=== PATIENT | female | born 1940 | race Caucasian/White ===

== ENCOUNTER → 2017-10-25 10:40 | Outpatient (CLI) | payer MEDICARE, OTHER, SELFPAY ==
[2017-10-25 13:00] LABS: ALB/GLOB Ratio 1.1 RATIO (0.9-2.4); AST(SGOT) 15 U/L (15-37); Alanine Aminotransfer ALT/SGPT 21 U/L (13-56); Alkaline Phosphatase 107 U/L (45-117); Anion Gap 6 (5-15); BUN 21 mg/dL (7-18); Calcium,Total 8.7 mg/dL (8.5-10.1); Chloride 104 mmol/L (98-107); Creatinine, Serum 0.81 mg/dL (0.55-1.02); EST Glomerular Filtration Rate 73 mL/min (>60); Est Glom Filt Rate - Afr Amer 88 mL/min (>60); Globulin 3.5 g/dL (2.2-4.2); Glucose 78 mg/dL (74-106); Potassium 4.4 mmol/L (3.5-5.1); Protein, Total 7.5 g/dL (6.4-8.2); Sodium Level 139 mmol/L (136-145)
== END ==
PROVIDERS: Family Provider Family Medicine; PCP Family Medicine; Visit Provider Family Medicine
DX: I10 Essential (primary) hypertension (principal)
CPT/HCPCS: 36415; 80053

== ENCOUNTER → 2018-07-25 14:21 | Outpatient (CLI) | payer MEDICARE, OTHER, SELFPAY ==
[2018-07-25 13:25] VITALS: BMI 18.9
[2018-07-25 15:55] LABS: Absolute Lymphocyte Count 2.24 X10^3/ul (0.83-4.51); Absolute Neutrophil Count 3.9 X10^3/uL (2.0-7.7); Basophil# 0.04 X10^3/uL; Basophil% 0.6 % (0-1); Eosinophil# 0.13 X10^3/uL; Eosinophils% 1.9 % (0-5); Hematocrit 41.5 % (37-47); Hemoglobin 13.7 g/dl (12.0-15.0); Lymphocyte # 2.24 X10^3/ul (4.0); Lymphocyte % 32.3 % (19-41); Mean Corpuscular Hgb 30.3 pg (27.0-32.0); Mean Corpuscular Volume 91.8 fL (81-99); Mean Platelet Vol. 9.1 fl (6.2-12.0); Monocyte# 0.62 X10^3/uL; Monocyte% 8.9 % (0-10); Neutrophil # 3.89 X10^3/uL (2.7-7.7); Neutrophil % 56.2 % (47-70); POSITIVE COUNT NO; POSITIVE DIFFERENTIAL NO; POSITIVE MORPHOLOGY NO; Platelet Count 319 K/mm3 (150-450); RBC Distribution Width CV 13.1 % (11.6-14.6); RBC Distribution Width SD 43.1 fl (35.1-43.9); Red Blood Count 4.52 M/mm3 (4.2-5.4); White Blood Count 6.9 K/mm3 (4.4-11.0)
[2018-07-25 16:15] LABS: BUN 22 mg/dL (7-18); BUN/Creat Ratio 26.3 RATIO (10-20); Creatinine, Serum 0.84 mg/dL (0.55-1.02); EST Glomerular Filtration Rate 70 mL/min (>60); Est Glom Filt Rate - Afr Amer 84 mL/min (>60); Glucose 99 mg/dL (74-106)
[2018-07-25 16:16] LABS: ALB/GLOB Ratio 1.1 RATIO (0.9-2.4); AST(SGOT) 19 U/L (15-37); Alanine Aminotransfer ALT/SGPT 25 U/L (13-56); Albumin, Serum 3.8 g/dL (3.2-5.0); Alkaline Phosphatase 123 U/L (45-117); Anion Gap 7 (5-15); Calcium,Total 8.8 mg/dL (8.5-10.1); Chloride 101 mmol/L (98-107); Globulin 3.5 g/dL (2.2-4.2); Lipase 256 U/L (73-393); Protein, Total 7.3 g/dL (6.4-8.2); Sodium Level 138 mmol/L (136-145)
[2018-07-25 16:26] LABS: Color, Urine Yellow (Yellow); Glucose, Dipstick Normal (Normal); Ketone-Dipstick Negative (Negative); Leukocyte Esterase-Dipstick Negative /ul (Negative); Nitrite-Dipstick Negative (Negative); Occult Blood-Urine Negative /ul (Negative); Protein-Dipstick Negative (Negative); Urine Bilirubin Dipstick Negative (Negative); Urine Clarity Clear (Clear); Urine Urobilinogen Normal (Normal)
--- OUTSIDE RECORDS SUMMARY | 2018-09-10 11:37 | XMS RPT_ITS ---
:1940 Author Organization [facility] Care Team Providers Name Role Phone Joey Snyder Attending Unavailable Brown, Joye Referring Unavailable Brown, Joey Attending Unavailable Brown, Joey Referring Unavailable Brown, Joey Primary Care Unavailable Brown, Joey Attending Unavailable Brown, Joey Referring Unavailable Brown, Joey Primary Care Unavailable Brown, Joey Attending Unavailable Brown, Joey Referring Unavailable Brown, Joey Primary Care Unavailable Minal Mccarty Attending Unavailable Brown, Joey Referring Unavailable PROBLEMS PROBLEMS DATE TYPE CONDITION / CODE ATTENDING STATUS SOURCE 07/25/2018 Unknown R10.13 - Brown, Joey Active [facility] Epigastric pain / Community R10.13(ICD-10) Hospital Repository 07/25/2018 Unknown R34 - Anuria and Brown, Joey Active [facility] oliguria / Community R34(ICD-10) Hospital Repository 10/24/2017 Unknown I10 - Essential Brown, Joey Active [facility] (primary) Community hypertension / Hospital I10(ICD-10) Repository PROCEDURES PROCEDURES No Procedure Records FoundRESULTS RESULTS INTERNAL MEDICINE Observed: 07/25/2018 Status: F Source: [facility] OFFICE VISIT 2:39 PM [facility] Internal Medicine [address] [place] [address] [place] [address] OFFICE VISIT Date of Service: 07/25/18 MR#: [id number] Acct: [id number] Name: MANFRED ROSE Rep #: [id number] : 1940 Provider: Joey Snyder DO Age/Sex: 78/F Location: [facility] [place] [place] Status: Signed Intake Vital Signs07/25/18 Body Mass Index (BMI) 18.9 07/25/18 Height 5 ft 3 in 07/25/18 Weight: 105 lb 07/25/18 Body Mass Index (BMI) 18.6 07/25/18 Blood Pressure 174/81 H Intake Visit Reasons: PROBLEM WITH BP MED Chief Complaint: Problem with med. Not feeling well Is patient in pain?: No Allergies Penicillins Adverse Reaction (Verified 07/25/18 13:22) Unknown Medications hydrochlorothiazide 12.5 mg tablet 12.5 mg PO QAM #90 tab 10/24/17 [Rx Confirmed 07/25/18] dexlansoprazole 60 mg capsule,biphase delayed release 60 mg PO DAILY #30 cap 07/25/18 [Rx Confirmed 07/25/18] Nurse's Note: Pt states that she has cut dose of the HCTZ down to 1/4 pill qd PFSH Medical History Hearing loss (Chronic) Seasonal allergies (Chronic) Surgical History Cataracts, bilateral (Acute) History of tonsillectomy (Acute) Family History Mother Hypertension Father Cancer Social History Smoking Status: Never smoker alcohol intake: never substance use type: does not use what type of physical activity do you participate in: walking frequency: 3-4 times per week HPI HPI Chief Complaint: Problem with med. Not feeling well Details: MANFRED ROSE, is a 78 F who presents to the office today for epigastric pain, nighttime, not food related. Also to discuss blood pressure problems. ROS Const Constitutional: No chills, fatigue, fever(s), frequent falls, malaise, weakness, sleep problems or change in appetite Eyes Eyes: No blurry vision, change in vision, double vision, discharge or visual disturbances ENT ENT: No abnormal hearing, ear pain, ear pressure, tinnitus or dizziness/vertigo Resp Respiratory: No cough, shortness of breath or wheezing Cardio Cardiology: No chest pain at rest, chest pain with exertion, shortness of breath, dyspnea on exertion, generalized swelling, irregular heart rhythm, lightheadedness, orthopnea, fast heart rate or palpitations Gastro GI: Positive for abdominal pain (Stomach area) and nausea/dyspepsia; no change in bowel habits, constipation, diarrhea or vomiting Genitourinary-Female: Positive for difficulty urinating; no burning urination, painful urination, urinary incontinence, urinary frequency, urinary urgency, urinary hesitancy, urinary retention, Frequent nighttime urination/ nocturia, sexual problems, genital lesions, abnormal vaginal bleeding, pelvic pain, vaginal dryness, vaginal odor or Vaginal Itching Musc Musculoskeletal: Positive for muscle cramps (legs); no joint pain, back pain, joint swelling, limited range of motion, numbness or tingling Skin Skin: No change in skin color, itching, rash or wounds Breast Breast: No breast lump or breast pain Neuro Neurology: No frequent falls, weakness, visual disturbances, abnormal hearing, numbness, tingling, unsteady gait/balance, dizziness, loss of vision or memory loss Psych Psychiatric: No change in appetite, No memory loss, No anxiety, No depression, No Thoughts of harming yourself/Others Endo Endocrine: No fatigue, heat intolerance, increased thirst/drinking, increased hunger or increased urination Aller/Imm Allergy/Immunologic: No wheezing, itchy eyes or seasonal allergy symptoms Ruy/Lymp Hematologic/Lymphatic: No easy bleeding, easy bruising or enlarged lymph nodes Exam Const General: cooperative, healthy appearing Nutritional Appearance: average body habitus Orientation: alert Limitations: altered mental status Chest Chest palpation AND inspection: normal inspection of the chest Resp Effort AND Inspection: normal respiratory effort Auscultation: Bilateral: Clear to Auscultation Cardio Palpation: normal PMI Rate: regular rate Rhythm: regular rhythm GI Inspection: normal to inspection Auscultation: normal bowel sounds Percussion: normal to percussion Palpation: soft, no hepatosplenomegaly Skin General: no rashes or lesions noted Neuro General: alert, awake, oriented x3 Extrem General: normal to inspection Psych Mental Status: mental status grossly normal Assessment AND Plan Problems 1. Epigastric pain R10.13 Plan This patient was seen with complaints related to her taking blood pressure medicine and feeling like it could be causing her epigastric pain. She is only been taking a quarter of a 12.5 mg hydrochlorothiazide which is basically a placebo dose and I told her that would not do anything in terms of side effects or in terms of being beneficial for her high blood pressure. But in checking carefully her blood pressure with multiple coughs at multiple sites her pressure really seems to be normal and I do not think the epigastric pain is anything to do with blood pressure or medicine. I think she is either developing an ulcer having perhaps a pancreatic problem and blood work was ordered to evaluate this. Also she complains of urinating less while taking hydrochlorothiazide which did not make sense but justify doing urinalysis to make sure she is not having proteinuria or an extremely concentrated urine specimen. Orders Orders: Medications New: Coding Level of Care Code Off vis,est,level 3 Diagnoses Epigastric pain R10.13 07/25/18 1439 <Electronically signed by Joey Snyder DO> Date Joey Snyder DO Cosigner Signature: Date (if applicable) CC: CBC W/DIFF, AUTOMATED Collected: 07/25/2018 Status: F Source: [facility] 2:28 PM [facility] REPOSITORY TYPE CODE TESTS RESULT OUT OF RANGE REFERENCE UNITS LAB L100.1000 4.4-11.0 K/mm3 Normal WBC 6.9 LAB L100.1200 4.2-5.4 M/mm3 Normal RBC 4.52 LAB L100.1300 12.0-15.0 g/dl Normal HGB 13.7 LAB L100.1400 37-47 % Normal HCT 41.5 LAB L100.1500 81-99 fL Normal MCV 91.8 LAB L100.1600 27.0-32.0 pg Normal MCH 30.3 LAB L100.1700 32-36 g/gl Normal MCHC 33.0 LAB L100.1810 11.6-14.6 % Normal RDW CV 13.1 LAB L100.1820 35.1-43.9 fl Normal RDW SD 43.1 LAB L100.1900 150-450 K/mm3 Normal PLT 319 LAB L100.2000 6.2-12.0 fl Normal MPV 9.1 LAB L100.2100 47-70 % Normal NEUT% 56.2 LAB L100.2200 19-41 % Normal LY% 32.3 LAB L100.2300 0-10 % Normal MONO% 8.9 LAB L100.2400 0-5 % Normal EO% 1.9 LAB L100.2500 0-1 % Normal BASO% 0.6 LAB L100.2550 0.0-0.9 % Normal IM GRAN % 0.100 Result Comment: IG% - Immature Granulocytes (promyelocytes, myelocytes and metamyelocytes) > 1% indicates that a LEFT SHIFT is Present. LAB L100.2620 2.0-7.7 X10 3/uL Normal Absolute Neut 3.9 LAB L100.2720 0.83-4.51 X10 3/ul Normal Absolute Lymph 2.24 Performed By: #### L100.0100 #### [facility] [address] [place], [address] COMPREHENSIVE METABOLIC Collected: 07/25/2018 Status: F Source: [facility] 2:28 PM [facility] REPOSITORY TYPE CODE TESTS RESULT OUT OF RANGE REFERENCE UNITS LAB L501.0100 74-106 mg/dL Normal GLU 99 Result Comment: Please note revised GLUCOSE reference range effective 2017. LAB L501.1000 7-18 mg/dL High BUN 22 LAB L501.1100 0.55-1.02 mg/dL Normal CREAT,SERUM 0.84 Result Comment: The validity of the calculated GFR AND GFRAA in patients over 70 years has not been determined. Clinical correlation is essential. LAB L501.1110 >60 mL/min Normal EST GFR 70 Result Comment: Non- GFR Calc LAB L501.1115 >60 mL/min Normal EST GFR - AA 84 Result Comment: GFR Calc LAB L501.1300 10-20 RATIO High BUN/CRE 26.3 LAB L501.1500 6.4-8.2 g/dL T Normal PROT 7.3 LAB L501.1800 3.2-5.0 g/dL Normal ALB 3.8 LAB L501.1950 2.2-4.2 g/dL Normal GLOB 3.5 LAB L501.2000 0.9-2.4 RATIO Normal A/G 1.1 LAB L501.2200 8.5-10.1 mg/dL CA Normal 8.8 LAB L501.4100 15-37 U/L Normal AST 19 LAB L501.4305 45-117 U/L High ALK P 123 LAB L501.4405 13-56 U/L Normal ALT 25 LAB L501.4600 0.20-1.00 mg/dL T Normal BILI 0.20 LAB L501.5300 136-145 mmol/L NA Normal 138 LAB L501.5600 3.5-5.1 mmol/L K Normal 4.0 LAB L501.5900 98-107 mmol/L CL Normal 101 LAB L501.6100 21.0-32.0 mmol/L Normal CO2 30.0 LAB L501.6200 5-15 Normal GAP 7 Performed By: #### L500.4050, L501.2450 #### [facility] [address], [place], [id number] LIPASE Collected: 07/25/2018 Status: F Source: [facility] 2:28 PM [facility] REPOSITORY TYPE CODE TESTS RESULT OUT OF RANGE REFERENCE UNITS LAB L501.2450 73-393 U/L Normal LIPASE 256 Performed By: #### L500.4050, L501.2450 #### [facility] [address], [place], [address] URINALYSIS, ROUTINE Collected: 07/25/2018 Status: F Source: [facility] (DIPSTICK) 2:28 PM [facility] REPOSITORY Order Comment: How was Urine Obtained? TOOL DESIGNER TO SPECIFY TYPE CODE TESTS RESULT OUT OF RANGE REFERENCE UNITS LAB L400.3000 Yellow COLOR Normal Yellow LAB L400.3050 Clear Normal CLARITY Clear LAB L400.3200 Normal mg/dl Normal GLUCOSE, UR Normal LAB L400.3300 Negative mg/dL Normal BILIRUBIN URINE Negative LAB L400.3400 Negative mg/dl Normal KETONE UR Negative LAB L400.3465 1.002-1.030 Normal SP.GR. DIPSTX 1.020 LAB L400.3550 5.0 - 8.0 pH UR Normal 6.0 LAB L400.3600 Negative mg/dl PROT Normal DIPSTX Negative LAB L400.3700 Normal mg/dl Normal UROBILI Normal LAB L400.3750 Negative Normal NITRITE UR Negative LAB L400.3780 Negative /ul Normal OCCULT BLOOD-UR Negative LAB L400.3800 Negative /ul LEUK Normal ESTERASE Negative Performed By: #### L400.2010 #### [facility] [address] [place], [address] COMPREHENSIVE METABOLIC Collected: 10/25/2017 Status: F Source: [facility] 10:51 AM [facility] REPOSITORY TYPE CODE TESTS RESULT OUT OF RANGE REFERENCE UNITS LAB L501.0100 74-106 mg/dL Normal GLU 78 Result Comment: Please note revised GLUCOSE reference range effective 2017. LAB L501.1000 7-18 mg/dL High BUN 21 LAB L501.1100 0.55-1.02 mg/dL Normal CREAT,SERUM 0.81 Result Comment: The validity of the calculated GFR AND GFRAA in patients over 70 years has not been determined. Clinical correlation is essential. LAB L501.1110 >60 mL/min Normal EST GFR 73 Result Comment: Non- GFR Calc LAB L501.1115 >60 mL/min Normal EST GFR - AA 88 Result Comment: GFR Calc LAB L501.1300 10-20 RATIO High BUN/CRE 26.0 LAB L501.1500 6.4-8.2 g/dL T Normal PROT 7.5 LAB L501.1800 3.2-5.0 g/dL Normal ALB 4.0 LAB L501.1950 2.2-4.2 g/dL Normal GLOB 3.5 LAB L501.2000 0.9-2.4 RATIO Normal A/G 1.1 LAB L501.2200 8.5-10.1 mg/dL CA Normal 8.7 LAB L501.4100 15-37 U/L Normal AST 15 LAB L501.4305 45-117 U/L Normal ALK P 107 LAB L501.4405 13-56 U/L Normal ALT 21 Result Comment: Please note revised ALT reference range effective 2017. LAB L501.4600 0.20-1.00 mg/dL Normal T BILI 0.40 LAB L501.5300 136-145 mmol/L Normal NA 139 LAB L501.5600 3.5-5.1 mmol/L Normal K 4.4 LAB L501.5900 98-107 mmol/L Normal CL 104 LAB L501.6100 21.0-32.0 mmol/L Normal CO2 29.0 LAB L501.6200 5-15 Normal GAP 6 Performed By: #### L500.4050 #### [facility] [address] [place], [address] INTERNAL MEDICINE Observed: 10/24/2017 Status: F Source: [facility] OFFICE VISIT 2:16 PM [facility] REPOSITORY [facility] [address] [place] [address] OFFICE VISIT Date of Service: 10/24/17 MR#: [id number] Acct: [id number] Name: MANFRED ROSE Rep #: [id number] : 1940 Provider: Joey Snyder DO Age/Sex: 77/F Location: [facility] Status: Signed Intake Vital Signs10/24/17 Height 5 ft 3 in Intake Visit Reasons: BP GOING UP, NOT ON MED Chief Complaint: elevated BP Is patient in pain?: No Allergies Penicillins Adverse Reaction (Verified 12/19/15 20:23) Unknown Medications hydrochlorothiazide 12.5 mg tablet 12.5 mg PO QAM #90 tab 10/24/17 [Rx Confirmed 10/24/17] PFSH Medical History Hearing loss (Chronic) Seasonal allergies (Chronic) Surgical History Cataracts, bilateral (Acute) History of tonsillectomy (Acute) Family History Mother Hypertension Father Cancer Social History Smoking Status: Never smoker alcohol intake: never substance use type: does not use what type of physical activity do you participate in: walking frequency: 3-4 times per week HPI HPI Chief Complaint: elevated BP Details: MANFRED ROSE, is a 77 F who presents to the office today for elevated blood pressure, at this time she has no symptoms ROS Const Constitutional: No weight change, body ache, chills, fatigue, sleep problems, fever(s), change in appetite, snoring, weakness, frequent falls, headache(s) or excessive sweating Eyes Eyes: No change in vision, eye pain, light sensitivity or blurry vision ENT ENT: No headache(s), abnormal hearing, ear pain, tinnitus, nasal congestion, sore throat or neck pain Resp Respiratory: No snoring, cough, shortness of breath or wheezing Cardio Cardiology: No excessive sweating, chest pain at rest, chest pain with exertion, shortness of breath, dyspnea on exertion, palpitations, orthopnea or lightheadedness Gastro GI: No abdominal pain, change in bowel habits, constipation, diarrhea, vomiting, nausea/dyspepsia or cramping Musc Musculoskeletal: No neck pain, abnormal walking, joint pain, back pain, limited range of motion, numbness or tingling Skin Skin: No redness, dry skin, itching, lesions, wounds or rash Neuro Neurology: No weakness, frequent falls, headache(s), abnormal hearing, abnormal walking, numbness, tingling, abnormal speech, dizziness or memory loss Psych Psychiatric: No change in appetite, No memory loss, No anxiety, No depression, No Thoughts of harming yourself/Others Endo Endocrine: No fatigue, excessive sweating, cold intolerance, increased thirst/drinking, heat intolerance, flushing or increased hunger Aller/Imm Allergy/Immunologic: No wheezing, itchy eyes, hives or seasonal allergy symptoms Ruy/Lymp Hematologic/Lymphatic: No easy bleeding, easy bruising or enlarged lymph nodes Exam Const General: cooperative, healthy appearing Nutritional Appearance: average body habitus Orientation: alert Limitations: altered mental status Chest Chest palpation AND inspection: normal inspection of the chest Resp Effort AND Inspection: normal respiratory effort Auscultation: Bilateral: Clear to Auscultation, Diminished Lung Sounds, Diminished Base Cardio Palpation: normal PMI Rate: regular rate Rhythm: regular rhythm GI Inspection: normal to inspection Skin General: no rashes or lesions noted Neuro General: alert, awake, oriented x3 Extrem General: normal to inspection Psych Mental Status: mental status grossly normal Assessment AND Plan Problems 1. Hypertension I10 2. Essential hypertension I10 Plan Labs ordered and medication started. Will get nurse visit in two weeks to recheck blood pressure. Orders Orders: Medications New: Plan Detail Follow Up 2 Weeks (nurse visit for HTN) Coding Level of Care Code Off vis,est,level 3 Diagnoses Hypertension I10 Essential hypertension I10 10/24/17 1416 <Electronically signed by Joey Snyder DO> Date Joey Snyder DO Cosigner Signature: Date (if applicable) CC: ALLERGIES ALLERGIES DATE TYPE / CODE NAME / CODE REACTION SEVERITY SOURCE 07/25/2018 Drug Penicillins/ Unknown Unknown [facility] Allergy/4160 [id number]([facility] [address](SNOMED XNORM) Repository CT) ENCOUNTERS ENCOUNTERS ADMIT/DISCHARGE ACCOUNT ADMITTING ENCOUNTER LOCATION SOURCE NUMBER CLASS 07/25/2018 [id number] Ambulatory Richie [facility]ie 3 [facility] ing:LAB Repository 07/25/2018/ [id number] Ambulatory BMSBuilding:B [place] [address] [place] Repository 11/07/2017 [id number] Ambulatory BMSBuilding:B [facility] [address] [facility] Repository 10/25/2017 [id number] Ambulatory Richie Richie 0 [facility] ing:LAB Repository 10/24/2017/ [id number] Ambulatory BMSBuilding:B [place] [address] [facility] Repository PAYERS PAYERS ENCOUNTER GUARANTOR PAYER SUBSCRIBER SOURCE 07/25/2018 DMITRIY Sandoval [id number] N Insurance:MEDICARE HOSTETLERDOB: [facility] PART A [id number] Number: Repository [id number]: (330 [id number] [phone] (HP) Date:2018-07-25 07/25/2018 Secondary MANFRED Godfrey Richie Insurance:EVERENCE HOSTETLERDOB: [facility] [id number] Hospital Number: Repository [id number] Date:[id number] [place] [place] [place] [address]PD: 07/25/2018 Tertiary NOT GIVENUNK Richie Insurance:SELF PAY [facility] Number: Effective Repository Date:2018-07-25 07/25/2018 MANFRED M Primary MANFRED Godfrey Richie [id number] N Insurance:MEDICARE HOSTETLERDOB: [facility] PART A [facility] [id number] Number: Repository [id number]: 330 [id number] [phone] (HP) Date:2018-07-24 07/25/2018 Secondary MANFRED M [place] Insurance:EVERENCE HOSTETLERDOB: [facility] [id number] Hospital Number: Repository [id number] Date:[id number] [place] [place] [address]BP: 07/25/2018 Tertiary NOT GIVENUNK [place] Insurance:SELF PAY [facility] Number: Effective Repository Date:2018-07-25 11/07/2017 Dmitriy Hernandez Primary MANFRED [place] [id number] N Insurance:MEDICARE HOSTETLERDOB: [facility] PART A [facility] [id number] Number: Repository [id number]: 330 [id number] [phone] (HP) Date:2017-10-24 11/07/2017 Secondary MANFRED M Richie Insurance:EVERENCE HOSTETLERDOB: [facility] [id number] Hospital Number: Repository [id number] Date:[id number] [address] [place] [address]XI: 11/07/2017 Tertiary NOT GIVENUNK Richie Insurance:SELF PAY [facility] Number: Effective Repository Date:2017-10-24 10/25/2017 Dmitriy Hernandez Primary MANFRED Sandoval [id number] N Insurance:MEDICARE HOSTETLERDOB: [facility] [id number] Number: Repository [id number]: 330 [id number] [phone] (HP) Date:2017-10-25 10/25/2017 Secondary MANFRED Sandoval Insurance:EVERENCE HOSTETLERDOB: [facility] [id number] Hospital Number: Repository [id number] Date:[id number] [place] [place] [place] [address]OR: 10/25/2017 Tertiary NOT GIVENUNK Richie Insurance:SELF PAY [facility] Number: Effective Repository Date:2017-10-25 10/24/2017 Dmitriy Hernandez Primary MANFRED [place]oval [id number] N Insurance:MEDICARE HOSTETLERDOB: [facility] [id number] Number: Repository [id number]: 330 [id number] [phone] (HP) Date:2017-10-12 10/24/2017 Secondary MANFRED Sandoval Insurance:EVERENCE HOSTETLERDOB: [facility] [id number] Hospital Number: Repository [id number] Date:[id number] [address] [place] [address]ZD: 10/24/2017 Tertiary NOT GIVENUNK [place] Insurance:SELF PAY [facility] Number: Effective Repository Date:2017-10-12
== END ==
PROVIDERS: Family Provider Family Medicine; PCP Family Medicine; Referring Provider Family Medicine; Visit Provider Family Medicine
DX: R10.13 Epigastric pain (principal); R34 Anuria and oliguria
CPT/HCPCS: 36415; 80053; 81002; 83690; 85025

== ENCOUNTER → 2019-07-03 10:22 | Outpatient (CLI) | payer MEDICARE, OTHER, SELFPAY ==
[2019-06-24 16:16] VITALS: BMI 18.9
--- NOTE | 2019-07-03 10:25 | RAD_ITS ---
STUDY: X-RAY CHEST REASON FOR EXAM: Female, 79 years old. Chronic cough TECHNIQUE: PA and lateral views of the chest. COMPARISON: None. FINDINGS: The lungs are clear and expanded. There is no demonstrated pleural abnormality. Normal size heart. Normal mediastinum and rei. Normal visualized pulmonary arteries. There are calcified plaques of the aortic arch. There is demineralization of the osseous structures. Normal visualized ribs, clavicles, and shoulders. There is no demonstrated abnormality of the visualized soft tissue structures of the upper abdomen. RAD/Chest PA and Lateral IMPRESSION: Calcified plaques of the aortic arch. No acute cardiopulmonary disease process is seen. Electronically Signed: Mitch Tipton MD at 23:02 EST , Service support ,
== END ==
PROVIDERS: Family Provider Family Medicine; PCP Family Medicine; Referring Provider Family Medicine; Visit Provider Family Medicine
DX: R05 Cough (principal)
CPT/HCPCS: 71046

== ENCOUNTER → 2019-07-17 08:48 | Outpatient (CLI) | payer MEDICARE, OTHER, SELFPAY ==
[2019-07-07 13:06] VITALS: BMI 18.9
== END ==
PROVIDERS: Family Provider Family Medicine; PCP Family Medicine; Referring Provider Otolaryngology; Visit Provider Otolaryngology
DX: R05 Cough (principal)
CPT/HCPCS: 87070; 87205

== ENCOUNTER 2020-09-10 14:02 | Outpatient (RCR) | payer MEDICARE, SELFPAY ==
[2019-07-07 13:06] VITALS: BMI 18.9
== END 2020-09-10 23:59 ==
LOC: IMMUN 14:02
PROVIDERS: PCP Family Medicine; Visit Provider Family Medicine
DX: Z23 Encounter for immunization (principal)
CPT/HCPCS: 0011A; 0012A; 91301

== ENCOUNTER → 2020-12-01 11:49 | Outpatient (CLI) | payer MEDICARE, OTHER, SELFPAY ==
[2020-12-01 11:18] VITALS: BMI 17.7
[2020-12-01 14:24] LABS: Absolute Lymphocyte Count 2.48 X10^3/uL (0.83-4.51); Absolute Neutrophil Count 3.8 X10^3/uL (2.0-7.7); Basophil# 0.05 X10^3/uL; Basophil% 0.7 % (0-1); Eosinophils% 1.4 % (0-5); Hematocrit 42.4 % (37-47); Hemoglobin 13.3 g/dL (12.0-15.0); Lymphocyte # 2.48 X10^3/ul (0.83-4.51); Lymphocyte % 34.9 % (19-41); Mean Corp Hgb Conc 31.4 g/dL (32-36); Mean Corpuscular Hgb 29.5 pg (27.0-32.0); Mean Platelet Vol. 9.1 fl (6.2-12.0); Monocyte# 0.65 X10^3/uL; Monocyte% 9.1 % (0-10); NRBC Flagged by Analyzer 0 % (0-5); Neutrophil # 3.82 X10^3/uL (2.7-7.7); Neutrophil % 53.8 % (47-70); Platelet Count 309 K/mm3 (150-450); RBC Distribution Width CV 13.3 % (11.6-14.6); Red Blood Count 4.51 M/mm3 (4.2-5.4); White Blood Count 7.1 K/mm3 (4.4-11.0)
[2020-12-01 14:43] LABS: Anion Gap 4 (5-15); BUN 21 mg/dL (7-18); BUN/Creat Ratio 22.8 RATIO (10-20); Calcium,Total 8.7 mg/dL (8.5-10.1); Chloride 102 mmol/L (98-107); Creatinine, Serum 0.92 mg/dL (0.55-1.02); EST Glomerular Filtration Rate 62 mL/min (>60); Est Glom Filt Rate - Afr Amer 75 mL/min (>60); Glucose 84 mg/dL (74-106); Potassium 4.5 mmol/L (3.5-5.1); Sodium Level 136 mmol/L (136-145)
== END ==
PROVIDERS: PCP Family Medicine; Referring Provider Family Medicine; Visit Provider Family Medicine
DX: R53.83 Other fatigue (principal); R10.13 Epigastric pain
CPT/HCPCS: 36415; 80048; 84443; 85025

== ENCOUNTER → 2021-12-07 | Outpatient (CLI) | payer MEDICARE, OTHER, SELFPAY ==
[2021-12-07 12:12] LABS: Absolute Lymphocyte Count 1.69 X10^3/uL (0.83-4.51); Basophil# 0.05 X10^3/uL; Basophil% 0.8 % (0-1); Eosinophil# 0.09 X10^3/uL; Eosinophils% 1.4 % (0-5); Hematocrit 42.4 % (37-47); Hemoglobin 13.4 g/dL (12.0-15.0); Lymphocyte # 1.69 X10^3/ul (0.83-4.51); Mean Corp Hgb Conc 31.6 g/dL (32-36); Mean Corpuscular Hgb 29.8 pg (27.0-32.0); Mean Corpuscular Volume 94.4 fL (81-99); Mean Platelet Vol. 9.1 fl (6.2-12.0); Monocyte# 0.68 X10^3/uL; Monocyte% 10.5 % (0-10); NRBC Flagged by Analyzer 0 % (0-5); Neutrophil # 3.97 X10^3/uL (2.7-7.7); Platelet Count 351 K/mm3 (150-450); RBC Distribution Width CV 13.4 % (11.6-14.6); RBC Distribution Width SD 46.9 fl (35.1-43.9); Red Blood Count 4.49 M/mm3 (4.2-5.4); White Blood Count 6.5 K/mm3 (4.4-11.0)
[2021-12-07 12:31] LABS: Vitamin D,25 Hydroxy 21.9 ng/mL
[2021-12-07 12:34] LABS: AST(SGOT) 16 U/L (15-37); Alanine Aminotransfer ALT/SGPT 19 U/L (13-56); Albumin, Serum 3.7 g/dL (3.2-5.0); Alkaline Phosphatase 119 U/L (45-117); Anion Gap 6 (5-15); BUN 20 mg/dL (7-18); BUN/Creat Ratio 23.3 RATIO (10-20); Calcium,Total 8.9 mg/dL (8.5-10.1); Chloride 104 mmol/L (98-107); Creatinine, Serum 0.86 mg/dL (0.55-1.02); EST Glomerular Filtration Rate 67 mL/min (>60); Est Glom Filt Rate - Afr Amer 81 mL/min (>60); Globulin 3.7 g/dL (2.2-4.2); Glucose 93 mg/dL (74-106); Potassium 4.2 mmol/L (3.5-5.1); Protein, Total 7.4 g/dL (6.4-8.2); Sodium Level 138 mmol/L (136-145)
== END | disposition home or self-care (01) ==
LOC: BIMLAB 09:33
PROVIDERS: PCP Family Medicine; Visit Provider Family Medicine
DX: J30.2 Other seasonal allergic rhinitis (principal); M85.80 Other specified disorders of bone density and structure, unspecified site; R53.82 Chronic fatigue, unspecified
CPT/HCPCS: 36415; 80053; 82306; 85025

== ENCOUNTER → 2022-08-30 | Outpatient (CLI) | payer MEDICARE, OTHER, SELFPAY ==
[2022-08-30 15:30] LABS: Hematocrit 41.6 % (37-47); Hemoglobin 13.8 g/dL (12.0-15.0); Mean Corp Hgb Conc 33.2 g/dL (32-36); Mean Corpuscular Hgb 31.4 pg (27.0-32.0); Mean Corpuscular Volume 94.5 fL (81-99); Platelet Count 350 K/mm3 (150-450); RBC Distribution Width CV 13.2 % (11.6-14.6); RBC Distribution Width SD 45.6 fl (35.1-43.9); White Blood Count 7.4 K/mm3 (4.4-11.0)
[2022-08-30 15:42] LABS: Erythrocyte Sedimentation Rate 9 mm/hr (0-30)
[2022-08-30 16:24] LABS: CRP 4.78 mg/L (0.0-3.0)
== END | disposition home or self-care (01) ==
PROVIDERS: PCP Family Medicine; Referring Provider Ophthalmology; Visit Provider Ophthalmology
DX: H34.9 Unspecified retinal vascular occlusion (principal); R51.9 Headache, unspecified
CPT/HCPCS: 36415; 85027; 85652; 86140

== ENCOUNTER → 2022-08-31 | Outpatient (CLI) | payer MEDICARE, OTHER, SELFPAY ==
--- NOTE | 2022-08-31 13:28 | CDU_ITS ---
Reason For Study: Retinal artery occlusion Rt. Velocities/BP Lt. Velocities/BP Prox CCA 58.9/13.5 cm/sec. Prox CCA 57/9.7 cm/sec. Mid CCA 64.5/12.6 cm/sec. Mid CCA 64.5/14.5 cm/sec. Dist CCA 57/14.5 cm/sec. Dist CCA 57/13.5 cm/sec. Prox ICA 56/19.2 cm/sec. Prox ICA 51.3/11.6 cm/sec. Mid ICA 81.5/27.7 cm/sec. Mid ICA 54.1/19.2 cm/sec. Dist ICA 79.6/28.6 cm/sec. Dist ICA 52.2/16.3 cm/sec. Rt. ICA/CCA = 1.38. Lt. ICA/CCA = 0.95. Prox ECA 57.9/4.1 cm/sec. Prox ECA 55.1/4.1 cm/sec. Rt. Vert. 61.7/11.6 cm/sec. Lt. Vert. 72.1/21.1 cm/sec. Right Extracranial There is homogeneous, smooth atherosclerotic plaque noted in the right common carotid artery. There is intimal thickening but no significant atherosclerotic plaque noted in the right internal carotid artery. There is intimal thickening but no significant atherosclerotic plaque noted in the right external carotid artery. Antegrade flow is noted in the right vertebral artery. Left Extracranial There is homogeneous, smooth atherosclerotic plaque noted in the left common carotid artery. There is homogeneous, smooth atherosclerotic plaque noted in the left internal carotid artery. There is intimal thickening but no significant atherosclerotic plaque noted in the left external carotid artery. Antegrade flow is noted in the left vertebral artery. Procedure Carotid Duplex 39856. This is a Carotid Duplex examination using B-mode, color flow and specral Doppler. Exam performed in department. VL/Carotid Duplex Ultrasound Interpretation Summary Intimal thickening of the right internal carotid artery with less than 50% sten osis Less than 50% stenosis right external carotid artery Smooth plaque of the proximal left internal carotid artery with less than 50% s tenosis Less than 50% stenosis left external carotid artery Patent and antegrade vertebral arteries bilaterally Ordering Physician: Bill Ryder Referring Physician: Geoff Snyder M.D. Performed By: Maryjo Sapp RVT
== END | disposition home or self-care (01) ==
PROVIDERS: PCP Family Medicine; Visit Provider Ophthalmology
DX: H34.231 Retinal artery branch occlusion, right eye (principal)
CPT/HCPCS: 93880

== ENCOUNTER 2022-09-11 14:57 | Inpatient (IN) | payer MEDICARE, OTHER, SELFPAY ==
[2022-09-11] VITALS (22 sets, daily range): BP systolic 109–232; BP diastolic 58–115; PULSE 71–94; RESP 14–22; TEMP 36–36.8; O2SAT 95–100; BMI 17.8; BMI 18.1; BMI 17.1
--- NOTE | 2022-09-11 15:19 | EX.ED.DYSGE1 ---
HPI History of Present Illness Chief Complaint: Neuro S/Sx Informant: patient Onset/Context/Timing Onset: Today Context: Sudden Onset Timing: Intermittent and Lasts (Approximately 5 minutes) Quality: Spinning Location: Head Worsened by: Certain positions and sleeping on her right side Relieved by: Nothing Narrative Narrative: Patient presents with dizziness that began today. Patient states that it felt like a spinning sensation. Patient states it comes and goes. Patient states it only last about 5 minutes. Patient states it is worse when she sleeps on her right side and moves her head in certain positions. Patient states nothing makes it better. Patient admits to a mild occipital headache. Patient admits to some shortness of breath with exertion. Patient admits to some chest tightness. Patient denies any fevers or chills. Patient denies any visual changes. Prior similar symptoms: Yes PFSH PFSH Medical History Hearing loss History of squamous cell carcinoma Seasonal allergies Home Medications NK 09/11/22 [History Last Taken Unknown] Allergy/AdvReac Type Severity Reaction Status Date / Time Penicillins AdvReac Unknown Verified 09/11/22 14:57 Family History Mother Hypertension Father Cancer Surgical History Cataracts, bilateral History of tonsillectomy Social History Smoking Status: Never smoker alcohol intake: never substance use type: does not use what type of physical activity do you participate in: walking frequency: 3-4 times per week ROS ROS ED Constitutional Constitutional ED: Denies chills or fever(s) Eyes Eyes: Denies blurry vision or change in vision ENT ENT ED: Denies rhinorrhea or sore throat Cardiovascular Cardiovascular: Reports chest pain; Denies palpitations Respiratory/Chest Respiratory/Chest: Reports cough and dyspnea on exertion Gastrointestinal Gastrointestinal: Denies nausea or vomiting Genitourinary Genitourinary ED: Denies dysuria or hematuria Musculoskeletal Musculoskeletal: Denies back pain or neck pain Integumentary Denies abscess or rash Neurologic Neurologic: Reports headache(s); Denies weakness Allergic/Immunologic Allergic/Immunologic ED: Denies mouth swelling or urticaria EXAM Physical Exam Const Vital Signs: 09/11/22 14:58 09/11/22 15:01 09/11/22 15:04 Temperature 96.8 F L Temperature Source Temporal Pulse Rate 88 84 88 Respiratory Rate 20 H 18 19 H Blood Pressure 232/108 H 213/91 H 229/100 H Blood Pressure Mean 149 131 143 Pulse Ox 97 99 99 Oxygen Delivery Method Room Air Room Air Room Air 09/11/22 16:26 09/11/22 18:00 09/11/22 18:44 Temperature Temperature Source Pulse Rate 71 72 77 Respiratory Rate 19 H 18 18 Blood Pressure 231/111 H 203/103 H Blood Pressure Mean 151 136 Pulse Ox 99 100 97 Oxygen Delivery Method Room Air Room Air Room Air 09/11/22 20:08 09/11/22 20:48 Temperature Temperature Source Pulse Rate Respiratory Rate Blood Pressure 212/99 H 200/97 H Blood Pressure Mean 136 131 Pulse Ox Oxygen Delivery Method Positive well nourished and well developed General Appearance ED: well developed and NAD HEENT Reports moist mucous membranes Eyes PERRL and EOMs intact bilaterally Eyes Narrative: There is no nystagmus noted. Neck supple and no JVD Resp normal respiratory effort and clear to auscultation bilaterally Cardio regular rate and regular rhythm GI normal to inspection, nondistended, normoactive bowel sounds and non-tender Palpation: soft Extremity normal to inspection General Extremety ED: Negative for edema or tenderness General Extremity: Negative for edema Neuro oriented x3, CN's II-XII intact bilaterally and no sensory deficits noted Sensorium / Orientation: alert Motor Exam: strength 5/5 throughout Psych mental status grossly normal Skin no rashes or lesions noted MDM MDM MDM Narrative Medical decision making narrative: Patient was given a dose of labetalol here. Differential diagnosis includes benign positional vertigo, labyrinthitis, TIA, ischemic stroke, hemorrhagic stroke, cardiac dysrhythmia, pulmonary embolism, hypertensive urgency/emergency, urinary tract infection, and arterial dissection. CT scan of the brain will be obtained to assess for stroke and hemorrhage. EKG will be obtained to assess for cardiac dysrhythmia and ischemia. CBC will be obtained to assess for anemia and leukocytosis. Basic metabolic profile will be obtained to assess for electrolyte abnormality and renal function. Troponin will be obtained to assess for cardiac ischemia. PA and lateral chest x-ray will be obtained to assess for congestive heart failure and pulmonary edema. D-dimer will be obtained to assess for pulmonary embolism or arterial dissection. BNP will be obtained to assess for congestive heart failure and right heart strain. Urinalysis will be obtained to assess for urinary tract infection. Lab Data Attestation: I reviewed the patient's lab results. Lab results narrative: CBC was reviewed and was within normal limits. D-dimer was reviewed and was normal. Basic metabolic profile was reviewed and was within normal limits. High-sensitivity troponin was reviewed and was normal. B natruretic peptide was reviewed and was only slightly elevated at 144. Urinalysis was reviewed and was normal. Labs: Laboratory Results - last 24 hr 09/11/22 09/11/22 09/11/22 15:00 15:00 15:00 WBC 7.7 RBC 4.72 Hgb 14.5 Hct 43.3 MCV 91.7 MCH 30.7 MCHC 33.5 RDW Std Deviation 44.3 H RDW Coeff of Jane 13.0 Plt Count 339 MPV 9.2 Immature Gran % (Auto) 0.300 Neut % (Auto) 56.2 Lymph % (Auto) 33.3 [place] % (Auto) 8.4 Eos % (Auto) 1.0 Baso % (Auto) 0.8 Absolute Neuts (auto) 4.3 Absolute Lymphs (auto) 2.55 Nucleated RBC % 0 D-Dimer Quant (PE/DVT) 0.41 Sodium Potassium Chloride Carbon Dioxide Anion Gap BUN Creatinine Estim Creat Clear Calc Est GFR (MDRD) Af Amer Est GFR (MDRD) Non-Af BUN/Creatinine Ratio Glucose Calcium Magnesium Troponin I High Sens B-Natriuretic Peptide Urine Color Urine Clarity Urine pH Ur Specific [place] Urine Protein Urine Glucose (UA) Urine Ketones Urine Occult Blood Urine Nitrite Urine Bilirubin Urine Urobilinogen Ur Leukocyte Esterase Urine RBC Urine WBC Ur Squamous Epith Cells Urine Bacteria Urine Mucus POC Glucose 117 H 09/11/22 09/11/22 09/11/22 15:00 15:00 15:00 WBC RBC Hgb Hct MCV MCH MCHC RDW Std Deviation RDW Coeff of Jane Plt Count MPV Immature Gran % (Auto) Neut % (Auto) Lymph % (Auto) [place] % (Auto) Eos % (Auto) Baso % (Auto) Absolute Neuts (auto) Absolute Lymphs (auto) Nucleated RBC % D-Dimer Quant (PE/DVT) Sodium 137 Potassium 3.9 Chloride 102 Carbon Dioxide 28.0 Anion Gap 7 BUN 18 Creatinine 0.94 Estim Creat Clear Calc 32.70 Est GFR (MDRD) Af Amer 72 Est GFR (MDRD) Non-Af 60 BUN/Creatinine Ratio 19.0 Glucose 108 H Calcium 9.3 Magnesium 2.3 Troponin I High Sens 6 B-Natriuretic Peptide 144.4 H Urine Color Urine Clarity Urine pH Ur Specific [place] Urine Protein Urine Glucose (UA) Urine Ketones Urine Occult Blood Urine Nitrite Urine Bilirubin Urine Urobilinogen Ur Leukocyte Esterase Urine RBC Urine WBC Ur Squamous Epith Cells Urine Bacteria Urine Mucus POC Glucose 09/11/22 16:20 WBC RBC Hgb Hct MCV MCH MCHC RDW Std Deviation RDW Coeff of Jane Plt Count MPV Immature Gran % (Auto) Neut % (Auto) Lymph % (Auto) [place] % (Auto) Eos % (Auto) Baso % (Auto) Absolute Neuts (auto) Absolute Lymphs (auto) Nucleated RBC % D-Dimer Quant (PE/DVT) Sodium Potassium Chloride Carbon Dioxide Anion Gap BUN Creatinine Estim Creat Clear Calc Est GFR (MDRD) Af Amer Est GFR (MDRD) Non-Af BUN/Creatinine Ratio Glucose Calcium Magnesium Troponin I High Sens B-Natriuretic Peptide Urine Color Yellow Urine Clarity Clear Urine pH 7.0 Ur Specific [place] 1.010 Urine Protein Negative Urine Glucose (UA) Normal Urine Ketones Negative Urine Occult Blood Negative Urine Nitrite Negative Urine Bilirubin Negative Urine Urobilinogen Normal Ur Leukocyte Esterase Negative Urine RBC 0 SEEN Urine WBC 0 SEEN Ur Squamous Epith Cells 0 SEEN Urine Bacteria 0 SEEN Urine Mucus 0 SEEN POC Glucose Radiography Diagnostic Testing: Clinical Impression(s) from Imaging Studies Brain CT 09/11/22 15:27 IMPRESSION: Atrophy and moderate periventricular white matter ischemic change. No acute bleed. If concern for acute infarct MRI recommended Electronically Signed: Caden Martin MD at 16:49 EST , Chest X-Ray 09/11/22 15:45 IMPRESSION: ASHD. No acute cardiopulmonary pathology Electronically Signed: Caden Martin MD at 16:51 EST , CT scan of the brain was obtained. On my independent review, there is no acute infarct or bleed. Radiologist also interpreted the CT scan and noted some atrophy and periventricular white matter ischemic changes. PA and lateral chest x-ray was obtained. There are 2 views. On my independent interpretation, there is no acute cardiopulmonary process noted. There is no infiltrate. There is no pneumothorax. Bony thorax is normal. There is no cardiomegaly. Radiologist also interpreted the x-ray and noted some atherosclerotic disease. EKG Initial EKG: Attestation: I personally reviewed and interpreted this EKG as follows: Interpretation: Sinus Rhythm (74 with occasional PACs) and No Acute Injury Pattern Comments: EKG was obtained. On my interpretation, it showed a normal sinus rhythm with occasional PACs with a rate of 74. VT interval, QRS interval, and QTc intervals were all normal. [place] was normal. There are no acute ST or T wave changes. Prior EKG tracings: not available for review Prior: No Prior Treatment and Re-Evaluation Narrative: Patient was given a dose of labetalol. Patient blood pressure remained elevated. Patient was given a repeat dose of labetalol. Patient's blood pressure still remained elevated. Patient was given a dose of hydralazine. Patient's blood pressure still remained elevated. Patient was given repeat dose of hydralazine. Patient was still having elevated blood pressures of 200/99. Because of this, I discussed the case with the hospitalist. She recommended placing the patient on a Cardene drip and will admit the patient to ICU. Patient and understand and are agreeable with this. All questions were answered. Critical Care Time Critical Care Time: Yes Critical care time (excluding procedures): 30-74 minutes (39), Including time spent:, Discussing w/Patient &/or Family/Grad Intern, Discussing w/Consultants, Arranging Admission or Transfer and Performing Direct Patient Care at Bedside Discharge Plan Triage Chief Complaint: Neuro S/Sx ED Provider: Armando Zuniga Dx/Rx/DC Orders Clinical Impression: Hypertensive urgency, Dizziness of unknown cause, Headache Primary Care Provider: Joey Snyder Disposition Disposition: [facility] Care [facility]
[2022-09-11 15:21] LABS: Bedside Glucose 117 mg/dL (74-106)
--- NOTE | 2022-09-11 15:27 | EKG12_ITS ---
Test Reason : NEURO Blood Pressure : / mmHG Vent. Rate : 074 BPM Atrial Rate : 074 BPM P-R Int : 176 ms QRS Dur : 086 ms QT Int : 430 ms P-R-T Axes : 088 058 039 degrees QTc Int : 477 ms Sinus rhythm with Premature atrial complexes Otherwise normal ECG Confirmed by CARLA BURKS, SALVADOR ([id number]), video effects editor CONRAD FOLWERS ([id number]) on 09/14/2022 10:10:17 AM Referred By: Confirmed By:SALVADOR AGUIRRE MD
--- NOTE | 2022-09-11 15:27 | CT_ITS ---
STUDY: CT BRAIN WITHOUT CONTRAST REASON FOR EXAM: Female, 82 years old. Dizziness RADIATION DOSAGE (If Supplied By Facility): CTDIvol = ( 47.06 ) mGy, DLP = ( 872.68 ) mGycm TECHNIQUE: Transaxial CT imaging of the brain was performed without administration of intravenous contrast material. Individualized dose optimization techniques were used for this CT. COMPARISON: No relevant priors. FINDINGS: Normal soft tissue structures. Normal calvarium. Calcification of cavernous carotids. Mild atrophy and moderate periventricular white matter ischemic changes.. Normal basal ganglia and thalami. Normal brainstem. Normal cerebellum. There is no intracranial hemorrhage. There are no findings of an acute ischemic infarction. Postsurgical changes of the orbits. Normal visualized paranasal sinuses. CT/Brain/Head without Contrast IMPRESSION: Atrophy and moderate periventricular white matter ischemic change. No acute bleed. If concern for acute infarct MRI recommended Electronically Signed: Caden Martin MD at 16:49 EST ,
[2022-09-11] MEDS: Labetalol (Prefilled) 20 MG/4 ML 10 MG IV ×2 (15:38→16:50)
[2022-09-11 15:43] LABS: Absolute Lymphocyte Count 2.55 X10^3/uL (0.83-4.51); Absolute Neutrophil Count 4.3 X10^3/uL (2.0-7.7); Basophil# 0.06 X10^3/uL; Basophil% 0.8 % (0-1); Eosinophil# 0.08 X10^3/uL; Hematocrit 43.3 % (37-47); Hemoglobin 14.5 g/dL (12.0-15.0); Lymphocyte # 2.55 X10^3/ul (0.83-4.51); Lymphocyte % 33.3 % (19-41); Mean Corp Hgb Conc 33.5 g/dL (32-36); Mean Corpuscular Hgb 30.7 pg (27.0-32.0); Mean Corpuscular Volume 91.7 fL (81-99); Mean Platelet Vol. 9.2 fl (6.2-12.0); Monocyte# 0.64 X10^3/uL; Monocyte% 8.4 % (0-10); NRBC Flagged by Analyzer 0 % (0-5); Neutrophil # 4.31 X10^3/uL (2.7-7.7); Neutrophil % 56.2 % (47-70); Platelet Count 339 K/mm3 (150-450); RBC Distribution Width SD 44.3 fl (35.1-43.9); Red Blood Count 4.72 M/mm3 (4.2-5.4); White Blood Count 7.7 K/mm3 (4.4-11.0)
--- NOTE | 2022-09-11 15:45 | RAD_ITS ---
STUDY: X-RAY CHEST REASON FOR EXAM: Female, 82 years old. Hypertension TECHNIQUE: AP portable COMPARISON: July 03, 2019. FINDINGS: The lungs are clear and expanded. There is no demonstrated pleural abnormality. Normal size heart. Normal mediastinum and rei. Normal visualized pulmonary arteries. Mild calcific plaquing of the aortic arch and descending thoracic aorta. Dorsal spine demonstrates degenerative change. Normal visualized ribs, clavicles, and shoulders. There is no demonstrated abnormality of the visualized soft tissue structures of the upper abdomen. RAD/Chest PA and Lateral IMPRESSION: ASHD. No acute cardiopulmonary pathology Electronically Signed: Caden Martin MD at 16:51 EST ,
[2022-09-11 15:58] LABS: Anion Gap 7 (5-15); BUN 18 mg/dL (7-18); Calcium,Total 9.3 mg/dL (8.5-10.1); Chloride 102 mmol/L (98-107); Creatinine, Serum 0.94 mg/dL (0.55-1.02); EST Glomerular Filtration Rate 60 mL/min (>60); Est Glom Filt Rate - Afr Amer 72 mL/min (>60); Glucose 108 mg/dL (74-106); Potassium 3.9 mmol/L (3.5-5.1); Sodium Level 137 mmol/L (136-145); Troponin-I HS 6 pg/mL (3.0-54.0)
[2022-09-11 16:08] LABS: BNP,B-Type NATRIURETIC PEPTIDE 144.4 pg/mL (0-100)
[2022-09-11 16:27] LABS: D-Dimer Quantitative (DVT/PE) 0.41 FEU/ug/m (0.27-0.49)
[2022-09-11 16:29] LABS: Bacteria 0 SEEN /hpf (None Seen); Mucous, Urine 0 SEEN /hpf (<or=2+); Red Blood Cells-Urine 0 SEEN /hpf (0-5); Squamous Epithelial Cells - UA 0 SEEN /hpf (5-10); White Blood Cells 0 SEEN /hpf (0-5)
[2022-09-11 16:31] LABS: Color, Urine Yellow (Yellow); Glucose, Dipstick Normal (Normal); Ketone-Dipstick Negative (Negative); Leukocyte Esterase-Dipstick Negative /ul (Negative); Nitrite-Dipstick Negative (Negative); Occult Blood-Urine Negative /ul (Negative); Protein-Dipstick Negative (Negative); Urine Bilirubin Dipstick Negative (Negative); Urine Clarity Clear (Clear); Urine Urobilinogen Normal (Normal)
[2022-09-11] MEDS: hydrALAZINE 20 MG/ML Vial 5 MG IV ×2 (18:11→18:50)
--- NOTE | 2022-09-11 20:50 | PCM.HP.STD ---
HPI - General General Date of Admission: 09/11/22 Date of Service: 09/11/22 Chief Complaint: Vertigo, headache, chest pain, dyspnea. HPI Narrative The patient is an 82 y/o F w/ PMHx: Allergic Rhinitis, Hx Squamous cell carcinoma who presents to the [facility] ED on 09/11/22 with history of onset dizziness beginning on day of presentation reporting sensation as a spinning-like sensation coming and going intermittently although when it does, it lasts approximately 5 minutes, does persist even if she is resting especially if she sleeps on her right side and moves her head in a certain position with no improvement with any interventions per her self with a mild occipital headache associated as well as some mild dyspnea with exertion and some chest tightness with no recent fevers or chills or any urinary type symptoms and no specific visual changes but given ongoing symptoms prompted ED evaluation. Patient reports additionally that her headache is pressure-like in sensation, holocephalic currently but more so in the cerebellar posterior region, rated 3 out of 10 in severity with no light or sound sensitivity. She denies any nausea or emesis associated with this currently. She does state that the chest discomfort she had was tightness, midsternal without any radiation with dyspnea associated and occurred primarily with her elevated blood pressures and improved when her blood pressure seem to decrease however currently it is returned with blood pressure rising and she rates this 3 out of 10 in severity. She also reports a history approximately 1.5 weeks prior to current presentation of right eye vision changes with a black spot in her field of vision prompting evaluation by Dr. 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 Work-up in the ED included T96.8, heart rate 88, BP initially 232/108 and despite interventions in the ED persistent hypertension with most recent repeat 212/99, respiratory rate 20, 97% on room air, CBC with WC 7.7, hemoglobin 14.5, platelet 339 without marked shift, D-dimer 0.41, BMP with glucose 108, troponin 6, BNP 144.4, urinalysis unremarkable, chest x-ray with no acute cardiopulmonary findings, CT of the brain with atrophy and moderate periventricular white matter ischemic changes with no acute intracranial findings otherwise, EKG with sinus rhythm with occasional PAC with no acute evidence of ischemia. In the ED patient administered labetalol 10 mg IV x2 as well as hydralazine 5 mg IV x2 without improvement of blood pressures. [facility] Medical History Hearing loss History of squamous cell carcinoma Seasonal allergies Home Medications NK 09/11/22 [History Last Taken Unknown] Allergy/AdvReac Type Severity Reaction Status Date / Time Penicillins AdvReac Unknown Verified 09/11/22 14:57 Family History Mother Hypertension Father Cancer Surgical History Cataracts, bilateral History of tonsillectomy Social History household members: spouse Smoking Status: Never smoker alcohol intake: never substance use type: does not use what type of physical activity do you participate in: walking frequency: 3-4 times per week ROS ROS Narrative Admission Review of Systems: CONSTITUTIONAL: No weight loss, fever, chills, + weakness or fatigue. HEENT: + Recent history of right eye vision changes with a black spot in her field of vision, currently vertiginous symptoms reported also. Eyes: No double vision or yellow sclerae. Ears, Nose, Throat: No hearing loss, sneezing, congestion, runny nose or sore throat. SKIN: No rash or itching, lesions, wounds. CARDIOVASCULAR: + chest pain, chest pressure or chest discomfort, No palpitations, edema, orthopnea, syncopal events. RESPIRATORY: + shortness of breath, No cough or sputum, wheezing, hemoptysis. GASTROINTESTINAL: + anorexia, No nausea, vomiting or diarrhea, abdominal pain, melena, BRBPR. GENITOURINARY: No dysuria, frequency, urgency or retention. NEUROLOGICAL: + headache, dizziness/vertigo, No syncope, paralysis, ataxia, numbness or tingling in the extremities, focal weakness, change in bowel or bladder control, seizure. MUSCULOSKELETAL: No muscle, back pain, joint pain or stiffness. HEMATOLOGIC: No anemia, bleeding or bruising. LYMPHATICS: No enlarged nodes. No history of splenectomy. PSYCHIATRIC: No history of depression or anxiety. ENDOCRINOLOGIC: No reports of sweating, cold or heat intolerance. No polyuria or polydipsia. ALLERGIES: No history of asthma, hives, eczema or rhinitis. Vital Signs Vital Signs Vital Signs: 09/11/22 14:58 09/11/22 15:01 09/11/22 15:04 Temperature 96.8 F L Temperature Source Temporal Pulse Rate 88 84 88 Respiratory Rate 20 H 18 19 H Blood Pressure 232/108 H 213/91 H 229/100 H Blood Pressure Mean 149 131 143 Pulse Ox 97 99 99 Oxygen Delivery Method Room Air Room Air Room Air 09/11/22 16:26 09/11/22 18:00 09/11/22 18:44 Temperature Temperature Source Pulse Rate 71 72 77 Respiratory Rate 19 H 18 18 Blood Pressure 231/111 H 203/103 H Blood Pressure Mean 151 136 Pulse Ox 99 100 97 Oxygen Delivery Method Room Air Room Air Room Air 09/11/22 20:08 09/11/22 20:48 Temperature Temperature Source Pulse Rate Respiratory Rate Blood Pressure 212/99 H 200/97 H Blood Pressure Mean 136 131 Pulse Ox Oxygen Delivery Method Weight Weight: 102 lb 8.239 oz Body Mass Index (BMI) 18.1 Physical Exam Narrative Physical Examination: General: Awake, alert, oriented x 3 and cooperative, seated upright in the ED bed, fatigued, notes currently still having posterior headache with no light or sound sensitivity and recurrent of midsternal chest discomfort described as tightness, both currently rated 3 of 10 in severity. Skin: Normal color, normal turgor, no icterus, no cyanosis. HEENT: AT/NC, EOMI, PERRLA, mildly dry MM, no carotid bruits or JVD noted. Lungs: Mildly diminished, greater bases, poor effort, no rales, ronchi or wheezing. Heart: Currently regular rate and rhythm; no gallop, rub audible. Abdomen: Soft, NTTP, ND, mildly hyperactive BS, no HSM. Extremities: No cyanosis, clubbing, or edema. Neurological: Patient awake, alert, oriented as noted, cognitive function appears baseline intact; pupils equally reactive to light and accommodation, cranial nerves II-XII grossly normal except for complaints of recent right eye vision changes with a spot in her field of vision, currently unable to produce any nystagmus with movements and currently denies vertiginous symptoms at this time but is resting, moving all 4 extremities, no focal deficits, finger-nose and [id number] appropriate, equivocal Babinski, strength improved, moderately global decrease. Psychiatric: Affect appears fatigued but otherwise improving, no acute evidence of depressive or anxiety feelings. Results Lab / Micro Data Result Diagrams: 09/11/22 15:00 09/11/22 15:00 Labs: Laboratory Results - last 24 hr 09/11/22 15:00: POC Glucose 117 H 09/11/22 15:00: WBC 7.7, RBC 4.72, Hgb 14.5, Hct 43.3, MCV 91.7, MCH 30.7, MCHC 33.5, RDW Std Deviation 44.3 H, RDW Coeff of Jane 13.0, Plt Count 339, MPV 9.2, Immature Gran % (Auto) 0.300, Neut % (Auto) 56.2, Lymph % (Auto) 33.3, [place] % (Auto) 8.4, Eos % (Auto) 1.0, Baso % (Auto) 0.8, Absolute Neuts (auto) 4.3, Absolute Lymphs (auto) 2.55, Nucleated RBC % 0 09/11/22 15:00: D-Dimer Quant (PE/DVT) 0.41 09/11/22 15:00: Sodium 137, Potassium 3.9, Chloride 102, Carbon Dioxide 28.0, Anion Gap 7, BUN 18, Creatinine 0.94, Estim Creat Clear Calc 32.70, Est GFR (MDRD) Af Amer 72, Est GFR (MDRD) Non-Af 60, BUN/Creatinine Ratio 19.0, Glucose 108 H, Calcium 9.3, Troponin I High Sens 6 09/11/22 15:00: B-Natriuretic Peptide 144.4 H 09/11/22 16:20: Urine Color Yellow, Urine Clarity Clear, Urine pH 7.0, Ur Specific [place] 1.010, Urine Protein Negative, Urine Glucose (UA) Normal, Urine Ketones Negative, Urine Occult Blood Negative, Urine Nitrite Negative, Urine Bilirubin Negative, Urine Urobilinogen Normal, Ur Leukocyte Esterase Negative, Urine RBC 0 SEEN, Urine WBC 0 SEEN, Ur Squamous Epith Cells 0 SEEN, Urine Bacteria 0 SEEN, Urine Mucus 0 SEEN Radiology Impression Brain CT 09/11/22 15:27 IMPRESSION: Atrophy and moderate periventricular white matter ischemic change. No acute bleed. If concern for acute infarct MRI recommended Electronically Signed: Caden Martin MD at 16:49 EST , Chest X-Ray 09/11/22 15:45 IMPRESSION: ASHD. No acute cardiopulmonary pathology Electronically Signed: Caden Martin MD at 16:51 EST , Assessment & Plan Assessment/Plan (1) CVA (cerebral vascular accident): PLAN: Plan The patient is an 82 y/o F w/ PMHx: Allergic Rhinitis, Hx Squamous cell carcinoma who presents to the [facility] ED on 09/11/22 with history of onset dizziness beginning on day of presentation reporting sensation as a spinning-like sensation coming and going intermittently with associated posterior pressure-like headache in addition to recent episodes of midsternal nonradiating chest tightness/pressure with dyspnea prompting eventual ED evaluation. #1. Persistent vertiginous symptoms as well as occipital headache concerning for CVA with associated #2 acute hypertensive emergency especially given recent history of potential arterial occlusion with vision changes to the right eye 1.5 weeks prior: Will admit to the ICU given significant hypertension with need for Cardene drip with plan for permissive hypertension allowances with the goal of the blood pressure as unsure really if unfortunately the neurological symptoms came first or the blood pressure elevation, will request [employer] consultation per protocol, will obtain MRI Brain, CTA Head and Neck, ECHO, PT/OT/Speech/Nutrition evaluation per protocol. Will maintain on asa, add statin w/ AM FLP, fall precautions. Magnesium, TSH, FLP, hemoglobin C requested. Once work-up and further evaluation is obtained would be appropriate for an neurology evaluation. #2. Acute hypertensive emergency with suspected underlying prior hypertensive disease: Clarifying his emergency given significantly elevated blood pressure with SBP greater than 180 with associated neurological changes, as noted we will admit and monitor on telemetry, cycle cardiac enzymes to be cautious, request echocardiogram, obtain magnesium level supplementation if appropriate, FLP in a.m., will initiate Cardene drip with ICU placement per stroke protocols with allowance of some permissive hypertension pending work-up as noted #1. #3. Chest pain/tightness with dyspnea: Suspect likely related with #2 and possibly #1, will maintain on telemetry monitoring, cycle cardiac enzymes, FLP in a.m., initiating drip as noted, echocardiogram requested, once improvement of #2 and further evaluation of #1 may potentially require stress testing but will need to resolve these issues above as noted. #4. DVT prophylaxis: SCDs, Lovenox. #5. CODE status: Patient HCPMARTELL is her and son who are present and living will is currently in place. Discussed CODE status at length including difference between FULL code, DNR-CCA and DNR-CC status. Following discussions about the differences in these status, requested DNR-CCA, no intubation status. Advanced Care Planning Face to Face Time: 17 minutes. Admission Evaluation Time spent evaluating chart, patient history, patient evaluation, care planning and discussion with specialists: 76 minutes. Charges/Coding Visit Charges Inpatient E&M: 49813 Init Hosp L3 Procedures Hospitalists Procedures: 76443 Advncd Care Plan 30 Min
--- NOTE | 2022-09-11 20:57 | CT_ITS ---
We are attempting to reach an attending provider to discuss findings. An addendum with communication details will be sent when the communication is complete. STUDY: CTA HEAD AND NECK WITH CONTRAST REASON FOR EXAM: Female, 82 years old. Neuro deficit, acute, stroke suspected RADIATION DOSAGE (If Supplied By Facility): CTDIvol = ( 12.49 ) mGy, DLP = ( 443.78 ) mGycm TECHNIQUE: CT angiography was performed with a multi-detector CT scanner. Data acquisition was obtained from the skull base through the vertex following intravenous administration of IV 100mL Isovue-370. MIP images were reconstructed from the axial data set. Post-processing of the angiographic images was performed, with multiplanar reformation and 3D reconstruction. Individualized dose optimization techniques were used for this CT. COMPARISON: No relevant priors. FINDINGS: Normal bilateral petrous carotid arteries. Moderate calcific plaquing of the right cavernous carotid artery with a normal supraclinoid bifurcation. Moderate calcific plaquing of the left cavernous carotid artery with a normal supraclinoid bifurcation. Normal right A1 segments of the anterior cerebral artery. Normal left A1 segments of the anterior cerebral artery. Normal intact anterior communicating artery (ACOM). Normal bilateral A2 segments of the anterior cerebral arteries. Normal right M1 and M2 segments of the middle cerebral arteries, with a normal M1 bifurcation. Normal left M1 and M2 segments of the middle cerebral arteries, with a normal M1 bifurcation. Posterior communicating arteries are not visualized consistent with normal variant). Normal bilateral vertebral arteries. Normal basilar artery with a normal basilar bifurcation. The visualized bilateral superior cerebellar (SCA) arteries are normal. Normal bilateral P1, P2 and visualized P3 segments of the posterior cerebral arteries. There is no demonstrated aneurysm of the [place]. AORTIC ARCH: Normal visualized aortic arch. Normal origins of the brachiocephalic, left common carotid, and left subclavian arteries. RIGHT CAROTID ARTERIES: Normal right common carotid artery (CCA). Normal right common carotid bulb. Normal origin of the right internal carotid (ICA) artery without a hemodynamically significant stenosis. Normal visualized cervical portion of the right internal carotid artery. Normal origin of the right external carotid artery (ECA). LEFT CAROTID ARTERIES: Normal left common carotid artery (CCA). Normal left common carotid bulb. Normal origin of the left internal carotid (ICA) artery without a hemodynamically significant stenosis. Normal visualized cervical portion of the left internal carotid artery. Normal origin of the left external carotid artery (ECA). VERTEBRAL ARTERIES: Normal bilateral vertebral arteries. CT/STROKE CTA Head AND Neck W/Con IMPRESSION: Atherosclerotic changes without evidence for hemodynamically significant stenosis Electronically Signed: Caden Martin MD at 21:53 EST ,
[2022-09-11 21:16] LABS: Magnesium 2.3 mg/dL (1.6-2.6)
--- NOTE | 2022-09-11 23:37 | ECHOD_ITS ---
Reason For Study: cva Procedure This was a 2D Doppler, Color Flow transthoracic echocardiogram. Exam performed portable in ICU/CCU. Left Ventricle Normal LV size. Left ventricular systolic function is normal. The estimated ejection fraction is 60 %. Stage 1 diastolic dysfunction. No regional wall motion abnormalities noted. Right Ventricle Normal RV size. Normal systolic function. Atria Normal left atrium. Normal right atrium. Bubble contrast study negative for right to left interatrial shunt. Mitral Valve There is moderate mitral annular calcification. Tricuspid Valve Normal tricuspid valve. Aortic Valve Trisinus/trileaflet aortic valve. Medication Performed a rapid injection of agitated mix of 9 cc saline and 1cc air to assess for atrial septal defect. MMode/2D Measurements & Calculations LVIDd: 3.4 cm IVSd: 1.4 cm LAV(MOD-sp2): 29.4 ml LVIDs: 2.2 cm LVPWd: 1.2 cm FS: 35.9 % SV(MOD-sp4): 20.7 ml SV(sp4-el): 22.6 ml LVAd ap4: 15.0 cm2 LVLd ap4: 6.0 cm EDV(MOD-sp4): 30.2 ml EDV(sp4-el): 31.6 ml LVAs ap4: 6.7 cm2 LVLs ap4: 4.3 cm ESV(MOD-sp4): 9.6 ml ESV(sp4-el): 9.0 ml EF(MOD-sp4): 68.4 % EF(sp4-el): 71.6 % LA dimension(2D): 2.9 cm RA A4 area: 15.5 cm2 Time Measurements MV dec time: 0.28 sec Doppler Measurements & Calculations MV E max [place]: 58.4 cm/sec Lat Peak E' [place]: 10.8 cm/sec Med Peak E' [place]: 5.9 cm/sec MV A max [place]: 89.9 cm/sec E/E' lat: 5.4 E/E' med: 9.9 MV E/A: 0.65 MV V2 max: 94.3 cm/sec MV dec slope: 225.0 cm/sec2 Ao V2 max: 96.6 cm/sec MV max P.6 mmHg Ao max P.7 mmHg MV V2 mean: 63.0 cm/sec Ao V2 mean: 66.7 cm/sec MV mean P.7 mmHg Ao mean P.0 mmHg MV V2 VTI: 24.2 cm Ao V2 VTI: 20.3 cm AV (velocity ratio): 0.91 LV V1 max: 84.5 cm/sec LV V1 max P.9 mmHg LV V1 mean P.4 mmHg LV V1 mean: 55.2 cm/sec LV V1 VTI: 18.4 cm ECHO/Echo Complete Interpretation Summary Normal LV size. Left ventricular systolic function is normal. The estimated ejection fraction is 60 %. Bubble contrast study negative for right to left interatrial shunt. Stage 1 diastolic dysfunction. Ordering Physician: Reyna Valenzuela Referring Physician: Geoff Snyder M.D. Performed By: Shirley Alas RCS
[2022-09-12] VITALS (19 sets, daily range): BP systolic 133–187; BP diastolic 71–94; PULSE 78–92; RESP 12–23; TEMP 36.4–37.1; O2SAT 96–100; BMI 17.1
--- NOTE | 2022-09-12 00:12 | EKG12_ITS ---
Test Reason : CHEST TIGHTNESS Blood Pressure : / mmHG Vent. Rate : 086 BPM Atrial Rate : 086 BPM P-R Int : 150 ms QRS Dur : 082 ms QT Int : 400 ms P-R-T Axes : 102 073 031 degrees QTc Int : 478 ms Normal sinus rhythm Nonspecific ST abnormality Abnormal ECG When compared with ECG of 11-SEP-2022 15:33, MANUAL COMPARISON REQUIRED, DATA IS UNCONFIRMED Confirmed by CHANDLER BURKS, WILLIE ([id number]), managing editor CONRAD FLOWERS ([id number]) on 09/18/2022 12:54:06 PM Referred By: GORDO Confirmed By:DILEEP ARTEAGA MD
[2022-09-12] MEDS: 0.9% Normal Saline 1,000 ML 100 ML IV (00:26)
[2022-09-12] MEDS: Atorvastatin Calcium 40 MG Tablet PO ×2 (00:26→21:40)
[2022-09-12] MEDS: 0.9% Saline Lock 10 ML Syringe IV (00:26)
[2022-09-12 00:29] LABS: Troponin-I HS 7 pg/mL (3.0-54.0)
[2022-09-12 04:22] LABS: Absolute Lymphocyte Count 1.38 X10^3/uL (0.83-4.51); Absolute Neutrophil Count 7.1 X10^3/uL (2.0-7.7); Basophil# 0.04 X10^3/uL; Basophil% 0.4 % (0-1); Eosinophil# 0.02 X10^3/uL; Eosinophils% 0.2 % (0-5); Hematocrit 38.4 % (37-47); Lymphocyte # 1.38 X10^3/ul (0.83-4.51); Lymphocyte % 15.2 % (19-41); Mean Corp Hgb Conc 33.9 g/dL (32-36); Mean Corpuscular Hgb 30.5 pg (27.0-32.0); Mean Corpuscular Volume 90.1 fL (81-99); Mean Platelet Vol. 8.5 fl (6.2-12.0); Monocyte# 0.53 X10^3/uL; Monocyte% 5.8 % (0-10); NRBC Flagged by Analyzer 0 % (0-5); Neutrophil # 7.09 X10^3/uL (2.7-7.7); Neutrophil % 78.2 % (47-70); Platelet Count 277 K/mm3 (150-450); RBC Distribution Width SD 42.6 fl (35.1-43.9); Red Blood Count 4.26 M/mm3 (4.2-5.4); White Blood Count 9.1 K/mm3 (4.4-11.0)
[2022-09-12 04:47] LABS: BUN 14 mg/dL (7-18); Creatinine, Serum 0.72 mg/dL (0.55-1.02); EST Glomerular Filtration Rate 83 mL/min (>60); Estimated Creatinine Clearance 29.02 ml/min; Glucose 111 mg/dL (74-106)
[2022-09-12 04:48] LABS: ALB/GLOB Ratio 1.1 RATIO (0.9-2.4); AST(SGOT) 20 U/L (15-37); Alanine Aminotransfer ALT/SGPT 20 U/L (13-56); Albumin, Serum 3.4 g/dL (3.2-5.0); Alkaline Phosphatase 104 U/L (45-117); Anion Gap 9 (5-15); BUN/Creat Ratio 19.6 RATIO (10-20); Calcium,Total 8.4 mg/dL (8.5-10.1); Chloride 104 mmol/L (98-107); Cholesterol 220 mg/dL (200); Est Glom Filt Rate - Afr Amer 100 mL/min (>60); Globulin 3.1 g/dL (2.2-4.2); High Density Lipoprotein 85 mg/dL; Potassium 3.8 mmol/L (3.5-5.1); Protein, Total 6.5 g/dL (6.4-8.2); Sodium Level 138 mmol/L (136-145); Thyroid Stim Hormone (TSH) 3.66 uIU/mL (0.358-3.74); Triglycerides 69 mg/dL; Troponin-I HS 8 pg/mL (3.0-54.0); Very Low Density Lipoprotein 14 mg/dL (5-40)
--- NOTE | 2022-09-12 07:05 | PN.HOSP_ITS ---
Subjective Subjective Feeling much better, no chest pain or shortness of breath. No further headache denies changes in vision, blood pressure improving. MRI negative Objective Data Objective Data Vital Signs: Vital Signs Temp Pulse Resp BP Pulse Ox O2 Del Method 97.8 F 85 15 157/77 H 97 Room Air 09/12/22 04:00 09/12/22 06:00 09/12/22 06:00 09/12/22 06:00 09/12/22 06:00 09/12/22 06:00 Oxygen Delivery Method Room Air Weight: 43.9 kg Body Mass Index (BMI) 17.1 Intake & Output: Intake and Output for Last 24 Hours 09/10/22 09/11/22 09/12/22 23:59 23:59 23:59 Intake Total 130.83 / 137.08 33.75 / 33.75 Output Total 650 / 650 Balance 130.83 / -162.92 -616.25 / -616.25 Lab / Micro Data Result Diagrams: 09/12/22 04:05 09/12/22 04:05 Labs: Laboratory Results - last 24 hr 09/11/22 15:00: POC Glucose 117 H 09/11/22 15:00: WBC 7.7, RBC 4.72, Hgb 14.5, Hct 43.3, MCV 91.7, MCH 30.7, MCHC 33.5, RDW Std Deviation 44.3 H, RDW Coeff of Jane 13.0, Plt Count 339, MPV 9.2, Immature Gran % (Auto) 0.300, Neut % (Auto) 56.2, Lymph % (Auto) 33.3, Fall[place] % (Auto) 8.4, Eos % (Auto) 1.0, Baso % (Auto) 0.8, Absolute Neuts (auto) 4.3, Absolute Lymphs (auto) 2.55, Nucleated RBC % 0 09/11/22 15:00: D-Dimer Quant (PE/DVT) 0.41 09/11/22 15:00: Sodium 137, Potassium 3.9, Chloride 102, Carbon Dioxide 28.0, Anion Gap 7, BUN 18, Creatinine 0.94, Estim Creat Clear Calc 32.70, Est GFR (MDRD) Af Amer 72, Est GFR (MDRD) Non-Af 60, BUN/Creatinine Ratio 19.0, Glucose 108 H, Calcium 9.3, Troponin I High Sens 6 09/11/22 15:00: B-Natriuretic Peptide 144.4 H 09/11/22 15:00: Magnesium 2.3 09/11/22 16:20: Urine Color Yellow, Urine Clarity Clear, Urine pH 7.0, Ur Specific Olar 1.010, Urine Protein Negative, Urine Glucose (UA) Normal, Urine Ketones Negative, Urine Occult Blood Negative, Urine Nitrite Negative, Urine Warren irubin Negative, Urine Urobilinogen Normal, Ur Leukocyte Esterase Negative, Urine RBC 0 SEEN, Urine WBC 0 SEEN, Ur Squamous Epith Cells 0 SEEN, Urine Bacteria 0 SEEN, Urine Mucus 0 SEEN 09/12/22 00:05: Troponin I High Sens 7 09/12/22 04:05: WBC 9.1, RBC 4.26, Hgb 13.0, Hct 38.4, MCV 90.1, MCH 30.5, MCHC 33.9, RDW Std Deviation 42.6, RDW Coeff of Jane 13.0, Plt Count 277, MPV 8.5, Immature Gran % (Auto) 0.200, Neut % (Auto) 78.2 H, Lymph % (Auto) 15.2 L, Fallon % (Auto) 5.8, Eos % (Auto) 0.2, Baso % (Auto) 0.4, Absolute Neuts (auto) 7.1, Absolute Lymphs (auto) 1.38, Nucleated RBC % 0 09/12/22 04:05: Sodium 138, Potassium 3.8, Chloride 104, Carbon Dioxide 25.0, Anion Gap 9, BUN 14, Creatinine 0.72, Estim Creat Clear Calc 29.02, Est GFR (MDRD) Af Amer 100, Est GFR (MDRD) Non-Af 83, BUN/Creatinine Ratio 19.6, Glucose 111 H, Calcium 8.4 L, Total Bilirubin 0.30, AST 20, ALT 20, Alkaline Phosphatase 104, Troponin I High Sens 8, Total Protein 6.5, Albumin 3.4, Globulin 3.1, Albumin/Globulin Ratio 1.1, Triglycerides 69, Cholesterol 220 H, LDL Cholesterol 121, VLDL Cholesterol 14, HDL Cholesterol 85, TSH 3.66 Radiography Diagnostic Testing: Radiology Impression Brain CT 09/11/22 15:27 IMPRESSION: Atrophy and moderate periventricular white matter ischemic change. No acute bleed. If concern for acute infarct MRI recommended Electronically Signed: Caden Martin MD at 16:49 EST , Chest X-Ray 09/11/22 15:45 IMPRESSION: ASHD. No acute cardiopulmonary pathology Electronically Signed: Caden Martin MD at 16:51 EST , Head/Neck CTA 09/11/22 20:57 IMPRESSION: Atherosclerotic changes without evidence for hemodynamically significant stenosis Electronically Signed: Caden Martin MD at 21:53 EST , ADDENDUM: 09/11/22 2208 IMPRESSION: Atherosclerotic changes without evidence for hemodynamically significant stenosis N.B. : The above Results were Read Back by Caden Martin MD to Reyna Valenzuela MD, and understanding confirmed on 09/11/2022 22:01:48 (ET). Electronically Signed: Caden Martin MD at 21:53 EST , Physical Exam Narrative General: Alert, oriented, no apparent distress HEENT: Atraumatic, normocephalic Eyes: Anicteric, normal conjunctiva, extraocular movements grossly intact Neck: Supple Respiratory: Clear to auscultation bilaterally, normal respiratory effort Cardiovascular: Regular rate and rhythm GI: Soft, nontender, nondistended Extremities: No edema Musculoskeletal: Moving all extremities Neuro: No overt focal neurological deficits Skin: No rashes appreciated Psych: Cooperative Assessment & Plan Assessment/Plan (1) CVA (cerebral vascular accident): PLAN: Plan 82 history squamous cell carcinoma presented to [facility] ED with onset of dizziness beginning on day of presentation with a spinning- like sensation coming and going and lasting for approximately 5 minutes. Does persist even if resting and especially if she sleeps on her right side and moves her head in a certain position. No improvement with any interventions and has a mild occipital headache. Some chest tightness and mild dyspnea with exertion. 1.5 weeks prior to presentation she did report she had some right eye changes with a black spot in her field of vision prompting evaluation by Dr. 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 In the ED her blood pressure was initially 232/108 and remained elevated despite intervention. Troponin was 6. CT of the brain with atrophy and moderate periventricular white matter ischemic changes with no acute findings. EKG occasional PVC without evidence of ischemia. #Intermittent vertigo symptoms with headache Likely due to her hypertension Concern for CVA especially given potential right eye arterial occlusion 1.5 weeks ago but acute ischemic CVA ruled out CTA head and neck- Atherosclerotic changes? without evidence for hemodynamically significant stenosis MRI brain with chronic changes Echo demonstrated EF of 60%, stage I diastolic dysfunction, negative bubble study PT/OT/speech Continue aspirin, add statin #Hypertensive emergency Monitor on telemetry Status post Cardene drip Pressure able, as ordered no blood per her med list the L of blood pressure as she is very sensitive to medications and is very hesitant to be started on any. She was ultimately agreeable to be started on losartan, low threshold to escalate therapy a pending her tolerance with goal for SBP closer to 140 within the next 24 hours. #Chest pain/tightness of dyspnea?resolved CXR: ASHD. No acute cardiopulmonary pathology Suspect due to hypertensive emergency EKG not concerning for ischemia Cardiac enzymes within normal limits No wall motion obvious on echo and symptoms of resolved #DVT ppx: Lovenox Christine Santos MD Time spent in the patient's overall evaluation,decision-making process, review of diagnostic data, adjustment of management, discussion with other providers, nursing nursing and ancillary staff involved in patient's care documentation, 30 minutes Charges/Coding Visit Charges Inpatient E&M: 37040 Subs Hosp L2
[2022-09-12 08:10] LABS: Bedside Glucose 207 mg/dL (74-106)
--- NOTE | 2022-09-12 09:15 | MRI_ITS ---
HISTORY: CVA, dizziness, right eye vision change, and posterior headache. TECHNIQUE: Multiplanar and multisequence MR images of the brain were obtained without contrast. 282 images. COMPARISON: CT prior day. FINDINGS: BRAIN PARENCHYMA: Mild-moderate foci and small zones of increased T2 FLAIR signal in the bilateral cerebral white matter and abhinav. No abnormal focus of restricted diffusion. No acute intracranial hemorrhage identified. CSF SPACES: Mild-moderate generalized volume loss. No significant midline shift or other mass effect.No extra-axial fluid collection. VASCULAR SYSTEM: Major intracranial flow voids are maintained. PARANASAL SINUSES AND MASTOID AIR CELLS: No significant air fluid levels. ORBITS: Bilateral lens resections. MRI/Brain without Contrast IMPRESSION: No evidence for acute infarct. Mild-moderate chronic involutional and white matter changes. Electronically Signed: Linda Maldonado MD at 10:20 EST ,
--- NOTE | 2022-09-12 09:27 | CON.PCM.CC_ITS ---
Assessment & Plan Assessment/Plan (1) Hypertensive urgency: (2) Dizziness of unknown cause: PLAN: Plan RECOMMENDATIONS: 1. Obtain MRI to rule out acute CVA 2. If no CVA, p.o. medications for hypertension 3. Okay to leave the intensive care unit 4. Hemodynamically stable on room air. Will sign off from a critical care perspective IMPRESSIONS: 1. Hypertensive emergency Patient appears to have elevated blood pressures at baseline. Patient is reporting anxiety as an indication for the significant elevation in the ER. However, given patient's neurologic findings on presentation, initiation of antihypertensives are likely indicated. Patient has had resolution of symptoms with better control of blood pressure. Patient tolerating room air well. Patient is to have an MRI to rule out a CVA. Patient has had a CVA, appropriate work-up would be necessary. If not, patient can likely be initiated on blood pressure medications at low doses. Low clinical suspicion for secondary hypertension as patient is not on any antihypertensives at baseline. 2. Advanced age/frailty/poor follow-up Patient appears to be doing well at this time. Patient's hemoglobin A1c is elevated, along with blood pressure. Patient has been seen her PCP on an annual basis. Patient likely should follow-up with her PCP prior to November for evaluation and counseling on blood pressure. Patient was confirmed to be a DNR Comfort Care arrest without intubation on admission. HPI Consult Data Date of Consult: 09/12/22 HPI Narrative Reason for Consultation: Hypertensive emergency HPI Narrative: MANFRED ROSE is an 82 F, with past medical history listed below, who presents to [facility] on 09/11/2022 secondary to dizziness that began earlier in the day. Patient states she felt like she was spinning and it was intermittent lasting approximately 5 minutes at a time. Patient states that it was worse on her right side and when her head is in certain positions. Patient did not find any alleviating factors and had reported a mild occipital headache along with this finding. Patient denied any fevers, chills, nausea or vomiting. 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 In the ER, patient was afebrile and saturating well on room air. Patient was noted to have a blood pressure of 232/108 that persisted. Laboratory work-up was relatively unremarkable with a negative D-dimer, normal chemistries and CBC. BNP was slightly elevated at [address] U[address] was [address]. [address] of the head showed moderate periventricular white matter changes, but no acute bleed. Chest x-ray showed some cardiomegaly and EKG showed sinus rhythm. Patient was admitted to the intensive care unit and was on Cardene for some time. Patient's Cardene was able to be discontinued overnight and patient has reported resolution of symptoms. Patient's NIH is have been 0. Patient does report a black spot in her vision, but states that this was explained by her monitoring coordinator as a retinal stroke and has not changed. Patient states her blood pressure is never normal. The top number is over 160 most days. Patient reportedly does not take any medications at baseline. Patient is very resistant to any questions or interventions. It is not clear that the patient follows with a PCP routinely. Review of systems otherwise negative from a constitutional, HEENT, respiratory, cardiovascular, GI, genitourinary, musculoskeletal, skin, neurologic, psychiatric and hematologic system unless stated above. [facility] Medical History Hearing loss History of squamous cell carcinoma Seasonal allergies Home Medications NK 09/11/22 [History Last Taken Unknown] Allergy/AdvReac Type Severity Reaction Status Date / Time Penicillins AdvReac Unknown Verified 09/11/22 14:57 Family History Mother Hypertension Father Cancer Surgical History Cataracts, bilateral History of tonsillectomy Social History household members: spouse Smoking Status: Never smoker alcohol intake: never substance use type: does not use what type of physical activity do you participate in: walking frequency: 3-4 times per week Physical Exam Const alert, oriented x3 and no apparent distress General Appearance: cooperative, well developed and frail HEENT normocephalic, head/scalp atraumatic and moist oral mucous membranes Eyes PERRL and EOMs intact bilaterally Neck full ROM and no lymphadenopathy Chest inspection of chest normal Resp normal respiratory effort and no use of accessory muscles Effort and Inspection: able to speak in complete sentences Auscultation: clear to auscultation bilaterally; Negative for rales, rhonchi or wheezes Percussion: Negative for dullness Cardio regular rate, regular rhythm, S1 normal heart sound, S2 normal heart sound, no murmurs, no rub and no gallops GI normal to inspection, nondistended, normoactive bowel sounds no CVA tenderness Extremity no clubbing, cyanosis or edema Skin no rashes or lesions noted Neuro oriented x3, CN's II-XII intact bilaterally, moves all extremities and no focal motor deficits Psych cooperative and affect normal Medical Records Data Attestation: I reviewed the patient's medical records Medical records narrative: Review of the medical record shows patient has followed up intermittently with Dr. Joey Snyder as an outpatient. Patient tends to complain of fatigue, but otherwise has no complaints. Blood pressure at her office visit in November showed a blood pressure of 160/90. Lab / Micro Data Attestation: I reviewed the patient's lab results. Result Diagrams: 09/12/22 04:05 09/12/22 04:05 Labs: Laboratory Results - last 24 hr 09/11/22 15:00: POC Glucose 117 H 09/11/22 15:00: WBC 7.7, RBC 4.72, Hgb 14.5, Hct 43.3, MCV 91.7, MCH 30.7, MCHC 33.5, RDW Std Deviation 44.3 H, RDW Coeff of Jane 13.0, Plt Count 339, MPV 9.2, Immature Gran % (Auto) 0.300, Neut % (Auto) 56.2, Lymph % (Auto) 33.3, [place] % (Auto) 8.4, Eos % (Auto) 1.0, Baso % (Auto) 0.8, Absolute Neuts (auto) 4.3, Absolute Lymphs (auto) 2.55, Nucleated RBC % 0 09/11/22 15:00: D-Dimer Quant (PE/DVT) 0.41 09/11/22 15:00: Sodium 137, Potassium 3.9, Chloride 102, Carbon Dioxide 28.0, Anion Gap 7, BUN 18, Creatinine 0.94, Estim Creat Clear Calc 32.70, Est GFR (MDRD) Af Amer 72, Est GFR (MDRD) Non-Af 60, BUN/Creatinine Ratio 19.0, Glucose 108 H, Calcium 9.3, Troponin I High Sens 6 09/11/22 15:00: B-Natriuretic Peptide 144.4 H 09/11/22 15:00: Magnesium 2.3 09/11/22 16:20: Urine Color Yellow, Urine Clarity Clear, Urine pH 7.0, Ur Specific Corbin 1.010, Urine Protein Negative, Urine Glucose (UA) Normal, Urine Ketones Negative, Urine Occult Blood Negative, Urine Nitrite Negative, Urine Bilirubin Negative, Urine Urobilinogen Normal, Ur Leukocyte Esterase Negative, Urine RBC 0 SEEN, Urine WBC 0 SEEN, Ur Squamous Epith Cells 0 SEEN, Urine Bacteria 0 SEEN, Urine Mucus 0 SEEN 09/12/22 00:05: Troponin I High Sens 7 09/12/22 00:32: POC Glucose 207 H 09/12/22 04:05: WBC 9.1, RBC 4.26, Hgb 13.0, Hct 38.4, MCV 90.1, MCH 30.5, MCHC 33.9, RDW Std Deviation 42.6, RDW Coeff of Jane 13.0, Plt Count 277, MPV 8.5, Immature Gran % (Auto) 0.200, Neut % (Auto) 78.2 H, Lymph % (Auto) 15.2 L, [place] % (Auto) 5.8, Eos % (Auto) 0.2, Baso % (Auto) 0.4, Absolute Neuts (auto) 7.1, Absolute Lymphs (auto) 1.38, Nucleated RBC % 0 09/12/22 04:05: Sodium 138, Potassium 3.8, Chloride 104, Carbon Dioxide 25.0, Anion Gap 9, BUN 14, Creatinine 0.72, Estim Creat Clear Calc 29.02, Est GFR (MDRD) Af Amer 100, Est GFR (MDRD) Non-Af 83, BUN/Creatinine Ratio 19.6, Glucose 111 H, Calcium 8.4 L, Total Bilirubin 0.30, AST 20, ALT 20, Alkaline Phosphatase 104, Troponin I High Sens 8, Total Protein 6.5, Albumin 3.4, Globulin 3.1, Albumin/Globulin Ratio 1.1, Triglycerides 69, Cholesterol 220 H, LDL Cholesterol 121, VLDL Cholesterol 14, HDL Cholesterol 85, TSH 3.66 09/12/22 04:05: Hemoglobin A1c 6.0 H Radiology Impression Brain CT 09/11/22 15:27 IMPRESSION: Atrophy and moderate periventricular white matter ischemic change. No acute bleed. If concern for acute infarct MRI recommended Electronically Signed: Caden Martin MD at 16:49 EST , Chest X-Ray 09/11/22 15:45 IMPRESSION: ASHD. No acute cardiopulmonary pathology Electronically Signed: Caden Martin MD at 16:51 EST , Head/Neck CTA 09/11/22 20:57 IMPRESSION: Atherosclerotic changes without evidence for hemodynamically significant stenosis Electronically Signed: Caden Martin MD at 21:53 EST , ADDENDUM: 09/11/22 2208 IMPRESSION: Atherosclerotic changes without evidence for hemodynamically significant stenosis N.B. : The above Results were Read Back by Caden Martin MD to Reyna Valenzuela MD, and understanding confirmed on 09/11/2022 22:01:48 (ET). Electronically Signed: Caden Martin MD at 21:53 EST , Charges/Coding Visit Charges Inpatient E&M: 84905 Init Hosp L2
--- NOTE | 2022-09-12 11:25 | CASEMGMT ---
MARIA VICTORIA GARCIA [facility] CM to room to meet with patient for initial transition planning/care coordination assessment. RN RADHA introduced self and role at [facility]. Pt voices understanding and consents to assessment at this time. Pt resting in bed in no distress at this time. @ bedside. Pt is A/O at this time and answers all questions appropriately. Care providers, pharmacy, and demographics verified/updated at this time. PCP: Dr Joey Snyder Specialists: None Preferred Pharmacy: [facility] Retail Insurance: [employer]INT, [place] Prescription Benefit: Yes. Pt concerned about the cost of any new medications at discharge, as she wants to make sure she gets them where they will be cheapest. Pt and discussed pharmacy preference at discharge and they chose [facility] Retail pharmacy. MARIA VICTORIA GARCIA informed them that valdes check can be done once they are sent to the pharmacy so she is aware of the cost before picking them up. She voices appreciation. Living Will/HPOA: Has both LW and HCPOA, who is her , [place]. LNOK: , [place] Living Arrangements: Lives w/ in ranch-style home w/2 1/2 steps to enter. Denies difficulty w/stairs. Independent. Transportation: Pt states drives self and states no transportation concerns at this time. also drives. DME: Denies using any DME and denies needs. HHC/SNF: No hx of either, denies need for HHC or OP therapy, and no needs identified at this time. PT /OT evals pending. Pt wishes to return home and states has no concerns with going home at time of discharge. CM to follow for any discharge planning/needs. Pt and voice no further concerns/needs at this time. Advised them to ask for CM if any further questions/concerns/needs arise. They voice understanding. PLAN: Home w/spousal support and discharge plans in place. CM to call for valdes check on any new medications @ d/c. Scarlett ADAMS RN, CM
[2022-09-12] MEDS: Losartan Potassium 25 MG Tablet PO (12:31)
[2022-09-13] VITALS (7 sets, daily range): BP systolic 147–170; BP diastolic 65–85; PULSE 78–87; RESP 16–18; TEMP 36.7–36.8; O2SAT 95–98
[2022-09-13] MEDS: 0.9% Saline Lock 10 ML Syringe IV (03:53)
[2022-09-13] MEDS: hydrALAZINE 20 MG/ML Vial 5 MG IV (04:04)
--- NOTE | 2022-09-13 04:20 | NURSING ---
pt called out stating that she is feeling anxious and she felt this way the first day she came in and they gave her iv medications for bp
[2022-09-13 05:37] LABS: Absolute Lymphocyte Count 2.61 X10^3/uL (0.83-4.51); Absolute Neutrophil Count 4.3 X10^3/uL (2.0-7.7); Basophil# 0.05 X10^3/uL; Basophil% 0.6 % (0-1); Eosinophil# 0.15 X10^3/uL; Eosinophils% 1.9 % (0-5); Hematocrit 41.4 % (37-47); Hemoglobin 14.2 g/dL (12.0-15.0); Lymphocyte # 2.61 X10^3/ul (0.83-4.51); Lymphocyte % 33.4 % (19-41); Mean Corp Hgb Conc 34.3 g/dL (32-36); Mean Corpuscular Hgb 31.2 pg (27.0-32.0); Mean Platelet Vol. 8.6 fl (6.2-12.0); Monocyte# 0.74 X10^3/uL; Monocyte% 9.5 % (0-10); NRBC Flagged by Analyzer 0 % (0-5); Neutrophil # 4.25 X10^3/uL (2.7-7.7); Neutrophil % 54.3 % (47-70); Platelet Count 311 K/mm3 (150-450); RBC Distribution Width CV 13.4 % (11.6-14.6); RBC Distribution Width SD 45.1 fl (35.1-43.9); Red Blood Count 4.55 M/mm3 (4.2-5.4); White Blood Count 7.8 K/mm3 (4.4-11.0)
[2022-09-13 06:09] LABS: AST(SGOT) 21 U/L (15-37); Alanine Aminotransfer ALT/SGPT 20 U/L (13-56); Albumin, Serum 3.3 g/dL (3.2-5.0); Alkaline Phosphatase 96 U/L (45-117); Anion Gap 8 (5-15); BUN 20 mg/dL (7-18); BUN/Creat Ratio 23.7 RATIO (10-20); Calcium,Total 8.6 mg/dL (8.5-10.1); Chloride 104 mmol/L (98-107); Creatinine, Serum 0.84 mg/dL (0.55-1.02); EST Glomerular Filtration Rate 68 mL/min (>60); Est Glom Filt Rate - Afr Amer 82 mL/min (>60); Estimated Creatinine Clearance 34.55 ml/min; Globulin 3.3 g/dL (2.2-4.2); Glucose 97 mg/dL (74-106); Potassium 3.8 mmol/L (3.5-5.1); Protein, Total 6.6 g/dL (6.4-8.2); Sodium Level 137 mmol/L (136-145)
--- NOTE | 2022-09-13 06:10 | NURSING ---
when rn went to re check pt's bp she stated that she still feels anxious and that her jaw bone was hurting her earlier but its improved now. bp still elevated will notified Dr Lux via core texted
[2022-09-13] MEDS: Losartan Potassium 25 MG Tablet PO (07:49)
--- NOTE | 2022-09-13 13:26 | DCINST_ITS ---
Discharge Instructions Diet Discharge Diet: - (DASH Diet) Activity Discharge Activity: Return to Normal Activity Follow Up Care Test Results: Test results from this visit will be discussed in further detail at your follow- up appointment, if applicable. Discharge Plan Admission Admit Date/Time: 09/11/22 20:50 Primary Reason for Your Visit: Room spinning, headache, chest tightness Attending Provider: Christine Santos Primary Care Provider: Joey Snyder Consulting Providers: Reyna Valenzuela ; Tee Waldron Instructions Patient Instructions: Controlling High Blood Pressure, DASH Plan Eat Heart Healthy Food Additional Instructions / Restrictions: ?You will be discharged on a low-dose of a blood pressure medication, losartan, that you will take daily. ? It is strongly advised that you begin monitoring your blood pressure and follow closely with her primary care physician -Please call your primary care provider's office upon discharge to schedule a hospital follow up within 1 week. -For any concerning signs or symptoms please call 911 or proceed to the nearest emergency department Discharge Orders/Prescriptions Prescriptions: New losartan 25 mg Tablet 25 mg PO DAILY 30 Days Qty: 30 0RF Referrals / Follow Up: Joey Snyder DO [Primary Care Provider] - Within 1 Week Disposition Disposition (needs filled in before D/C Order can be placed): Home, Self Care
--- NOTE | 2022-09-13 13:34 | DS.PCM_ITS ---
Providers Date of Admission: 09/11/22 Date of Discharge: 09/13/22 Primary Care Physician: Dr. Joey Snyder, DO Consultations 09/11/22 23:37 Consult: Mechanical Maintenance Technician / Pulmonary Medicine Routine Consulting Provider: Tee Waldron Reason for Consult: HTN Ermelinda, CVA EMERGENT Consult: No MD Notified: Yes Date Notified: 09/11/22 Time Notified: 20:57 Method of Notification: Text Reason For Visit: VERTIGO, HTN EMERGENCY Diagnosis Discharge Diagnosis (1) Hypertensive emergency: Status: Acute Code(s): I16.1 - Hypertensive emergency Plan #Hypertensive emergency Medications at Discharge Home Medications losartan 25 mg tablet 25 mg PO DAILY 30 days #30 tabs 09/13/22 Hospital Course Procedures - (echo, mri head) Summary of Care Provided Minutes Spent on Discharge: 31 Hospital Course: 82 history squamous cell carcinoma presented to [facility] ED 09/09 with onset of dizziness beginning on day of presentation with a spinning- like sensation coming and going and lasting for approximately 5 minutes. Does persist even if resting and especially if she sleeps on her right side and moves her head in a certain position. No improvement with any interventions and has a mild occipital headache. Some chest tightness and mild dyspnea with exertion. 1.5 weeks prior to presentation she did report she had some right eye changes with a black spot in her field of vision prompting evaluation by Dr. 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 In the ED her blood pressure was initially 232/108 and remained elevated despite intervention. Troponin was 6. CT of the brain with atrophy and moderate periventricular white matter ischemic changes with no acute findings. EKG occasional PVC without evidence of ischemia. She was admitted for hypertensive emergency and to rule out CVA. MRI with some chronic white matter changes but no acute CVA. Symptoms completely resolved with improvement in blood pressure. She was briefly on Cardene drip and this was transitioned to losartan 25 mg. She reported she is very sensitive to both doses of medicine and side effects but after discussion she was agreeable to the losartan. Discussed statin, given that she has no clinical ASCVD and she is 82 with only mildly elevated LDL and she does not wish to be on this do not feel she would not prescribe a statin at this time. Echo with only grade 1 diastolic dysfunction. On day of discharge she reports she is feeling well and symptoms have resolved. Tolerating the losartan. Discharge instructions as follows: ?You will be discharged on a low-dose of a blood pressure medication, losartan, that you will take daily. ? It is strongly advised that you begin monitoring your blood pressure and follow closely with her primary care physician -Please call your primary care provider's office upon discharge to schedule a hospital follow up within 1 week. -For any concerning signs or symptoms please call 911 or proceed to the nearest emergency department Physical Exam Narrative General: Alert, oriented, no apparent distress HEENT: Atraumatic, normocephalic Eyes: Anicteric, normal conjunctiva, extraocular movements grossly intact Neck: Supple Respiratory: Clear to auscultation bilaterally, normal respiratory effort Cardiovascular: Regular rate and rhythm GI: Soft, nontender, nondistended Extremities: No edema Musculoskeletal: Moving all extremities Neuro: No overt focal neurological deficits Skin: No rashes appreciated Psych: Cooperative Weight / BMI Weight Weight: 43.9 kg Body Mass Index (BMI) 17.1 ABG / Lab / Microbiology Data Result Diagrams: 09/13/22 05:05 09/13/22 05:05 Laboratory: Laboratory Results - last 24 hr 09/13/22 05:05: WBC 7.8, RBC 4.55, Hgb 14.2, Hct 41.4, MCV 91.0, MCH 31.2, MCHC 34.3, RDW Std Deviation 45.1 H, RDW Coeff of Jane 13.4, Plt Count 311, MPV 8.6, Immature Gran % (Auto) 0.300, Neut % (Auto) 54.3, Lymph % (Auto) 33.4, [place] % (Auto) 9.5, Eos % (Auto) 1.9, Baso % (Auto) 0.6, Absolute Neuts (auto) 4.3, Absolute Lymphs (auto) 2.61, Nucleated RBC % 0 09/13/22 05:05: Sodium 137, Potassium 3.8, Chloride 104, Carbon Dioxide 25.0, Anion Gap 8, BUN 20 H, Creatinine 0.84, Estim Creat Clear Calc 34.55, Est GFR (MDRD) Af Amer 82, Est GFR (MDRD) Non-Af 68, BUN/Creatinine Ratio 23.7 H, Glucose 97, Calcium 8.6, Total Bilirubin 0.60, AST 21, ALT 20, Alkaline Phosphatase 96, Total Protein 6.6, Albumin 3.3, Globulin 3.3, Albumin/Globulin Ratio 1.0 D/C Instructions Discharge Diet: - (DASH Diet) Meaningful Use Info Meaningful Use Diagnoses (Choose all that apply): None applicable Discharge Plan Admission Admit Date/Time: 09/11/22 20:50 Primary Reason for Your Visit: Room spinning, headache, chest tightness Attending Provider: Christine Santos Primary Care Provider: Joey Snyder Consulting Providers: Reyna Valenzuela ; Tee Waldron Instructions Patient Instructions: Controlling High Blood Pressure, DASH Plan Eat Heart Healthy Food Additional Instructions / Restrictions: ?You will be discharged on a low-dose of a blood pressure medication, losartan, that you will take daily. ? It is strongly advised that you begin monitoring your blood pressure and follow closely with her primary care physician -Please call your primary care provider's office upon discharge to schedule a hospital follow up within 1 week. -For any concerning signs or symptoms please call 911 or proceed to the nearest emergency department Discharge Orders/Prescriptions Prescriptions: New losartan 25 mg Tablet 25 mg PO DAILY 30 Days Qty: 30 0RF Referrals / Follow Up: Joey Snyder DO [Primary Care Provider] - Within 1 Week Disposition Disposition (needs filled in before D/C Order can be placed): Home, Self Care Charges/Coding Visit Charges Inpatient E&M: 44657 Disch Hosp >30min
== END 2022-09-13 02:35 | disposition home or self-care (01) | DRG 305 ==
LOC: ED 21:02 → ICU 21:29 → PCU 09-12 18:02
PROVIDERS: Admitting Provider Family Medicine; Emergency Provider Emergency Medicine; PCP Family Medicine; Visit Provider Internal Medicine
DX: I16.1 Hypertensive emergency (principal); Z66 Do not resuscitate; I10 Essential (primary) hypertension; Z79.82 Long term (current) use of aspirin; Z79.899 Other long term (current) drug therapy
CPT/HCPCS: 36415; 70450; 70496; 70498; 70551; 71046; 80048; 80053; 80061; 81001; 82962; 83036; 83735; 83880; 84443; 84484; 85025; 85379; 93005; 93306; 94668; 94762; 97802; 99252; 99284; J7030; J7050; Q9967; A4216; G0463

== ENCOUNTER 2022-10-17 08:30 | Outpatient (RCR) | payer MEDICARE, OTHER, SELFPAY ==
--- NOTE | 2022-10-03 09:46 | HP.PTEVAL_ITS ---
Patient's Visit Information MANFRED ROSE is a 82 year old F referred to Physical Therapy by Dr. Joey Snyder DO with a diagnosis of dizziness and giddiness. Date of Evaluation: 10/03/22 Physical Therapist: HADLEY Lundberg - Visit Plan Frequency: 2x /Week Duration: 6 Weeks Plan: Re check R Hallpike and treat accordingly if has dizziness and nystagmus - Subjective This started about a year ago after an airplane flight and got dizzy and then this fall they flew again in early Jul and it started again and some days it is better than others. She can not sleep on the R side. It is mainly looking up or getting into the bed on the bed to her L side (she will get a little dizzy once in awhile when go to the L) but mostly to the right. Finally she told Dr Snyder about it. When she gets the dizziness it would be less than 30 seconds and have dizziness. She feels fine throughout the day. She has no SUAREZ. She went through a high blood pressure thing 2 weeks ago and it is regulated on BP meds. - Objective At first pt had a negative R and L Hallpike (maybe slight dizziness on the R compared to the L). Pt had negative Roll test to the R and to the L. Had the patient do BD to the R and had no dizziness and then to the L and started to get nystagmus and dizziness. Re tested R hallpike and was postiive for nystagmus and dizziness. Treated with R Eply. Re tested R Hallpike and was negative for dizziness and nystagmus. - Balance/Special Test Scores Dizziness Score: 18 - Goals Goal 1:: I HEP Goal Time Frame: 6-8 Weeks Goal 2:: Be able to lay down on her R side without having dizziness Goal Time Frame: 6-8 Weeks Goal 3:: Be able to look up without having dizziness Goal Time Frame: 6-8 Weeks - Rehabilitation Potential Rehabilitation Potential: Good - Anticipated Interventions Patient/Client Instruction: Educate patient on: Condition, Plan of Care For the Purpose of:: To decrease pain, To increase ROM, To improve nutrient delivery to tissue, To improve ability to perform ADL's, To increase tolerance to activity/condition/position, To improve performance and independence with AD L's, To improve health of tissue, To improve balance, To improve safety with gait Therapeutic Exercise to Include: Balance training, Neuromotor development, Passive ROM, Active ROM For the Purpose of:: To improve ability to perform ADL's, To increase tolerance to activity/condition/position, To improve performance and independence with ADL's, To decrease level of supervision to perform tasks, To improve health of tissue, To decrease soft tissue restriction, To improve balance, To improve safety with gait Manual Therapy Techniques to Include: Passive ROM, Other Comment: EPLY For the Purpose of:: To improve nutrient delivery to tissue, To improve ability to perform ADL's, To improve ability of physical actions for home/community/work/leisure, To improve gait and locomotor functions, To improve health of tissue, To increase flexibility/ROM, To improve balance, To improve safety with gait Thank you for the opportunity to evaluate your patient. For Medicare and Medicare HMO plans, please review the plan of care and approve it. It will need to be FAXED BACK to us at [phone] for Medicare purposes. For Medicare only, by signing this I certify the plan of care. Please let me know if there are questions or concerns regarding this plan of care. Physician Signature: Date:
--- NOTE | 2022-10-17 08:56 | HP.PTDCSUM ---
It has been my pleasure to treat MANFRED ROSE referred by Dr. Joey Snyder DO, with the diagnosis of dizziness and giddiness for a total of 3 visit(s). Discharge Date: 10/17/22 Please see the following information for a summary of their discharge status. Subjective: Pt almost cancelled. The last time she had dizziness was over a week ago. She is still doing the BD exercises once in awhile. % Improvement: 100 Objective/Function: Pt does not want to test for Hallpike again as she feels well. Discussed if her sx come back to call her Dr and get a script to come back. Discussed continue BD if sx continue Goal 1:: I HEP Goal Progress: Goal Met Goal 2:: Be able to lay down on her R side without having dizziness Goal Progress: Goal Met Goal 3:: Be able to look up without having dizziness Goal Progress: Goal Met Plan: DC PT to BD exercises a few times a week. Discharge Comments: DC PT to HEP If there are questions or concerns regarding this patient's physical therapy, please feel free to call me at [phone]. Thank you for the referral of this patient. Sincerely, Esther Thompson, MPT Balance/Gait/Functional tests - Balance/Special Test Scores Dizziness Score: 6
== END 2022-10-17 14:31 | disposition home or self-care (01) ==
LOC: PT 08:30
PROVIDERS: PCP Family Medicine; Referring Provider Family Medicine; Visit Provider Family Medicine
DX: R42 Dizziness and giddiness (principal)
CPT/HCPCS: 97161; 97530

== ENCOUNTER → 2022-12-20 | Outpatient (CLI) | payer MEDICARE, OTHER, SELFPAY ==
--- NOTE | 2022-12-20 13:19 | STE_ITS ---
Reason For Study: DYSPNEA/SOB Stress Results Protocol: Tee Protocol Maximum Predicted HR: 136 bpm Target HR: 116 bpm % Maximum Predicted HR: 90 % DurationHeart Rate Stage (mm:ss) (bpm) BP Comment BASELINE 93 140/78 STAGE 1 3:00 100 146/62 STAGE 2 3:00 122 160/50SOB TOWARDS END OF STAGE RECOVERY 83 140/82 Stress Duration: 6:00 mm:ss Maximum Stress HR: 122 bpm Baseline Echocardiogram Findings The estimated ejection fraction is 65 %. post stress EF is 70%. Stress Echo Wall motion Data Resting WM Intermediate WM Stress WM Resting Wall Motion Wall Motion Stress No regional wall motion No regional wall motion abnormalities noted. abnormalities noted. EKG Data The baseline ECG displays normal sinus rhythm. No significant ischemic changes. Symptoms with Stress The patient experinced No chest pain . ECHO/Stress Test Echo w/o Contrast Interpretation Summary The estimated ejection fraction is 65 %. Stress echo is negative for exercise-induced chest pain or EKG or echocardiogra phic changes of ischemia. Functional capacity is excellent for age Ordering Physician: Joey Snyder Referring Physician: Joey Snyder Performed By: Shirley Alas RCS
== END | disposition home or self-care (01) ==
LOC: CVS 13:18
PROVIDERS: PCP Family Medicine; Referring Provider Family Medicine; Visit Provider Family Medicine
DX: R06.09 Other forms of dyspnea (principal)
CPT/HCPCS: 93017; 93350

== ENCOUNTER → 2023-03-07 | Outpatient (CLI) | payer MEDICARE, OTHER, SELFPAY ==
[2023-03-07 17:06] LABS: Absolute Lymphocyte Count 2.52 X10^3/uL (0.83-4.51); Absolute Neutrophil Count 4.2 X10^3/uL (2.0-7.7); Basophil# 0.06 X10^3/uL; Basophil% 0.8 % (0-1); Eosinophil# 0.13 X10^3/uL; Eosinophils% 1.7 % (0-5); Hematocrit 40.2 % (37-47); Hemoglobin 13.2 g/dL (12.0-15.0); Lymphocyte # 2.52 X10^3/ul (0.83-4.51); Lymphocyte % 32.7 % (19-41); Mean Corp Hgb Conc 32.8 g/dL (32-36); Mean Corpuscular Hgb 30.7 pg (27.0-32.0); Mean Corpuscular Volume 93.5 fL (81-99); Mean Platelet Vol. 9.1 fl (6.2-12.0); Monocyte# 0.75 X10^3/uL; Monocyte% 9.7 % (0-10); NRBC Flagged by Analyzer 0 % (0-5); Neutrophil # 4.23 X10^3/uL (2.7-7.7); Neutrophil % 54.8 % (47-70); Platelet Count 322 K/mm3 (150-450); RBC Distribution Width CV 13.5 % (11.6-14.6); RBC Distribution Width SD 46.5 fl (35.1-43.9); White Blood Count 7.7 K/mm3 (4.4-11.0)
[2023-03-07 17:30] LABS: ALB/GLOB Ratio 1.1 RATIO (0.9-2.4); AST(SGOT) 18 U/L (15-37); Alanine Aminotransfer ALT/SGPT 21 U/L (13-56); Albumin, Serum 3.8 g/dL (3.2-5.0); Alkaline Phosphatase 124 U/L (45-117); Anion Gap 6 (5-15); BUN 21 mg/dL (7-18); BUN/Creat Ratio 20.6 RATIO (10-20); Calcium,Total 8.6 mg/dL (8.5-10.1); Chloride 102 mmol/L (98-107); Creatinine, Serum 1.02 mg/dL (0.55-1.02); EST Glomerular Filtration Rate 55 mL/min (>60); Est Glom Filt Rate - Afr Amer 66 mL/min (>60); Globulin 3.6 g/dL (2.2-4.2); Glucose 97 mg/dL (74-106); Potassium 4.3 mmol/L (3.5-5.1); Protein, Total 7.4 g/dL (6.4-8.2); Sodium Level 134 mmol/L (136-145); Thyroid Stim Hormone (TSH) 2.98 uIU/mL (0.358-3.74)
[2023-03-07 18:18] LABS: Hepatitis C Antibody Non-Reactive (Nonreactive); Vitamin D,25 Hydroxy 25.2 ng/mL
== END | disposition home or self-care (01) ==
LOC: POLAB3 15:33
PROVIDERS: PCP Family Medicine; Visit Provider Family Medicine Geriatric Medicine
DX: I10 Essential (primary) hypertension (principal); E55.9 Vitamin D deficiency, unspecified; Z13.89 Encounter for screening for other disorder
CPT/HCPCS: 36415; 80053; 82306; 84443; 85025; 86803

== ENCOUNTER 2023-03-16 09:57 | Observation (INO) | payer MEDICARE, OTHER, SELFPAY ==
[2023-03-15 07:32] VITALS: BMI 17.2
[2023-03-16] VITALS (9 sets, daily range): BP systolic 144–189; BP diastolic 71–96; PULSE 67–77; RESP 16–18; TEMP 36.7–36.9; O2SAT 96–100
--- NOTE | 2023-03-16 09:33 | CL.D_ITS ---
Patient Name: MANFRED ROSE Study Date: 03/16/2023 Performing: Guicho Peraza MD Ht: 63 inches 160.02 cm : 1940 Wt: 97 lbs 44 kg Age: 82 Gender: female BSA: 1.42 PROCEDURE(S) PERFORMED DC01-([id number])LHC/COR/LV CLINICAL PROFILE AND INDICATIONS Indications: Suspected CAD Heart Failure: None Stress/Imaging Stress Echocardiogram: Yes Result: NegativeStress Echocardiogram: Negative CAD Presentations: Stable angina. CONCLUSIONS Normal LV size, wall motion,and systolic function High-grade left circumflex artery mid segment lesion. RECOMMENDATIONS Referred for immediate PCI DESCRIPTION OF PROCEDURE The patient arrived to the procedure lab. The risks and benefits of the procedure as well as a full description of our services here and current unavailability of surgical backup were fully explained to the patient and/or their significant other prior to the catheterization. The Timeout was completed, verifying the correct patient and procedure. The patient's procedural site was prepped and draped in the usual fashion. Local anesthetic was given subcutaneously to right radial region with Lidocaine 2%. Using a modified Seldinger technique, arterial access was obtained via the right radial artery, a 6Fr sheath was inserted. Left Coronary Artery selective angiography was performed in multiple views using a 5 Fr. 4.0 [place] catheter. Right Coronary Artery selective angiography was then performed in multiple views using a 5 Fr. 4.0 [place] catheter. Left Ventriculography was performed in BARRAZA projection using a 5 Fr. Pigtail catheter. LV to AO pullback pressures were then recorded. CORONARY ANGIOGRAPHY DOMINANCE: Right Dominant LEFT HEART ASSESSMENT Left Ventricular Ejection Fraction: by LV Gram 65 % Normal LV wall motion Normal Left Ventricular systolic function LEFT MAIN: 30% LEFT ANTERIOR DESCENDING ARTERY: Mild luminal irregularities less than 30% DIAGONAL 1: Proximal - Moderate luminal irregularities up to 50% CIRCUMFLEX ARTERY: MID CIRC: 95 % Stenosis RIGHT CORONARY ARTERY: MID RCA: Moderate luminal irregularities up to 50% COMPLICATIONS PROCEDURE MEDICATIONS Fentanyl 50 mcg IV Versed 1 mg IV Oxygen: 2 L/min via nasal cannula SUMMARY OF HEMODYNAMIC DATA Time AIR REST ECG 07:29:43 AO 142/67 (97) SA 09:12:22 LV 137/4, 13 09:17:31 LV 143/4, 13 09:17:36 LV 126/4, 14 09:18:21 LV 133/5, 15 09:18:27 LVp 144/11, 19 09:18:32 AOp 143/57 (94) 09:18:37 Signed By Guicho Peraza MD On 03/16/2023 09:32:23 Guicho Peraza MD
--- NOTE | 2023-03-16 10:15 | EKG12_ITS ---
Test Reason : POST HEART CATH Blood Pressure : / mmHG Vent. Rate : 069 BPM Atrial Rate : 069 BPM P-R Int : 162 ms QRS Dur : 088 ms QT Int : 436 ms P-R-T Axes : 078 057 061 degrees QTc Int : 467 ms Normal sinus rhythm Nonspecific ST abnormality Abnormal ECG When compared with ECG of 12-SEP-2022 00:12, No significant change was found Confirmed by CARLA BURKS, GUICHO ([id number]), managing editor CONRAD FLOWERS ([id number]) on 03/19/2023 1:34:54 PM Referred By: Guicho Peraza Confirmed By:GUICHO PERAZA MD
--- NOTE | 2023-03-16 10:53 | CRPHASE1_ITS ---
Patient Communication Patient Information PHII Cardiac Rehab Discussed with Patient:: Yes Guide to Cardiac Rehab Given to Patient:: Yes Cardiac Rehab Facility Choice List Given to Patient:: Yes Communication to Cardiac Rehab Choice Program [facility] CR PHII:: Communication Given to CR Choice Program Other:: Communication Given to CR Script Developer:: César Perez Refer Phase II Cardiac Rehab:: No Sessions:: 36 sessions - 3 days/wk, 12 weeks Post Discharge Choice Letter Given to Patient:: Yes Cardiac Rehabilitation Info Program Information Cardiac Rehabilitation Program Information: Cardiac Rehab The cardiac rehab team at [facility] consists of highly skilled exercise physiologists, nurses, respiratory therapists and physicians working together with you. Our purpose is to help you have a full recovery and achieve the goals you set for yourself. Over the years many of our patients have returned to activities they assumed they would never do again! We can help restore your confidence and motivation to make lifestyle changes that can have a significant impact on your health and quality of life! We can help answer questions and concerns you may have about exercise, lifestyle, medications, diet, stress and anxiety which are common following a hospitalization. WE monitor ECG and vital signs during exercise and discuss your progress with you and report to your physician(s). Cardiac Rehab is proven to help reduce readmissions, improve functional capacity and lower recurrence of problems with your heart. Our Cardiac Rehab program is Certified by the [place] [employer]-V[employer] Pulmonary [employer] (AACVPR) and Accredited by the [place] [employer] through our [facility]. You can contact us at . We invite you to call us with your questions or to get started in our program. If you have other questions or concerns be sure to ask your physician/provider during your follow-up visit. WE look forward to seeing you!
--- NOTE | 2023-03-16 10:54 | CRPH1.INSTRU ---
General Education Discussed with Patient CAD and cardiac anatomy and function:: Patient communicates acknowledgment Explanation of diagnoses and procedures:: Patient communicates acknowledgment Sign/Symptoms of MD:: Patient communicates acknowledgment Antiplatelet therapy: Patient communicates acknowledgment Proper use of NTG-SL: Patient communicates acknowledgment Emergency procedures and activation of EMS: Patient communicates acknowledgment Compliance of all prescribed medications: Patient communicates acknowledgment Smoking Risk Factors Patient Nicotine/Smoking Risk Factors Are:: Never smoked Dyslipidemia Response Code Dyslipidemia Response Code:: Not instructed Overweight/Obesity Response Code Overweight/Obesity:: Not instructed Hypertension Recommendations Recommendations Include:: Maintain BP <130/85 Response Code Hypertension:: Patient communicates acknowledgment Heart Disease Recommendations Recommendations Include:: Educated family members of their risk and Educated family members of importance of prevention of heart disease Response Code Heart Disease Response Code:: Patient communicates acknowledgment Diabetes Response Code Diabetes:: Not instructed Metabolic Syndrome Risk Factors Patient Metabolic Syndrome Risk Factors Are [3 of 5]:: Hypertension Recommendations Recommendations Include:: Reinforce compliance to risk factor modifications and Encouraged follow-up with Primary Care Physician Response Code Metabolic Syndrome Response Code:: Patient communicates acknowledgment Sedentary Recommendations Recommendations Include:: Aerobic exercise 5-7 times/week for 20-30 minutes continuously, Benefits of regular exercise and Monitored Outpatient Cardiac Rehab Response Code Sedentary Response Code:: Patient communicates acknowledgment Stress Recommendations Recommendations Include:: Identification of stressors, and assessment of coping skills and Stress management techniques Response Code Stress Response Code:: Patient communicates acknowledgment
[2023-03-16] MEDS: 0.9% Normal Saline 1,000 ML 80 ML IV (11:00)
--- NOTE | 2023-03-16 11:28 | CL.I_ITS ---
Patient Name: MANFRED ROSE Study Date: 03/16/2023 Performing: Alli Perez MD Ht: 63 inches 160.02 cm : 1940 Wt: 97.1 lbs 44 kg Age: 82 Gender: female BSA: 1.42 PROCEDURE(S) PERFORMED IC12-([id number])JULIANNA W/WO PTCA, SINGLE CORONARY ARTERY IC13-([id number])JULIANNA W/WO PTCA, EACH ADD'L ART, SAME MAJOR CLINICAL PROFILE AND CO-MORBIDITIES Indications: Suspected CAD Heart Failure: None Stress/Imaging Stress Echocardiogram: Yes Result: Negative Stress Echocardiogram: Negative CAD Presentations: Stable angina. CONCLUSIONS Successful JULIANNA to ostial LCx and pOM1 RECOMMENDATIONS DESCRIPTION OF PROCEDURE The patient arrived to the procedure lab. The risks and benefits of the procedure as well as a full description of our services here and current unavailability of surgical backup were fully explained to the patient and/or their significant other prior to the catheterization. The Timeout was completed, verifying the correct patient and procedure. The patient's procedural site was prepped and draped in the usual fashion. Local anesthetic was given subcutaneously to right radial region with Lidocaine 2% Using a modified Seldinger technique,arterial access was obtained via the right radial artery, a 6Fr sheath was inserted. Left Coronary Artery selective angiography was performed in multiple views using a 5 Fr. 4.0 [place] catheter. Right Coronary Artery selective angiography was then performed in multiple views using a 5 Fr. 4.0 [place] catheter. Left Ventriculography was performed in BARRAZA projection using a 5 Fr. Pigtail catheter. LV to AO pullback pressures were then recorded. XB 3 Guide catheter was inserted and engaged into the LCA. BMW Guide wire was advanced to the 1st OM. 2.25 x 12 [place] Balloon catheter was inserted. Balloon catheter was advanced across lesion in the first obtuse marginal, prox. Angiogram performed pre balloon dilatation. PTCA balloon inflated at 8 atms for 13 secs. Angiogram performed post balloon dilatation. 2.25 x 18 Bob White Drug Eluting stent was inserted. Drug Eluting stent was advanced across the lesion in the first obtuse marginal, proximal. Angiogram performed post stent deployment. 3 x 8 Bob White Drug Eluting stent was advanced across the lesion in the circumflex, ostial. Angiogram performed post stent deployment. The arterial sheath was pulled and a TR Band was applied for hemostasis INTERVENTION INFORMATION LESION SITE: 1st OM (Proximal) Lesion Complexity: High/C, chronic total occlusion: No, lesion at bifurcation: No, thrombus present: No, lesion length: 12 mm, culprit lesion: Yes, Previously treated lesion: No Pre Stenosis: 99 % Pre intervention DELIO flow: 3 PROCEDURE: Drug Eluting Stent with pre dilatation. Post Stenosis: 0 % Post intervention DELIO flow: 3 Lesion Devices: Loya .014 190cm BMW [place] Straight Cordis 6 Fr XB3.0 100cm Guide Catheter Medtronic Resolute Doron RX JULIANNA 2.25x18 LESION SITE: Circumflex (Ostial) Lesion Complexity: High/C, chronic total occlusion: No, lesion at bifurcation: Yes, thrombus present: No, lesion length: 7 mm, culprit lesion: Yes, Previously treated lesion: No Pre Stenosis: 70 % Pre intervention DELIO flow: 3 PROCEDURE: Drug Eluting Stent Post Stenosis: 0 % Post intervention DELIO flow: 3 Lesion Devices: Loya .014 190cm BMW [place] Straight Cordis 6 Fr XB3.0 100cm Guide Catheter Medtronic Resolute Doron RX JULIANNA 3.0x08 COMPLICATIONS No Complications PROCEDURE MEDICATIONS Fentanyl 50 mcg IV Versed 1 mg IV Oxygen: 2 L/min via nasal cannula SUMMARY OF HEMODYNAMIC DATA Time AIR REST ECG 07:29:43 AO 142/67 (97) SA 09:12:22 LV 137/4, 13 09:17:31 LV 143/4, 13 09:17:36 LV 126/4, 14 09:18:21 LV 133/5, 15 09:18:27 LVp 144/11, 19 09:18:32 AOp 143/57 (94) 09:18:37 Signed By Alli Perez MD On 03/16/2023 11:27:01 Alli Perez MD
[2023-03-16] MEDS: 0.9% Saline Lock 10 ML Syringe IV (17:21)
[2023-03-16] MEDS: amLODIPine 2.5 MG Tablet 1.25 MG PO (17:59)
[2023-03-16] MEDS: TICAGRELOR 90 MG TABLET PO (21:34)
[2023-03-16] MEDS: Atorvastatin Calcium 40 MG Tablet PO (21:34)
[2023-03-17 03:20] VITALS: BP 168/86; PULSE 73; RESP 16; TEMP 36.6; O2SAT 96
[2023-03-17 03:54] VITALS: O2SAT 96
[2023-03-17 05:49] LABS: Hematocrit 38.9 % (37-47); Hemoglobin 13.1 g/dL (12.0-15.0); Mean Corp Hgb Conc 33.7 g/dL (32-36); Mean Corpuscular Hgb 30.8 pg (27.0-32.0); Mean Corpuscular Volume 91.3 fL (81-99); Mean Platelet Vol. 8.9 fl (6.2-12.0); Platelet Count 277 K/mm3 (150-450); RBC Distribution Width CV 13.2 % (11.6-14.6); RBC Distribution Width SD 44.2 fl (35.1-43.9); Red Blood Count 4.26 M/mm3 (4.2-5.4); White Blood Count 9.5 K/mm3 (4.4-11.0)
[2023-03-17 06:24] LABS: AST(SGOT) 20 U/L (15-37); Alanine Aminotransfer ALT/SGPT 20 U/L (13-56); Albumin, Serum 3.2 g/dL (3.2-5.0); Alkaline Phosphatase 95 U/L (45-117); Anion Gap 6 (5-15); BUN 20 mg/dL (7-18); BUN/Creat Ratio 24.1 RATIO (10-20); Calcium,Total 8.5 mg/dL (8.5-10.1); Chloride 105 mmol/L (98-107); Creatinine, Serum 0.83 mg/dL (0.55-1.02); EST Glomerular Filtration Rate 69 mL/min (>60); Est Glom Filt Rate - Afr Amer 84 mL/min (>60); Estimated Creatinine Clearance 35.05 ml/min; Globulin 3.2 g/dL (2.2-4.2); Glucose 89 mg/dL (74-106); Potassium 3.8 mmol/L (3.5-5.1); Protein, Total 6.4 g/dL (6.4-8.2); Sodium Level 136 mmol/L (136-145)
[2023-03-17 09:20] VITALS: BP 136/71; PULSE 86; RESP 17; TEMP 36.6; O2SAT 97
[2023-03-17] MEDS: TICAGRELOR 90 MG TABLET PO (09:30)
[2023-03-17] MEDS: Aspirin E.C. 81 MG Tablet PO (09:30)
--- NOTE | 2023-03-17 10:42 | CASEMGMT ---
MARIA VICTORIA GARCIA in to complete GRIMM form with patient. MARIA VICTORIA GARCIA explained GRIMM Form to patient, patient voiced understanding. Patient signed GRIMM Form and filed in chart. Patient provided copy of signed GRIMM form. Patient had no further questions or concerns at this time.
--- NOTE | 2023-03-17 11:40 | PCM.PN.CARD ---
Subjective Subjective Patient seen and evaluated. Appears to be doing well. Had an episode of chest discomfort yesterday now resolved. Objective Data Vital Signs: Vital Signs Temp Pulse Resp BP Pulse Ox O2 Del Method 97.8 F 86 17 136/71 H 97 Room Air 03/17/23 09:20 03/17/23 09:20 03/17/23 09:20 03/17/23 09:20 03/17/23 09:20 03/17/23 09:20 Oxygen Delivery Method Room Air Weight: 97 lb Body Mass Index (BMI) 17.2 Intake & Output: Intake and Output for Last 24 Hours 03/15/23 03/16/23 03/17/23 23:59 23:59 23:59 Intake Total 1509.33 / 1609.33 100 / 100 Balance 1509.33 / 1609.33 100 / 100 Lab / Micro Data 03/17/23 05:10 03/17/23 05:10 Labs: Laboratory Results - last 24 hr 03/17/23 05:10: WBC 9.5, RBC 4.26, Hgb 13.1, Hct 38.9, MCV 91.3, MCH 30.8, MCHC 33.7, RDW Std Deviation 44.2 H, RDW Coeff of Jane 13.2, Plt Count 277, MPV 8.9, Sodium 136, Potassium 3.8, Chloride 105, Carbon Dioxide 25.0, Anion Gap 6, BUN 20 H, Creatinine 0.83, Estim Creat Clear Calc 35.05, Est GFR (MDRD) Af Amer 84, Est GFR (MDRD) Non-Af 69, BUN/Creatinine Ratio 24.1 H, Glucose 89, Calcium 8.5, Total Bilirubin 0.60, AST 20, ALT 20, Alkaline Phosphatase 95, Total Protein 6.4, Albumin 3.2, Globulin 3.2, Albumin/Globulin Ratio 1.0 Cardiology Labs/Tests 03/17/23 05:10: WBC 9.5, RBC 4.26, Hgb 13.1, Hct 38.9, MCV 91.3, MCH 30.8, MCHC 33.7, Plt Count 277, MPV 8.9, Sodium 136, Potassium 3.8, Chloride 105, Carbon Dioxide 25.0, Anion Gap 6, BUN 20 H, Creatinine 0.83, Est GFR (MDRD) Af Amer 84, Est GFR (MDRD) Non-Af 69, BUN/Creatinine Ratio 24.1 H, Glucose 89, Calcium 8.5, Total Bilirubin 0.60 Rhythm: EKG: ECHO: Stress Test: Cardiac Cath: PCI: CT Surgery: Holter monitor: EPS: PPM: CXR: Chest CT Scan: Physical Exam Const alert, oriented x3 and no apparent distress General Appearance: cooperative HEENT hearing grossly normal bilaterally Head and Scalp: atraumatic Eyes EOMs intact bilaterally Neck General: normal visual inspection Chest inspection of chest normal and palpation of chest normal Resp normal respiratory effort Auscultation: clear to auscultation bilaterally Cardio regular rate, regular rhythm, S1 normal heart sound and S2 normal heart sound Jugular Venous Distention: JVD GI normal to inspection, nondistended, normoactive bowel sounds Extremity normal capillary refill and no pedal edema Peripheral Pulses: Yes pulses 2+ throughout and femoral pulses present Skin no rashes or lesions noted Neuro oriented x3 and CN's II-XII intact bilaterally Psych Appearance: grossly normal and appropriate Assessment & Plan Assessment/Plan (1) Chest pain: QUALIFIERS: Chest pain type: chest pain due to myocardial ischemia Ischemic chest pain type: unstable angina pectoris Qualified Code(s): I20.0 - Unstable angina PLAN: Patient underwent cardiac catheterization yesterday which demonstrated 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 The plan be to continue her on aspirin, ticagrelor, and her low-dose calcium channel madina. The patient will be followed up as an outpatient and also with cardiac rehabilitation. Thank you for allowing me to participate in the care of your patient. Please don't hesitate to call if any issues arise.
== END 2023-03-17 11:40 | disposition home or self-care (01) ==
LOC: PCU 10:33
PROVIDERS: Specialist; Admitting Provider Internal Medicine Cardiovascular Disease; PCP Family Medicine; Referring Provider Internal Medicine Cardiovascular Disease; Visit Provider Internal Medicine Cardiovascular Disease
DX: I20.0 Unstable angina (principal); I10 Essential (primary) hypertension; E78.5 Hyperlipidemia, unspecified; Z79.899 Other long term (current) drug therapy
CPT/HCPCS: 36415; 80053; 85027; 92928; 92929; 93005; 93458; 96360; 96361; 99152; 99153; 99221; J7030; J7040; Q9967; A4216; C1769; C1887; C1894; C9600; C9601; G0378; J1327

== ENCOUNTER → 2023-04-20 | Outpatient (CLI) | payer MEDICARE, OTHER, SELFPAY ==
--- NOTE | 2023-04-20 11:24 | PFT ---
INTRODUCTION: The patient is a 83-year-old female who presents for pulmonary function studies secondary to a diagnosis of shortness of breath. Respiratory therapy reported good patient effort. Bronchodilators were used during testing. INTERPRETATION: Forced expiration spirometry demonstrates the presence of a severe large airways obstructive ventilatory defect. There was a significant response to aerosolized bronchodilators. Body plethysmography was performed and revealed an elevated RV to 126% of predicted, indicative of underlying air trapping. Diffusing capacity by single breath CO is reduced to 56% of predicted. 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
== END | disposition home or self-care (01) ==
LOC: PSN 07:47
PROVIDERS: PCP Family Medicine; Referring Provider Family Medicine Geriatric Medicine; Visit Provider Family Medicine Geriatric Medicine
DX: R06.02 Shortness of breath (principal)
CPT/HCPCS: 94060; 94726; 94729

== ENCOUNTER → 2023-09-12 | Outpatient (CLI) | payer MEDICARE, OTHER, SELFPAY ==
[2023-09-12 12:05] LABS: Absolute Lymphocyte Count 1.63 X10^3/uL (0.83-4.51); Absolute Neutrophil Count 4.6 X10^3/uL (2.0-7.7); Basophil# 0.05 X10^3/uL; Basophil% 0.7 % (0-1); Eosinophil# 0.09 X10^3/uL; Eosinophils% 1.3 % (0-5); Hemoglobin 12.4 g/dL (12.0-15.0); Lymphocyte # 1.63 X10^3/ul (0.83-4.51); Mean Corp Hgb Conc 32.6 g/dL (32-36); Mean Corpuscular Hgb 30.5 pg (27.0-32.0); Mean Corpuscular Volume 93.6 fL (81-99); Mean Platelet Vol. 8.9 fl (6.2-12.0); Monocyte% 9.9 % (0-10); NRBC Flagged by Analyzer 0 % (0-5); Neutrophil # 4.61 X10^3/uL (2.7-7.7); Platelet Count 309 K/mm3 (150-450); RBC Distribution Width CV 13.7 % (11.6-14.6); Red Blood Count 4.06 M/mm3 (4.2-5.4); White Blood Count 7.1 K/mm3 (4.4-11.0)
--- OUTSIDE RECORDS SUMMARY | 2023-09-12 12:06 | XMS RPT_ITS | CCD ---
Author Name Unknown Address [address] [facility] [address] [place] [address] Organization [facility] Care Team Providers Care Vocational Rehabilitation Counselor Name Role Phone CATRACHITA CARD Unavailable Unavailable CATRACHITA CARD Unavailable Unavailable CATRACHITA CARD Unavailable Unavailable KYUNG BURKS, DR LIU Primary Care Physician CHANDLER BURKS, WILLIE Attending Maribell TRACEY MD, DR LIU Primary Care Unavailable KYUNG BURKS, DR LIU Primary Care Unavailable YUE PATEL, BROOKE Attending Unavaila ble Problems Active Problems Problem Classification Problem Date Documented Da te Episodic/Chronic Unclassified (1 source) Unknown / UNK(Unknown) Onset: 02-22-2017 Past or Other Problems Problem Classification Problem Date Documented Da te Episodic/Chronic Unclassified (1 source) Z78.0, Z13.820, K86.1 Onset: 02-22-2017 Results Test Name Value Interpretation Reference Range Facil ity Encounters Encounter Date Encounter Type Care Provider Facility Start: 07-13-2023 End: 07-14-[address] ALEXA TRACEY MD Facility:B Start: 07-13-2023 End: 07-13-2023 Patient encounter procedure [facility] Start: 04-11-2023 ambulatory WILLIE PERDUE MD Facility:[facility] Start: 02-22-2017 Ambulatory CATRACHITA CARD Facilit y:[facility] Payers Date Payer Category Payer Medicare [id number] 2017 Unknown [id number] 1940 Unknown [id number] 1940 Unknown [id number] Evaluation + Plan note Note Date & Type Note Facility Evaluation + Plan note No data available for this section [facility] Discharge instructions Note Date & Type Note Facility Hospital Discharge instructions No data available for this section [facility] Progress note Note Date & Type Note Facility Progress note No data available for this section [facility] Summary Purpose Family History No Family History Records Found No data available for this section No Family History Records Found Advance Directives No Advanced Directives Records FoundNo Advanced Directives Records Found Additional Source Comments INFORMATION SOURCE (unrecogn ized section and content) DATE CREATED AUTHOR AUTHOR'S ORGANIZ ATION 08/12/2023 [facility] ([place]) Patient Care team informatio n (unrecognized section and content) Care Team Personnel Name: ALEXA TRACEY MD Member Role: Primary Care Physician Address: Address: [facility] [place], [place] [address] Care Team Related Persons Name: DMITRIY ROSE Address: Home [address] [place], [place] [id number] FOR RECORDS PERTAINING TO PATIENTS WHO ARE OR HAVE BEEN ENROLLED IN A CHEMICAL DEPENDENCY/SUBSTANCEABUSE PROGRAM, SOME INFORMATION MAY BE OMITTED. This clinical summary was aggregated from multiple sources. Caution should be exercised in using it in the provision of clinical care. This summary normalizes information from multiple sources, and as a consequence, information in this document may materially change the coding, format and clinical context of patient data. In addition, data may be omitted in some cases. CLINICAL DECISIONS SHOULD BE BASED ON THE PRIMARY CLINICAL RECORDS. [facility]. provides no warranty or guarantee of the accuracy or completeness of information in this document.
[2023-09-12 12:16] LABS: Vitamin D,25 Hydroxy 27.3 ng/mL
[2023-09-12 12:33] LABS: ALB/GLOB Ratio 1.1 RATIO (0.9-2.4); AST(SGOT) 23 U/L (15-37); Alanine Aminotransfer ALT/SGPT 35 U/L (13-56); Albumin, Serum 3.7 g/dL (3.2-5.0); Alkaline Phosphatase 149 U/L (45-117); Anion Gap 3 (5-15); BUN 24 mg/dL (7-18); BUN/Creat Ratio 24.5 RATIO (10-20); Calcium,Total 8.7 mg/dL (8.5-10.1); Chloride 108 mmol/L (98-107); Creatinine, Serum 0.98 mg/dL (0.55-1.02); EST Glomerular Filtration Rate 57 mL/min (>60); Est Glom Filt Rate - Afr Amer 69 mL/min (>60); Globulin 3.3 g/dL (2.2-4.2); Glucose 102 mg/dL (74-106); Potassium 4.1 mmol/L (3.5-5.1); Sodium Level 139 mmol/L (136-145); Thyroid Stim Hormone (TSH) 3.39 uIU/mL (0.358-3.74)
== END | disposition home or self-care (01) ==
LOC: POLAB3 10:42
PROVIDERS: PCP Family Medicine; Visit Provider Family Medicine Geriatric Medicine
DX: I10 Essential (primary) hypertension (principal); E55.9 Vitamin D deficiency, unspecified
CPT/HCPCS: 36415; 80053; 82306; 84443; 85025

== ENCOUNTER → 2023-10-05 08:59 | Outpatient (REF) | payer SELFPAY | LOC: CVS 08:59 | PROVIDERS: PCP Family Medicine Geriatric Medicine | DX: Z00.00 Encounter for general adult medical examination without abnormal findings (principal) ==

== ENCOUNTER → 2024-02-27 | Outpatient (CLI) | payer MEDICARE, OTHER, SELFPAY ==
--- NOTE | 2024-02-27 14:42 | CT_ITS ---
STUDY: CT CHEST, ABDOMEN T PELVIS WITH CONTRAST REASON FOR EXAM: Female, 83 years old. WEIGHT LOSS. Hypertension. RADIATION DOSAGE (If Supplied By Facility): CTDIvol = ( 8.68 ) mGy, DLP = ( 425.83 ) mGycm TECHNIQUE: Transaxial imaging was performed following intravenous administration of IV 75mL Isovue-300. Multiplanar coronal and sagittal images were reformatted. Individualized dose optimization techniques were used for this CT. COMPARISON: No relevant priors. FINDINGS: CHEST Minimal scarring at the lung apices slightly more prominent on the right side. Mild emphysematous changes. There is a 2.7 mm nodule in the peripheral lateral aspect of the right upper lobe adjacent to the fissure. Possible tiny calcifications within it. There is no demonstrated pleural abnormality. There are calcifications of the coronary arteries. Normal mediastinum. Normal hilar regions. Normal unenhanced pulmonary arteries. Normal aorta arch and descending thoracic aorta. There are multi-level degenerative changes of the thoracic spine. Increased kyphosis. ABDOMEN Normal liver. Normal gallbladder and extrahepatic biliary system. Normal spleen. There is diffuse atrophy of the pancreas. Normal bilateral adrenal glands. Normal right kidney. Normal left kidney. Normal visualized stomach. Normal small intestine. Moderate amount of fecal material is seen in the colon. The appendix is visualized and appears normal. There is diffuse atherosclerotic calcification of the abdominal aorta, without a demonstrated aneurysm. Normal inferior vena cava. Normal retroperitoneum. Normal abdominal wall. There are mild degenerative changes of the visualized lumbar spine. PELVIS Normal urinary bladder. There is no pelvic fluid. There is no pelvic lymphadenopathy or mass lesion. Normal visualized pelvic arteries. CT/CT Chest, Abd, Pel w/Contrast IMPRESSION: 2.7 mm nodule in the peripheral lateral aspect of the right upper lobe adjacent to the fissure. Moderate amount of fecal material is seen in the colon. Pancreatic atrophy. Electronically Signed: Lucius Hernandez MD at 9:03 EDT ,
[2024-02-27 15:25] LABS: Absolute Lymphocyte Count 1.85 X10^3/uL (0.83-4.51); Absolute Neutrophil Count 4.5 X10^3/uL (2.0-7.7); Basophil# 0.07 X10^3/uL; Eosinophil# 0.18 X10^3/uL; Eosinophils% 2.5 % (0-5); Hematocrit 39.6 % (37-47); Hemoglobin 12.9 g/dL (12.0-15.0); Lymphocyte # 1.85 X10^3/ul (0.83-4.51); Lymphocyte % 25.3 % (19-41); Mean Corp Hgb Conc 32.6 g/dL (32-36); Mean Corpuscular Hgb 29.6 pg (27.0-32.0); Mean Corpuscular Volume 90.8 fL (81-99); Mean Platelet Vol. 8.6 fl (6.2-12.0); Monocyte# 0.74 X10^3/uL; Monocyte% 10.1 % (0-10); NRBC Flagged by Analyzer 0 % (0-5); Neutrophil # 4.45 X10^3/uL (2.7-7.7); Neutrophil % 60.8 % (47-70); Platelet Count 323 K/mm3 (150-450); RBC Distribution Width CV 13.6 % (11.6-14.6); RBC Distribution Width SD 46.2 fl (35.1-43.9); Red Blood Count 4.36 M/mm3 (4.2-5.4); White Blood Count 7.3 K/mm3 (4.4-11.0)
[2024-02-27 15:43] LABS: International Normalized Ratio 1.1; Partial Thromboplast Time 25.5 Seconds (24.1-36.2); Prothrombin Time (Protime)PT. 14.5 SECONDS (11.7-14.9)
[2024-02-27 16:02] LABS: AST(SGOT) 28 U/L (15-37); Alanine Aminotransfer ALT/SGPT 26 U/L (13-56); Albumin, Serum 3.8 g/dL (3.2-5.0); Alkaline Phosphatase 149 U/L (45-117); Anion Gap 4 (5-15); BUN 21 mg/dL (7-18); BUN/Creat Ratio 21.3 RATIO (10-20); CPK Total, Creatine Kinase 137 U/L (26-192); Calcium,Total 8.9 mg/dL (8.5-10.1); Chloride 102 mmol/L (98-107); Creatinine, Serum 0.99 mg/dL (0.55-1.02); EST Glomerular Filtration Rate 57 mL/min (>60); Est Glom Filt Rate - Afr Amer 69 mL/min (>60); Globulin 3.7 g/dL (2.2-4.2); Glucose 93 mg/dL (74-106); Potassium 4.7 mmol/L (3.5-5.1); Protein, Total 7.5 g/dL (6.4-8.2); Sodium Level 136 mmol/L (136-145)
== END | disposition home or self-care (01) ==
PROVIDERS: PCP Family Medicine Geriatric Medicine; Referring Provider Family Medicine Geriatric Medicine; Visit Provider Family Medicine Geriatric Medicine
DX: Z12.31 Encounter for screening mammogram for malignant neoplasm of breast (principal); R63.4 Abnormal weight loss; R58 Hemorrhage, not elsewhere classified; I10 Essential (primary) hypertension; M79.10 Myalgia, unspecified site
CPT/HCPCS: 36415; 71260; 74177; 80053; 82550; 85025; 85610; 85730; Q9967

== ENCOUNTER → 2024-02-29 | Outpatient (CLI) | payer MEDICARE, OTHER, SELFPAY | END | disposition home or self-care (01) | LOC: LABSPEC 10:38 | PROVIDERS: PCP Family Medicine Geriatric Medicine; Referring Provider Family Medicine Geriatric Medicine; Visit Provider Family Medicine Geriatric Medicine | DX: I10 Essential (primary) hypertension (principal); R58 Hemorrhage, not elsewhere classified; M79.10 Myalgia, unspecified site | CPT/HCPCS: 82274 ==

== ENCOUNTER → 2024-03-07 | Outpatient (CLI) | payer MEDICARE, OTHER, SELFPAY ==
--- NOTE | 2024-03-07 11:23 | BI_ITS ---
MAMMOGRAPHY - BILATERAL SCREENING REASON FOR EXAM: Female, 83 years old. Routine annual screening examination. PERTINENT HISTORY: Non-contributory. TECHNIQUE: Digital bilateral breast jacky (3D mammographic acquisition) in the CC and MLO projections. 2-D mediolateral oblique (MLO) and craniocaudad (CC) views of both breasts were obtained. CAD: Full Field Digital Mammography with Computer Added Detection was performed. COMPARISON: No comparison mammograms available at this time. If any prior films become available, an addendum to this report can be generated. FINDINGS: Breast Composition: The breasts are extremely dense, which lowers the sensitivity of mammography. There are no dominant masses or suspicious calcifications. No other significant abnormalities are identified. BI/SCRN MAMM (CAD)W/JACKY BILAT IMPRESSION: Negative screening mammogram. Yearly followup mammogram recommended. (A) ASSESSMENT CATEGORY: BIRADS Category 1: Negative. A letter regarding these results will be sent to the patient by the facility within 30 days. Approximately 10% of breast cancers are not detected by mammography. A normal mammogram should not delay biopsy of a clinically suspicious abnormality. [id number] Electronically Signed: Lucius Hernandez MD at 12:28 EDT ,
== END | disposition home or self-care (01) ==
LOC: OPBI 11:51
PROVIDERS: PCP Family Medicine Geriatric Medicine; Referring Provider Family Medicine Geriatric Medicine; Visit Provider Family Medicine Geriatric Medicine
DX: Z12.31 Encounter for screening mammogram for malignant neoplasm of breast (principal)
CPT/HCPCS: 77063; 77067

== ENCOUNTER → 2024-03-10 | Outpatient (CLI) | payer MEDICARE, OTHER, SELFPAY ==
[2024-03-10 12:32] LABS: Absolute Lymphocyte Count 1.63 X10^3/uL (0.83-4.51); Absolute Neutrophil Count 4.3 X10^3/uL (2.0-7.7); Basophil# 0.08 X10^3/uL; Basophil% 1.1 % (0-1); Eosinophil# 0.12 X10^3/uL; Eosinophils% 1.7 % (0-5); Hematocrit 38.6 % (37-47); Hemoglobin 12.7 g/dL (12.0-15.0); Lymphocyte # 1.63 X10^3/ul (0.83-4.51); Lymphocyte % 23.4 % (19-41); Mean Corp Hgb Conc 32.9 g/dL (32-36); Mean Corpuscular Hgb 29.9 pg (27.0-32.0); Mean Corpuscular Volume 90.8 fL (81-99); Monocyte# 0.83 X10^3/uL; Monocyte% 11.9 % (0-10); NRBC Flagged by Analyzer 0 % (0-5); Neutrophil # 4.29 X10^3/uL (2.7-7.7); Neutrophil % 61.6 % (47-70); Platelet Count 343 K/mm3 (150-450); RBC Distribution Width CV 13.9 % (11.6-14.6); RBC Distribution Width SD 46.7 fl (35.1-43.9); Red Blood Count 4.25 M/mm3 (4.2-5.4)
[2024-03-10 13:14] LABS: Vitamin D,25 Hydroxy 29.8 ng/mL
[2024-03-10 13:15] LABS: AST(SGOT) 26 U/L (15-37); Alanine Aminotransfer ALT/SGPT 30 U/L (13-56); Albumin, Serum 3.4 g/dL (3.2-5.0); Alkaline Phosphatase 139 U/L (45-117); Anion Gap 6 (5-15); BUN 23 mg/dL (7-18); BUN/Creat Ratio 19.5 RATIO (10-20); Calcium,Total 8.4 mg/dL (8.5-10.1); Chloride 102 mmol/L (98-107); Creatinine, Serum 1.18 mg/dL (0.55-1.02); EST Glomerular Filtration Rate 46 mL/min (>60); Est Glom Filt Rate - Afr Amer 56 mL/min (>60); Globulin 3.4 g/dL (2.2-4.2); Glucose 131 mg/dL (74-106); Potassium 3.8 mmol/L (3.5-5.1); Protein, Total 6.8 g/dL (6.4-8.2); Sodium Level 135 mmol/L (136-145)
== END | disposition home or self-care (01) ==
LOC: POLAB3 11:02
PROVIDERS: PCP Family Medicine Geriatric Medicine; Visit Provider Family Medicine Geriatric Medicine
DX: I10 Essential (primary) hypertension (principal); E55.9 Vitamin D deficiency, unspecified
CPT/HCPCS: 36415; 80053; 82306; 84443; 85025

== ENCOUNTER → 2024-06-09 | Outpatient (CLI) | payer MEDICARE, OTHER, SELFPAY ==
[2024-06-09 11:29] LABS: Absolute Lymphocyte Count 1.79 X10^3/uL (0.83-4.51); Absolute Neutrophil Count 4.8 X10^3/uL (2.0-7.7); Basophil# 0.07 X10^3/uL; Basophil% 0.9 % (0-1); Eosinophil# 0.14 X10^3/uL; Eosinophils% 1.9 % (0-5); Hematocrit 41.3 % (37-47); Hemoglobin 13.2 g/dL (12.0-15.0); Lymphocyte # 1.79 X10^3/ul (0.83-4.51); Lymphocyte % 23.7 % (19-41); Mean Corpuscular Hgb 29.7 pg (27.0-32.0); Mean Corpuscular Volume 92.8 fL (81-99); Mean Platelet Vol. 8.4 fl (6.2-12.0); Monocyte# 0.72 X10^3/uL; Monocyte% 9.5 % (0-10); NRBC Flagged by Analyzer 0 % (0-5); Neutrophil # 4.81 X10^3/uL (2.7-7.7); Neutrophil % 63.7 % (47-70); Platelet Count 321 K/mm3 (150-450); RBC Distribution Width CV 13.3 % (11.6-14.6); RBC Distribution Width SD 45.7 fl (35.1-43.9); Red Blood Count 4.45 M/mm3 (4.2-5.4); White Blood Count 7.6 K/mm3 (4.4-11.0)
[2024-06-09 12:06] LABS: Vitamin D,25 Hydroxy 25.6 ng/mL
[2024-06-09 12:12] LABS: AST(SGOT) 22 U/L (15-37); Alanine Aminotransfer ALT/SGPT 21 U/L (13-56); Albumin, Serum 3.5 g/dL (3.2-5.0); Alkaline Phosphatase 132 U/L (45-117); Anion Gap 2 (5-15); BUN 22 mg/dL (7-18); BUN/Creat Ratio 22.7 RATIO (10-20); Calcium,Total 8.8 mg/dL (8.5-10.1); Chloride 106 mmol/L (98-107); Creatinine, Serum 0.97 mg/dL (0.55-1.02); EST Glomerular Filtration Rate 58 mL/min (>60); Est Glom Filt Rate - Afr Amer 70 mL/min (>60); Globulin 3.6 g/dL (2.2-4.2); Glucose 101 mg/dL (74-106); Potassium 4.4 mmol/L (3.5-5.1); Protein, Total 7.1 g/dL (6.4-8.2); Sodium Level 137 mmol/L (136-145)
== END | disposition home or self-care (01) ==
LOC: LAB 11:14
PROVIDERS: PCP Family Medicine Geriatric Medicine; Referring Provider Family Medicine Geriatric Medicine; Visit Provider Family Medicine Geriatric Medicine
DX: I10 Essential (primary) hypertension (principal); E55.9 Vitamin D deficiency, unspecified
CPT/HCPCS: 36415; 80053; 82306; 84443; 85025

== ENCOUNTER → 2024-06-18 | Outpatient (CLI) | payer MEDICARE, OTHER, SELFPAY ==
[2024-06-18 09:55] LABS: Cholesterol 201 mg/dL (200); High Density Lipoprotein 112 mg/dL; Triglycerides 81 mg/dL; Very Low Density Lipoprotein 16 mg/dL (5-40)
== END | disposition home or self-care (01) ==
LOC: LAB 08:32
PROVIDERS: PCP Family Medicine Geriatric Medicine; Referring Provider Nurse Practitioner Gerontology; Visit Provider Nurse Practitioner Gerontology
DX: E78.5 Hyperlipidemia, unspecified (principal)
CPT/HCPCS: 36415; 80061

== ENCOUNTER → 2024-09-09 | Outpatient (CLI) | payer MEDICARE, OTHER, SELFPAY ==
[2024-09-09 11:52] LABS: Absolute Lymphocyte Count 1.64 X10^3/uL (0.83-4.51); Absolute Neutrophil Count 3.6 X10^3/uL (2.0-7.7); Basophil# 0.06 X10^3/uL; Eosinophil# 0.12 X10^3/uL; Eosinophils% 1.9 % (0-5); Hematocrit 40.4 % (37-47); Hemoglobin 13.3 g/dL (12.0-15.0); Lymphocyte # 1.64 X10^3/ul (0.83-4.51); Lymphocyte % 26.3 % (19-41); Mean Corp Hgb Conc 32.9 g/dL (32-36); Mean Corpuscular Hgb 30.4 pg (27.0-32.0); Mean Corpuscular Volume 92.2 fL (81-99); Mean Platelet Vol. 8.8 fl (6.2-12.0); Monocyte# 0.78 X10^3/uL; Monocyte% 12.5 % (0-10); NRBC Flagged by Analyzer 0 % (0-5); Neutrophil # 3.62 X10^3/uL (2.7-7.7); Platelet Count 310 K/mm3 (150-450); RBC Distribution Width CV 13.9 % (11.6-14.6); RBC Distribution Width SD 47.4 fl (35.1-43.9); Red Blood Count 4.38 M/mm3 (4.2-5.4); White Blood Count 6.2 K/mm3 (4.4-11.0)
[2024-09-09 12:39] LABS: Vitamin D,25 Hydroxy 28.9 ng/mL
[2024-09-09 13:01] LABS: ALB/GLOB Ratio 0.9 RATIO (0.9-2.4); AST(SGOT) 20 U/L (15-37); Alanine Aminotransfer ALT/SGPT 21 U/L (13-56); Albumin, Serum 3.5 g/dL (3.2-5.0); Alkaline Phosphatase 122 U/L (45-117); Anion Gap 6 (5-15); BUN 20 mg/dL (7-18); BUN/Creat Ratio 19.4 RATIO (10-20); Calcium,Total 9.1 mg/dL (8.5-10.1); Chloride 105 mmol/L (98-107); Creatinine, Serum 1.03 mg/dL (0.55-1.02); EST Glomerular Filtration Rate 54 mL/min (>60); Est Glom Filt Rate - Afr Amer 65 mL/min (>60); Globulin 3.7 g/dL (2.2-4.2); Glucose 91 mg/dL (74-106); Potassium 4.5 mmol/L (3.5-5.1); Protein, Total 7.2 g/dL (6.4-8.2); Sodium Level 137 mmol/L (136-145)
== END | disposition home or self-care (01) ==
LOC: LAB 11:07
PROVIDERS: PCP Family Medicine Geriatric Medicine; Referring Provider Family Medicine Geriatric Medicine; Visit Provider Family Medicine Geriatric Medicine
DX: I10 Essential (primary) hypertension (principal); E55.9 Vitamin D deficiency, unspecified
CPT/HCPCS: 36415; 80053; 82306; 84443; 85025

== ENCOUNTER → 2024-10-30 | Outpatient (CLI) | payer MEDICARE, OTHER, SELFPAY ==
--- NOTE | 2024-10-30 10:55 | RAD_ITS ---
PROCEDURE: CHEST PA AND LATERAL N/A REASON FOR EXAM: WHEEZING TECHNIQUE: Frontal and lateral views of the chest. COMPARISON: Comparison is made with prior study dated September 11, 2022. FINDINGS: Hyperinflation and COPD. The heart size is normal. The mediastinal contour is unremarkable. Lungs are clear. Degenerative changes are identified within the thoracic spine.. Increased kyphosis. RAD/Chest PA and Lateral IMPRESSION: Hyperinflation. Stable examination. Reading Location: [place] [address]
== END | disposition home or self-care (01) ==
PROVIDERS: PCP Family Medicine Geriatric Medicine; Referring Provider Family Medicine Geriatric Medicine; Visit Provider Family Medicine Geriatric Medicine
DX: R06.2 Wheezing (principal); R68.83 Chills (without fever)
CPT/HCPCS: 71046; 87631

== ENCOUNTER 2024-11-27 13:45 | Emergency (ER) | payer MEDICARE, OTHER, SELFPAY ==
[2024-11-27 13:49] VITALS: BP 169/82; PULSE 93; RESP 18; TEMP 36.3; O2SAT 98; BMI 16.1
--- NOTE | 2024-11-27 14:04 | EKG12_ITS ---
Test Reason : CP Blood Pressure : */* mmHG Vent. Rate : 89 BPM Atrial Rate : 89 BPM P-R Int : 146 ms QRS Dur : 84 ms QT Int : 382 ms P-R-T Axes : 82 40 36 degrees QTcB Int : 464 ms Sinus rhythm with occasional Premature ventricular complexes Otherwise normal ECG Confirmed by Blair Hill ([id number]), editor farm journal CONRAD FLOWERS ([id number]) on 11/28/2024 12:44:02 PM Referred By: Confirmed By: Blair Hill
--- NOTE | 2024-11-27 14:04 | ED.VIS.CHEST ---
HPI History of Present Illness Chief Complaint: Chest Pain Narrative Narrative: 84-year-old female past medical history of coronary artery disease had 2 stents placed 2 years ago, presents with the same symptoms she had before stent placement. She states over the last month or longer she has had intermittent chest pain. It is more of a pressure she has had a left arm pain as well, and aching pain in her jaw. She denies any fevers or chills, no nausea or vomiting. She may feel short of breath on occasion. She states she has followed up with [facility], and over the last month was getting over the flu so thinks she thought that any of her symptoms were related to that. Her symptoms only last a few minutes and she feels that they are really only present when she starts thinking about it. 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 Vertigo Hypertensive emergency History of squamous cell carcinoma Fatigue Nail dystrophy Epigastric pain Hearing loss Seasonal allergies Home Medications ?Medication ?Instructions ?Recorded ?Last Taken ?Type amlodipine 2.5 mg tablet 1.25 mg PO DAILY 07/11/23 Unknown History aspirin 81 mg tablet,delayed 81 mg PO Q OTHER DAY 01/03/24 Unknown History release (Adult Aspirin Regimen) rosuvastatin 5 mg tablet 5 mg PO .QOD #45 tabs 08/24/24 Unknown Rx coenzyme Q10 400 mg capsule 400 mg PO .COMPLEX PRN 11/13/24 Unknown History Allergy/AdvReac Type Severity Reaction Status Date / Time hydralazine Allergy Mild Other Verified 11/27/24 13:49 labetalol Allergy Mild Other Verified 11/27/24 13:49 losartan Allergy Unknown fatigue Verified 11/27/24 13:49 Penicillins AdvReac Unknown Verified 11/27/24 13:49 Family History Mother , 89 Hypertension Father , 85 Cancer skin RA (rheumatoid arthritis) Surgical History Stented coronary artery (03/16/23) Cancer of skin of external nose History of tonsillectomy Cataracts, bilateral Social History household members: spouse Smoking Status: Never smoker alcohol intake: never substance use type: does not use caffeine: Yes Type: coffee what type of physical activity do you participate in: walking frequency: 3-4 times per week ROS ROS ED ROS Narrative Review of systems positive for chest pressure, left arm pain, and jaw aching/pain. Denies any fevers or chills, no cough, no pedal edema. No exacerbating or alleviating factors. Pain only lasts a few minutes. She states it comes and goes and has been over the last few weeks to month if not longer. EXAM Physical Exam Narrative Exam Narrative: Afebrile. Vital signs noted. Nontoxic-appearing. Cardiovascular examination reveals a regular rate and rhythm. Lungs are clear to auscultation bilaterally. Abdomen is soft, nontender, without guarding or rebound. Positive bowel sounds. Neurological examination is nonfocal, nonlateralizing. She is awake, alert, and interactive. No pedal edema bilaterally. Const Vital Signs: 11/27/24 13:47 11/27/24 13:49 11/27/24 14:47 Temperature 97.4 F L Temperature Source Temporal Pulse Rate 93 75 Respiratory Rate 18 18 Respiratory Effort Normal Blood Pressure 169/82 H 177/86 H Blood Pressure Mean 111 116 Pulse Ox 98 96 Oxygen Delivery Method Room Air Room Air 11/27/24 16:00 11/27/24 17:00 Temperature Temperature Source Pulse Rate 84 82 Respiratory Rate 19 H 20 H Respiratory Effort Blood Pressure 186/89 H 195/87 H Blood Pressure Mean 115 119 Pulse Ox 96 98 Oxygen Delivery Method Heart Score History: Slightly/Non-Suspicious ECG: Normal Age: >/= 65 years Risk Factors: >/= 3 Risk Factors or History of CAD Score: 4 MDM MDM MDM Narrative Medical decision making narrative: The differential diagnosis includes but not limited to ACS including unstable angina versus nonspecific chest pain versus pulmonary embolism versus aortic dissection. The history and physical does not support pulmonary embolism or aortic dissection. Additionally she may be having more of a hypertensive urgency versus emergency. Chest pain workup was pursued. Additionally I reviewed her prior outpatient record including cardiology reports. EKG was obtained and interpreted by myself independently as normal sinus rhythm at 89 bpm with occasional PVCs but no acute ST changes. No STEMI. Although patient's blood pressure continued to elevate, she states that she has whitecoat syndrome. I reviewed her laboratory work and she has normal white count of 8.2 with hemoglobin 12.9, hematocrit 37.7, platelet count 290. Sodium normal at 135 with potassium 4.5, BUN of 27 which I think is nonspecific and creatinine 1.03. Initial high-sensitivity troponin is 20. Repeated 2 hours is 18. Chest x-ray interpreted by myself independently shows no acute process, no pneumonia, no pneumothorax. I reviewed the radiology report which confirms my independent interpretation. I discussed the patient with Dr. Hill with cardiology who agrees with outpatient follow-up. It was felt that given her non-rising troponins that she could follow-up. He states that the office has an ability to follow-up with her in the next 3 to 4 days. They will contact her for an appointment. Patient is also motivated for discharge. She wants to go home. Return instructions to the emergency department were reviewed. Disposition is discharged home in stable condition. History & Record Review Discussion w/independent historian: Patient Additional record(s) reviewed:: Prior labs and Other (Cardiology report, had stenting of first OM and diagonal) Lab Data Attestation: I reviewed the patient's lab results. Labs: Laboratory Results - last 24 hr 11/27/24 11/27/24 14:05 16:00 WBC 8.2 RBC 4.16 L Hgb 12.9 Hct 37.7 MCV 90.6 MCH 31.0 MCHC 34.2 RDW Std Deviation 48.5 H RDW Coeff of Jane 14.6 Plt Count 290 MPV 8.8 Immature Gran % (Auto) 0.200 Neut % (Auto) 66.2 Lymph % (Auto) 22.3 Ralls % (Auto) 9.3 Eos % (Auto) 1.3 Baso % (Auto) 0.7 Absolute Neuts (auto) 5.4 Absolute Lymphs (auto) 1.83 Nucleated RBC % 0 Sodium 135 Potassium 4.5 Chloride 100 Carbon Dioxide 23.7 Anion Gap 12 BUN 27 H Creatinine 1.03 Estim Creat Clear Calc 25.60 L Est GFR (MDRD) Non-Af 53 L BUN/Creatinine Ratio 26.4 H Glucose 156 H Calcium 8.7 Troponin T High Sens 20 H Troponin T Hi Sens 2 Hr 18 H Troponin T Hi Sens 4Hr Cancelled Radiography Chest X-Ray - ED: Read by ED Physician and Read by Radiologist Diagnostic Testing: Clinical Impression(s) from Imaging Studies Chest X-Ray 11/27/24 14:22 IMPRESSION: No Acute Findings. Reading [facility] Discharge Plan Triage Chief Complaint: Chest Pain ED Provider: Jam Abarca Dx/Rx/DC Orders Clinical Impression: Chest pain, Hypertension Instructions: ED Chest Pain, Uncertain Cause, ED High Blood Pressure Hypertension Prescriptions: No Action amlodipine 2.5 mg tablet 1.25 mg PO DAILY coenzyme Q10 400 mg capsule 400 mg PO .COMPLEX PRN Rx Instructions: 400 mg orally Daily: to prevent leg cramps with Rosuvastatin; PRN; aspirin [Adult Aspirin Regimen] 81 mg tablet,delayed release (DR/EC) 81 mg PO Q OTHER DAY rosuvastatin 5 mg tablet 5 mg PO .QOD Qty: 45 3RF Primary Care Provider: Mu Bradford Chi Referrals: Guicho Peraza MD [Med Staff - Active Staff] - 3-5 Days Mu Bradford Chi, MD [Primary Care Provider] - Activity Restrictions/Additional Instructions: Return to the emergency department with increased chest pain, new or worsening symptoms. Follow-up with cardiology in the next 3 to 5 days. They will contact you via telephone to set up an appointment within the next few days. Continue your previous medications as directed. Print Language: Armenian Disposition Disposition: Home, Self Care Discharge Date/Time: 11/27/24 17:52
--- NOTE | 2024-11-27 14:22 | RAD_ITS ---
PROCEDURE: CHEST 1 VIEW (PORTABLE) 11/27/2024 REASON FOR EXAM: CHEST PAIN TECHNIQUE: Frontal view of the chest. COMPARISON: 10/30/2024; 02/27/2020 CT FINDINGS: Heart: The heart size is normal. Lungs: The lungs are clear. No large pleural effusion. RAD/Chest 1 View (Portable) IMPRESSION: No Acute Findings. Reading Location: [facility]
[2024-11-27 14:23] LABS: Absolute Lymphocyte Count 1.83 X10^3/uL (0.83-4.51); Absolute Neutrophil Count 5.4 X10^3/uL (2.0-7.7); Basophil# 0.06 X10^3/uL; Basophil% 0.7 % (0-1); Eosinophil# 0.11 X10^3/uL; Eosinophils% 1.3 % (0-5); Hematocrit 37.7 % (37-47); Hemoglobin 12.9 g/dL (12.0-15.0); Lymphocyte # 1.83 X10^3/ul (0.83-4.51); Lymphocyte % 22.3 % (19-41); Mean Corp Hgb Conc 34.2 g/dL (32-36); Mean Corpuscular Volume 90.6 fL (81-99); Mean Platelet Vol. 8.8 fl (6.2-12.0); Monocyte# 0.76 X10^3/uL; Monocyte% 9.3 % (0-10); NRBC Flagged by Analyzer 0 % (0-5); Neutrophil # 5.43 X10^3/uL (2.7-7.7); Neutrophil % 66.2 % (47-70); Platelet Count 290 K/mm3 (150-450); RBC Distribution Width CV 14.6 % (11.6-14.6); RBC Distribution Width SD 48.5 fl (35.1-43.9); Red Blood Count 4.16 M/mm3 (4.2-5.4); White Blood Count 8.2 K/mm3 (4.4-11.0)
[2024-11-27] MEDS: Aspirin 81 MG TAB.CHEW 324 MG PO (14:29)
[2024-11-27 14:47] VITALS: BP 177/86; PULSE 75; RESP 18; O2SAT 96
[2024-11-27 14:59] LABS: Troponin T High Sensitivity 20 ng/L (<=14)
[2024-11-27 15:02] LABS: Anion Gap 12 (5-15); BUN 27 mg/dL (4-19); BUN/Creat Ratio 26.4 RATIO (10-20); Calcium,Total 8.7 mg/dL (7.6-11.0); Carbon Dioxide 23.7 mmol/L (21.0-32.0); Chloride 100 mmol/L (98-108); Creatinine, Serum 1.03 mg/dL (0.70-1.20); EST Glomerular Filtration Rate 53 (>60); Glucose 156 mg/dL (70-99); Potassium 4.5 mmol/L (3.3-5.1); Sodium Level 135 mmol/L (133-145)
[2024-11-27 16:00] VITALS: BP 186/89; PULSE 84; RESP 19; O2SAT 96
[2024-11-27 16:30] LABS: Troponin T High Sens 2 HR 18 ng/L (<=14)
[2024-11-27 17:00] VITALS: BP 195/87; PULSE 82; RESP 20; O2SAT 98
== END 2024-11-27 17:52 | disposition home or self-care (01) ==
PROVIDERS: Emergency Provider Emergency Medicine; PCP Family Medicine Geriatric Medicine; Visit Provider Emergency Medicine
DX: R07.89 Other chest pain (principal); R68.84 Jaw pain; M79.602 Pain in left arm; I49.3 Ventricular premature depolarization; I10 Essential (primary) hypertension; E78.5 Hyperlipidemia, unspecified; I25.10 Atherosclerotic heart disease of native coronary artery without angina pectoris; Z95.5 Presence of coronary angioplasty implant and graft; Z79.82 Long term (current) use of aspirin; Z79.899 Other long term (current) drug therapy
CPT/HCPCS: 71045; 80048; 84484; 85025; 93005; 99284; A4216

== ENCOUNTER → 2024-12-23 | Outpatient (CLI) | payer MEDICARE, OTHER, SELFPAY ==
--- NOTE | 2024-12-23 10:46 | STRESSREP ---
Stress Test Report Exercise myocardial perfusion stress test. 84-year-old lady with a history of chest pain Stress protocol: Resting EKG demonstrates normal sinus rhythm with a rate of 82 bpm frequent premature atrial complexes noted and occasional ventricular complex present. The resting blood pressure 138/88 mmHg. The patient exercised according to the regular Tee protocol for a total duration of 4 minutes attaining a maximum heart rate of 142 bpm which was 105% of maximum predicted heart rate; the maximum workload was 6.9 metabolic equivalents. At rest there were no ST or T wave changes noted to suggest ischemia and at peak exercise upsloping ST changes only were noted which did not meet the criteria for ischemia. No clinical angina was noted the test was terminated due to the target heart rate being achieved/fatigue. The peak blood pressure was 214/100 mmHg. Rate-pressure product was 18,000. Myocardial perfusion protocol. 11.1 mCi of technetium 99m sestamibi was injected at rest. The patient exercised according to regular Tee protocol for total duration of 4 minutes and at peak exercise 33.7 mCi of technetium 99m sestamibi was injected stress images were obtained stress and rest images were reconstructed in comparing the short axis vertical long and horizontal long axis. Gated images were also obtained. Perfusion SPECT analysis: Review of the stress images demonstrate normal uptake of tracer noted in all areas of the myocardium. The resting images similarly demonstrate normal uptake of tracer noted in all areas of the myocardium. No areas of reversibility are noted to suggest ischemia no previous infarct was noted. Gated SPECT analysis: The gated ejection fraction is 72%. Conclusion: Normal exercise myocardial perfusion stress test at a moderate workload Preserved ejection fraction. Hypertensive response to exercise
== END | disposition home or self-care (01) ==
PROVIDERS: PCP Family Medicine Geriatric Medicine; Referring Provider Physician Assistant Medical; Visit Provider Physician Assistant Medical
DX: I20.0 Unstable angina (principal); Z95.5 Presence of coronary angioplasty implant and graft
CPT/HCPCS: 78452; 93017; A9500; A4216

== ENCOUNTER → 2025-03-11 | Outpatient (CLI) | payer MEDICARE, OTHER, SELFPAY ==
[2025-03-11 10:04] LABS: Hematocrit 41.2 % (37-47); Hemoglobin 13.6 g/dL (12.0-15.0); Immature Granulocytes Count 0.020 X10^3/uL (0.0-0.0); Mean Corp Hgb Conc 33.0 g/dL (32-36); Mean Corpuscular Volume 93.0 fL (81-99); Mean Platelet Vol. 8.6 fl (6.2-12.0); NRBC Flagged by Analyzer 0 % (0-5); Platelet Count 311 K/mm3 (150-450); RBC Distribution Width CV 13.2 % (11.6-14.6); RBC Distribution Width SD 45.8 fl (35.1-43.9); Red Blood Count 4.43 M/mm3 (4.2-5.4); White Blood Count 6.5 K/mm3 (4.4-11.0)
[2025-03-11 12:10] LABS: AST(SGOT) 30 U/L (<=31); Alanine Aminotransfer ALT/SGPT 20 U/L (<=34); Albumin, Serum 4.1 g/dL (3.4-4.8); Alkaline Phosphatase 125 U/L (35-104); Anion Gap 11 (5-15); BUN 24 mg/dL (4-19); BUN/Creat Ratio 24.2 RATIO (10-20); Calcium,Total 9.2 mg/dL (7.6-11.0); Carbon Dioxide 24.5 mmol/L (21.0-32.0); Chloride 101 mmol/L (98-108); Globulin 3.0 g/dL (2.2-4.2); Glucose 109 mg/dL (70-99); Potassium 4.3 mmol/L (3.3-5.1); Vitamin D,25 Hydroxy 32.3 ng/mL (30-100)
[2025-03-11 17:53] LABS: Xtra Tube Kwok EXTRA TUBE
== END | disposition home or self-care (01) ==
LOC: POLAB3 09:52
PROVIDERS: PCP Family Medicine Geriatric Medicine; Visit Provider Family Medicine Geriatric Medicine
DX: I10 Essential (primary) hypertension (principal); E55.9 Vitamin D deficiency, unspecified
CPT/HCPCS: 36415; 80053; 82306; 84443; 85025

== ENCOUNTER → 2025-06-29 | Outpatient (CLI) | payer MEDICARE, OTHER, SELFPAY ==
[2025-06-29 09:56] LABS: Hematocrit 41.5 % (37-47); Hemoglobin 13.5 g/dL (12.0-15.0); Immature Granulocytes Count 0.020 X10^3/uL (0.0-0.0); Mean Corp Hgb Conc 32.5 g/dL (32-36); Mean Corpuscular Volume 93.3 fL (81-99); Mean Platelet Vol. 9.0 fl (6.2-12.0); NRBC Flagged by Analyzer 0 % (0-5); Platelet Count 292 K/mm3 (150-450); RBC Distribution Width CV 13.8 % (11.6-14.6); RBC Distribution Width SD 47.9 fl (35.1-43.9); Red Blood Count 4.45 M/mm3 (4.2-5.4); White Blood Count 6.7 K/mm3 (4.4-11.0)
--- OUTSIDE RECORDS SUMMARY | 2025-06-29 10:54 | XMS RPT_ITS | CCD ---
Author Organization [facility] CliniSynv Care Team Providers Care Director Network Development Name Role Phone JOEY SNDYER Unavailable Unavailable JOEY SNYDER Unavailable Unavailable JOEY SNYDER Unavailable Unavailable Dr. Joey Snyder Primary Care Provider [phone] Dr. Joey Snyder Attending Provider [phone] Dr. Joey Snyder Referring Provider [phone] Dr. Joey Snyder Primary Care Provider 1([facility] )[phone] Dr. Kole Yip Attending Provider 1([facility])[phone] Dr. Armando Zuniga Emergency Provider 1([facility])[phone] Dr. Reyna Valenuzela Admit Provider 1([facility])[phone] Reyna Valenzuela Other Provider 1([facility])[phone] Tee Waldron Other Provider Dr. Christine Santos Attending Provider 1([facility])[phone] Christine Santos Other Provider Dr. Guicho Peraza Attending Provider 1([facility])[phone] Tee Waldron Attending Provider 1([facility])[phone] Bill Ryder Referring Provider 1([facility])[phone] Reyna Valenzuela Referring Provider Dr. Joey Snyder Attending Provider Dr. Joey Snyder Referring Provider [phone] Joey Snyder Primary Care Provider Dr. Kole Yip Attending Provider Dr. Bill Ryder Referring Provider 1([facility])[phone] Armando Zuniga Emergency Provider Dr. Reyna Valenzuela Admit Provider Nicolas, Dr. Reyna Montoya Other Provider Dr. Tee Waldron Other Provider Dr. Christine Santos Attending Provider Dr. Christine Santos Other Provider Karmen, Dr. Lindo Attending Provider 1([facility])[phone] Reyna Valenzuela Referring Provider 1([facility])[phone] Dr. Tee Waldron Attending Provider 1([facility])[phone] Joey Snyder Attending Provider Dr. Joey Snyder Referring Provider Jaron MANAGER SOUND, MANAGER SOUND-Sherly Arrieta Attending Provider Dr. César Perez Attending Provider [phone] Dr. Joey Snyder Primary Care Provider 1([facility] )[phone] Dr. Joey Snyder Referring Provider Dr. Joey Snyder Attending Provider Karmen, Dr. Lindo Attending Provider 1([facility])[phone] Guicho Peraza Admit Provider Karmen, Dr. Lindo Referring Provider 1([facility])[phone] Guicho Peraza Other Provider Dr. Joey Snyder Primary Care Provider 1([facility] )[phone] Dr. Joey Snyder Referring Provider Dr. César Perez Attending Provider Sanchez, Dr. Mu Lo Referring Provider Sanchez, Dr. Mu Lo Other Provider Dr. Julio Cesar Snyder Attending Provider SANCHEZ BURKS, DR LIU Primary Care Physician CHANDLER BURKS, WILLIE Attending Maribell TRACEY MD, DR LIU Primary Care Unavailable SANCHEZ BURKS, DR LIU Primary Care Unavailable YUE FISHING ROD MARKER-AUTOMOBILE DAMAGE APPRAISER, BROOKE Attending Unavaila Dr. Joey Siegel Primary Care Provider [phone] Dr. Joey Snyder Referring Provider [phone] Yue MANAGER SOUND, MANAGER SOUND-C Brooke Attending Provider Sanchez BURKS, Dr. Mu Lo Primary Care Provider Sanchez BURKS, Dr. Mu Lo Attending Provider Sanchez BURKS, Dr. Mu Lo Referring Provider Yue MANAGER SOUND-CBrooke Attending Provider Rima BURKS, Jam Emergency Provider Jam Abarca MD Attending Provider Sammi Lei Attending Provider [phone] Sammi Lei Referring Provider [phone] Sammi Lei Other Provider [phone] Yue MANAGER SOUND-C, Brooke Other Provider Karmen BURKS, Dr. Lindo Attending Provider Sanchez BURKS, Dr. Mu Lo Primary Care Provider Sanchez BURKS, Dr. Mu Lo Referring Provider Sanchez BURKS, Dr. Mu Lo Attending Provider Sanchez BURKS, Dr. Mu Lo Primary Care Physician Sanchez BURKS, Dr. Mu Lo Attending Physician Sanchez BURKS, Dr. Mu Lo Referring Provider Yue MANAGER SOUND-C, Brooke Attending Physician Sammi Lei Attending Unavail able Sammi Lei Referring Unavail able Brooke Turner NP Consulting Unavailable Sanchez, Mu Chi Primary Care Unavailable Sanchez, Mu Chi Primary Care Unavailable Sanchez, Mu Chi Attending Unavailable Sanchez, Mu Chi Referring Unavailable Sanchez, Mu Chi Primary Care Unavailable Sanchez, Mu Chi Attending Unavailable Sanchez, Mu Chi Referring Unavailable Sanchez, Mu Chi Primary Care Unavailable Yue MANAGER SOUND, Brooke Attending Unavailable Yue MANAGER SOUND, Brooke Referring Unavailable Sanchez, Mu Chi Primary Care Unavailable Sanchez, Mu Chi Attending Unavailable Sanchez, Mu Chi Referring Unavailable Sanchez, Mu Chi Primary Care Unavailable Jam Abarca Attending Unavailable Sanchez, Mu Chi Attending Unavailable Sanchez, Mu Chi Primary Care Unavailable Brooke Turner NP Attending Unavailable Sanchez, Mu Chi Referring Unavailable Sanchez, Mu Chi Primary Care Unavailable Sanchez, Mu Chi Primary Care Unavailable Sammi Lei Attending Unavail able Sanchez, Mu Chi Referring Unavailable Sanchez, Mu Chi Primary Care Unavailable Brooke Turner NP Attending Unavailable Sanchez, Mu Chi Referring Unavailable Sammi Lei Referring Unavail able Brooke Turner NP Consulting Unavailable Scot Perazaril Attending Unavailable Sanchez, Mu Chi Primary Care Unavailable Sammi Lei Consulting Unavail able Allergies Allergy Classification Reported Allergen(s) Allergy Type Date of Onset Reaction(s) Facility (14 sources) Penicillins Propensity to adverse reactions 2 Unknown [facility] (11 sources) hydrALAZINE Drug Allergy 3 Other [facility] Comment on above: felt terrible (11 sources) Labetalol Drug Allergy 3 Other [facility] Comment on above: generally felt oracio ble (9 sources) Losartan Drug Allergy 3 fatigue [facility] (1 source) hydrALAZINE Drug Allergy 5 [facility] Repository (1 source) Labetalol Drug Allergy 5 [facility] Repository (1 source) Losartan Drug Allergy 5 [facility] Repository (1 source) Penicillins Drug allergy (disorder) 5 [facility] Repository Medications Current Medications Medication Drug Class(es) Dates Sig (Normalized) Sig (Original) amLODIPine 2.5 mg oral tablet (20 sources) Dihydropyridine Calcium Channel Madina Start: 07-11-2023 take 1.25 mg by mouth once daily Amlodipine 2.5 mg tablet Active 1.25 mg PO DAILY July 11, 2023 10:07am Complies with drug therapy Start: 04-05-2023 End: 07-11-2023 take 1 tablet by mouth once daily Amlodipine 2.5 mg tablet Discontinued 0 .ROUTE .COMPLEX 60 0 June 18, 2023 9:30am July 11, 2023 10:08am TAKE 1 TABLET BY MOUTH EVERY DAY Start: 03-08-2023 End: 04-05-2023 take 1.25 mg by mouth once daily Amlodipine 2.5 mg tablet Discontinued 1.25 mg PO DAILY March 08, 2023 1:45pm April 05, 2023 1:03pm Start: 03-08-2023 End: 07-11-2023 take 1.25 mg by mouth once daily Amlodipine Active 1.25 MG PO DAILY July 11, 2023 9:07am Start: 11-29-2022 End: 03-08-2023 take 1 tablet by mouth once daily Amlodipine 2.5 mg tablet Discontinued 2.5 mg PO DAILY 30 December 28, 2022 11:50am March 08, 2023 1:46pm aspirin 81 mg delayed release oral tablet (20 sources) Platelet Aggregation Inhibitor, Nonsteroidal Anti-inflammatory Drug Start: 01-03-2024 End: 05-19-2025 Aspirin (Adult Aspirin Regimen) 81 mg tablet,delayed release (DR/EC) Active 81 mg PO .2xweek May 19, 2025 9:03am Complies with drug therapy Start: 03-13-2023 End: 01-03-2024 take 1 tablet by mouth once daily Aspirin (Adult Aspirin Regimen) 81 mg tablet,delayed release (DR/EC) Discontinued 81 mg PO DAILY March 13, 2023 12:00am January 03, 2024 1:05pm Start: 09-20-2022 End: 03-08-2023 take 1 tablet by mouth once daily Aspirin 81 mg tablet,delayed release (DR/EC) Discontinued 81 mg PO DAILY September 20, 2022 1:00am March 08, 2023 1:45pm nitroglycerin 0.4 mg sublingual tablet (3 sources) Nitrate Vasodilator Start: 12-05-2024 Nitroglycerin (Nitrostat) 0.4 mg tablet, sublingual Active 0.4 mg SL every 5 to 15 minutes as needed for chest pain 04 11December 05, 2024 12:00am do not exceed 3 doses per episode Complies with drug therapy rosuvastatin calcium 5 mg oral tablet (14 sources) HMG-CoA Reductase Inhibitor Start: 03-13-2024 End: 05-19-2025 take 1 tablet by mouth every other day as needed Rosuvastatin 5 mg tablet Active 5 mg PO .QOD as needed May 19, 2025 8:46am Complies with drug therapy Completed/Discontinued Medications Medication Drug Class(es) Dates Sig (Normalized) Sig (Original) acyclovir 800 mg oral tablet (15 sources) Herpesvirus Nucleoside Analog DNA Polymerase Inhibitor, Herpes Simplex Virus Nucleoside Analog DNA Polymerase Inhibitor, Herpes Zoster Virus Nucleoside Analog DNA Polymerase Inhibitor Start: 12-19-2015 End: 10-24-2017 take 1 tablet by mouth five times daily Acyclovir 800 MG tablet Discontinued 800 mg PO 5 TIMES DAILY 40 0 December 19, 2015 12:00am October 24, 2017 10:53am atorvastatin 40 mg oral tablet (20 sources) HMG-CoA Reductase Inhibitor Start: 07-11-2023 End: 03-13-2024 Atorvastatin 40 mg tablet Discontinued 20 mg PO AT BEDTIME July 11, 2023 10:09am March 13, 2024 1:16pm Start: 07-11-2023 take 20 mg by mouth at bedtime Atorvastatin Active 20 MG PO AT BEDTIME July 11, 2023 9:09am Start: 03-17-2023 End: 07-11-2023 take 1 tablet by mouth at bedtime Atorvastatin 40 mg Tablet Discontinued 40 mg PO AT BEDTIME 60 3 March 17, 2023 12:00am July 11, 2023 10:09am Start: 09-20-2022 End: 11-22-2022 take 1 tablet by mouth once daily Atorvastatin 10 mg tablet Discontinued 10 mg PO DAILY 90 1 September 20, 2022 1:00am November 22, 2022 8:24am azithromycin 250 mg oral tablet (15 sources) Macrolide Antimicrobial Start: 06-24-2019 End: 07-07-2019 take 2-5 tablets by mouth once daily Azithromycin (Zithromax Z-Francisco) 250 mg tablet Discontinued 0 PO .COMPLEX 6 0 June 24, 2019 1:00am July 07, 2019 2:05pm take 500 mg today (day 1), then 250 mg for 4 days (days 2-5) PO clopidogrel 75 mg oral tablet (6 sources) P2Y12 Platelet Inhibitor Start: 07-11-2023 End: 11-13-2024 take 1 tablet by mouth once daily Clopidogrel (Plavix) 75 mg tablet Discontinued 75 mg PO DAILY July 11, 2023 1:00am November 13, 2024 8:26am dexlansoprazole 60 mg delayed release oral capsule (15 sources) Proton Pump Inhibitor Start: 07-25-2018 End: 06-24-2019 take 1 capsule by mouth once daily Dexlansoprazole (Dexilant) 60 mg capsule,biphase delayed releas Discontinued 60 mg PO DAILY 30 July 25, 2018 1:00am June 24, 2019 5:14pm dextromethorphan hydrobromide 3 mg/ml / promethazine hydrochloride 1.25 mg/ml oral solution (15 sources) Phenothiazine, Uncompetitive U-csopyb-U-asparta te Receptor Antagonist, Sigma-1 Agonist Start: 06-24-2019 End: 12-01-2020 take 1 mL by mouth every four hours as needed for cough Promethazine-Dm 6.25-15 mg/5 mL syrup Discontinued 2.5 mL PO Q4H 473 1 June 24, 2019 1:00am December 01, 2020 11:15am as needed for cough. Start: 06-24-2019 End: 12-01-2020 take 1 mL by mouth every four hours as needed for cough Promethazine-Dm Discontinued 2.5 ML PO Q4H 473 June 24, 2019 12:00am December 01, 2020 10:15am as needed for cough. hydroCHLOROthiazide 12.5 mg oral tablet (15 sources) Thiazide Diuretic Start: 10-24-2017 End: 06-24-2019 take 1 tablet by mouth once daily in the morning Hydrochlorothiazide 12.5 mg tablet Discontinued 12.5 mg PO EVERY MORNING 90 October 24, 2017 12:00am June 24, 2019 5:14pm 24 hr isosorbide mononitrate 30 mg extended release oral tablet (6 sources) Nitrate Vasodilator Start: 05-18-2023 End: 07-11-2023 take 1 tablet by mouth once daily, then take 1 tablet by mouth every twenty-four hours Isosorbide Mononitrate 30 mg tablet extended release 24 hr Discontinued 30 mg PO DAILY 30 May 18, 2023 12:00am July 11, 2023 9:51am losartan potassium 25 mg oral tablet (20 sources) Angiotensin 2 Receptor Madina Start: 09-13-2022 End: 11-29-2022 take 1 tablet by mouth once daily Losartan 25 mg tablet Discontinued 25 mg PO DAILY 30 November 08, 2022 11:23am November 29, 2022 9:06am ticagrelor 90 mg oral tablet (8 sources) Start: 03-17-2023 End: 07-11-2023 take 1 tablet by mouth twice daily Ticagrelor (Brilinta) 90 mg Tablet Discontinued 90 mg PO TWICE A DAY 60 3 March 17, 2023 12:00am July 11, 2023 9:51am ubidecarenone 400 mg oral capsule (9 sources) Start: 04-09-2024 End: 05-19-2025 take 10 capsules by mouth once daily as needed Coenzyme Q10 400 mg capsule Discontinued 400 mg PO .COMPLEX as needed November 13, 2024 8:26am May 19, 2025 8:45am 400 mg orally Daily: to prevent leg cramps with Rosuvastatin; PRN; Problems Active Problems Problem Classification Problem Date Documented Date Episodic/Chronic Abdominal pain (15 sources) Epigastric pain; Translations: [Epigastric pain] 07-25-2018 Episodic Acute cerebrovascular disease (2 sources) Cerebrovascular accident; Translations: [Cerebral infarction, unspecified] 09-11-2022 Chronic Cancer; other and unspecified primary (15 sources) History of squamous cell carcinoma; Translations: [Personal history of malignant neoplasm of other organs and systems] 12-07-2021 Episodic Conditions associated with dizziness or vertigo (15 sources) Dizziness of unknown cause; Translations: [Dizziness and giddiness] 09-11-2022 Episodic Coronary atherosclerosis and other heart disease (9 sources) Coronary atherosclerosis; Translations: [Atherosclerotic heart disease of [place] coronary artery without angina pectoris] Onset: 01-13-2025 03-19-2023 Chronic Disorders of lipid metabolism (20 sources) Hyperlipidemia; Translations: [Hyperlipidemia, unspecified] Onset: 07-15-2024 03-09-2023 Chronic Essential hypertension (20 sources) Hypertensive disorder; Translations: [Essential (primary) hypertension] Onset: 03-19-2025 12-06-2022 Chronic Headache; including migraine (2 sources) Headache; Translations: [Headache] 09-11-2022 Episodic Hypertension with complications and secondary hypertension (20 sources) Hypertensive urgency ; Translations: [Hypertensive urgency] 09-11-2022 Chronic Malaise and fatigue (16 sources) Fatigue; Translations: [Other fatigue] Episodic Other ear and sense organ disorders (15 sources) Hearing loss; Translations: [Unspecified hearing loss, unspecified ear] 10-24-2017 Chronic Other ear and sense organ disorders (2 sources) Unspecified hearing loss, unspecified ear; Translations: [Unspecified hearing loss] 09-20-2022 Chronic Other lower respiratory disease (10 sources) Dyspnea on exertion; Translations: [Other forms of dyspnea] 12-06-2022 Episodic Other lower respiratory disease (3 sources) Dyspnea, unspecified; Translations: [Other respiratory abnormalities] 11-22-2022 Episodic Other lower respiratory disease (3 sources) Other forms of dyspnea; Translations: [Other respiratory abnormalities] 12-06-2022 Episodic Other skin disorders (15 sources) Dystrophia unguium; Translations: [Nail dystrophy] 12-01-2020 Episodic Other upper respiratory disease (15 sources) Seasonal allergic rhinitis; Translations: [Other seasonal allergic rhinitis] 10-24-2017 Chronic Retinal detachments; defects; vascular occlusion; and retinopathy (13 sources) Occlusion of left branch retinal artery; Translations: [Retinal artery branch occlusion, left eye] 09-20-2022 Chronic Unclassified (1 source) Unknown / UNK(Unknown) Onset: 02-22-2017 Past or Other Problems Problem Classification Problem Date Documented Da te Episodic/Chronic Coronary atherosclerosis and other heart disease (15 sources) Stented coronary artery; Translations: [Presence of coronary angioplasty implant and graft] Onset: 03-16-2023 03-19-2023 Episodic Comment on above: JULIANNA to ostial LCX an d p OM1. Nonspecific chest pain (17 sources) Chest pain; Translations: [Chest pain, unspecified] Onset: 12-02-2024 03-09-2023 Episodic Other lower respiratory disease (1 source) Wheezing; Translations: [Wheezing] Onset: 11-06-2024 Episodic Unclassified (1 source) Z78.0, Z13.820, K86.1 Onset: 02-22-2017 Results Test Name Value Interpretation Reference Range Facility Cardiology Visit Reporton Cardiology Visit Report [facility] [address] [place] [address] OFFICE VISIT Date of Service: 05/19/25 MR#: [id number] Acct: [id number] Name: MANFRED CONTI Rep #: [id number] : 1940 Provider: TRACE Hayes rts Age/Sex: 85/F Location: [facility] Status: Signed HPI HPI History of Present Illness Details: This is a pleasant 85-year-old lady who presents to the office today for a cardiovascular follow-up visit. She has no previous history other than hypertension who has been having chest discomfort. She says that this has been going on since August of 2022 when she was admitted to the hospital. As part of her work-up she underwent an echocardiogram which demonstrated preserved ejection fraction of 60% and in December of 2022 when she presented with more chest discomfort described as a heaviness as well as shortness of breath she underwent a stress echocardiogram which demonstrated no evidence of ischemia. She has continued to have this discomfort sometimes sharp sometimes dull and has been very concerned about this. She does get a tightness when she walks but her shortness of breath is not necessarily worse. 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 She did undergo a successful drug-eluting stent to the ostial LCx and pOM1. Patient was seen in the emergency room on November 27 with chest pain that was similar to what she had prior to her previous stenting. Troponins were negative in the emergency room. EKG was normal. Patient states that she has occasionally had this discomfort but she feels that it is better than what it was when she was in the emergency room. She is not sure if it was still related to when she was getting over being sick in October. If she had nitroglycerin at home she does not think that she would use it. From a cardiac standpoint, the patient is doing well. She denies any palpitations, chest pain, pressure or heaviness. She does acknowledge SOB in the early mornings when she showers and gets dressed. She states this is worse after having Influenza A in October. She denies Orthopnea, and PND. She does not have bleeding issues; no blood in urine, stool, or nosebleeds. She does acknowledge fatigue after Influenza. She denies myalgias, or claudication. She does not have edema, or sudden weight gain. She does acknowledge occasional lightheadedness in the morning. She denies dizziness, syncopal or near syncopal episodes, and headaches. Blood pressures at home average 120's/60's. Intake Vital Signs 11/13/24 07:39 12/05/24 07:26 05/19/25 07:23 05/19/25 09:13 Height 5 ft 3 in 5 ft 3 in 5 ft 3 in Weight: 91 lb BMI 16.1 BP 180/93 H 170/98 H Blood Pressure Location Lt brachial Lt brachial Position Sitting Sitting Respiration 18 Pulse 98 Pulse Source Monitor Pulse Oximetry (%) 9 Intake Visit Reasons: 6 M Bobtailer Required: No Is patient in pain?: No Allergies hydralazine Allergy (Mild, Verified 05/19/25 09:04) Other labetalol Allergy (Mild, Verified 05/19/25 09:04) Other losartan Allergy (Unknown, Verified 05/19/25 09:04) fatigue Penicillins Adverse Reaction (Verified 05/19/25 09:04) Unknown Medications ???Medication ???Instructions ???Recorded ???Confirmed ???Type amlodipine 2.5 mg tablet 1.25 mg PO DAILY 07/11/23 05/19/25 History nitroglycerin 0.4 mg sublingual 0.4 mg sublingual Q5-15M PRN chest 12/05/24 05/19/25 Rx tablet (Nitrostat) pain #25 tabs aspirin 81 mg tablet,delayed 81 mg PO .2xweek 05/19/25 05/19/25 History release (Adult Aspirin Regimen) rosuvastatin 5 mg tablet 5 mg PO .QOD PRN 05/19/25 05/19/25 History Ejection fraction %: 60 Have you fallen in the past year?: No PFSH Medical History Atherosclerotic heart disease of [place] coronary artery without angina pectoris Wheezing Hyperlipidemia Chest pain Hypertension Dyspnea on exertion 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 Normal [facility] Absolute lymphocyte countOrd ered By: Mu Tracey on 03-11-2025 Lymphocytes Auto (Unsp spec) [#/Vol] 1.59 10*3/uL 0.83-4.51 [facility] Absolute neutrophil countOrd ered By: Mu Tracey on 03-11-2025 Neutrophils (Bld) [#/Vol] 4.1 10*3/uL 2.0-7.7 [facility] Anion gap in Serum or Plasma Ordered By: Mu Tracey on 03-11-2025 Anion gap [Moles/Vol] 11 mmol/L 5-15 [facility] Automated lymphocyte count a s percentage of total leukocytesOrdered By: Mu Tracey on 03-11-2025 Lymphocytes/100 WBC Auto (Unsp spec) 24.6 % 19-41 [facility] BUN/creatinine ratioOrdered By: [facility] on 03-11-2025 Urea nitrogen/Creatinine [Mass ratio] 24.2 mg/mg High 10-20 [facility] Basophil percentageOrdered B y: Mu Zuletaok on 03-11-2025 Basophils/100 WBC (Bld) 0.6 % 0-1 [facility] Bilirubin, totalOrdered By: Mu Tracey on 03-11-2025 Bilirubin [Mass/Vol] 0.37 mg/dL 0.00-1.30 [facility] CBC W/Diff, Automatedon 02-12 Absolute Lymph 1.59 X10 3/uL Normal 0.83-4.51 [facility] Comment on above: Performed By: #### L 100.0100, L500.4050, L501.9520, L506.1001 #### [facility] [address] [place], [address] Absolute Neut 4.1 X10 3/uL Normal 2.0-7.7 [facility] Comment on above: Performed By: #### L 100.0100, L500.4050, L501.9520, L506.1001 #### [facility] [address] [place], [address] Basophils/100 WBC (Bld) 0.6 % Normal 0-1 [facility] Comment on above: Performed By: #### L 100.0100, L500.4050, L501.9520, L506.1001 #### [facility] [address] [place], [address] Eosinophils/100 WBC (Bld) 1.4 % Normal 0-5 [facility] Comment on above: Performed By: #### L 100.0100, L500.4050, L501.9520, L506.1001 #### [facility] [address] [place], [address] Erythrocyte distribution width (RBC) [Ratio] 13.2 % Normal 11.6-14.6 [facility] Comment on above: Performed By: #### L 100.0100, L500.4050, L501.9520, L506.1001 #### [facility] [address] [place], [address] Hematocrit (Bld) [Volume fraction] 41.2 % Normal 37-47 [facility] Comment on above: Performed By: #### L 100.0100, L500.4050, L501.9520, L506.1001 #### [facility] [address] [place], [address] Hemoglobin (Bld) [Mass/Vol] 13.6 g/dL Normal 12.0-15.0 [facility] Comment on above: Performed By: #### L 100.0100, L500.4050, L501.9520, L506.1001 #### [facility] [address] [place], [address] IG% 0.300 Normal 0.0-0.9 [facility] Comment on above: Result Comment: IG% - Immature Granulocytes (promyelocytes, myelocytes and metamyelocytes) > 1% indicates that a LEFT SHIFT is Present. Performed By: #### L 100.0100, L500.4050, L501.9520, L506.1001 #### [facility] [address] [place], [address] Lymphocytes/100 WBC (Bld) 24.6 % Normal 19-41 [facility] Comment on above: Performed By: #### L 100.0100, L500.4050, L501.9520, L506.1001 #### [facility] Laboratory [address] [place], [address] MCH (RBC) [Entitic mass] 30.7 pg Normal 27.0-32.0 [facility] Comment on above: Performed By: #### L 100.0100, L500.4050, L501.9520, L506.1001 #### [facility] [address] [place], [address] MCHC (RBC) [Mass/Vol] 33.0 g/dL Normal 32-36 [facility] Comment on above: Performed By: #### L 100.0100, L500.4050, L501.9520, L506.1001 #### [facility] [address] [place], [address] MCV (RBC) [Entitic vol] 93.0 fL Normal 81-99 [facility] Comment on above: Performed By: #### L 100.0100, L500.4050, L501.9520, L506.1001 #### [facility] [address] [place], [address] Monocytes/100 WBC (Bld) 9.9 % Normal 0-10 [facility] Comment on above: Performed By: #### L 100.0100, L500.4050, L501.9520, L506.1001 #### [facility] [address] [place], [address] Neutrophils/100 WBC (Bld) 63.2 % Normal 47-70 [facility] Comment on above: Performed By: #### L 100.0100, L500.4050, L501.9520, L506.1001 #### [facility] [address] [place], [address] Nucleated RBC (Bld) [#/Vol] 0 10*3/uL Normal 0-5 [facility] Comment on above: Performed By: #### L 100.0100, L500.4050, L501.9520, L506.1001 #### [facility] [address] [place], [address] Platelet mean volume (Bld) [Entitic vol] 8.6 fL Normal 6.2-12.0 [facility] Comment on above: Performed By: #### L 100.0100, L500.4050, L501.9520, L506.1001 #### [facility] [address] [place], [address] Platelets (Bld) [#/Vol] 311 10*3/uL Normal 150-450 [facility] Comment on above: Performed By: #### L 100.0100, L500.4050, L501.9520, L506.1001 #### [facility] [address] [place], [address] RBC (Bld) [#/Vol] 4.43 10*6/uL Normal 4.2-5.4 [facility] Comment on above: Performed By: #### L 100.0100, L500.4050, L501.9520, L506.1001 #### [facility] [address] [place], [address] RDW SD 45.8 fl High 35.1-43.9 [facility] Comment on above: Performed By: #### L 100.0100, L500.4050, L501.9520, L506.1001 #### [facility] [address] [place], [address] WBC (Bld) [#/Vol] 6.5 10*3/uL Normal 4.4-11.0 [facility] Comment on above: Performed By: #### L 100.0100, L500.4050, L501.9520, L506.1001 #### [facility] [address] [place], [address] Carbon dioxide, total [Moles /volume] in Central venous bloodOrdered By: Mu Tracey on 03-11-2025 CO2 [Moles/Vol] 24.5 mmol/L 21.0-32.0 [facility] Chloride assayOrdered By: Blas Tracey on 03-11-2025 Chloride [Moles/Vol] 101 mmol/L 98-108 [facility] Comprehensive Metabolic Prof ilon 03-11-2025 Albumin [Mass/Vol] 4.1 g/dL Normal 3.4-4.8 [facility] Comment on above: Performed By: #### L 100.0100, L500.4050, L501.9520, L506.1001 #### [facility] [address] [place], [address] Albumin/Globulin [Mass ratio] 1.4 {ratio} Normal 0.9-2.4 [facility] Comment on above: Performed By: #### L 100.0100, L500.4050, L501.9520, L506.1001 #### [facility] [address] [place], [address] ALK PHOS 125 U/L High 35-104 [facility] Comment on above: Performed By: #### L 100.0100, L500.4050, L501.9520, L506.1001 #### [facility] [address] [place], [address] ALT [Catalytic activity/Vol] 20 U/L Normal <=34 [facility] Comment on above: Performed By: #### L 100.0100, L500.4050, L501.9520, L506.1001 #### [facility] [address] [place], [address] AST [Catalytic activity/Vol] 30 U/L Normal <=31 [facility] Comment on above: Performed By: #### L 100.0100, L500.4050, L501.9520, L506.1001 #### [facility] [address] [place], [address] Bilirubin [Mass/Vol] 0.37 mg/dL Normal 0.00-1.30 [facility] Comment on above: Performed By: #### L 100.0100, L500.4050, L501.9520, L506.1001 #### [facility] [address] [place], [address] BUN/CRE 24.2 RATIO High 10-20 [facility] Comment on above: Performed By: #### L 100.0100, L500.4050, L501.9520, L506.1001 #### [facility] [address] [place], [address] Calcium [Mass/Vol] 9.2 mg/dL Normal 7.6-11.0 [facility] Comment on above: Performed By: #### L 100.0100, L500.4050, L501.9520, L506.1001 #### [facility] [address] [place], [address] Chloride [Moles/Vol] 101 mmol/L Normal 98-108 [facility] Comment on above: Performed By: #### L 100.0100, L500.4050, L501.9520, L506.1001 #### [facility] [address] [place], [address] CO2 [Moles/Vol] 24.5 mmol/L Normal 21.0-32.0 [facility] Comment on above: Performed By: #### L 100.0100, L500.4050, L501.9520, L506.1001 #### [facility] [address] [place], [address] Creatinine [Mass/Vol] 0.98 mg/dL Normal 0.70-1.20 [facility] Comment on above: Performed By: #### L 100.0100, L500.4050, L501.9520, L506.1001 #### [facility] [address] [place], [address] GAP 11 Normal 5-15 [facility] Comment on above: Performed By: #### L 100.0100, L500.4050, L501.9520, L506.1001 #### [facility] [address] [place], [address] GFR/1.73 sq M.predicted among non-blacks MDRD (S/P/Bld) [Vol rate/Area] 56 mL/min/{1.73_m2} Low >60 [facility] Comment on above: Result Comment: mL/m in/1.73m2 CKD-EPI Creatinine Equation (2020) Performed By: #### L 100.0100, L500.4050, L501.9520, L506.1001 #### [facility] [address] [place], [address] Globulin (S) [Mass/Vol] 3.0 g/dL Normal 2.2-4.2 [facility] Comment on above: Performed By: #### L 100.0100, L500.4050, L501.9520, L506.1001 #### [facility] [address] [place], [address] Glucose [Mass/Vol] 109 mg/dL High 70-99 [facility] Comment on above: Performed By: #### L 100.0100, L500.4050, L501.9520, L506.1001 #### [facility] [address] [place], [address] Potassium [Moles/Vol] 4.3 mmol/L Normal 3.3-5.1 [facility] Comment on above: Performed By: #### L 100.0100, L500.4050, L501.9520, L506.1001 #### [facility] [address] [place], [address] Sodium [Moles/Vol] 137 mmol/L Normal 133-145 [facility] Comment on above: Performed By: #### L 100.0100, L500.4050, L501.9520, L506.1001 #### [facility] [address] [place], [address] T PROT 7.0 g/dL Normal 5.9-8.4 [facility] Comment on above: Performed By: #### L 100.0100, L500.4050, L501.9520, L506.1001 #### [facility] [address] [place], [address] Urea nitrogen [Mass/Vol] 24 mg/dL High 4-19 [facility] Comment on above: Performed By: #### L 100.0100, L500.4050, L501.9520, L506.1001 #### [facility] [address] [place], [address] Eosinophil percentageOrdered By: Mu Tracey on 03-11-2025 Eosinophils/100 WBC (Bld) 1.4 % 0-5 [facility] Erythrocyte distribution wid th ratioOrdered By: [facility] on 03-11-2025 Erythrocyte distribution width (RBC) [Ratio] 13.2 % 11.6-14.6 [facility] Erythrocyte distribution wid th standard deviationOrdered By: [facility] 03-11-2025 Erythrocyte distribution width (RBC) [Ratio] 45.8 fl High 35.1-43.9 [facility] Glomerular filtration rate ( GFR) estimation/1.73 sq m using serum, plasma, or whole bOrdered By: [facility] on 03-11-2025 GFR/1.73 sq M.predicted among non-blacks MDRD (S/P/Bld) [Vol rate/Area] 56 mL/min/{1.73_m2} Low >60 [facility] Comment on above: mL/min/1.73m2 CKD-EP I Creatinine Equation (2020) Hematocrit Auto (Bld) [Volum e fraction]Ordered By: [facility] 03-11-2025 Hematocrit (Bld) [Volume fraction] 41.2 % 37-47 [facility] Hemoglobin measurementOrdere d By: [facility] 03-11-2025 Hemoglobin (Bld) [Mass/Vol] 13.6 g/dL 12.0-15.0 [facility] Immature granulocytes/100 WB C Auto (Bld)[facility] Immature granulocytes/100 WBC (Bld) 0.300 % 0.0-0.9 [facility] Comment on above: IG% - Immature Granu locytes (promyelocytes, myelocytes and metamyelocytes) > 1% indicates that a LEFT SHIFT is Present. Laboratory - Chemistry and C hemistry - challengeOrdered By: [facility] 03-11-2025 AST [Catalytic activity/Vol] 30 U/L <32 [facility] MCV (mean corpuscular volume ) determinationOrdered By: [facility] 03-11-2025 MCV (RBC) [Entitic vol] 93.0 fL 81-99 [facility] Mean corpuscular hemoglobin (MCH) determinationOrdered By: [facility] 03-11-2025 MCH (RBC) [Entitic mass] 30.7 pg 27.0-32.0 [facility] Mean corpuscular hemoglobin concentration (MCHC) determinationOrdered By: Mu Tracey on 03-11-2025 MCHC (RBC) [Mass/Vol] 33.0 g/dL 32-36 [facility] Mean platelet volume determi nationOrdered By: Mu Tracey on 03-11-2025 Platelet mean volume (Bld) [Entitic vol] 8.6 fL 6.2-12.0 [facility] Monocyte percentageOrdered B y: Mu Tracey on 03-11-2025 Monocytes/100 WBC (Bld) 9.9 % 0-10 [facility] Neutrophil percentageOrdered By: Mu Tracey on 03-11-2025 Neutrophils/100 WBC (Bld) 63.2 % 47-70 [facility] Nucleated red blood cell per centageOrdered By: Mu Tracey on 03-11-2025 Nucleated RBC/100 WBC (Bld) [Ratio] 0 % 0-5 [facility] Platelet countOrdered By: Blas Tracey on 03-11-2025 Platelets (Bld) [#/Vol] 311 10*3/uL 150-450 [facility] Potassium measurement (mass/ volume)Ordered By: Mu Tracey on 03-11-2025 Potassium (Unsp spec) [Mass/Vol] 4.3 mmol/L 3.3-5.1 [facility] RBC Auto (Bld) [#/Vol]Ordere d By: Mu Tracey on 03-11-2025 RBC (Bld) [#/Vol] 4.43 10*6/uL 4.2-5.4 [facility] Serum creatinine measurement (mass/volume)Ordered By: Mu Tracey on 03-11-2025 Creatinine [Mass/Vol] 0.98 mg/dL 0.70-1.20 [facility] Serum globulin measurementOr dered By: Mu Tracey 03-11-2025 Globulin (S) [Mass/Vol] 3.0 g/dL 2.2-4.2 [facility] Serum glucose measurement (m ass/volume)Ordered By: Mu Tracey on 03-11-2025 Glucose [Mass/Vol] 109 mg/dL High 70-99 [facility] Serum or plasma alanine godinez otransferase (ALT) measurementOrdered By: Mu Tracey on 03-11-2025 ALT [Catalytic activity/Vol] 20 U/L <35 [facility] Serum or plasma albumin susana urement (mass/volume)Ordered By: Mu Tracey on 03-11-2025 Albumin [Mass/Vol] 4.1 g/dL 3.4-4.8 [facility] Serum or plasma albumin/glob ulin mass ratioOrdered By: Mu Tracey on 03-11-2025 Albumin/Globulin [Mass ratio] 1.4 {ratio} 0.9-2.4 [facility] Serum or plasma alkaline analia sphatase measurementOrdered By: Mu Tracey on 03-11-2025 ALP [Catalytic activity/Vol] 125 U/L High 35-104 [facility] Serum or plasma calcium susana urement (mass/volume)Ordered By: Mu Tracey on 03-11-2025 Calcium [Mass/Vol] 9.2 mg/dL 7.6-11.0 [facility] Serum or plasma urea nitroge n measurement (mass/volume)Ordered By: Mu Tracey on 03-11-2025 Urea nitrogen [Mass/Vol] 24 mg/dL High 4-19 [facility] Sodium levelOrdered By: Mu Tracey on 03-11-2025 Sodium [Moles/Vol] 137 mmol/L 133-145 [facility] TSH DL <= 0.005 mIU/L QnOrde red By: Mu Tracey on 03-11-2025 TSH Qn 3.540 uIU/mL 0.300-4.200 [facility] Thyroid Stim Hormone (TSH)on 03-11-2025 TSH 3.540 uIU/mL Normal 0.300-4.200 [facility] Comment on above: Performed By: #### L 100.0100, L500.4050, L501.9520, L506.1001 #### [facility] [address] [place], [address] Total proteinOrdered By: Mu Tracey on 03-11-2025 Protein [Mass/Vol] 7.0 g/dL 5.9-8.4 [facility] Vitamin D,25 Hydroxyon 03-11 Vitamin D 25-OH 32.3 ng/mL Normal 30-100 [facility] Comment on above: Result Comment: Polina min D Status Deficiency: <20 ng/mL (50nmol/L) Insufficiency: 20-30 ng/mL (50-75 nmol/L) Sufficiency: 30-100 ng/mL (75-250 nmol/L) Toxicity: >100 ng/mL (>250 nmol/L) Performed By: #### L 100.0100, L500.4050, L501.9520, L506.1001 #### [facility] [address] [place], [address] White blood cell (WBC) count Ordered By: Mu Tracey on 03-11-2025 WBC (Bld) [#/Vol] 6.5 10*3/uL 4.4-11.0 [facility] Cardiovascular stress test r eportOrdered By: Guicho Peraza on 12-23-2024 Study report [facility] [address] [place] [address] MR#: [id number] Acct: [id number] Name: MANFRED CONTI Rep #: [id number] : 1940 84 From: Guicho Peraza MD Primary Care: Dr. Mu Tracey MD Status : REG CLI Referring Dr: Sammi Anglin Sex : F C Stress Test Report Exercise myocardial perfusion stress test. 84-year-old lady with a history of chest pain Stress protocol: Resting EKG demonstrates normal sinus rhythm with a rate of 82 bpm frequent premature atrial complexes noted and occasional ventricular complex present. The resting blood pressure 138/88 mmHg. The patient exercised according to the regular Tee protocol for a total duration of 4 minutes attaining a maximum heart rate of 142 bpm which was 105% of maximum predicted heart rate; the maximum workload was 6.9 metabolic equivalents. At rest there were no ST or T wave changes noted to suggest ischemia and at peak exercise upsloping ST changesonly were noted which did not meet the criteria for ischemia. No clinical angina was noted the test was terminated due to the target heart rate being achieved/fatigue. The peak blood pressure was 214/100 mmHg. Rate-pressure product was 18,000. Myocardial perfusion protocol. 11.1 mCi of technetium 99m sestamibi was injected at rest. The patient exercised according to regular Tee protocol for total duration of 4 minutes and at peak exercise 33.7 mCi of technetium 99m sestamibi was injected stress images were obtained stress and rest images were reconstructed in comparing the short axis vertical long and horizontal long axis. Gated images were also obtained. Perfusion SPECT analysis: Review of the stress images demonstrate normal uptake of tracer noted in all areas of the myocardium. The resting images similarly demonstrate normal uptakeof tracer noted in all areas of the myocardium. No areas of reversibility are noted to suggest ischemia no previous infarct was noted. Gated SPECT analysis: The gated ejection fraction is 72%. Conclusion: Normal exercise myocardial perfusion stress test at a moderate workload Preserved ejection fraction. Hypertensive response to exercise 12/23/241048 Date _ Guicho Peraza MD CC: TRACE Turner; Dr. Mu Tracey MD; MERVAT Perze ~ Date Dictated: 12/23/241045 Date Transcribed: 12/23/241045 Health Technician Hearing: [place] Signed [facility] Work Phone: Lipid Profileon 12-23-2024 CHOL Normal <=200 [facility] Comment on above: Result Comment: NO S PECIMEN COLLECTED Performed By: #### L 500.3400, L500.4100 #### [facility] [address] [place], [place], [id number] CHOL:HDL Normal [facility] Comment on above: Result Comment: NO S PECIMEN COLLECTED Performed By: #### L 500.3400, L500.4100 #### [facility] [address] [place], [place], [id number] CLDL Normal [facility] Comment on above: Result Comment: NO S PECIMEN COLLECTED Performed By: #### L 500.3400, L500.4100 #### [facility] [address] [place], [address] HDL Normal [facility] Comment on above: Result Comment: NO S PECIMEN COLLECTED Performed By: #### L 500.3400, L500.4100 #### [facility] [address] [place], [address] TRIG Normal [facility] Comment on above: Result Comment: NO S PECIMEN COLLECTED Performed By: #### L 500.3400, L500.4100 #### [facility] [address] [place], [address] VLDL Normal 5-40 [facility] Comment on above: Result Comment: NO S PECIMEN COLLECTED Performed By: #### L 500.3400, L500.4100 #### [facility] [address] [place], [address] Liver Profileon 12-23-2024 ALB Normal 3.4-4.8 [facility] Comment on above: Result Comment: NO S PECIMEN COLLECTED Performed By: #### L 500.3400, L500.4100 #### [facility] [address] [place], [address] ALK PHOS Normal 35-104 [facility] Comment on above: Result Comment: NO S PECIMEN COLLECTED Performed By: #### L 500.3400, L500.4100 #### [facility] [address] [place], [address] ALT Normal <=34 [facility] Comment on above: Result Comment: NO S PECIMEN COLLECTED Performed By: #### L 500.3400, L500.4100 #### [facility] [address] [place], [address] AST Normal <=31 [facility] Comment on above: Result Comment: NO S PECIMEN COLLECTED Performed By: #### L 500.3400, L500.4100 #### [facility] [address] [place], [address] D BILI Normal 0.00-0.30 [facility] Comment on above: Result Comment: NO S PECIMEN COLLECTED Performed By: #### L 500.3400, L500.4100 #### [facility] [address] [place], [address] T BILI Normal 0.00-1.30 [facility] Comment on above: Result Comment: NO S PECIMEN COLLECTED Performed By: #### L 500.3400, L500.4100 #### [facility] [address] [place], [address] T PROT Normal 5.9-8.4 [facility] Comment on above: Result Comment: NO S PECIMEN COLLECTED Performed By: #### L 500.3400, L500.4100 #### [facility] [address] [place], [address] Stress Reporton 12-23-2024 Stress Report [facility] [address] [place] [address] MR#: [id number] Acct: [id number] Name: MANFRED CONTI Rep #: [id number] : 1940 84 From: Guicho Peraza MD Primary Care: Dr. Mu Tracey MD Status: REG CLI Referring Dr: Sammi Anglin Sex: F C Stress Test Report Exercise myocardial perfusion stress test. 84-year-old lady with a history of chest pain Stress protocol: Resting EKG demonstrates normal sinus rhythm with a rate of 82 bpm frequent premature atrial complexes noted and occasional ventricular complex present. The resting blood pressure 138/88 mmHg. The patient exercised according to the regular Tee protocol for a total duration of 4 minutes attaining a maximum heart rate of 142 bpm which was 105% of maximum predicted heart rate; the maximum workload was 6.9 metabolic equivalents. At rest there were no ST or T wave changes noted to suggest ischemia and at peak exercise upsloping ST changes only were noted which did not meet the criteria for ischemia. No clinical angina was noted the test was terminated due to the target heart rate being achieved/fatigue. The peak blood pressure was 214/100 mmHg. Rate-pressure product was 18,000. Myocardial perfusion protocol. 11.1 mCi of technetium 99m sestamibi was injected at rest. The patient exercised according to regular Tee protocol for total duration of 4 minutes and at peak exercise 33.7 mCi of technetium 99m sestamibi was injected stress images were obtained stress and rest images were reconstructed in comparing the short axis vertical long and horizontal long axis. Gated images were also obtained. Perfusion SPECT analysis: Review of the stress images demonstrate normal uptake of tracer noted in all areas of the myocardium. The resting images similarly demonstrate normal uptake of tracer noted in all areas of the myocardium. No areas of reversibility are noted to suggest ischemia no previous infarct was noted. Gated SPECT analysis: The gated ejection fraction is 72%. Conclusion: Normal exercise myocardial perfusion stress test at a moderate workload Preserved ejection fraction. Hypertensive response to exercise 12/23/24 1049 Date Guicho Peraza MD CC: TRACE Turner; Dr. Mu Tracey MD; MERVAT Perez Date Dictated: 12/23/241045 Date Transcribed: 12/23/241045 Health Technician Hearing: [place] Signed Normal [facility] Cardiology Visit Reporton Cardiology Visit Report [facility] [address] [place] [address]. [address] [place] [address] OFFICE VISIT Date of Service: 12/05/24 MR#: [id number] Acct: [id number] Name: MANFRED CONTI Rep #: [id number] : 1940 Provider: MERVAT Faustin Age/Sex: 84/F Location: [facility] Status: Signed HPI HPI History of Present Illness Details: This is a pleasant 84-year-old lady who presents to the office today for an ER follow-up visit. She has no previous history other than hypertension who has been having chest discomfort. She says that this has been going on since August of 2022 when she was admitted to the hospital. As part of her work-up she underwent an echocardiogram which demonstrated preserved ejection fraction of 60% and in December of 2022 when she presented with more chest discomfort described as a heaviness as well as shortness of breath she underwent a stress echocardiogram which demonstrated no evidence of ischemia. She has continued to have this discomfort sometimes sharp sometimes dull and has been very concerned about this. She does get a tightness when she walks but her shortness of breath is not necessarily worse. 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 She did undergo a successful drug-eluting stent to the ostial LCx and pOM1. Patient was seen in the emergency room on November 27 with chest pain that was similar to what she had prior to her previous stenting. Troponins were negative in the emergency room. EKG was normal. Patient states that she has occasionally had this discomfort but she feels that it is better than what it was when she was in the emergency room. She is not sure if it was still related to when she was getting over being sick in October. If she had nitroglycerin at home she does not think that she would use it. Intake Vital Signs 11/27/24 13:49 12/05/24 07:26 Height 5 ft 3 in 5 ft 3 in Weight: 89 lb BMI 15.7 BP 154/96 H Blood Pressure Location Lt brachial Position Sitting Respiration 18 Pulse 82 Pulse Source Monitor Intake Visit Reasons: [facility] ER 11/27/ See Clinical Note Bobtailer Required: No Is patient in pain?: No Allergies hydralazine Allergy (Mild, Verified 12/05/24 09:35) Other labetalol Allergy (Mild, Verified 12/05/24 09:35) Other losartan Allergy (Unknown, Verified 12/05/24 09:35) fatigue Penicillins Adverse Reaction (Verified 12/05/24 09:35) Unknown Medications ???Medication ???Instructions ???Recorded ???Confirmed ???Type amlodipine 2.5 mg tablet 1.25 mg PO DAILY 07/11/23 12/05/24 History aspirin 81 mg tablet,delayed 81 mg PO Q OTHER DAY 01/03/2411/12 History release (Adult Aspirin Regimen) rosuvastatin 5 mg tablet 5 mg PO .QOD #45 tabs 08/24/24 Rx coenzyme Q10 400 mg capsule 400 mg PO .COMPLEX PRN 11/13/24 History nitroglycerin 0.4 mg sublingual 0.4 mg sublingual Q5-15M PRN chest 12/05/24 12/05/24 Rx tablet (Nitrostat) pain #25 tabs Ejection fraction %: 60 Have you fallen in the past year?: No PFSH Medical History Atherosclerotic heart disease of [place] coronary artery without angina pectoris Wheezing Hyperlipidemia Chest pain Hypertension Dyspnea on exertion 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 Vertigo Hypertensive emergency History of squamous cell carcinoma Fatigue Nail dystrophy Epigastric pain Hearing loss Seasonal allergies Surgical History Stented coronary artery (03/16/23) Cancer of skin of external nose History of tonsillectomy Cataracts, bilateral Family History Mother , 89 Hypertension Father , 85 Cancer skin RA (rheumatoid arthritis) Social History household members: spouse Smoking Status: Never smoker alcohol intake: never substance use type: does not use caffeine: Yes Type: coffee what type of physical activity do you participate in: walking frequency: 3-4 times per week ROS Const Const: Positive for fatigue; Negative for weakness, headache(s) or frequent falls Eyes Eyes: Negative for blurry vision ENT ENT: Negative for headache(s), dizziness or Nosebleed/epistaxis Cardio Chest Pain: Yes Palpitations: No Edema: None Muscle aches with walking: None Resp Respiratory: Negative for SOB with activity, SOB at rest or SOB orthopnea SOB lying down GI GI: Negative nausea, vomiting, heartburn, bright, red blood in stools or black,tarry stools : Negative for hematuria Neuro Neuro: Negative for dizziness, (more content not included)... Normal [facility] 12 Lead EKGon 11-27-2024 12 Lead EKG [facility] Cardiovascular Services [address] [place] [address] 12 Lead EKG 11/27/24 1359 MR#: [id number] Acct: [id number] Name: MANFRED CONTI Rep #: [id number] : 1940 84 From: Blair Hill MD Attending Dr: Status: DEP ER Ordering Dr: Jam Abarca MD Date: 11/27/24 Location: ED Sex: F C Admitted: Test Reason : CP Blood Pressure : */* mmHG Vent. Rate : 89 BPM Atrial Rate : 89 BPM P-R Int : 146 ms QRS Dur : 84 ms QT Int : 382 ms P-R-T Axes : 82 40 36 degrees QTcB Int : 464 ms Sinus rhythm with occasional Premature ventricular complexes Otherwise normal ECG Confirmed by Blair Hill ([id number]), editor index CONRAD FLOWERS ([id number]) on 11/28/2024 12:44:02 PM Referred By: Confirmed By: Blair Hill 11/28/24 1244 Date Blair Hill MD CC: Dr. Jam Abarca MD; Dr. Mu Tracey MD Signed Normal [facility] Absolute lymphocyte countOrd ered By: Jam Abarca on 11-27-2024 Lymphocytes Auto (Unsp spec) [#/Vol] 1.83 10*3/uL 0.83-4.51 [facility] Absolute neutrophil countOrd ered By: Jam Abarca on 11-27-2024 Neutrophils (Bld) [#/Vol] 5.4 10*3/uL 2.0-7.7 [facility] Anion gap in Serum or Plasma Ordered By: Jam Abarca on 11-27-2024 Anion gap [Moles/Vol] 12 mmol/L -15 [facility] Automated lymphocyte count a s percentage of total leukocytesOrdered By: Jam Abarca on 11-27-2024 Lymphocytes/100 WBC Auto (Unsp spec) 22.3 % - [facility] BUN/creatinine ratioOrdered By: Jam Abarca on 11-27-2024 Urea nitrogen/Creatinine [Mass ratio] 26.4 mg/mg High - [facility] Basic Metabolic Profile (BMP )on 11-27-2024 BUN/CRE 26.4 RATIO High 06-01 [facility] Comment on above: Performed By: #### L 100.0100, L500.4050, L501.9520, L506.1001 #### [facility] Laboratory [address] [place], [address] Calcium [Mass/Vol] 8.7 mg/dL Normal 7.6-11.0 [facility] Comment on above: Performed By: #### L 100.0100, L500.4050, L501.9520, L506.1001 #### [facility] [address] [place], [address] Chloride [Moles/Vol] 100 mmol/L Normal 98-108 [facility] Comment on above: Performed By: #### L 100.0100, L500.4050, L501.9520, L506.1001 #### [facility] [address] [place], [address] CO2 [Moles/Vol] 23.7 mmol/L Normal 21.0-32.0 [facility] Comment on above: Performed By: #### L 100.0100, L500.4050, L501.9520, L506.1001 #### [facility] [address] [place], [address] Creatinine [Mass/Vol] 1.03 mg/dL Normal 0.70-1.20 [facility] Comment on above: Performed By: #### L 100.0100, L500.4050, L501.9520, L506.1001 #### [facility] [address] [place], [address] ECRCL 25.60 ml/min Low 50-250 [facility] Comment on above: Performed By: #### L 100.0100, L500.4050, L501.9520, L506.1001 #### [facility] [address] [place], [address] GAP 12 Normal 5-15 [facility] Comment on above: Performed By: #### L 100.0100, L500.4050, L501.9520, L506.1001 #### [facility] [address] [place], [address] GFR/1.73 sq M.predicted among non-blacks MDRD (S/P/Bld) [Vol rate/Area] 53 mL/min/{1.73_m2} Low >60 [facility] Comment on above: Result Comment: mL/m in/1.73m2 CKD-EPI Creatinine Equation (2020) Performed By: #### L 100.0100, L500.4050, L501.9520, L506.1001 #### [facility] [address] [place], [address] Glucose [Mass/Vol] 156 mg/dL High 70-99 [facility] Comment on above: Performed By: #### L 100.0100, L500.4050, L501.9520, L506.1001 #### [facility] [address] [place], [address] Potassium [Moles/Vol] 4.5 mmol/L Normal 3.3-5.1 [facility] Comment on above: Result Comment: Hemo lysis present, Results??could be affected. ?? Performed By: #### L 100.0100, L500.4050, L501.9520, L506.1001 #### [facility] [address] [place], [address] Sodium [Moles/Vol] 135 mmol/L Normal 133-145 [facility] Comment on above: Performed By: #### L 100.0100, L500.4050, L501.9520, L506.1001 #### [facility] [address] [place], [address] Urea nitrogen [Mass/Vol] 27 mg/dL High 4-19 [facility] Comment on above: Performed By: #### L 100.0100, L500.4050, L501.9520, L506.1001 #### [facility] [address] [place], [address] Basophil percentageOrdered B y: Jam Abarca on 11-27-2024 Basophils/100 WBC (Bld) 0.7 % 0-1 [facility] CBC W/Diff, Automatedon 11-11 Absolute Lymph 1.83 X10 3/uL Normal 0.83-4.51 [facility] Comment on above: Performed By: #### L 100.0100, L500.4050, L501.9520, L506.1001 #### [facility] [address] [place], [address] Absolute Neut 5.4 X10 3/uL Normal 2.0-7.7 [facility] Comment on above: Performed By: #### L 100.0100, L500.4050, L501.9520, L506.1001 #### [facility] [address] [place], [address] Basophils/100 WBC (Bld) 0.7 % Normal 0-1 [facility] Comment on above: Performed By: #### L 100.0100, L500.4050, L501.9520, L506.1001 #### [facility] [address] [place], [address] Eosinophils/100 WBC (Bld) 1.3 % Normal 0-5 [facility] Comment on above: Performed By: #### L 100.0100, L500.4050, L501.9520, L506.1001 #### [facility] [address] [place], [address] Erythrocyte distribution width (RBC) [Ratio] 14.6 % Normal 11.6-14.6 [facility] Comment on above: Performed By: #### L 100.0100, L500.4050, L501.9520, L506.1001 #### [facility] [address] [place], [address] Hematocrit (Bld) [Volume fraction] 37.7 % Normal 37-47 [facility] Comment on above: Performed By: #### L 100.0100, L500.4050, L501.9520, L506.1001 #### [facility] Laboratory [address] [place], [address] Hemoglobin (Bld) [Mass/Vol] 12.9 g/dL Normal 12.0-15.0 [facility] Comment on above: Performed By: #### L 100.0100, L500.4050, L501.9520, L506.1001 #### [facility] [address] [place], [address] IG% 0.200 Normal 0.0-0.9 [facility] Comment on above: Result Comment: IG% - Immature Granulocytes (promyelocytes, myelocytes and metamyelocytes) > 1% indicates that a LEFT SHIFT is Present. Performed By: #### L 100.0100, L500.4050, L501.9520, L506.1001 #### [facility] [address] [place], [address] Lymphocytes/100 WBC (Bld) 22.3 % Normal 19-41 [facility] Comment on above: Performed By: #### L 100.0100, L500.4050, L501.9520, L506.1001 #### [facility] [address] [place], [address] MCH (RBC) [Entitic mass] 31.0 pg Normal 27.0-32.0 [facility] Comment on above: Performed By: #### L 100.0100, L500.4050, L501.9520, L506.1001 #### [facility] [address] [place], [address] MCHC (RBC) [Mass/Vol] 34.2 g/dL Normal 32-36 [facility] Comment on above: Performed By: #### L 100.0100, L500.4050, L501.9520, L506.1001 #### [facility] [address] [place], [address] MCV (RBC) [Entitic vol] 90.6 fL Normal 81-99 [facility] Comment on above: Performed By: #### L 100.0100, L500.4050, L501.9520, L506.1001 #### [facility] [address] [place], [address] Monocytes/100 WBC (Bld) 9.3 % Normal 0-10 [facility] Comment on above: Performed By: #### L 100.0100, L500.4050, L501.9520, L506.1001 #### [facility] [address] [place], [address] Neutrophils/100 WBC (Bld) 66.2 % Normal 47-70 [facility] Comment on above: Performed By: #### L 100.0100, L500.4050, L501.9520, L506.1001 #### [facility] [address] [place], [address] Nucleated RBC (Bld) [#/Vol] 0 10*3/uL Normal 0-5 [facility] Comment on above: Performed By: #### L 100.0100, L500.4050, L501.9520, L506.1001 #### [facility] Laboratory [address] [place], [address] Platelet mean volume (Bld) [Entitic vol] 8.8 fL Normal 6.2-12.0 [facility] Comment on above: Performed By: #### L 100.0100, L500.4050, L501.9520, L506.1001 #### [facility] Laboratory [address] [place], [address] Platelets (Bld) [#/Vol] 290 10*3/uL Normal 150-450 [facility] Comment on above: Performed By: #### L 100.0100, L500.4050, L501.9520, L506.1001 #### [facility] Laboratory [address] [place], [address] RBC (Bld) [#/Vol] 4.16 10*6/uL Low 4.2-5.4 [facility] Comment on above: Performed By: #### L 100.0100, L500.4050, L501.9520, L506.1001 #### [facility] [address] [place], [address] RDW SD 48.5 fl High 35.1-43.9 [facility] Comment on above: Performed By: #### L 100.0100, L500.4050, L501.9520, L506.1001 #### [facility] [address] [place], [address] WBC (Bld) [#/Vol] 8.2 10*3/uL Normal 4.4-11.0 [facility] Comment on above: Performed By: #### L 100.0100, L500.4050, L501.9520, L506.1001 #### [facility] [address] [place], [address] Carbon dioxide, total [Moles /volume] in Central venous bloodOrdered By: Jam Abarca on 11-27-2024 CO2 [Moles/Vol] 23.7 mmol/L 21.0-32.0 [facility] Chest 1 View (Portable)on Chest 1 View (Portable) [facility] Imaging Services [address] [place] [address] Chest 1 View (Portable) MR#: [id number] Acct: [id number] Name: MANFRED CONTI Rep #: [id number] : 1940 F 84 From: Jose G Gurrola MD PCP: Dr. Mu Tracey MD Status: REG ER Study: Chest 1 View (Portable) Date of Exam: 11/27/24 Exam# [id number] Ordering Dr: Jam Abarca MD PROCEDURE: CHEST 1 VIEW (PORTABLE) 11/27/2024 REASON FOR EXAM: CHEST PAIN TECHNIQUE: Frontal view of the chest. COMPARISON: 10/30/2024; 02/27/2020 CT FINDINGS: Heart: The heart size is normal. Lungs: The lungs are clear. No large pleural effusion. RAD/Chest 1 View (Portable) IMPRESSION: No Acute Findings. Reading Location: [facility] CC: Dr. Jam Abarca MD; Dr. Mu Tracey MD Health Technician Hearing: Signed Normal [facility] Chloride assayOrdered By: Walt Abarca on 11-27-2024 Chloride [Moles/Vol] 100 mmol/L 98-108 [facility] Emergency Department Summary on 11-27-2024 Emergency Department Summary [facility] Medical Records Department [address] [place] [address] Emergency Department Summary 11/27/24 MR#: [id number] Acct: [id number] Name: MANFRED CONTI Rep #: [id number] : 1940 84 From: Jam Abarca MD PCP: Dr. Mu Tracey MD Status:DEP ER Location: ED HPI History of Present Illness Chief Complaint: Chest Pain Narrative Narrative: 84-year-old female past medical history of coronary artery disease had 2 stents placed 2 years ago, presents with the same symptoms she had before stent placement. She states over the last month or longer she has had intermittent chest pain. It is more of a pressure she has had a left arm pain as well, and aching pain in her jaw. She denies any fevers or chills, no nausea or vomiting. She may feel short of breath on occasion. She states she has followed up with [place] [facility], and over the last month was getting over the flu so thinks she thought that any of her symptoms were related to that. Her symptoms only last a few minutes and she feels that they are really only present when she starts thinking about it. 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 Vertigo Hypertensive emergency History of squamous cell carcinoma Fatigue Nail dystrophy Epigastric pain Hearing loss Seasonal allergies Home Medications ???Medication ???Instructions ???Recorded ???Last Taken ???Type amlodipine 2.5 mg tablet 1.25 mg PO DAILY 07/11/23 Unknown History aspirin 81 mg tablet,delayed 81 mg PO Q OTHER DAY 01/03/24 Unkn own History release (Adult Aspirin Regimen) rosuvastatin 5 mg tablet 5 mg PO .QOD #45 tabs 08/24/24 Unk nown Rx coenzyme Q10 400 mg capsule 400 mg PO .COMPLEX PRN 11/13/24 Un known History Allergy/AdvReac Type Severity Reaction Status Date / Time hydralazine Allergy Mild Other Verified 11/27/24 13:49 labetalol Allergy Mild Other Verified 11/27/24 13:49 losartan Allergy Unknown fatigue Verified 11/27/24 13:49 Penicillins AdvReac Unknown Verified 11/27/24 13:49 Family History Mother , 89 Hypertension Father , 85 Cancer skin RA (rheumatoid arthritis) Surgical History Stented coronary artery (03/16/23) Cancer of skin of external nose History of tonsillectomy Cataracts, bilateral Social History household members: spouse Smoking Status: Never smoker alcohol intake: never substance use type: does not use caffeine: Yes Type: coffee what type of physical activity do you participate in: walking frequency: 3-4 times per week ROS ROS ED ROS Narrative Review of systems positive for chest pressure, left arm pain, and jaw aching/pain. Denies any fevers or chills, no cough, no pedal edema. No exacerbating or alleviating factors. Pain only lasts a few minutes. She states it comes and goes and has been over the last few weeks to month if not longer. EXAM Physical Exam Narrative Exam Narrative: Afebrile. Vital signs noted. Nontoxic-appearing. Cardiovascular examination reveals a regular rate and rhythm. Lungs are clear to auscultation bilaterally. Abdomen is soft, nontender, without guarding or rebound. Positive bowel sounds. Neurological examination is nonfocal, nonlateralizing. She is awake, alert, and interactive. No pedal edema bilaterally. Const Vital Signs: 11/27/24 13:47 11/27/24 13:49 11/27/24 14:47 Temperature 97.4 F L Temperature Source Temporal Pulse Rate 93 75 Respiratory Rate 18 18 Respiratory Effort Normal Blood Pressure 169/82 H 177/86 H Blood Pressure Mean 111 116 Pulse Ox 98 96 Oxygen Delivery Method Room Air Room Air 11/27/24 16:00 11/27/24 17:00 Temperature Temperature Source Pulse Rate 84 82 Respiratory Rate 19 H 20 H Respiratory Effort Blood Pressure 186/89 H 195/87 H Blood Pressure Mean 115 119 Pulse Ox 96 98 Oxygen Delivery Method Heart Score History: Slightly/Non-Suspici ous ECG: Normal Age: >/= 65 years Risk Factors: >/= 3 Risk Factors or History of CAD Score: 4 MDM MDM MDM Narrative Medical decision making narrative: The differential diagnosis includes but not limited to ACS including unstable angina versus nonspecific chest pain versus pulmonary embolism versus aortic dissection. The history and physical does not support pulmonary embolism or aortic dissection. Additionally she may be having more of a hypertensive urgency versus emergency. (more content not included)... Normal [facility] Eosinophil percentageOrdered By: Jam Abarca on 11-27-2024 Eosinophils/100 WBC (Bld) 1.3 % 0-5 [facility] Erythrocyte distribution wid th (RBC) [Ratio]Ordered By: Jam Abarca on 11-27-2024 Erythrocyte distribution width (RBC) [Entitic vol] 48.5 fL High 35.1-43.9 [facility] Erythrocyte distribution wid th ratioOrdered By: Jam Abarca on 11-27-2024 Erythrocyte distribution width (RBC) [Ratio] 14.6 % 11.6-14.6 [facility] Erythrocyte distribution wid th standard deviationOrdered By: Jam Abarca on 11-27-2024 Erythrocyte distribution width (RBC) [Ratio] 48.5 fl High 35.1-43.9 [facility] Estimation of creatinine laurie aranceOrdered By: Jam Abarca on 11-27-2024 Estimated Creatinine Clearance Calc 25.60 ml/min Low 50-250 [facility] GFR/1.73 sq M.predicted thu g non-blacks MDRD (S/P/Bld) [Vol rate/Area]Ordered By: Jam Abarca on 11-27-2024 Estimated GFR (MDRD) Non-Af Amer 53 Low >60 [facility] Comment on above: mL/min/1.73m2 CKD-EP I Creatinine Equation (2020) Glomerular filtration rate ( GFR) estimation/1.73 sq m using serum, plasma, or whole bOrdered By: Jam Abarca on 11-27-2024 GFR/1.73 sq M.predicted among non-blacks MDRD (S/P/Bld) [Vol rate/Area] 53 mL/min/{1.73_m2} Low >60 [facility] Comment on above: mL/min/1.73m2 CKD-EP I Creatinine Equation (2020) Hematocrit Auto (Bld) [Volum e fraction]Ordered By: Jam Abarca on 11-27-2024 Hematocrit (Bld) [Volume fraction] 37.7 % 37-47 [facility] Hemoglobin measurementOrdere d By: Jam Abarca on 11-27-2024 Hemoglobin (Bld) [Mass/Vol] 12.9 g/dL 12.0-15.0 [facility] Immature granulocytes/100 WB C Auto (Bld)Ordered By: Jam Abarca on 11-27-2024 Immature granulocytes/100 WBC (Bld) 0.200 % 0.0-0.9 [facility] Comment on above: IG% - Immature Granu locytes (promyelocytes, myelocytes and metamyelocytes) > 1% indicates that a LEFT SHIFT is Present. L499.0042on 11-27-2024 Trop T High Sen 18 ng/L High <=14 [facility] Comment on above: Performed By: #### L 100.0100, L500.4050, L501.9520, L506.1001 #### [facility] Laboratory [address] [place], [address] L499.0043on 11-27-2024 Trop T High Sen Normal <=14 [facility] Comment on above: Result Comment: BREANNJohnny Karyn COLLECTED. PATIENT DEPARTED ED. Performed By: #### L 499.0043 #### [facility] [address] [place], [address] L501.4021on 11-27-2024 Trop T High Sen 20 ng/L High <=14 [facility] Comment on above: Performed By: #### L 100.0100, L500.4050, L501.9520, L506.1001 #### [facility] [address] [place], [address] Lymphocytes Auto (Unsp spec) [#/Vol]Ordered By: Jam Abarca on 11-27-2024 Lymphocytes (Bld) [#/Vol] 1.83 10*3/uL 0.83-4.51 [facility] Lymphocytes/100 WBC Auto (Un sp spec)Ordered By: Jam Abarca on 11-27-2024 Lymphocytes/100 WBC (Bld) 22.3 % 19-41 [facility] MCV (mean corpuscular volume ) determinationOrdered By: Jam Abarca on 11-27-2024 MCV (RBC) [Entitic vol] 90.6 fL 81-99 [facility] Mean corpuscular hemoglobin (MCH) determinationOrdered By: Jam Abarca on 11-27-2024 MCH (RBC) [Entitic mass] 31.0 pg 27.0-32.0 [facility] Mean corpuscular hemoglobin concentration (MCHC) determinationOrdered By: Jam Abarca on 11-27-2024 MCHC (RBC) [Mass/Vol] 34.2 g/dL 32-36 [facility] Mean platelet volume determi nationOrdered By: Jam Abarca on 11-27-2024 Platelet mean volume (Bld) [Entitic vol] 8.8 fL 6.2-12.0 [facility] Monocyte percentageOrdered B y: Jam Abarca on 11-27-2024 Monocytes/100 WBC (Bld) 9.3 % 0-10 [facility] Neutrophil percentageOrdered By: Jam Abarca on 11-27-2024 Neutrophils/100 WBC (Bld) 66.2 % 47-70 [facility] Nucleated red blood cell per centageOrdered By: Jam Abarca on 11-27-2024 Nucleated RBC/100 WBC (Bld) [Ratio] 0 % 0-5 [facility] Platelet countOrdered By: Walt Abraca on 11-27-2024 Platelets (Bld) [#/Vol] 290 10*3/uL 150-450 [facility] Potassium (Unsp spec) [Mass/ Vol]Ordered By: Jam Abarca on 11-27-2024 Potassium [Moles/Vol] 4.5 mmol/L 3.3-5.1 [facility] Comment on above: Hemolysis present, R esults could be affected. Potassium measurement (mass/ volume)Ordered By: Jam Abarca on 11-27-2024 Potassium (Unsp spec) [Mass/Vol] 4.5 mmol/L 3.3-5.1 [facility] Comment on above: Hemolysis present, R esults could be affected. RBC Auto (Bld) [#/Vol]Ordere d By: Jam Abarca on 11-27-2024 RBC (Bld) [#/Vol] 4.16 10*6/uL Low 4.2-5.4 [facility] Serum creatinine measurement (mass/volume)Ordered By: Jam Abarca on 11-27-2024 Creatinine [Mass/Vol] 1.03 mg/dL 0.70-1.20 [facility] Serum glucose measurement (m ass/volume)Ordered By: Jam Abarca on 11-27-2024 Glucose [Mass/Vol] 156 mg/dL High 70-99 [facility] Serum or plasma calcium susana urement (mass/volume)Ordered By: Jam Abarca on 11-27-2024 Calcium [Mass/Vol] 8.7 mg/dL 7.6-11.0 [facility] Serum or plasma urea nitroge n measurement (mass/volume)Ordered By: Jam Abarca on 11-27-2024 Urea nitrogen [Mass/Vol] 27 mg/dL High 4-19 [facility] Sodium levelOrdered By: Jam Abarca on 11-27-2024 Sodium [Moles/Vol] 135 mmol/L 133-145 [facility] Troponin T.cardiac High sens itivity method [Mass/Vol]Ordered By: Jam Abarca on 11-27-2024 Troponin T High Sensitivity 2 Hour 18 ng/L High <14 [facility] Troponin T High Sensitivity 20 ng/L High <14 [facility] Troponin T.cardiac [Mass/vol ume] in Serum or Plasma by High sensitivity methodOrdered By: Jam Abarca on 11-27-2024 Troponin T.cardiac High sensitivity method [Mass/Vol] 18 ng/L High <14 [facility] Troponin T.cardiac High sensitivity method [Mass/Vol] 20 ng/L High <14 [facility] White blood cell (WBC) count Ordered By: Jam Abarca on 11-27-2024 WBC (Bld) [#/Vol] 8.2 10*3/uL 4.4-11.0 [facility] Cardiology Visit Reporton Cardiology Visit Report [facility] [address] [place] [address] OFFICE VISIT Date of Service: 11/13/24 MR#: [id number] Acct: [id number] Name: MANFRED CONTI Rep #: [id number] : 1940 Provider: TRACE rajan Age/Sex: 84/F Location: [facility] Status: Signed HPI HPI History of Present Illness Details: This is a pleasant 84-year-old lady who presents to the office today for a cardiovascular follow-up visit. She has no previous history other than hypertension who has been having chest discomfort. She says that this has been going on since August of 2022 when she was admitted to the hospital. As part of her work-up she underwent an echocardiogram which demonstrated preserved ejection fraction of 60% and in December of 2022 when she presented with more chest discomfort described as a heaviness as well as shortness of breath she underwent a stress echocardiogram which demonstrated no evidence of ischemia. She has continued to have this discomfort sometimes sharp sometimes dull and has been very concerned about this. She does get a tightness when she walks but her shortness of breath is not necessarily worse. 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 She did undergo a successful drug-eluting stent to the ostial LCx and pOM1. From a cardiac standpoint, the patient is doing well. She denies any palpitations, chest pain, pressure or heaviness. She denies SOB, Orthopnea, and PND. She does not have bleeding issues; no blood in urine, stool, or nosebleeds. She denies any decrease in energy level, myalgias, or claudication. She does not have edema, or sudden weight gain. She denies lightheadedness, dizziness, syncopal or near syncopal episodes, and headaches. She states her blood pressures at home average 130's-systolic. Intake Vital Signs 03/13/24 13:15 11/13/24 07:39 Height 5 ft 3 in 5 ft 3 in Weight: 90 lb BMI 15.9 BP 162/91 H Blood Pressure Location Lt brachial Position Sitting Respiration 18 Pulse 86 Pulse Source Monitor Intake Visit Reasons: 7 M FU Bobtailer Required: No Is patient in pain?: No Allergies hydralazine Allergy (Mild, Verified 11/13/24 08:58) Other labetalol Allergy (Mild, Verified 11/13/24 08:58) Other losartan Allergy (Unknown, Verified 11/13/24 08:58) fatigue Penicillins Adverse Reaction (Verified 11/13/24 08:58) Unknown Medications ???Medication ???Instructions ???Recorded ???Confirmed ???Type amlodipine 2.5 mg tablet 1.25 mg PO DAILY 07/11/23 11/13/24 History aspirin 81 mg tablet,delayed 81 mg PO Q OTHER DAY 01/03/24 04/11/04 History release (Adult Aspirin Regimen) rosuvastatin 5 mg tablet 5 mg PO .QOD #45 tabs 08/24/2411/04 Rx coenzyme Q10 400 mg capsule 400 mg PO .COMPLEX PRN 11/13/24 History Ejection fraction %: 60 Have you fallen in the past year?: No PFSH Medical History Atherosclerotic heart disease of [place] coronary artery without angina pectoris Wheezing Hyperlipidemia Chest pain Hypertension Dyspnea on exertion 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 Vertigo Hypertensive emergency History of squamous cell carcinoma Fatigue Nail dystrophy Epigastric pain Hearing loss Seasonal allergies Surgical History Stented coronary artery (03/16/23) Cancer of skin of external nose History of tonsillectomy Cataracts, bilateral Family History Mother , 89 Hypertension Father , 85 Cancer skin RA (rheumatoid arthritis) Social History household members: spouse Smoking Status: Never smoker alcohol intake: never substance use type: does not use caffeine: Yes Type: coffee what type of physical activity do you participate in: walking frequency: 3-4 times per week ROS Const Const: Negative for fatigue, weakness, headache(s) or frequent falls Eyes Eyes: Negative for blurry vision ENT ENT: Negative for headache(s), dizziness or Nosebleed/epistaxis Cardio Chest Pain: No Palpitations: No Edema: None Muscle aches with walking: None Resp Respiratory: Negative for SOB with activity, SOB at rest or SOB orthopnea SOB lying down GI GI: Negative nausea, vomiting, heartburn, bright, red blood in stools or black,tarry stools : Negative for hematuria Neuro Neuro: Negative for dizziness, lightheadedness, near syncope, syncope, frequent falls, headache(s), weakness or blurry vision Endo Endo: Negative for fatigue Cardiology Exam Const Appearance: cooperative, healthy (more content not included)... Normal [facility] Chest PA and Lateralon 10-30 Chest PA and Lateral [facility] Imaging Services [address] [place], [place] [address] Chest PA and Lateral MR#: [id number] Acct: [id number] Name: MANFRED CONTI Rep #: [id number] : 1940 F 84 From: Lucius randall MD PCP: Dr. Mu Tracey MD Status: REG CLI Study: Chest PA and Lateral Date of Exam: 10/30/24 Exam# [id number] Ordering Dr: Mu Tracey MD PROCEDURE: CHEST PA AND LATERAL N/A REASON FOR EXAM: WHEEZING TECHNIQUE: Frontal and lateral views of the chest. COMPARISON: Comparison is made with prior study dated September 11, 2022. FINDINGS: Hyperinflation and COPD. The heart size is normal. The mediastinal contour is unremarkable. Lungs are clear. Degenerative changes are identified within the thoracic spine.. Increased kyphosis. RAD/Chest PA and Lateral IMPRESSION: Hyperinflation. Stable examination. Reading Location: [facility] CC: Dr. Mu Tracey MD Health Technician Hearing: Signed Normal [facility] Influenza virus A and B and SARS-CoV-2 (COVID-19) and Respiratory syncytial virus RNAOrdered By: Mu Tracey on 10-30-2024 SARS-CoV-2 (COVID-19) RNA YEMI+probe Ql (Unsp spec) Influenzae A Abnormal [facility] M100.678on 10-30-2024 M100.678 Copy of report sent to Infection Control Printer [id number] 10/30/24 1215 CAMMIE. RESULTS CALLED TO SANCHEZ'S OFFICE 10/30/24 1216 Rosalba Javier. SARS-CoV-2 (COVID 19) Negative INFLUENZA A A Positive A INFLUENZA B Negative RSV PCR Negative INFLUENZAE A Normal [facility] Comment on above: Performed By: #### L 100.0100, L500.4050, L501.9520, L506.1001 #### [facility] Laboratory [address] [place], [address] [id number] DOrdered By: Baljit Tracey on 09-09-2024 Vitamin D 25-Hydroxy 28.9 ng/mL [facility] Comment on above: Vitamin D 25(OH) Sta tus Range Deficiency <20 ng/mL (50nmol/L) Insufficiency 20 - 30 ng/mL (50 - 75 nmol/L) Sufficiency 30 - 100 ng/mL (75 - 250 nmol/L) Toxicity >100 ng/mL (>250 nmol/L) Absolute lymphocyte countOrd ered By: Mu Zuletaok on 09-09-2024 Lymphocytes Auto (Unsp spec) [#/Vol] 1.64 10*3/uL 0.83-4.51 [facility] Absolute neutrophil countOrd ered By: Mu Tracey on 09-09-2024 Neutrophils (Bld) [#/Vol] 3.6 10*3/uL 2.0-7.7 [facility] Albumin to globulin ratioOrd ered By: Mu Tracey on 09-09-2024 Albumin/Globulin [Mass ratio] 0.9 {ratio} 0.9-2.4 [facility] Automated lymphocyte count a s percentage of total leukocytesOrdered By: Mu Tracey on 09-09-2024 Lymphocytes/100 WBC Auto (Unsp spec) 26.3 % 19-41 [facility] Basophil percentageOrdered B y: Mu Tracey on 09-09-2024 Basophils/100 WBC (Bld) 1.0 % 0-1 [facility] Bilirubin, totalOrdered By: Mu Tracey on 09-09-2024 Bilirubin [Mass/Vol] 0.30 mg/dL 0.20-1.00 [facility] Comment on above: For patients on eltr ombopag therapy, use of Dimension [place] TBIL is not recommended. Blood urea nitrogen (BUN)/cr eatinine ratioOrdered By: Mu Tracey on 09-09-2024 Urea nitrogen/Creatinine [Mass ratio] 19.4 mg/mg 10-20 [facility] CBC W/Diff, Automatedon 08-14 Absolute Lymph 1.64 X10 3/uL Normal 0.83-4.51 [facility] Comment on above: Performed By: #### L 500.4050, L501.9520, L100.0100, L506.1000 #### [facility] [address] [place], [address] Absolute Neut 3.6 X10 3/uL Normal 2.0-7.7 [facility] Comment on above: Performed By: #### L 500.4050, L501.9520, L100.0100, L506.1000 #### [facility] [address] [place], [address] Basophils/100 WBC (Bld) 1.0 % Normal 0-1 [facility] Comment on above: Performed By: #### L 500.4050, L501.9520, L100.0100, L506.1000 #### [facility] [address] [place], [address] Eosinophils/100 WBC (Bld) 1.9 % Normal 0-5 [facility] Comment on above: Performed By: #### L 500.4050, L501.9520, L100.0100, L506.1000 #### [facility] [address] [place], [address] Erythrocyte distribution width (RBC) [Ratio] 13.9 % Normal 11.6-14.6 [facility] Comment on above: Performed By: #### L 500.4050, L501.9520, L100.0100, L506.1000 #### [facility] [address] [place], [address] Hematocrit (Bld) [Volume fraction] 40.4 % Normal 37-47 [facility] Comment on above: Performed By: #### L 500.4050, L501.9520, L100.0100, L506.1000 #### [facility] [address] [place], [address] Hemoglobin (Bld) [Mass/Vol] 13.3 g/dL Normal 12.0-15.0 [facility] Comment on above: Performed By: #### L 500.4050, L501.9520, L100.0100, L506.1000 #### [facility] [address] [place], [address] IG% 0.300 Normal 0.0-0.9 [facility] Comment on above: Result Comment: IG% - Immature Granulocytes (promyelocytes, myelocytes and metamyelocytes) > 1% indicates that a LEFT SHIFT is Present. Performed By: #### L 500.4050, L501.9520, L100.0100, L506.1000 #### [facility] [address] [place], [address] Lymphocytes/100 WBC (Bld) 26.3 % Normal 19-41 [facility] Comment on above: Performed By: #### L 500.4050, L501.9520, L100.0100, L506.1000 #### [facility] [address] [place], [address] MCH (RBC) [Entitic mass] 30.4 pg Normal 27.0-32.0 [facility] Comment on above: Performed By: #### L 500.4050, L501.9520, L100.0100, L506.1000 #### [facility] [address] [place], [address] MCHC (RBC) [Mass/Vol] 32.9 g/dL Normal 32-36 [facility] Comment on above: Performed By: #### L 500.4050, L501.9520, L100.0100, L506.1000 #### [facility] [address] [place], [address] MCV (RBC) [Entitic vol] 92.2 fL Normal 81-99 [facility] Comment on above: Performed By: #### L 500.4050, L501.9520, L100.0100, L506.1000 #### [facility] [address] [place], [address] Monocytes/100 WBC (Bld) 12.5 % High 0-10 [facility] Comment on above: Performed By: #### L 500.4050, L501.9520, L100.0100, L506.1000 #### [facility] [address] [place], [address] Neutrophils/100 WBC (Bld) 58.0 % Normal 47-70 [facility] Comment on above: Performed By: #### L 500.4050, L501.9520, L100.0100, L506.1000 #### [facility] [address] [place], [address] Nucleated RBC (Bld) [#/Vol] 0 10*3/uL Normal 0-5 [facility] Comment on above: Performed By: #### L 500.4050, L501.9520, L100.0100, L506.1000 #### [facility] [address] [place], [address] Platelet mean volume (Bld) [Entitic vol] 8.8 fL Normal 6.2-12.0 [facility] Comment on above: Performed By: #### L 500.4050, L501.9520, L100.0100, L506.1000 #### [facility] [address] [place], [address] Platelets (Bld) [#/Vol] 310 10*3/uL Normal 150-450 [facility] Comment on above: Performed By: #### L 500.4050, L501.9520, L100.0100, L506.1000 #### [facility] [address] [place], [address] RBC (Bld) [#/Vol] 4.38 10*6/uL Normal 4.2-5.4 [facility] Comment on above: Performed By: #### L 500.4050, L501.9520, L100.0100, L506.1000 #### [facility] [address] [place], [address] RDW SD 47.4 fl High 35.1-43.9 [facility] Comment on above: Performed By: #### L 500.4050, L501.9520, L100.0100, L506.1000 #### [facility] [address] [place], [address] WBC (Bld) [#/Vol] 6.2 10*3/uL Normal 4.4-11.0 [facility] Comment on above: Performed By: #### L 500.4050, L501.9520, L100.0100, L506.1000 #### [facility] [address] [place], [address] Carbon dioxide measurementOr dered By: Mu Tracey on 09-09-2024 CO2 [Moles/Vol] 26.0 mmol/L 21.0-32.0 [facility] Chloride measurementOrdered By: Mu Tracey on 09-09-2024 Chloride [Moles/Vol] 105 mmol/L 98-107 [facility] Comprehensive Metabolic Prof ilon 09-09-2024 Albumin [Mass/Vol] 3.5 g/dL Normal 3.2-5.0 [facility] Comment on above: Performed By: #### L 500.4050, L501.9520, L100.0100, L506.1000 #### [facility] [address] [place], [address] Albumin/Globulin [Mass ratio] 0.9 {ratio} Normal 0.9-2.4 [facility] Comment on above: Performed By: #### L 500.4050, L501.9520, L100.0100, L506.1000 #### [facility] [address] [place], [address] ALK P 122 U/L High 45-117 [facility] Comment on above: Performed By: #### L 500.4050, L501.9520, L100.0100, L506.1000 #### [facility] [address] [place], [address] ALT [Catalytic activity/Vol] 21 U/L Normal 13-56 [facility] Comment on above: Performed By: #### L 500.4050, L501.9520, L100.0100, L506.1000 #### [facility] [address] [place], [address] AST [Catalytic activity/Vol] 20 U/L Normal 15-37 [facility] Comment on above: Performed By: #### L 500.4050, L501.9520, L100.0100, L506.1000 #### [facility] [address] [place], [address] Bilirubin [Mass/Vol] 0.30 mg/dL Normal 0.20-1.00 [facility] Comment on above: Result Comment: For patients on eltrombopag therapy, use of Dimension [place] TBIL is not recommended. Performed By: #### L 500.4050, L501.9520, L100.0100, L506.1000 #### [facility] [address] [place], [address] BUN/CRE 19.4 RATIO Normal 10-20 [facility] Comment on above: Performed By: #### L 500.4050, L501.9520, L100.0100, L506.1000 #### [facility] [address] [place], [address] CA,Total 9.1 mg/dL Normal 8.5-10.1 [facility] Comment on above: Performed By: #### L 500.4050, L501.9520, L100.0100, L506.1000 #### [facility] [address] [place], [address] Chloride [Moles/Vol] 105 mmol/L Normal 98-107 [facility] Comment on above: Performed By: #### L 500.4050, L501.9520, L100.0100, L506.1000 #### [facility] [address] [place], [address] CO2 [Moles/Vol] 26.0 mmol/L Normal 21.0-32.0 [facility] Comment on above: Performed By: #### L 500.4050, L501.9520, L100.0100, L506.1000 #### [facility] [address] [place], [address] Creatinine [Mass/Vol] 1.03 mg/dL High 0.55-1.02 [facility] Comment on above: Result Comment: The validity of the calculated GFR GFRAA in patients over 70 years has not been determined. Clinical correlation is essential. Performed By: #### L 500.4050, L501.9520, L100.0100, L506.1000 #### [facility] [address] [place], [address] EST GFR - AA 65 mL/min Normal >60 [facility] Comment on above: Result Comment: Afri can [place]ian GFR Calc Performed By: #### L 500.4050, L501.9520, L100.0100, L506.1000 #### [facility] [address] [place], [address] GAP 6 Normal 5-15 [facility] Comment on above: Performed By: #### L 500.4050, L501.9520, L100.0100, L506.1000 #### [facility] [address] [place], [address] GFR/1.73 sq M.predicted among non-blacks MDRD (S/P/Bld) [Vol rate/Area] 54 mL/min/{1.73_m2} Low >60 [facility] Comment on above: Result Comment: Non- GFR Calc Performed By: #### L 500.4050, L501.9520, L100.0100, L506.1000 #### [facility] [address] [place], [address] Globulin (S) [Mass/Vol] 3.7 g/dL Normal 2.2-4.2 [facility] Comment on above: Performed By: #### L 500.4050, L501.9520, L100.0100, L506.1000 #### [facility] [address] [place], [address] Glucose [Mass/Vol] 91 mg/dL Normal 74-106 [facility] Comment on above: Performed By: #### L 500.4050, L501.9520, L100.0100, L506.1000 #### [facility] [address] [place], [address] Potassium [Moles/Vol] 4.5 mmol/L Normal 3.5-5.1 [facility] Comment on above: Performed By: #### L 500.4050, L501.9520, L100.0100, L506.1000 #### [facility] [address] [place], [address] Sodium [Moles/Vol] 137 mmol/L Normal 136-145 [facility] Comment on above: Performed By: #### L 500.4050, L501.9520, L100.0100, L506.1000 #### [facility] [address] [place], [address] T PROT 7.2 g/dL Normal 6.4-8.2 [facility] Comment on above: Performed By: #### L 500.4050, L501.9520, L100.0100, L506.1000 #### [facility] [address] [place], [address] Urea nitrogen [Mass/Vol] 20 mg/dL High 7-18 [facility] Comment on above: Performed By: #### L 500.4050, L501.9520, L100.0100, L506.1000 #### [facility] [address] [place], [address] Eosinophil percentageOrdered By: Mu Tracey on 09-09-2024 Eosinophils/100 WBC (Bld) 1.9 % 0-5 [facility] Erythrocyte distribution wid th ratioOrdered By: Mu Tracey on 09-09-2024 Erythrocyte distribution width (RBC) [Ratio] 13.9 % 11.6-14.6 [facility] Erythrocyte distribution wid th standard deviationOrdered By: Mu Tracey on 09-09-2024 Erythrocyte distribution width (RBC) [Entitic vol] 47.4 fL High 35.1-43.9 [facility] Erythrocyte distribution width (RBC) [Ratio] 47.4 fl High 35.1-43.9 [facility] Estimated glomerular filtrat ion rate (GFR) AmericanOrdered By: Mu Tracey on 09-09-2024 Estimated GFR (MDRD) Amer 65 mL/min >60 [facility] Comment on above: GFR Calc Glomerular filtration rate ( GFR) estimationOrdered By: Mu Tracey 09-09-2024 Estimated GFR (MDRD) Non-Af Amer 54 mL/min Low >60 [facility] Comment on above: Non- GFR Calc GFR/1.73 sq M.predicted among non-blacks MDRD (S/P/Bld) [Vol rate/Area] 54 mL/min/{1.73_m2} Low >60 [facility] Comment on above: Non- GFR Calc Glucose measurementOrdered B y: Mu Tracey on 09-09-2024 Glucose [Mass/Vol] 91 mg/dL 74-106 [facility] Hematocrit Auto (Bld) [Volum e fraction]Ordered By: Mu Tracey on 09-09-2024 Hematocrit (Bld) [Volume fraction] 40.4 % 37-47 [facility] Hemoglobin measurementOrdere d By: Mu Tracey on 09-09-2024 Hemoglobin (Bld) [Mass/Vol] 13.3 g/dL 12.0-15.0 [facility] Immature granulocytes/100 WB C Auto (Bld)Ordered By: Mu Tracey on 09-09-2024 Immature granulocytes/100 WBC (Bld) 0.300 % 0.0-0.9 [facility] Comment on above: IG% - Immature Granu locytes (promyelocytes, myelocytes and metamyelocytes) > 1% indicates that a LEFT SHIFT is Present. Laboratory - Chemistry and C hemistry - challengeOrdered By: Mu Tracey on 09-09-2024 AST [Catalytic activity/Vol] 20 U/L 15-37 [facility] Lymphocytes Auto (Unsp spec) [#/Vol]Ordered By: Mu Tracey on 09-09-2024 Lymphocytes (Bld) [#/Vol] 1.64 10*3/uL 0.83-4.51 [facility] Lymphocytes/100 WBC Auto (Un sp spec)Ordered By: Mu Tracey on 09-09-2024 Lymphocytes/100 WBC (Bld) 26.3 % 19-41 [facility] MCV (mean corpuscular volume ) determinationOrdered By: Mu Tracey 09-09-2024 MCV (RBC) [Entitic vol] 92.2 fL 81-99 [facility] Mean corpuscular hemoglobin (MCH) determinationOrdered By: Mu Tracey 09-09-2024 MCH (RBC) [Entitic mass] 30.4 pg 27.0-32.0 [facility] Mean corpuscular hemoglobin concentration (MCHC) determinationOrdered By: Mu Tracey 09-09-2024 MCHC (RBC) [Mass/Vol] 32.9 g/dL 32-36 [facility] Mean platelet volume determi nationOrdered By: Mu Tracey on 09-09-2024 Platelet mean volume (Bld) [Entitic vol] 8.8 fL 6.2-12.0 [facility] Monocyte percentageOrdered B y: Mu Tracey on 09-09-2024 Monocytes/100 WBC (Bld) 12.5 % High 0-10 [facility] Neutrophil percentageOrdered By: Mu Tracey on 09-09-2024 Neutrophils/100 WBC (Bld) 58.0 % 47-70 [facility] Nucleated red blood cell per centageOrdered By: Mu Tracey on 09-09-2024 Nucleated RBC/100 WBC (Bld) [Ratio] 0 % 0-5 [facility] Platelet countOrdered By: Blas Tracey on 09-09-2024 Platelets (Bld) [#/Vol] 310 10*3/uL 150-450 [facility] Potassium measurementOrdered By: Mu Tracey on 09-09-2024 Potassium [Moles/Vol] 4.5 mmol/L 3.5-5.1 [facility] RBC Auto (Bld) [#/Vol]Ordere d By: Mu Tracey on 09-09-2024 RBC (Bld) [#/Vol] 4.38 10*6/uL 4.2-5.4 [facility] Serum anion gap measurementO rdered By: Mu Tracey on 09-09-2024 Anion gap [Moles/Vol] 6 mmol/L 5-15 [facility] Serum globulin measurementOr dered By: Mu Tracey on 09-09-2024 Globulin (S) [Mass/Vol] 3.7 g/dL 2.2-4.2 [facility] Serum or plasma alanine godinez otransferase (ALT) measurementOrdered By: Mu Tracey 09-09-2024 ALT [Catalytic activity/Vol] 21 U/L 13-56 [facility] Serum or plasma albumin susana urement (mass/volume)Ordered By: Mu Tracey on 09-09-2024 Albumin [Mass/Vol] 3.5 g/dL 3.2-5.0 [facility] Serum or plasma alkaline analia sphatase measurementOrdered By: Mu Tracey 09-09-2024 ALP [Catalytic activity/Vol] 122 U/L High 45-117 [facility] Serum or plasma calcium susana urement (mass/volume)Ordered By: Mu Tracey on 09-09-2024 Calcium [Mass/Vol] 9.1 mg/dL 8.5-10.1 [facility] Serum or plasma creatinine m easurement (mass/volume)Ordered By: Mu Tracey on 09-09-2024 Creatinine [Mass/Vol] 1.03 mg/dL High 0.55-1.02 [facility] Comment on above: The validity of the calculated GFR & GFRAA in patients over 70 years has not been determined. Clinical correlation is essential. Serum or plasma thyroid stim ulating hormone (TSH) measurement (units/volume)Ordered By: Mu Tracey on 09-09-2024 TSH Qn 2.800 uIU/mL 0.358-3.740 [facility] Serum or plasma urea nitroge n measurement (mass/volume)Ordered By: Mu Tracey on 09-09-2024 Urea nitrogen [Mass/Vol] 20 mg/dL High 7-18 [facility] Sodium levelOrdered By: Mu Tracey on 09-09-2024 Sodium [Moles/Vol] 137 mmol/L 136-145 [facility] TSH QnOrdered By: Mu Tracey o n 09-09-2024 Thyroid Stimulating Hormone (TSH) 2.800 uIU/mL 0.358-3.740 [facility] Thyroid Stim Hormone (TSH)on 09-09-2024 TSH 2.800 uIU/mL Normal 0.358-3.740 [facility] Comment on above: Performed By: #### L 100.0100, L500.4050, L501.9520, [id number] #### [facility] Laboratory [facility] [place], [address] Total proteinOrdered By: Mu Tracey on 09-09-2024 Protein [Mass/Vol] 7.2 g/dL 6.4-8.2 [facility] Vitamin D,25 Hydroxyon 09-09 Vitamin D 25-OH 28.9 ng/mL Normal [facility] Comment on above: Result Comment: Polina min D 25(OH) Status Range Deficiency <20 ng/mL (50nmol/L) Insufficiency 20 - 30 ng/mL (50 - 75 nmol/L) Sufficiency 30 - 100 ng/mL (75 - 250 nmol/L) Toxicity >100 ng/mL (>250 nmol/L) Performed By: #### L 500.4050, L501.9520, L100.0100, L506.1000 #### [facility] Laboratory [address] [place], [address] White blood cell (WBC) count Ordered By: Mu Tracey on 09-09-2024 WBC (Bld) [#/Vol] 6.2 10*3/uL 4.4-11.0 [facility] Lipid Profileon 06-18-2024 Cholesterol [Mass/Vol] 201 mg/dL High 200 [facility] Comment on above: Result Comment: <200 mg/dL Desirable 200-240 mg/dL Borderline >240 mg/dL High Risk Performed By: #### L 100.0100, L500.4050, L501.9520, [id number] #### [facility] Laboratory [address] [place], [address] Cholesterol in HDL [Mass/Vol] 112 mg/dL Normal [facility] Comment on above: Result Comment: The drugs N-Acetylcysteine and Metamizole may falsely depress this assay. Reference Range HDL <40 mg/dL Low HDL Cholesterol HDL >or= 60 mg/dL High HDL Cholesterol Performed By: #### L 100.0100, L500.4050, L501.9520, [id number] #### [facility] Laboratory [address] [place], [address] Cholesterol in LDL [Mass/Vol] 73 mg/dL Normal 0-130 [facility] Comment on above: Performed By: #### L 100.0100, L500.4050, [id number], [id number] #### [facility] Laboratory [address] [place], [address] Cholesterol in VLDL [Mass/Vol] 16 mg/dL Normal 5-40 [facility] Comment on above: Performed By: #### L 100.0100, L500.4050, [id number], [id number] #### [facility] Laboratory [address] [place], [address] Triglyceride [Mass/Vol] 81 mg/dL Normal [facility] Comment on above: Result Comment: The drugs N-Acetylcysteine and Metamizole may falsely depress this assay. Serum Triglycerides Reference Interval Normal <150 mg/dL Borderline high 150 - 199 mg/dL High 200 - 499 mg/dL Very High > or = 500 mg/dL Performed By: #### L 100.0100, L500.4050, L501.9520, [id number] #### [facility] Laboratory [address] [place], [address] CBC W/Diff, Automatedon 10- Absolute Lymph 1.79 X10 3/uL Normal 0.83-4.51 [facility] Comment on above: Order Comment: PER P T-JUST SANCHEZ ORDER Performed By: #### L 100.0100, L500.4050, [id number], [id number] #### [facility] Laboratory [address] [place], [address] Absolute Neut 4.8 X10 3/uL Normal 2.0-7.7 [facility] Comment on above: Order Comment: PER P T-JUST SANCHEZ ORDER Performed By: #### L 100.0100, L500.4050, [id number], [id number] #### [facility] Laboratory [address] [place], [address] Basophils/100 WBC (Bld) 0.9 % Normal 0-1 [facility] Comment on above: Order Comment: PER P T-JUST SANCHEZ ORDER Performed By: #### L 100.0100, L500.4050, [id number], [id number] #### [facility] Laboratory [address] [place], [address] Eosinophils/100 WBC (Bld) 1.9 % Normal 0-5 [facility] Comment on above: Order Comment: PER P T-JUST SANCHEZ ORDER Performed By: #### L 100.0100, L500.4050, L501.9520, [id number] #### [facility] Laboratory [address] [place], [address] Erythrocyte distribution width (RBC) [Ratio] 13.3 % Normal 11.6-14.6 [facility] Comment on above: Order Comment: PER P T-JUST SANCHEZ ORDER Performed By: #### L 100.0100, L500.4050, [id number], [id number] #### [facility] Laboratory [address] [place], [address] Hematocrit (Bld) [Volume fraction] 41.3 % Normal 37-47 [facility] Comment on above: Order Comment: PER P T-JUST SANCHEZ ORDER Performed By: #### L 100.0100, L500.4050, [id number], [id number] #### [facility] Laboratory [address] [place], [address] Hemoglobin (Bld) [Mass/Vol] 13.2 g/dL Normal 12.0-15.0 [facility] Comment on above: Order Comment: PER P T-JUST SANCHEZ ORDER Performed By: #### L 100.0100, L500.4050, [id number], [id number] #### [facility] Laboratory [address] [place], [address] IG% 0.300 Normal 0.0-0.9 [facility] Comment on above: Order Comment: PER P T-JUST SANCHEZ ORDER Result Comment: IG% - Immature Granulocytes (promyelocytes, myelocytes and metamyelocytes) > 1% indicates that a LEFT SHIFT is Present. Performed By: #### L 100.0100, L500.4050, L501.9520, [id number] #### [facility] Laboratory [address] [place], [address] Lymphocytes/100 WBC (Bld) 23.7 % Normal 19-41 [facility] Comment on above: Order Comment: PER P T-JUST SANCHEZ ORDER Performed By: #### L 100.0100, L500.4050, L501.9520, [id number] #### [facility] Laboratory [address] [place], [address] MCH (RBC) [Entitic mass] 29.7 pg Normal 27.0-32.0 [facility] Comment on above: Order Comment: PER P T-JUST SANCHEZ ORDER Performed By: #### L 100.0100, L500.4050, [id number], [id number] #### [facility] Laboratory [address] [place], [address] MCHC (RBC) [Mass/Vol] 32.0 g/dL Normal 32-36 [facility] Comment on above: Order Comment: PER P T-JUST SANCHEZ ORDER Performed By: #### L 100.0100, L500.4050, L501.9520, [id number] #### [facility] Laboratory [address] [place], [address] MCV (RBC) [Entitic vol] 92.8 fL Normal 81-99 [facility] Comment on above: Order Comment: PER P T-JUST SANCHEZ ORDER Performed By: #### L 100.0100, L500.4050, [id number], [id number] #### [facility] Laboratory [address] [place], [address] Monocytes/100 WBC (Bld) 9.5 % Normal 0-10 [facility] Comment on above: Order Comment: PER P T-JUST SANCHEZ ORDER Performed By: #### L 100.0100, L500.4050, [id number], L506.1001 #### [facility] Laboratory [address] [place], [address] Neutrophils/100 WBC (Bld) 63.7 % Normal 47-70 [facility] Comment on above: Order Comment: PER P T-JUST SANCHEZ ORDER Performed By: #### L 100.0100, L500.4050, [id number], [id number] #### [facility] Laboratory [address] [place], [address] Nucleated RBC (Bld) [#/Vol] 0 10*3/uL Normal 0-5 [facility] Comment on above: Order Comment: PER P T-JUST SANCHEZ ORDER Performed By: #### L 100.0100, L500.4050, [id number], [id number] #### [facility] Laboratory [address] [place], [address] Platelet mean volume (Bld) [Entitic vol] 8.4 fL Normal 6.2-12.0 [facility] Comment on above: Order Comment: PER P T-JUST SANCHEZ ORDER Performed By: #### L 100.0100, L500.4050, L501.9520, L506.1001 #### [facility] Laboratory [address] [place], [address] Platelets (Bld) [#/Vol] 321 10*3/uL Normal 150-450 [facility] Comment on above: Order Comment: PER P T-JUST SANCHEZ ORDER Performed By: #### L 100.0100, L500.4050, L501.9520, [id number] #### [facility] Laboratory [address] [place], [address] RBC (Bld) [#/Vol] 4.45 10*6/uL Normal 4.2-5.4 [facility] Comment on above: Order Comment: PER P T-JUST SANCHEZ ORDER Performed By: #### L 100.0100, L500.4050, L501.9520, [id number] #### [facility] Laboratory [address] [place], [address] RDW SD 45.7 fl High 35.1-43.9 [facility] Comment on above: Order Comment: PER P T-JUST SANCHEZ ORDER Performed By: #### L 100.0100, L500.4050, [id number], L506.1001 #### [facility] Laboratory [address] [place], [address] WBC (Bld) [#/Vol] 7.6 10*3/uL Normal 4.4-11.0 [facility] Comment on above: Order Comment: PER P T-JUST SANCHEZ ORDER Performed By: #### L 100.0100, L500.4050, L501.9520, L506.1001 #### [facility] Laboratory [address] [place], [address] Comprehensive Metabolic Prof ilon 06-09-2024 Albumin [Mass/Vol] 3.5 g/dL Normal 3.2-5.0 [facility] Comment on above: Order Comment: PER P T-JUST SANCHEZ ORDER Performed By: #### L 100.0100, L500.4050, L501.9520, L506.1001 #### [facility] Laboratory [address] [place], [address] Albumin/Globulin [Mass ratio] 1.0 {ratio} Normal 0.9-2.4 [facility] Comment on above: Order Comment: PER P T-JUST SANCHEZ ORDER Performed By: #### L 100.0100, L500.4050, L501.9520, [id number] #### [facility] Laboratory [address] [place], [address] ALK P 132 U/L High 45-117 [facility] Comment on above: Order Comment: PER P T-JUST SANCHEZ ORDER Performed By: #### L 100.0100, L500.4050, L501.9520, L506.1001 #### [facility] Laboratory [address] [place], [address] ALT [Catalytic activity/Vol] 21 U/L Normal 13-56 [facility] Comment on above: Order Comment: PER P T-JUST SANCHEZ ORDER Performed By: #### L 100.0100, L500.4050, L501.9520, L506.1001 #### [facility] Laboratory [address] [place], [address] AST [Catalytic activity/Vol] 22 U/L Normal 15-37 [facility] Comment on above: Order Comment: PER P T-JUST SANCHEZ ORDER Performed By: #### L 100.0100, L500.4050, L501.9520, L506.1001 #### [facility] Laboratory [address] [place], [address] Bilirubin [Mass/Vol] 0.30 mg/dL Normal 0.20-1.00 [facility] Comment on above: Order Comment: PER P T-JUST SANCHEZ ORDER Result Comment: For patients on eltrombopag therapy, use of Dimension Engelhard TBIL is not recommended. Performed By: #### L 100.0100, L500.4050, L501.9520, L506.1001 #### [facility] Laboratory [address] [place], [address] BUN/CRE 22.7 RATIO High 10-20 [facility] Comment on above: Order Comment: PER P T-JUST SANCHEZ ORDER Performed By: #### L 100.0100, L500.4050, L501.9520, L506.1001 #### [facility] Laboratory [address] [place], [address] CA,Total 8.8 mg/dL Normal 8.5-10.1 [facility] Comment on above: Order Comment: PER P T-JUST SANCHEZ ORDER Performed By: #### L 100.0100, L500.4050, L501.9520, L506.1001 #### [facility] Laboratory [address] [place], [address] Chloride [Moles/Vol] 106 mmol/L Normal 98-107 [facility] Comment on above: Order Comment: PER P T-JUST SANCHEZ ORDER Performed By: #### L 100.0100, L500.4050, L501.9520, L506.1001 #### [facility] Laboratory [address] [place], [address] CO2 [Moles/Vol] 29.0 mmol/L Normal 21.0-32.0 [facility] Comment on above: Order Comment: PER P T-JUST SANCHEZ ORDER Performed By: #### L 100.0100, L500.4050, L501.9520, L506.1001 #### [facility] Laboratory [address] [place], [address] Creatinine [Mass/Vol] 0.97 mg/dL Normal 0.55-1.02 [facility] Comment on above: Order Comment: PER P T-JUST SANCHEZ ORDER Result Comment: The validity of the calculated GFR GFRAA in patients over 70 years has not been determined. Clinical correlation is essential. Performed By: #### L 100.0100, L500.4050, L501.9520, L506.1001 #### [facility] Laboratory [address] [place], [address] EST GFR - AA 70 mL/min Normal >60 [facility] Comment on above: Order Comment: PER P T-JUST SANCHEZ ORDER Result Comment: Afri can Ghanaian GFR Calc Performed By: #### L 100.0100, L500.4050, L501.9520, L506.1001 #### [facility] Laboratory [address] [place], [address] GAP 2 Low 5-15 [facility] Comment on above: Order Comment: PER P T-JUST SANCHEZ ORDER Performed By: #### L 100.0100, L500.4050, L501.9520, L506.1001 #### [facility] Laboratory [address] [place], [address] GFR/1.73 sq M.predicted among non-blacks MDRD (S/P/Bld) [Vol rate/Area] 58 mL/min/{1.73_m2} Low >60 [facility] Comment on above: Order Comment: PER P T-JUST SANCHEZ ORDER Result Comment: Non- GFR Calc Performed By: #### L 100.0100, L500.4050, L501.9520, L506.1001 #### [facility] Laboratory [address] [place], [address] Globulin (S) [Mass/Vol] 3.6 g/dL Normal 2.2-4.2 [facility] Comment on above: Order Comment: PER P T-JUST SANCHEZ ORDER Performed By: #### L 100.0100, L500.4050, L501.9520, L506.1001 #### [facility] Laboratory [address] [place], [address] Glucose [Mass/Vol] 101 mg/dL Normal 74-106 [facility] Comment on above: Order Comment: PER P T-JUST SANCHEZ ORDER Result Comment: Fast ing Glucose result from 100 to 125 mg/dL suggests IMPAIRED HOMEOSTASIS per A.D.A. criteria. Performed By: #### L 100.0100, L500.4050, L501.9520, L506.1001 #### [facility] Laboratory [address] [place], [address] Potassium [Moles/Vol] 4.4 mmol/L Normal 3.5-5.1 [facility] Comment on above: Order Comment: PER P T-JUST SANCHEZ ORDER Performed By: #### L 100.0100, L500.4050, L501.9520, L506.1001 #### [facility] Laboratory [address] [place], [address] Sodium [Moles/Vol] 137 mmol/L Normal 136-145 [facility] Comment on above: Order Comment: PER P T-JUST SANCHEZ ORDER Performed By: #### L 100.0100, L500.4050, L501.9520, L506.1001 #### [facility] [address] [place], [address] T PROT 7.1 g/dL Normal 6.4-8.2 [facility] Comment on above: Order Comment: PER P T-JUST SANCHEZ ORDER Performed By: #### L 100.0100, L500.4050, L501.9520, L506.1001 #### [facility] Laboratory [address] [place], [address] Urea nitrogen [Mass/Vol] 22 mg/dL High 7-18 [facility] Comment on above: Order Comment: PER P T-JUST SANCHEZ ORDER Performed By: #### L 100.0100, L500.4050, L501.9520, L506.1001 #### [facility] Laboratory [address] [place], [address] Thyroid Stim Hormone (TSH)on 06-09-2024 TSH 3.610 uIU/mL Normal 0.358-3.740 [facility] Comment on above: Order Comment: PER P T-JUST SANCHEZ ORDER Performed By: #### L 100.0100, L500.4050, L501.9520, L506.1001 #### [facility] Laboratory [address] [place], [address] Vitamin D,25 Hydroxyon 06-09 Vitamin D 25-OH 25.6 ng/mL Normal [facility] Comment on above: Order Comment: PER P T-JUST SANCHEZ ORDER Result Comment: Polina min D 25(OH) Status Range Deficiency <20 ng/mL (50nmol/L) Insufficiency 20 - 30 ng/mL (50 - 75 nmol/L) Sufficiency 30 - 100 ng/mL (75 - 250 nmol/L) Toxicity >100 ng/mL (>250 nmol/L) Performed By: #### L 100.0100, L500.4050, L501.9520, L506.1001 #### [facility] Laboratory [address] [place], [address] Absolute lymphocyte countOrd ered By: Mu Tracey on 09-12-2023 Lymphocytes Auto (Unsp spec) [#/Vol] 1.63 10*3/uL 0.83-4.51 [facility] Automated lymphocyte count a s percentage of total leukocytesOrdered By: Mu Zuletaok on 09-12-2023 Lymphocytes/100 WBC Auto (Unsp spec) 23.0 % 19-41 [facility] Basophil percentageOrdered B y: Mu Tracey on 09-12-2023 Basophils/100 WBC (Bld) 0.7 % 0-1 [facility] Bilirubin [Mass/Vol] 0.30 mg/dL 0.20-1.00 [facility] Comment on above: For patients on eltr ombopag therapy, use of Dimension [place]hard TBIL is not recommended. Chloride [Moles/Vol] 108 mmol/L 98-107 [facility] Eosinophils/100 WBC (Bld) 1.3 % 0-5 [facility] Glucose [Mass/Vol] 102 mg/dL 74-106 [facility] Comment on above: Fasting Glucose resu lt from 100 to 125 mg/dL suggests IMPAIRED HOMEOSTASIS per A.D.A. criteria. Hemoglobin (Bld) [Mass/Vol] 12.4 g/dL 12.0-15.0 [facility] Monocytes/100 WBC (Bld) 9.9 % 0-10 [facility] Neutrophils (Bld) [#/Vol] 4.6 10*3/uL 2.0-7.7 [facility] Neutrophils/100 WBC (Bld) 65.0 % 47-70 [facility] Potassium [Moles/Vol] 4.1 mmol/L 3.5-5.1 [facility] Protein [Mass/Vol] 7.0 g/dL 6.4-8.2 [facility] Sodium [Moles/Vol] 139 mmol/L 136-145 [facility] WBC (Bld) [#/Vol] 7.1 10*3/uL 4.4-11.0 [facility] Determination of erythrocyte mean corpuscular volume (MCV)Ordered By: Mu Tracey on 09-12-2023 MCV (RBC) [Entitic vol] 93.6 fL 81-99 [facility] Erythrocyte distribution wid th ratioOrdered By: Mu Tracey on 09-12-2023 Erythrocyte distribution width (RBC) [Ratio] 13.7 % 11.6-14.6 [facility] Erythrocyte distribution wid th standard deviationOrdered By: [facility] on 09-12-2023 Erythrocyte distribution width (RBC) [Entitic vol] 47.0 fL 35.1-43.9 [facility] Hematocrit Auto (Bld) [Volum e fraction]Ordered By: Mu Sanchez on 09-12-2023 Hematocrit (Bld) [Volume fraction] 38.0 % 37-47 [facility] Immature granulocytes/100 WB C Auto (Bld)Or[facility] Immature granulocytes/100 WBC (Bld) 0.100 % 0.0-0.9 [facility] Comment on above: IG% - Immature Granu locytes (promyelocytes, myelocytes and metamyelocytes) > 1% indicates that a LEFT SHIFT is Present. Laboratory - Chemistry and C hemistry - challengeOrdered By: [facility] 09-12-2023 Albumin/Globulin [Mass ratio] 1.1 {ratio} 0.9-2.4 [facility] ALP [Catalytic activity/Vol] 149 U/L 45-117 [facility] ALT [Catalytic activity/Vol] 35 U/L 13-56 [facility] CO2 [Moles/Vol] 28.0 mmol/L 21.0-32.0 [facility] Globulin (S) [Mass/Vol] 3.3 g/dL 2.2-4.2 [facility] Urea nitrogen/Creatinine [Mass ratio] 24.5 mg/mg 10-20 [facility] Laboratory - Hematology and Cell countsOrdered By: Mu Sanchez 09-12-2023 MCH (RBC) [Entitic mass] 30.5 pg 27.0-32.0 [facility] MCHC (RBC) [Mass/Vol] 32.6 g/dL 32-36 [facility] Nucleated RBC/100 WBC (Bld) [Ratio] 0 % 0-5 [facility] Platelets (Bld) [#/Vol] 309 10*3/uL 150-450 [facility] No Panel InformationOrdered By: Mu Tracey on 09-12-2023 Estimated GFR (MDRD) Amer 69 mL/min >60 [facility] Comment on above: GFR Calc Estimated GFR (MDRD) Non-Af Amer 57 mL/min >60 [facility] Comment on above: Non- GFR Calc Vitamin D 25-Hydroxy 27.3 ng/mL [facility] Comment on above: Vitamin D 25(OH) Sta tus Range Deficiency <20 ng/mL (50nmol/L) Insufficiency 20 - 30 ng/mL (50 - 75 nmol/L) Sufficiency 30 - 100 ng/mL (75 - 250 nmol/L) Toxicity >100 ng/mL (>250 nmol/L) Platelet mean volume Edgardo-Ec ker (Bld) [Entitic vol]Ordered By: Mu Tracey on 09-12-2023 Platelet mean volume (Bld) [Entitic vol] 8.9 fL 6.2-12.0 [facility] RBC Auto (Bld) [#/Vol]Ordere d By: Mu Tracey on 09-12-2023 RBC (Bld) [#/Vol] 4.06 10*6/uL 4.2-5.4 [facility] Serum or plasma calcium susana urement (mass/volume)Ordered By: Mu Tracey 09-12-2023 Calcium [Mass/Vol] 8.7 mg/dL 8.5-10.1 [facility] Serum or plasma creatinine m easurement (mass/volume)Ordered By: Mu Tracey 09-12-2023 Creatinine [Mass/Vol] 0.98 mg/dL 0.55-1.02 [facility] Comment on above: The validity of the calculated GFR & GFRAA in patients over 70 years has not been determined. Clinical correlation is essential. Serum or plasma thyroid stim ulating hormone (TSH) measurement (units/volume)Ordered By: Mu Tracey on 09-12-2023 TSH Qn 3.39 uIU/mL 0.358-3.74 [facility] Serum or plasma urea nitroge n measurement (mass/volume)Ordered By: Mu Tracey 09-12-2023 Urea nitrogen [Mass/Vol] 24 mg/dL 7-18 [facility] Thin prep Papanicolaou smear with manual screeningOrdered By: Mu Tracey on 09-12-2023 Thin prep Papanicolaou smear with manual screening 3.7 g/dL 3.2-5.0 [facility] Thin prep Papanicolaou smear with manual screening 23 U/L 15-37 [facility] Thin prep Papanicolaou smear with manual screening 3 5-15 [facility] HFPon 07-13-2023 Albumin Level 3.7 G/dL Normal 3.4-4.8 [facility] ([place]) Comment on above: Performed By: #### H FP, LIPID #### [address] [address] Albumin/Globulin [Mass ratio] 1.1 {ratio} Normal 1.1-2.5 [facility] ([place]) Comment on above: Performed By: #### H FP, LIPID #### [address] [address] ALP [Catalytic activity/Vol] 162 U/L High 40-135 [facility] ([place]) Comment on above: Performed By: #### H FP, LIPID #### [address] [address] ALT [Catalytic activity/Vol] 41 U/L Normal 14-59 [facility] ([place]) Comment on above: Performed By: #### H FP, LIPID #### [address] [address] AST [Catalytic activity/Vol] 33 U/L Normal 10-40 [facility] ([place]) Comment on above: Performed By: #### H FP, LIPID #### [address] [address] Bili Direct 0.2 mg/dL Normal 0.0-0.2 [facility] ([place]) Comment on above: Result Comment: Use of this assay is not recommended for patients undergoing treatment with eltrombopag due to the potential for falsely elevated results. Performed By: #### H FP, LIPID #### [address] [address] Bili Indirect 0.5 mg/dL Normal [facility] ([place]) Comment on above: Performed By: #### H FP, LIPID #### [address] [address] Bili Total 0.7 mg/dL Normal 0.2-1.0 [facility] ([place]) Comment on above: Result Comment: Use of this assay is not recommended for patients undergoing treatment with eltrombopag due to the potential for falsely elevated results. Performed By: #### H FP, LIPID #### [address] [address] Globulin 3.3 G/dL Normal [facility] ([place]) Comment on above: Performed By: #### H FP, LIPID #### [address] [address] Total Protein 7.0 G/dL Normal 6.4-8.2 [facility] ([place]) Comment on above: Performed By: #### H FP, LIPID #### [address] [address] LABORATORYOrdered By: SYSTEM SYSTEM on 07-13-2023 Albumin BCP dye [Mass/Vol] 3.7 G/dL Normal 3.4 - 4.8 G/dL AO ADM SS Albumin/Globulin [Mass ratio] 1.1 {ratio} Normal 1.1 - 2.5 ratio AO ADM SS ALP [Catalytic activity/Vol] 162 U/L High 40 - 135 U/L AO ADM SS ALT With P-5'-P [Catalytic activity/Vol] 41 U/L Normal 14 - 59 U/L AO ADM SS AST With P-5'-P [Catalytic activity/Vol] 33 U/L Normal 10 - 40 U/L AO ADM SS Bilirubin [Mass/Vol] 0.7 mg/dL Normal 0.2 - 1 .0 mg/dL AO ADM SS Comment on above: Interpretive Data: U se of this assay is not recommended for patients undergoing treatment with eltrombopag due to the potential for falsely elevated results. Bilirubin.direct [Mass/Vol] 0.5 mg/dL Invalid Interpretation Code AO Chemistry S Bilirubin.direct [Mass/Vol] 0.2 mg/dL Normal 0.0 - 0.2 mg/dL AO ADM SS Comment on above: Interpretive Data: U se of this assay is not recommended for patients undergoing treatment with eltrombopag due to the potential for falsely elevated results. Globulin 3.3 G/dL Invalid Interpretation Code AO ADM SS Protein [Mass/Vol] 7.0 G/dL Normal 6.4 - 8.2 G/dL AO ADM SS LABORATORYOrdered By: Maris Cortez on 07-13-2023 Cholesterol [Mass/Vol] 185 mg/dL Normal 0 - 200 mg/dL AO ADM SS Comment on above: Interpretive Data: C holesterol Reference Interval: Less than 200 Desirable 200-239 Borderline high risk 240 and above High risk Cholesterol in HDL [Mass/Vol] 93 mg/dL High 40 - 60 mg/dL AO ADM SS Cholesterol in LDL [Mass/Vol] 81 mg/dL Normal 0 - 130 mg/dL AO ADM SS Triglyceride [Mass/Vol] 54 mg/dL Normal 0 - 150 mg/d L AO ADM SS Comment on above: Interpretive Data: T riglyceride Reference Interval: Less than 150 Normal 150-199 Borderline high risk 200-499 High risk 500 or higher Very high risk LIPIDon 07-13-2023 Cholesterol [Mass/Vol] 185 mg/dL Normal 0-200 [facility] ([place]) Comment on above: Result Comment: Chol esterol Reference Interval: Less than 200 Desirable 200-239 Borderline high risk 240 and above High risk Performed By: #### H FP, LIPID #### [address] [address] Cholesterol in HDL [Mass/Vol] 93 mg/dL High 40-60 [facility] ([place]) Comment on above: Performed By: #### H FP, LIPID #### [address] [address] Cholesterol in LDL [Mass/Vol] 81 mg/dL Normal 0-130 [facility] ([place]) Comment on above: Performed By: #### H FP, LIPID #### [address] [address] Triglyceride [Mass/Vol] 54 mg/dL Normal 0-150 A [facility] ([place]) Comment on above: Result Comment: Trig lyceride Reference Interval: Less than 150 Normal 150-199 Borderline high risk 200-499 High risk 500 or higher Very high risk Performed By: #### H FP, LIPID #### Maur[place] [address] [address] Basophil percentageOrdered B y: César Perez on 03-17-2023 Bilirubin [Mass/Vol] 0.60 mg/dL 0.20-1.00 [facility] Comment on above: For patients on eltr ombopag therapy, use of Dimension [place] TBIL is not recommended. Chloride [Moles/Vol] 105 mmol/L 98-107 [facility] Glucose [Mass/Vol] 89 mg/dL 74-106 [facility] Potassium [Moles/Vol] 3.8 mmol/L 3.5-5.1 [facility] Protein [Mass/Vol] 6.4 g/dL 6.4-8.2 [facility] Sodium [Moles/Vol] 136 mmol/L 136-145 [facility] WBC (Bld) [#/Vol] 9.5 10*3/uL 4.4-11.0 [facility] Blood erythrocytes count (nu mber/volume)Ordered By: César Perez on 03-17-2023 RBC (Bld) [#/Vol] 4.26 10*6/uL 4.2-5.4 [facility] Blood hemoglobin measurement (mass/volume)Ordered By: César Perez on 03-17-2023 Hemoglobin (Bld) [Mass/Vol] 13.1 g/dL 12.0-15.0 [facility] Blood platelet mean volumeOr dered By: César Perez on 03-17-2023 Platelet mean volume (Bld) [Entitic vol] 8.9 fL 6.2-12.0 [facility] Determination of erythrocyte mean corpuscular volume (MCV)Ordered By: César Perez on 03-17-2023 MCV (RBC) [Entitic vol] 91.3 fL 81-99 [facility] Hematocrit Auto (Bld) [Volum e fraction]Ordered By: César Perez on 03-17-2023 Hematocrit (Bld) [Volume fraction] 38.9 % 37-47 [facility] Laboratory - Chemistry and C hemistry - challengeOrdered By: César Perez on 03-17-2023 ALP [Catalytic activity/Vol] 95 U/L 45-117 [facility] ALT [Catalytic activity/Vol] 20 U/L 13-56 [facility] CO2 [Moles/Vol] 25.0 mmol/L 21.0-32.0 [facility] Globulin (S) [Mass/Vol] 3.2 g/dL 2.2-4.2 [facility] Urea nitrogen/Creatinine [Mass ratio] 24.1 mg/mg 10-20 [facility] Laboratory - Hematology and Cell countsOrdered By: César Perez on 03-17-2023 Erythrocyte distribution width (RBC) [Entitic vol] 44.2 fL 35.1-43.9 [facility] Erythrocyte distribution width (RBC) [Ratio] 13.2 % 11.6-14.6 [facility] MCH (RBC) [Entitic mass] 30.8 pg 27.0-32.0 [facility] MCHC Auto (RBC) [Mass/Vol]Or dered By: César Perez on 03-17-2023 MCHC (RBC) [Mass/Vol] 33.7 g/dL 32-36 [facility] No Panel InformationOrdered By: César Perez on 03-17-2023 Estimated Creatinine Clearance Calc 35.05 ml/min [facility] Estimated GFR (MDRD) Amer 84 mL/min >60 [facility] Comment on above: GFR Calc Estimated GFR (MDRD) Non-Af Amer 69 mL/min >60 [facility] Comment on above: Non- GFR Calc Platelets bldOrdered By: Kris Perez on 03-17-2023 Platelets (Bld) [#/Vol] 277 10*3/uL 150-450 [facility] Serum or plasma albumin susana urement (mass/volume)Ordered By: César Perez on 03-17-2023 Albumin [Mass/Vol] 3.2 g/dL 3.2-5.0 [facility] Serum or plasma albumin/glob ulin mass ratioOrdered By: César Perez on 03-17-2023 Albumin/Globulin [Mass ratio] 1.0 {ratio} 0.9-2.4 [facility] Serum or plasma calcium susana urement (mass/volume)Ordered By: César Perez on 03-17-2023 Calcium [Mass/Vol] 8.5 mg/dL 8.5-10.1 [facility] Serum or plasma creatinine m easurement (mass/volume)Ordered By: César Perez on 03-17-2023 Creatinine [Mass/Vol] 0.83 mg/dL 0.55-1.02 [facility] Comment on above: The validity of the calculated GFR & GFRAA in patients over 70 years has not been determined. Clinical correlation is essential. Serum or plasma urea nitroge n measurement (mass/volume)Ordered By: César Perez on 03-17-2023 Urea nitrogen [Mass/Vol] 20 mg/dL 7-18 [facility] Thin prep Papanicolaou smear with manual screeningOrdered By: César Perez on 03-17-2023 Thin prep Papanicolaou smear with manual screening 20 U/L 15-37 [facility] Thin prep Papanicolaou smear with manual screening 6 5-15 [facility] Absolute lymphocyte countOrd ered By: Mu Tracey on 03-07-2023 Lymphocytes Auto (Unsp spec) [#/Vol] 2.52 10*3/uL 0.83-4.51 [facility] Basophil percentageOrdered B y: Mu Tracey on 03-07-2023 Basophils/100 WBC (Bld) 0.8 % 0-1 [facility] Bilirubin [Mass/Vol] 0.30 mg/dL 0.20-1.00 [facility] Comment on above: For patients on eltr ombopag therapy, use of Dimension [place] TBIL is not recommended. Chloride [Moles/Vol] 102 mmol/L 98-107 [facility] Eosinophils/100 WBC (Bld) 1.7 % 0-5 [facility] Glucose [Mass/Vol] 97 mg/dL 74-106 [facility] Neutrophils (Bld) [#/Vol] 4.2 10*3/uL 2.0-7.7 [facility] Neutrophils/100 WBC (Bld) 54.8 % 47-70 [facility] Potassium [Moles/Vol] 4.3 mmol/L 3.5-5.1 [facility] Protein [Mass/Vol] 7.4 g/dL 6.4-8.2 [facility] Sodium [Moles/Vol] 134 mmol/L 136-145 [facility] WBC (Bld) [#/Vol] 7.7 10*3/uL 4.4-11.0 [facility] Blood erythrocytes count (nu mber/volume)Ordered By: Mu Tracey on 03-07-2023 RBC (Bld) [#/Vol] 4.30 10*6/uL 4.2-5.4 [facility] Blood hemoglobin measurement (mass/volume)Ordered By: Mu Tracey on 03-07-2023 Hemoglobin (Bld) [Mass/Vol] 13.2 g/dL 12.0-15.0 [facility] Blood lymphocytes/100 leukoc ytesOrdered By: Mu Tracey on 03-07-2023 Lymphocytes/100 WBC (Bld) 32.7 % 19-41 [facility] Blood monocytes/100 leukocyt esOrdered By: Mu Tracey on 03-07-2023 Monocytes/100 WBC (Bld) 9.7 % 0-10 [facility] Blood platelet mean volumeOr dered By: Mu Tracey on 03-07-2023 Platelet mean volume (Bld) [Entitic vol] 9.1 fL 6.2-12.0 [facility] Determination of erythrocyte mean corpuscular volume (MCV)Ordered By: Mu Tracey on 03-07-2023 MCV (RBC) [Entitic vol] 93.5 fL 81-99 [facility] Hematocrit Auto (Bld) [Volum e fraction]Ordered By: Mu Tracey on 03-07-2023 Hematocrit (Bld) [Volume fraction] 40.2 % 37-47 [facility] Laboratory - Chemistry and C hemistry - challengeOrdered By: Mu Tracey on 03-07-2023 ALP [Catalytic activity/Vol] 124 U/L 45-117 [facility] ALT [Catalytic activity/Vol] 21 U/L 13-56 [facility] CO2 [Moles/Vol] 26.0 mmol/L 21.0-32.0 [facility] Globulin (S) [Mass/Vol] 3.6 g/dL 2.2-4.2 [facility] Urea nitrogen/Creatinine [Mass ratio] 20.6 mg/mg 10-20 [facility] Laboratory - Hematology and Cell countsOrdered By: Mu Tracey on 03-07-2023 Erythrocyte distribution width (RBC) [Entitic vol] 46.5 fL 35.1-43.9 [facility] Erythrocyte distribution width (RBC) [Ratio] 13.5 % 11.6-14.6 [facility] Immature granulocytes/100 WBC (Bld) 0.300 % 0.0-0.9 [facility] Comment on above: IG% - Immature Granu locytes (promyelocytes, myelocytes and metamyelocytes) > 1% indicates that a LEFT SHIFT is Present. MCH (RBC) [Entitic mass] 30.7 pg 27.0-32.0 [facility] Nucleated RBC/100 WBC (Bld) [Ratio] 0 % 0-5 [facility] MCHC Auto (RBC) [Mass/Vol]Or dered By: Mu Tracey on 03-07-2023 MCHC (RBC) [Mass/Vol] 32.8 g/dL 32-36 [facility] No Panel InformationOrdered By: Mu Tracey on 03-07-2023 Estimated GFR (MDRD) Amer 66 mL/min >60 [facility] Comment on above: GFR Calc Estimated GFR (MDRD) Non-Af Amer 55 mL/min >60 [facility] Comment on above: Non- GFR Calc Hepatitis C Antibody Non-Reactive Nonreactive [facility] Comment on above: Non Reactive: < 0.8 Equivocal: >/= 0.8 to < 1.0 Reactive: >/= 1.0The CDC recommends that a reactive/equivocal HCV antibody result be followed up by the HCV Nucleic Acid Amplificationtest (639734) Thyroid Stimulating Hormone (TSH) 2.98 uIU/mL 0.358-3.74 [facility] Vitamin D 25-Hydroxy 25.2 ng/mL [facility] Comment on above: Vitamin D 25(OH) Sta tus Range Deficiency <20 ng/mL (50nmol/L) Insufficiency 20 - 30 ng/mL (50 - 75 nmol/L) Sufficiency 30 - 100 ng/mL (75 - 250 nmol/L) Toxicity >100 ng/mL (>250 nmol/L) Platelets bldOrdered By: Mu Tracey on 03-07-2023 Platelets (Bld) [#/Vol] 322 10*3/uL 150-450 [facility] Serum or plasma albumin susana urement (mass/volume)Ordered By: Mu Tracey on 03-07-2023 Albumin [Mass/Vol] 3.8 g/dL 3.2-5.0 [facility] Serum or plasma albumin/glob ulin mass ratioOrdered By: Mu Tracey on 03-07-2023 Albumin/Globulin [Mass ratio] 1.1 {ratio} 0.9-2.4 [facility] Serum or plasma calcium susana urement (mass/volume)Ordered By: Mu Tracey on 03-07-2023 Calcium [Mass/Vol] 8.6 mg/dL 8.5-10.1 [facility] Serum or plasma creatinine m easurement (mass/volume)Ordered By: Mu Tracey on 03-07-2023 Creatinine [Mass/Vol] 1.02 mg/dL 0.55-1.02 [facility] Comment on above: The validity of the calculated GFR & GFRAA in patients over 70 years has not been determined. Clinical correlation is essential. Serum or plasma urea nitroge n measurement (mass/volume)Ordered By: Mu Tracey on 03-07-2023 Urea nitrogen [Mass/Vol] 21 mg/dL 7-18 [facility] Thin prep Papanicolaou smear with manual screeningOrdered By: Mu Tracey on 03-07-2023 Thin prep Papanicolaou smear with manual screening 18 U/L 15-37 [facility] Thin prep Papanicolaou smear with manual screening 6 5-15 [facility] Absolute lymphocyte countOrd ered By: Dr. Santos on 09-13-2022 Lymphocytes Auto (Unsp spec) [#/Vol] 2.61 10*3/uL 0.83-4.51 [facility] Basophil percentageOrdered B y: Dr. Santos on 09-13-2022 Basophils/100 WBC (Bld) 0.6 % 0-1 [facility] Bilirubin [Mass/Vol] 0.60 mg/dL 0.20-1.00 [facility] Comment on above: For patients on eltr ombopag therapy, use of Dimension [place] TBIL is not recommended. Chloride [Moles/Vol] 104 mmol/L 98-107 [facility] Eosinophils/100 WBC (Bld) 1.9 % 0-5 [facility] Glucose [Mass/Vol] 97 mg/dL 74-106 [facility] Neutrophils (Bld) [#/Vol] 4.3 10*3/uL 2.0-7.7 [facility] Neutrophils/100 WBC (Bld) 54.3 % 47-70 [facility] Potassium [Moles/Vol] 3.8 mmol/L 3.5-5.1 [facility] Protein [Mass/Vol] 6.6 g/dL 6.4-8.2 [facility] Sodium [Moles/Vol] 137 mmol/L 136-145 [facility] WBC (Bld) [#/Vol] 7.8 10*3/uL 4.4-11.0 [facility] Blood erythrocytes count (nu mber/volume)Ordered By: Dr. Santos on 09-13-2022 RBC (Bld) [#/Vol] 4.55 10*6/uL 4.2-5.4 [facility] Blood hemoglobin measurement (mass/volume)Ordered By: Dr. Santos on 09-13-2022 Hemoglobin (Bld) [Mass/Vol] 14.2 g/dL 12.0-15.0 [facility] Blood lymphocytes/100 leukoc ytesOrdered By: Dr. Santos on 09-13-2022 Lymphocytes/100 WBC (Bld) 33.4 % 19-41 [facility] Blood monocytes/100 leukocyt esOrdered By: Dr. Santos on 09-13-2022 Monocytes/100 WBC (Bld) 9.5 % 0-10 [facility] Blood platelet mean volumeOr dered By: Dr. Santos on 09-13-2022 Platelet mean volume (Bld) [Entitic vol] 8.6 fL 6.2-12.0 [facility] Determination of erythrocyte mean corpuscular volume (MCV)Ordered By: Dr. Santos on 09-13-2022 MCV (RBC) [Entitic vol] 91.0 fL 81-99 [facility] Hematocrit Auto (Bld) [Volum e fraction]Ordered By: Dr. Santos on 09-13-2022 Hematocrit (Bld) [Volume fraction] 41.4 % 37-47 [facility] Laboratory - Chemistry and C hemistry - challengeOrdered By: Dr. Santos on 09-13-2022 ALP [Catalytic activity/Vol] 96 U/L 45-117 [facility] ALT [Catalytic activity/Vol] 20 U/L 13-56 [facility] CO2 [Moles/Vol] 25.0 mmol/L 21.0-32.0 [facility] Globulin (S) [Mass/Vol] 3.3 g/dL 2.2-4.2 [facility] Urea nitrogen/Creatinine [Mass ratio] 23.7 mg/mg 10-20 [facility] Laboratory - Hematology and Cell countsOrdered By: Dr. Santos on 09-13-2022 Erythrocyte distribution width (RBC) [Entitic vol] 45.1 fL 35.1-43.9 [facility] Erythrocyte distribution width (RBC) [Ratio] 13.4 % 11.6-14.6 [facility] Immature granulocytes/100 WBC (Bld) 0.300 % 0.0-0.9 [facility] Comment on above: IG% - Immature Granu locytes (promyelocytes, myelocytes and metamyelocytes) > 1% indicates that a LEFT SHIFT is Present. MCH (RBC) [Entitic mass] 31.2 pg 27.0-32.0 [facility] Nucleated RBC/100 WBC (Bld) [Ratio] 0 % 0-5 [facility] MCHC Auto (RBC) [Mass/Vol]Or dered By: Dr. Santos on 09-13-2022 MCHC (RBC) [Mass/Vol] 34.3 g/dL 32-36 [facility] No Panel InformationOrdered By: Dr. Santos on 09-13-2022 Estimated Creatinine Clearance Calc 34.55 ml/min [facility] Estimated GFR (MDRD) Amer 82 mL/min >60 [facility] Comment on above: GFR Calc Estimated GFR (MDRD) Non-Af Amer 68 mL/min >60 [facility] Comment on above: Non- GFR Calc Platelets bldOrdered By: Dr. Santos on 09-13-2022 Platelets (Bld) [#/Vol] 311 10*3/uL 150-450 [facility] Serum or plasma albumin susana urement (mass/volume)Ordered By: Dr. Santos on 09-13-2022 Albumin [Mass/Vol] 3.3 g/dL 3.2-5.0 [facility] Serum or plasma albumin/glob ulin mass ratioOrdered By: Dr. Santos on 09-13-2022 Albumin/Globulin [Mass ratio] 1.0 {ratio} 0.9-2.4 [facility] Serum or plasma calcium susana urement (mass/volume)Ordered By: Dr. Santos on 09-13-2022 Calcium [Mass/Vol] 8.6 mg/dL 8.5-10.1 [facility] Serum or plasma creatinine m easurement (mass/volume)Ordered By: Dr. Santos on 09-13-2022 Creatinine [Mass/Vol] 0.84 mg/dL 0.55-1.02 [facility] Comment on above: The validity of the calculated GFR & GFRAA in patients over 70 years has not been determined. Clinical correlation is essential. Serum or plasma urea nitroge n measurement (mass/volume)Ordered By: Dr. Santos on 09-13-2022 Urea nitrogen [Mass/Vol] 20 mg/dL 7-18 [facility] Thin prep Papanicolaou smear with manual screeningOrdered By: Dr. Santos on 09-13-2022 Thin prep Papanicolaou smear with manual screening 21 U/L 15-37 [facility] Thin prep Papanicolaou smear with manual screening 8 5-15 [facility] Basophil percentageOrdered B y: Dr. Valenzuela on 09-12-2022 Cholesterol [Mass/Vol] 220 mg/dL <200 [facility] Comment on above: <200 mg/dL Desirable 200-240 mg/dL Borderline >240 mg/dL High Risk Triglyceride [Mass/Vol] 69 mg/dL <199 [facility] Comment on above: The drugs N-Acetylcy steine and Metamizole may falsely depress this assay.Serum Triglycerides Reference Interval Normal <150 mg/dL Borderline high 150 - 199 mg/dL High 200 - 499 mg/dL Very High > or = 500 mg/dL Glucose Glucometer (BldC) [M ass/Vol]Ordered By: Dr. Santos on 09-12-2022 Glucose [Mass/Vol] 207 mg/dL 74-106 [facility] Comment on above: MANAGEMENT OF PATIEN T CARE PER NURSING PROTOCOL No Panel InformationOrdered By: Dr. Valenzuela on 09-12-2022 Thyroid Stimulating Hormone (TSH) 3.66 uIU/mL 0.358-3.74 [facility] Troponin I High Sensitivity 8 pg/mL 3.0-54.0 [facility] Comment on above: Please Note: New Michelle t Units and Gender Specific Reference Ranges. For more information see Policy Stat Procedure [place] High Sensitivity Troponin (TNIH) and attachments. Serum or plasma cholesterol in HDL measurement (mass/volume)Ordered By: Dr. Valenzuela on 09-12-2022 Cholesterol in HDL [Mass/Vol] 85 mg/dL >40 [facility] Comment on above: The drugs N-Acetylcy steine and Metamizole may falsely depress this assay. Reference Range HDL <40 mg/dL Low HDL Cholesterol HDL >or= 60 mg/dL High HDL Cholesterol Serum or plasma cholesterol in VLDL measurement (mass/volume)Ordered By: Dr. Valenzuela on 09-12-2022 Cholesterol in VLDL [Mass/Vol] 14 mg/dL 5-40 [facility] Serum or plasma low density lipoprotein (LDL) cholesterol measurement (mass/volume)Ordered By: Dr. Valenzuela on 09-12-2022 Cholesterol in LDL [Mass/Vol] 121 mg/dL 0-130 [facility] Whole blood hemoglobin A1c/t otal hemoglobin ratio (mass fraction)Ordered By: Dr. Valenzuela on 09-12-2022 HbA1c (Bld) [Mass fraction] 6.0 % 3.8-5.6 [facility] Comment on above: Normal < 5.7 % Predi abetic 5.7 - 6.4 % Diabetic >or= 6.5 % Please note range changes. Basophil percentageOrdered B y: Dr. Zuniga on 09-11-2022 Basophil percentage 0 SEEN /hpf 0-[address] [facility] Bilirubin Test strip Ql (U)O rdered By: Dr. Zuniga on 09-11-2022 Bilirubin Ql (U) Negative Negative [facility] Ketones Test strip Ql (U)Ord ered By: Dr. Zuniga on 09-11-2022 Ketones Ql (U) Negative Negative [facility] Laboratory - Chemistry and C hemistry - challengeOrdered By: Dr. Valenzuela on 09-11-2022 Magnesium [Mass/Vol] 2.3 mg/dL 1.6-2.6 [facility] Laboratory - Chemistry and C hemistry - challengeOrdered By: Dr. Zuniga on 09-11-2022 Natriuretic peptide B (Bld) [Mass/Vol] 144.4 pg/mL 0-100 [facility] Mucus LM Ql (Urine sed)Order ed By: Dr. Zuniga on 09-11-2022 Mucus Ql (Urine sed) 0 SEEN /hpf [facility] Nitrite Test strip Ql (U)Ord ered By: Dr. Zuniga on 09-11-2022 Nitrite Ql (U) Negative Negative [facility] No Panel InformationOrdered By: Dr. Zuniga on 09-11-2022 D-Dimer Quantitative (PE/DVT) 0.41 FEU/ug/m 0.27-0.49 [facility] Comment on above: NORMAL D-Dimer level (<0.50) indicates no DVT or PE. Protein Test strip Ql (U)Ord ered By: Dr. Zuniga on 09-11-2022 Protein Ql (U) Negative Negative [facility] Squamous epithelial cells de tection in urine sediment by light microscopyOrdered By: Dr. Zuniga on 09-11-2022 Epithelial cells.squamous LM Ql (Urine sed) 0 SEEN /hpf 5-10 [facility] Urine blood detectionOrdered By: Dr. Zuniga on 09-11-2022 RBC Ql (U) Negative Negative [facility] RBC Ql (U) 0 SEEN /hpf 0-5 [facility] Urine clarityOrdered By: Dr. Zuniga on 09-11-2022 Clarity (U) Clear Clear [facility] Urine color determinationOrd ered By: Dr. Zuniga on 09-11-2022 Color (U) Yellow Yellow [facility] Urine glucose detectionOrder ed By: Dr. Zuniga on 09-11-2022 Glucose Ql (U) Normal mg/dl Normal [facility] Urine leukocyte esterase det ection by dipstickOrdered By: Dr. Zuniga on 09-11-2022 Leukocyte esterase Test strip Ql (U) Negative Negative [facility] Urine pHOrdered By: Dr. Radha wilkes on 09-11-2022 pH (U) 7.0 [pH] 5.0 - 8.0 [facility] Urine sediment bacteria coun t by microscopy (number/high power field)Ordered By: Dr. Zuniga on 09-11-2022 Bacteria LM.HPF (Urine sed) [#/Area] 0 /[HPF] None Seen [facility] Urine specific gravity measu rementOrdered By: Dr. Zuniga on 09-11-2022 Specific gravity (U) [Rel density] 1.010 1.002-1.030 [facility] Urobilinogen Auto test strip Ql (U)Ordered By: Dr. Zuniga on 09-11-2022 Urobilinogen Ql (U) Normal mg/dl Normal [facility] Basophil percentageOrdered B y: Dr. Ryder on 08-30-2022 WBC (Bld) [#/Vol] 7.4 10*3/uL 4.4-11.0 [facility] Blood erythrocytes count (nu mber/volume)Ordered By: Dr. Ryder on 08-30-2022 RBC (Bld) [#/Vol] 4.40 10*6/uL 4.2-5.4 [facility] Blood hemoglobin measurement (mass/volume)Ordered By: Dr. Ryder on 08-30-2022 Hemoglobin (Bld) [Mass/Vol] 13.8 g/dL 12.0-15.0 [facility] Blood platelet mean volumeOr dered By: Dr. Ryder on 08-30-2022 Platelet mean volume (Bld) [Entitic vol] 9.0 fL 6.2-12.0 [facility] Determination of erythrocyte mean corpuscular volume (MCV)Ordered By: Dr. Ryder on 08-30-2022 MCV (RBC) [Entitic vol] 94.5 fL 81-99 [facility] Erythrocyte sedimentation ra teOrdered By: Dr. Ryder on 08-30-2022 ESR (Bld) [Velocity] 9 mm/h 0-30 [facility] Hematocrit Auto (Bld) [Volum e fraction]Ordered By: Dr. Ryder on 08-30-2022 Hematocrit (Bld) [Volume fraction] 41.6 % 37-47 [facility] Laboratory - Hematology and Cell countsOrdered By: Dr. Ryder on 08-30-2022 Erythrocyte distribution width (RBC) [Entitic vol] 45.6 fL 35.1-43.9 [facility] Erythrocyte distribution width (RBC) [Ratio] 13.2 % 11.6-14.6 [facility] MCH (RBC) [Entitic mass] 31.4 pg 27.0-32.0 [facility] MCHC Auto (RBC) [Mass/Vol]Or dered By: Dr. Ryder on 08-30-2022 MCHC (RBC) [Mass/Vol] 33.2 g/dL 32-36 [facility] Platelets bldOrdered By: Dr. Ryder on 08-30-2022 Platelets (Bld) [#/Vol] 350 10*3/uL 150-450 [facility] Serum or plasma C reactive p rotein measurement (mass/volume)Ordered By: Dr. Ryder on 08-30-2022 CRP [Mass/Vol] 4.78 mg/L 0.0-3.0 [facility] Comment on above: C-Reactive Protein ( CRP) provides useful information for thediagnosis, therapy and monitoring of inflammatory processesand associated diseases. For the evaluation of Relative Riskfor Cardiovascular Disease, a High Sensitivity CRP (HSCRP)should be ordered. Absolute lymphocyte counton 12-07-2021 Lymphocytes Auto (Unsp spec) [#/Vol] 1.69 10*3/uL 0.83-4.51 [facility] Work Phone: Basophil percentageon 2021 Basophils/100 WBC (Bld) 0.8 % 0-1 [facility] Work Phone: Bilirubin [Mass/Vol] 0.40 mg/dL 0.20-1.00 [facility] Work Phone: Comment on above: For patients on eltr ombopag therapy, use of Dimension [place] TBIL is not recommended. Chloride [Moles/Vol] 104 mmol/L 98-107 [facility] Work Phone: Eosinophils/100 WBC (Bld) 1.4 % 0-5 [facility] Work Phone: Glucose [Mass/Vol] 93 mg/dL 74-106 [facility] Work Phone: Neutrophils (Bld) [#/Vol] 4.0 10*3/uL 2.0-7.7 [facility] Work Phone: Neutrophils/100 WBC (Bld) 61.0 % 47-70 [facility] Work Phone: Potassium [Moles/Vol] 4.2 mmol/L 3.5-5.1 [facility]: Protein [Mass/Vol] 7.4 g/dL 6.4-8.2 [facility] Work Phone: Sodium [Moles/Vol] 138 mmol/L 136-145 [facility] Work Phone: WBC (Bld) [#/Vol] 6.5 10*3/uL 4.4-11.0 [facility] Work Phone: Blood erythrocytes count (nu mber/volume)on 12-07-2021 RBC (Bld) [#/Vol] 4.49 10*6/uL 4.2-5.4 [facility] Work Phone: Blood hemoglobin measurement (mass/volume)on 12-07-2021 Hemoglobin (Bld) [Mass/Vol] 13.4 g/dL 12.0-15.0 [facility] Work Phone: Blood lymphocytes/100 leukoc yteson 12-07-2021 Lymphocytes/100 WBC (Bld) 26.0 % 19-41 [facility] Work Phone: Blood monocytes/100 leukocyt eson 12-07-2021 Monocytes/100 WBC (Bld) 10.5 % 0-10 [facility] Work Phone: [phone] Blood platelet mean volumeon 12-07-2021 Platelet mean volume (Bld) [Entitic vol] 9.1 fL 6.2-12.0 [facility] Work Phone: [phone] Determination of erythrocyte mean corpuscular volume (MCV)on 12-07-2021 MCV (RBC) [Entitic vol] 94.4 fL 81-99 [facility] Work Phone: [phone] Hematocrit Auto (Bld) [Volum e fraction]on 12-07-2021 Hematocrit (Bld) [Volume fraction] 42.4 % 37-47 [facility] Work Phone: [phone] Laboratory - Chemistry and C hemistry - challengeon 12-07-2021 ALP [Catalytic activity/Vol] 119 U/L 45-117 [facility] Work Phone: [phone] ALT [Catalytic activity/Vol] 19 U/L 13-56 [facility] Work Phone: [phone] CO2 [Moles/Vol] 28.0 mmol/L 21.0-32.0 [facility] Work Phone: [phone] Globulin (S) [Mass/Vol] 3.7 g/dL 2.2-4.2 [facility] Work Phone: [phone] Urea nitrogen/Creatinine [Mass ratio] 23.3 mg/mg 10-20 [facility] Work Phone: [phone] Laboratory - Hematology and Cell countson 12-07-2021 Erythrocyte distribution width (RBC) [Entitic vol] 46.9 fL 35.1-43.9 [facility] Work Phone: [phone] Erythrocyte distribution width (RBC) [Ratio] 13.4 % 11.6-14.6 [facility] Work Phone: [phone] Immature granulocytes/100 WBC (Bld) 0.300 % 0.0-0.9 [facility] Work Phone: [phone] Comment on above: IG% - Immature Granu locytes (promyelocytes, myelocytes and metamyelocytes) > 1% indicates that a LEFT SHIFT is Present. MCH (RBC) [Entitic mass] 29.8 pg 27.0-32.0 [facility] Work Phone: [phone] Nucleated RBC/100 WBC (Bld) [Ratio] 0 % 0-5 [facility] Work Phone: [phone] MCHC Auto (RBC) [Mass/Vol]on 12-07-2021 MCHC (RBC) [Mass/Vol] 31.6 g/dL 32-36 [facility] Work Phone: No Panel Informationon 12-07 Estimated GFR (MDRD) Amer 81 mL/min >60 [facility] Work Phone: [phone] Comment on above: GFR Calc Estimated GFR (MDRD) Non-Af Amer 67 mL/min >60 [facility] Work Phone: [phone] Comment on above: Non- GFR Calc Vitamin D 25-Hydroxy 21.9 ng/mL [facility] Work Phone: [phone] Comment on above: Vitamin D 25(OH) Sta tus Range Deficiency <20 ng/mL (50nmol/L) Insufficiency 20 - 30 ng/mL (50 - 75 nmol/L) Sufficiency 30 - 100 ng/mL (75 - 250 nmol/L) Toxicity >100 ng/mL (>250 nmol/L) Platelets bldon 12-07-2021 Platelets (Bld) [#/Vol] 351 10*3/uL 150-450 [facility] Work Phone: [phone] Serum or plasma albumin susana urement (mass/volume)on 12-07-2021 Albumin [Mass/Vol] 3.7 g/dL 3.2-5.0 [facility] Work Phone: [phone] Serum or plasma albumin/glob ulin mass ratioon 12-07-2021 Albumin/Globulin [Mass ratio] 1.0 {ratio} 0.9-2.4 [facility] Work Phone: [phone] Serum or plasma calcium susana urement (mass/volume)on 12-07-2021 Calcium [Mass/Vol] 8.9 mg/dL 8.5-10.1 [facility] Work Phone: Serum or plasma creatinine m easurement (mass/volume)on 12-07-2021 Creatinine [Mass/Vol] 0.86 mg/dL 0.55-1.02 [facility] Work Phone: Comment on above: The validity of the calculated GFR & GFRAA in patients over 70 years has not been determined. Clinical correlation is essential. Serum or plasma urea nitroge n measurement (mass/volume)on 12-07-2021 Urea nitrogen [Mass/Vol] 20 mg/dL 7-18 [facility] Work Phone: Thin prep Papanicolaou smear with manual screeningon 12-07-2021 Thin prep Papanicolaou smear with manual screening 16 U/L 15-37 [facility] Work Phone: Thin prep Papanicolaou smear with manual screening 6 5-15 [facility] Work Phone: Amylaseon 02-22-2017 Amylase 76 U/L Normal 24-125 [facility] Comment on above: Performed By: #### A MY ####[address] [address] Comp. Metabolic Panelon 02-10 Albumin/Globulin Ratio 1.7 {ratio} Normal 1.1-2.5 A [facility] Comment on above: Performed By: #### C MP ####[address] [address] Globulin 2.4 G/dL Normal [facility] Comment on above: Performed By: #### C MP ####[address] [address] T. Protein 6.5 G/dL Normal 6.0-8.3 [facility] Comment on above: Performed By: #### C MP ####[address] [address] Alanine aminotransferase (ALT) 10 U/L Normal 10-35 [facility] Comment on above: Performed By: #### C MP ####[address] [address] Alk. Phosphatase 92 IU/L Normal 40-135 [facility] Comment on above: Performed By: #### C MP ####[place] [id number] Aspartate aminotransferase (AST) 14 U/L Normal 10-40 [facility] Comment on above: Performed By: #### C MP ####[address] [address] Bilirubin (direct) 0.3 mg/dL Normal 0.2-1.0 [facility] Comment on above: Performed By: #### C MP ####[place] [id number] Glucose mass conc 91 mg/dL Normal 83-110 [facility] Comment on above: Performed By: #### C MP ####[address] [address] BUN/Creatinine Ratio 17 mg/mg Normal 7-27 [facility] Comment on above: Performed By: #### C MP ####[address] [address] Creatinine 0.9 mg/dL Normal 0.6-1.2 [facility] Comment on above: Performed By: #### C MP ####[address] [address] Calcium 9.1 mg/dL Normal 8.4-10.2 [facility] Comment on above: Performed By: #### C MP ####[address] [address] CO2 27 mmol/L Normal 23-31 [facility] Comment on above: Performed By: #### C MP ####[address] [address] Electrolyte Balance 8.0 mEq/L Normal [facility] Comment on above: Performed By: #### C MP ####[address] [address] Albumin 4.1 G/dL Normal 3.4-4.8 [facility] Comment on above: Performed By: #### C MP ####[place] [address] [address] Urea nitrogen 15 mg/dL Normal 7-18 [facility] Comment on above: Performed By: #### C MP ####[address] [address] Chloride 103 mmol/L Normal 98-107 [facility] Comment on above: Performed By: #### C MP ####[address] [address] Potassium molar conc 4.5 mmol/L Normal 3.5-5.1 [facility] Comment on above: Performed By: #### C MP ####[address] [address] Sodium 138 mmol/L Normal 136-146 [facility] Comment on above: Performed By: #### C MP ####[address] [address] Glomerular Filtration Rate E stimateon 02-22-2017 eGFR (non-black) mL/min/{1.73_m2} Normal [facility] Comment on above: Result Comment: Leonora rucker mean GFR = 75 mL/min/1.73 sq.m. for ages 70+ years. Chronic Kidney Disease: Less than 60 mL/min/1.73 square metersEnd Stage Renal Disease: Less than 15 mL/min/1.73 square meters Performed By: #### G FR ####[address] [address] Lipaseon 02-22-2017 Lipase 83 U/L High 8-78 [facility] Comment on above: Performed By: #### L IP ####[address] [address] Vital Signs Date Time Vital Sign Value Performing Clinician Aubrie kaplan 05-19-2025 09:13-0400 Diastolic blood pressure 98 mm[Hg] Dr. Mu Tracey MD Work Phone: [phone] [place] [address] 05-19-2025 09:13-0400 Systolic blood pressure 170 mm[Hg] Dr. Mu Tracey MD Work Phone: [phone] [place] [address] 05-19-2025 07:23-0400 Body height 160.[address] Mu Tracey MD Work Phone: [phone] [place] [address] 05-19-2025 07:23-0400 Body mass index (BMI) [Ratio] 16.1 kg/m2 Dr. Mu Tracey MD Work Phone: [phone] [place] [address] 05-19-2025 07:23-0400 Body weight 41.[address] Mu Tracey MD Work Phone: [phone] [place] [address] 05-19-2025 07:23-0400 Heart rate 98 /min Dr. Mu Tracey MD Work Phone: [phone] [place] [address] 05-19-2025 07:23-0400 Respiratory rate 18 /min Dr. Mu Tracey MD Work Phone: [phone] [place] [address] 05-19-2025 07:23-0400 SaO2% (BldA) [Mass fraction] 9 % Dr. Mu Tracey MD Work Phone: [phone] [place] [address] 12-05-2024 07:26-0400 Body height 160.[address] Mu Tracey MD Work Phone: [phone] [place] [address] 12-05-2024 07:26-0400 Body mass index (BMI) [Ratio] 15.7 kg/m2 Dr. Mu Tracey MD Work Phone: [phone] [place] [address] 12-05-2024 07:26-0400 Body weight 40.[address] Mu Tracey MD Work Phone: [phone] [place] [address] 12-05-2024 07:26-0400 Diastolic blood pressure 96 mm[Hg] Dr. Mu Tracey MD Work Phone: [phone] [place] [address] 12-05-2024 07:26-0400 Heart rate 82 /min Dr. Mu Tracey MD Work Phone: [phone] [place] [address] 12-05-2024 07:26-0400 Respiratory rate 18 /min Dr. Mu Tracey MD Work Phone: [facility] 12-05-2024 07:26-0400 Systolic blood pressure 154 mm[Hg] Dr. Mu Tracey MD Work Phone: [phone])411-153945 [place] [address] 11-27-2024 17:00-0400 Diastolic blood pressure 87 mm[Hg] Dr. Mu Tracey MD Work Phone: [phone] [place] [address] 11-27-2024 17:00-0400 Heart rate 82 /min Dr. Mu Tracey MD Work Phone: [phone])906-380845 [place] [address] 11-27-2024 17:00-0400 Respiratory rate 20 /min Dr. Mu Tracey MD Work Phone: [phone] [place] [address] 11-27-2024 17:00-0400 SaO2% (BldA) [Mass fraction] 98 % Dr. Mu Tracey MD Work Phone: [phone] [place] [address] 11-27-2024 17:00-0400 Systolic blood pressure 195 mm[Hg] Dr. Mu Tracey MD Work Phone: [phone] [place] [address] 11-27-2024 13:49-0400 Body height 160.[address] Mu Tracey MD Work Phone: [phone] [place] [address] 11-27-2024 13:49-0400 Body mass index (BMI) [Ratio] 16.1 kg/m2 Dr. Mu Tracey MD Work Phone: [phone] [place] [address] 11-27-2024 13:49-0400 Body temperature 97.4 [degF] Dr. Mu Tracey MD Work Phone: [phone] [place] [address] 11-27-2024 13:49-0400 Body weight 41.[address] Mu Tracey MD Work Phone: [phone] [place] [address] 11-13-2024 07:39-0400 Body mass index (BMI) [Ratio] 15.9 kg/m2 Dr. Mu Tracey MD Work Phone: [phone] [place] [address] 11-13-2024 07:39-0400 Body weight 40.[address] Mu Tracey MD Work Phone: [facility] 11-13-2024 07:39-0400 Diastolic blood pressure 91 mm[Hg] Dr. Mu Tracey MD Work Phone: [facility] 11-13-2024 07:39-0400 Heart rate 86 /min Dr. Mu Tracey MD Work Phone: [facility] 11-13-2024 07:39-0400 Respiratory rate 18 /min Dr. Mu Tracey MD Work Phone: [facility] 11-13-2024 07:39-0400 Systolic blood pressure 162 mm[Hg] Dr. Mu Tracey MD Work Phone: [facility] 07-11-2023 09:14-0500 Diastolic blood pressure 90 mm[Hg] Dr. Joey Snyder Work Phone: [facility] 07-11-2023 09:14-0500 Systolic blood pressure 158 mm[Hg] Dr. Joey Snyder Work Phone: [facility] 07-11-2023 08:48-0500 Body height 160.[address] Joey Snyder Work Phone: [facility] 07-11-2023 08:48-0500 Body mass index (BMI) [Ratio] 16.8 kg/m2 Dr. Joey Snyder Work Phone: [facility] 07-11-2023 08:48-0500 Body weight 43.[address] Joey Snyder Work Phone: [facility] 07-11-2023 08:48-0500 Heart rate 93 /min Dr. Joey Snyder Work Phone: [facility] 07-11-2023 08:48-0500 Respiratory rate 18 /min Dr. Joey Snyder Work Phone: [facility] 03-17-2023 09:20-0400 Body temperature 97.8 [degF] Dr. Joey Snyder Work Phone: [facility] 03-17-2023 09:20-0400 Diastolic blood pressure 71 mm[Hg] Dr. Joey Snyder Work Phone: [facility] 03-17-2023 09:20-0400 Heart rate 86 /min Dr. Joey Snyder Work Phone: [facility] 03-17-2023 09:20-0400 Respiratory rate 17 /min Dr. Joey Snyder Work Phone: [facility] 03-17-2023 09:20-0400 SaO2% (BldA) [Mass fraction] 97 % Dr. Joey Snyder Work Phone: [facility] 03-17-2023 09:20-0400 Systolic blood pressure 136 mm[Hg] Dr. Joey Snyder Work Phone: [facility] 03-16-2023 07:28-0400 Body height 160.[address] Joey Snyder Work Phone: [facility] 03-16-2023 07:28-0400 Body weight 43.[address] Joey Snyder Work Phone: [facility] 03-15-2023 07:32-0400 Body mass index (BMI) [Ratio] 17.2 kg/m2 Dr. Joey Snyder Work Phone: [facility] 03-09-2023 14:15-0400 Body height 160.[address] Joey Snyder Work Phone: [facility] 03-09-2023 14:15-0400 Body mass index (BMI) [Ratio] 17.2 kg/m2 Dr. Joey Snyder Work Phone: [facility] 03-09-2023 14:15-0400 Body weight 43.[address] Joey Snyder Work Phone: [facility] 03-09-2023 14:15-0400 Diastolic blood pressure 97 mm[Hg] Dr. Joey Snyder Work Phone: [facility] 03-09-2023 14:15-0400 Heart rate 78 /min Dr. Joey Snyder Work Phone: [facility] 03-09-2023 14:15-0400 Respiratory rate 16 /min Dr. Joey Snyder Work Phone: [facility] 03-09-2023 14:15-0400 Systolic blood pressure 160 mm[Hg] Dr. Joey Snyder Work Phone: [facility] 12-06-2022 16:18-0400 Body height 160.[address] Joey Snyder Work Phone: [facility] 12-06-2022 16:18-0400 Body mass index (BMI) [Ratio] 17.5 kg/m2 Dr. Joey Snyder Work Phone: [facility] 12-06-2022 16:18-0400 Body temperature 97.8 [degF] Dr. Joey Snyder Work Phone: [facility] 12-06-2022 16:18-0400 Body weight 44.[address] Joey Snyder Work Phone: [facility] 12-06-2022 16:18-0400 Diastolic blood pressure 68 mm[Hg] Dr. Joey Snyder Work Phone: [facility] 12-06-2022 16:18-0400 Heart rate 72 /min Dr. Joey Snyder Work Phone: [facility] 12-06-2022 16:18-0400 Respiratory rate 14 /min Dr. Joey Snyder Work Phone: [facility] 12-06-2022 16:18-0400 SaO2% (BldA) [Mass fraction] 97 % Dr. Joey Snyder Work Phone: [facility] 12-06-2022 16:18-0400 Systolic blood pressure 130 mm[Hg] Dr. Joey Snyder Work Phone: [facility] 11-29-2022 08:29-0400 Diastolic blood pressure 84 mm[Hg] Dr. Joey Snyder Work Phone: [facility] 11-29-2022 08:29-0400 Heart rate 76 /min Dr. Joey Snyder Work Phone: [facility] 11-29-2022 08:29-0400 Systolic blood pressure 152 mm[Hg] Dr. Joey Snyder Work Phone: [facility] 11-22-2022 08:27-0400 Body mass index (BMI) [Ratio] 17.4 kg/m2 Dr. Joey Snyder Work Phone: [facility] 11-22-2022 08:27-0400 Body temperature 96.8 [degF] Dr. Joey Snyder Work Phone: [facility] 11-22-2022 08:27-0400 Body weight 44.[address] Joey Snyder Work Phone: [facility] 11-22-2022 08:27-0400 Diastolic blood pressure 84 mm[Hg] Dr. Joey Snyder Work Phone: [facility] 11-22-2022 08:27-0400 Heart rate 90 /min Dr. Joey nSyder Work Phone: [facility] 11-22-2022 08:27-0400 Respiratory rate 18 /min Dr. Joey Snyder Work Phone: [facility] 11-22-2022 08:27-0400 Systolic blood pressure 144 mm[Hg] Dr. Joey Snyder Work Phone: [facility] 09-20-2022 09:28-0500 Body height 160.[address] Joey Snyder Work Phone: [facility] 09-20-2022 09:28-0500 Body mass index (BMI) [Ratio] 17.2 kg/m2 Dr. Joey Snyder Work Phone: [facility] 09-20-2022 09:28-0500 Body temperature 97.2 [degF] Dr. Joey Snyder Work Phone: [facility] 09-20-2022 09:28-0500 Body weight 44.[address] Joey Snyder Work Phone: [facility] 09-20-2022 09:28-0500 Diastolic blood pressure 100 mm[Hg] Dr. Joey Snyder Work Phone: [facility] 09-20-2022 09:28-0500 Heart rate 51 /min Dr. Joey Snyder Work Phone: [facility] 09-20-2022 09:28-0500 Respiratory rate 16 /min Dr. Joey Snyder Work Phone: [facility] 09-20-2022 09:28-0500 SaO2% (BldA) [Mass fraction] 100 % Dr. Joey Snyder Work Phone: [facility] 09-20-2022 09:28-0500 Systolic blood pressure 152 mm[Hg] Dr. Joey Snyder Work Phone: [facility] 09-13-2022 13:33-0500 Body temperature 98.1 [degF] Dr. Joey Snyder Work Phone: [facility] 09-13-2022 13:33-0500 Diastolic blood pressure 65 mm[Hg] Dr. Joey Snyder Work Phone: [facility] 09-13-2022 13:33-0500 Heart rate 87 /min Dr. Joey Snyder Work Phone: [facility] 09-13-2022 13:33-0500 Respiratory rate 16 /min Dr. Joey Snyder Work Phone: [facility] 09-13-2022 13:33-0500 SaO2% (BldA) [Mass fraction] 97 % Dr. Joey Snyder Work Phone: [facility] 09-13-2022 13:33-0500 Systolic blood pressure 147 mm[Hg] Dr. Joey Snyder Work Phone: [facility] 09-13-2022 06:00-0500 Body weight 43.[address] Joey Snyder Work Phone: [facility] 09-12-2022 23:23-0500 Body mass index (BMI) [Ratio] 17.1 kg/m2 Dr. Joey Snyder Work Phone: [facility] 09-12-2022 11:20-0500 Body height 160.[address] Joey Snyder Work Phone: [facility] 12-07-2021 08:57-0400 Body height 160.[address] Joey Snyder Work Phone: [facility] Work Phone: 12-07-2021 08:57-0400 Body mass index (BMI) [Ratio] 17.9 kg/m2 Dr. Joey Snyder Work Phone: [facility] Work Phone: 12-07-2021 08:57-0400 Body temperature 97.8 [degF] Dr. Joey Snyder Work Phone: [facility] Work Phone: 12-07-2021 08:57-0400 Body weight 45.[address] Joey Snyder Work Phone: [facility] Work Phone: 12-07-2021 08:57-0400 Diastolic blood pressure 90 mm[Hg] Dr. Joey Snyder Work Phone: [facility] Work Phone: 12-07-2021 08:57-0400 Heart rate 73 /min Dr. Joey Snyder Work Phone: [facility] Work Phone: 12-07-2021 08:57-0400 Respiratory rate 18 /min Dr. Joey Snyder Work Phone: [facility] Work Phone: 12-07-2021 08:57-0400 SaO2% (BldA) [Mass fraction] 96 % Dr. Joey Snyder Work Phone: [facility] Work Phone: 12-07-2021 08:57-0400 Systolic blood pressure 160 mm[Hg] Dr. Joey Snyder Work Phone: [facility] Work Phone: Encounters Encounter Date Encounter Type Care Provider Facility Start: 05-19-2025 End: 05-19-2025 Patient encounter procedure Brooke Turner NP-Sherly -[facility] Work Phone: Start: 05-19-2025 End: 05-19-[address] Mu Tracey MD Work Phone: -[facility] Start: 03-11-2025 End: 03-11-[address] Mu Tracey MD Work Phone: -Laboratory Phy Office 3rd Flr Start: 03-11-2025 End: 03-11-[address] Mu Tracey MD -Laboratory Phy Office 3rd Akr Start: 03-11-2025 End: 03-11-2025 ambulatory Mu Tracey Facility:[facility] Start: 12-23-2024 ambulatory Sammi CROWELL Facility:[facility] Start: 12-23-2024 Non-patient / Non-visit Dr. Treasure BURKS -[facility] Start: 12-23-2024 End: 12-23-[address] Mu Tracey MD Work Phone: [facility] Work Phone: Start: 12-23-2024 End: 12-23-2024 Patient encounter procedure Sammi CROWELL -Cardiovascular Services Work Phone: Start: 12-23-2024 End: 12-23-2024 ambulatory Sammi CROWELL Facility:[facility] Start: 12-05-2024 End: 12-05-2024 Patient encounter procedure Sammi CROWELL -[facility] Work Phone: Start: 12-05-2024 End: 12-05-2024 ambulatory [facility] Facility:[facility] Start: 11-27-2024 End: 11-27-2024 Emergency department patient visit Dr. Mu Tracey MD Work Phone: -Emergency Department Work Phone: Start: 11-13-2024 End: 11-13-2024 Patient encounter procedure Brooke Turner MANAGER SOUND-C -[facility] Work Phone: Start: 11-13-2024 End: 11-13-2024 ambulatory Mu Wally Sanchez Facility:[facility] Start: 10-30-2024 End: 10-30-[address] Mu Tracey MD Work Phone: [facility] Work Phone: Start: 10-30-2024 End: 10-30-[address] Mu Tracey MD -Radiology, [facility] Work Phone: Start: 10-30-2024 End: 10-30-2024 ambulatory Mu Chi Sanchez Facility:[facility] Start: 09-09-2024 End: 09-09-[address] Mu Tracey MD -Laboratory Work Phone: Start: 09-09-2024 End: 09-09-2024 ambulatory Mu [facility] Facility:[facility] Start: 06-18-2024 End: 06-18-2024 ambulatory [facility] Facility:[facility] Start: 06-09-2024 End: 06-09-2024 ambulatory Mu Chi Sanchez Facility:[facility] Start: 09-12-2023 End: 09-12-[address] Joey Snyder Work Phone: [facility] Work Phone: Start: 09-12-2023 End: 09-12-[address] Joey Snyder Work Phone: [facility]-Laboratory, Phy Office 3rd Flr Start: 07-13-2023 End: 07-14-[address] ALEXA TRACEY MD Facility:[facility] Start: 07-13-2023 End: 07-13-2023 Patient encounter procedure [employer] [facility] Start: 07-11-2023 End: 07-11-[address] Joey Snyder Work Phone: [facility] Work Phone: Start: 04-20-2023 Non-patient / Non-visit Dr. Collins Work Phone: [facility] Start: 04-20-2023 End: 04-20-[address] Joey Snyder Work Phone: [facility] Work Phone: Start: 04-20-2023 End: 04-20-[address] [facility] Work [facility] Start: 04-11-2023 ambulatory WILLIE PERDUE MD Facility:[facility] Start: 03-19-2023 Non-patient / Non-visit Dr. Collins Work Phone: [facility] Start: 03-17-2023 Non-patient / Non-visit Dr. Collins Work Phone: [facility] Start: 03-16-2023 End: 03-17-2023 Evaluation and management of inpatient Dr. Joey Snyder Work Phone: [facility]-Progressive Care Unit Work Phone: Start: 03-16-2023 End: 03-17-[address] Joey Snyder Work Phone: [facility] Work Phone: Start: 03-09-2023 End: 03-09-[address] Joey Snyder Work Phone: [facility] Work Phone: Start: 03-07-2023 End: 03-07-[address] Joey Snyder Work Phone: [facility] Work Phone: Start: 03-07-2023 End: 03-07-[address] Joey Snyder Work Phone: [facility]-Laboratory, Phy Office 3rd Flr Start: 12-20-2022 Non-patient / Non-visit Dr. Collins Work Phone: [facility] Start: 12-20-2022 End: 12-20-[address] Joey Snyder Work Phone: [facility] Work Phone: Start: 12-20-2022 End: 12-20-[address] Joey Snyder Work Phone: [facility]-Cardiovascula r Services Start: 12-06-2022 End: 12-06-[address] Joey Snyder Work Phone: [facility] Internal Medicine Start: 11-29-2022 End: 11-29-[address] Joey Snyder Work Phone: [facility] Internal [facility] Start: 11-22-2022 End: 11-22-[address] Joey Snyder Work Phone: [facility] Internal Medicine Start: 10-17-2022 End: 10-17-[address] Joey Snyder Work Phone: [facility] Work Phone: Start: 10-17-2022 End: 10-17-[address] Joey Snyder Work Phone: [facility]-Physical Therapy Start: 09-20-2022 End: 09-20-[address] Joey Snyder Work Phone: [facility] Internal Medicine Start: 09-13-2022 Non-patient / Non-visit Dr. Collins Work Phone: [facility] Inpatient Physicians Start: 09-12-2022 Non-patient / Non-visit Dr. Collins Work Phone: [facility] Start: 09-12-2022 Non-patient / Non-visit Dr. Collins Work Phone: [facility] Inpatient Physicians Start: 09-11-2022 End: 09-13-2022 Evaluation and management of inpatient Dr. Joey Snyder Work Phone: [facility]-Progressive Care Unit Start: 08-31-2022 End: 08-31-[address] Joey Snyder Work Phone: [facility] Work Phone: Start: 08-31-2022 End: 08-31-[address] Joey Snyder Work Phone: [facility]-Cardiovascula r Services Start: 08-31-2022 Non-patient / Non-visit Dr. Collins Work Phone: [facility] Start: 08-30-2022 End: 08-30-[address] Joey Snyder Work Phone: [facility] Work Phone: Start: 08-30-2022 End: 08-30-[address] Joey Snyder Work Phone: [facility] Start: 12-07-2021 End: 12-07-[address] Joey Snyder Work Phone: [facility] Internal Medicine Start: 02-22-2017 Ambulatory JOEY Loza y:[facility] Procedures Date Procedure Procedure Detail Performing Clinician Start: 03-11-2025 Vitamin D, 25-hydrox y measurement Dr. Mu Tracey MD Work Phone: Comment on above: Vitamin D StatusDefi ciency: <20 ng/mL (50nmol/L)Insufficiency: 20-30 ng/mL (50-75 nmol/L)Sufficiency: 30-100 ng/mL (75-250 nmol/L)Toxicity: >100 ng/mL (>250 nmol/L) Start: 12-23-2024 Radionuclide imaging of perfusion of myocardium under exercise stress Dr. Mu Tracey MD Work Phone: Start: 11-27-2024 Plain chest X-ray Dr. Baljit Tracey MD Work Phone: Start: 11-27-[address] Mu Tracey MD Work Phone: Start: 10-30-2024 SARS-CoV-2, Influenz a & RSV (PCR) Dr. Mu Tracey MD Work Phone: Start: 10-30-2024 X-ray of chest, PA a nd lateral views Dr. Mu Tracey MD Work Phone: Start: 09-09-2024 Measurement of renal function Dr. Mu Tracey MD Work Phone: Comment on above: GFR Calc Start: 09-09-2024 Vitamin D, 25-hydrox y measurement Dr. Mu Tracey MD Work Phone: Comment on above: Vitamin D 25(OH) Sta tus Range Deficiency <20 ng/mL (50nmol/L) Insufficiency 20 - 30 ng/mL (50 - 75 nmol/L) Sufficiency 30 - 100 ng/mL (75 - 250 nmol/L) Toxicity >100 ng/mL (>250 nmol/L) Start: 09-12-2022 MRI of brain without contrast Dr. Joey Snyder Work Phone: Start: 09-11-2022 CT angiography of he ad and neck Dr. Joey Snyder Work Phone: Start: 09-11-2022 Plain chest X-ray Dr. Cyndi Snyder Work Phone: Start: 09-11-2022 CT of head without contrast Dr. Joey Snyder Work Phone: Plan of Treatment Date Care Activity Detail Author Start: 11-27-2024 [facility] Start: 11-27-2024 [facility] Start: 03-19-2023 Patient referral [facility] Work Phone: Start: 03-17-2023 Patient discharge [facility] Start: 03-16-2023 Following clinical p athway protocol [facility] Start: 03-16-2023 Cardiac monitoring [facility] Start: 03-16-2023 Cardiac rehabilitation - phase 1 [facility] Start: 03-16-2023 Cardiac rehabilitation - phase 2 [facility] Start: 03-16-2023 Oxygen therapy [facility] Start: 03-16-2023 Patient discharge [facility] Start: 03-16-2023 Systemic arterial pr essure monitoring [facility] Start: 03-16-2023 Vascular disease risk assessment [facility] Start: 03-16-2023 Vital signs measurements [facility] Start: 03-16-2023 End: 03-16-2023 [facility] Start: 03-16-2023 End: 03-16-2023 Notification of physician [facility] Start: 03-16-2023 Patient education [facility] Start: 03-16-2023 Provision of activity privileges [facility] Start: 03-16-2023 Pulse taking [facility] Start: 03-16-2023 End: 03-16-2023 Taking patient vital signs [facility] Start: 03-16-2023 Wound care [facility] Start: 03-16-2023 Admission procedure [facility] Start: 03-16-2023 Assessment of risk o f venous thromboembolism [facility] Start: 03-16-2023 Insertion of cathete r into peripheral vein [facility] Start: 03-16-2023 Measuring intake and output [facility] Start: 03-16-2023 Providing care accor ding to standard [facility] Start: 03-16-2023 [facility] Start: 09-20-2022 Patient referral [facility] Work Phone: Start: 09-13-2022 Patient discharge [facility] Start: 09-12-2022 Care planning and pr oblem solving actions [facility] Start: 09-11-2022 Application of inter mittent pneumatic compression device [facility] Start: 09-11-2022 Following clinical p athway protocol [facility] Start: 09-11-2022 Aspiration precautions [facility] Start: 09-11-2022 Assessment of risk o f venous thromboembolism [facility] Start: 09-11-2022 Cardiac monitoring [facility] Start: 09-11-2022 Catheterization of vein [facility] Start: 09-11-2022 Consultation [facility] Start: 09-11-2022 Elevation of head of bed [facility] Start: 09-11-2022 Exercises [facility] Start: 09-11-2022 Fall prevention [facility] Start: 09-11-[address] anned interventions [facility] Start: 09-11-2022 Inhalation therapy procedure [facility] Start: 09-11-2022 Insertion of cathete r into peripheral vein [facility] Start: 09-11-2022 Introduction of urinary catheter [facility] Start: 09-11-2022 Measuring intake and output [facility] Start: 09-11-2022 Notification of physician [facility] Start: 09-11-2022 Patient referral to dietitian [facility] Start: 09-11-2022 Providing care accor ding to standard [facility] Start: 09-11-2022 Provision of activity privileges [facility] Start: 09-11-2022 Referral to occupati onal therapist [facility] Start: 09-11-2022 Referral to service [facility] Start: 09-11-2022 Speech therapy assessment [facility] Start: 09-11-2022 Tobacco use cessation education [facility] Start: 09-11-2022 Vital signs measurements [facility] Start: 09-11-2022 [facility] Start: 09-11-2022 [facility] Start: 09-11-2022 Admission procedure [facility] Lipid 1996 panel - S rosie or Plasma [facility] Patient Education [facility] Work Phone: Patient referral [facility] Work Phone: Troponin T.cardiac [ Mass/volume] in Serum or Plasma by High sensitivity method [facility] Immunizations Immunization Date Immunization Notes Care Provider Darwin rose 08-26-2021 Covcharline (Modernharjit) Dr. Joey Snyder Work Phone: [facility] 10-08-2020 Covcharline Churchill) Dr. Joey Snyder Work Phone: [facility] 09-10-2020 Covid (Hans) Dr. Joey Snyder Work Phone: [facility] Payers Date Payer Category Payer Medicare [id number] 2024 Self-pay [id number] 2023 Medicare [id number] 2017 Unknown [id number] 1940 Unknown [id number] 2.16.8 [id number] 1940 Unknown [id number] 2.16.8 [id number] Unknown [id number] 2.16.8 [id number] Unknown [id number] 2.16.8 [id number] Unknown [id number] 2.16.8 [id number] Unknown [id number] 2.16.8 [id number] Unknown [id number] 2.16.8 [id number] Unknown [id number] 2.16.8 [id number] Unknown [id number] 2.16.8 [id number] Unknown [id number] 2.16.8 [id number] Unknown [id number] 2.16.8 [id number] Unknown [id number] 2.16.8 [id number] Unknown [id number] 2.16.8 [id number] Social History Date Type Detail Facility Start: 12-07-2021 End: 07-11-2023 Tobacco smoking status NHIS Unknown if ever smoked [facility] Start: 1940 Sex Assigned At Female [facility] Start: 11-13-2023 End: 11-27-2024 Tobacco smoking status NHIS Never smoked tobacco (finding) [facility] Start: 11-06-2024 End: 11-27-2024 Sex Female (finding) [facility] Sex Female [facility] Medical Equipment Procedure Code Equipment Code Equipment Origin al Text Equipment Identifier Dates Drug-eluting coronary artery stent, [id number] [id number]-coated ()[id number] FDA Start: 03-16-2023 Drug-eluting coronary artery stent, [id number] [id number]-coated ()[id number] FDA Start: 03-16-2023 Goals Date Patient Goal Desired Activity /State Functional Status Date Assessment Result Facility 03-17-2023 Functional status Activity Ability Indepe ndent [facility] Work Phone: 03-17-2023 Functional status Patient Activi ty Ambulates;Up ad makenna [facility] Work Phone: 09-13-2022 Functional status Ambulates;Up ad makenna [facility] Work Phone: Mental Status Date Assessment Result Facility 11-27-2024 Cognitive function Voice/Name [facility] Work Phone: 03-17-2023 Cognitive function Voice/Name [facility] Work Phone: 09-13-2022 Cognitive function Demonstrates ability to follow instructions/comprehend [facility] Work Phone: 09-12-2022 Cognitive function Voice/Name [facility] Work Phone: Clinical Notes 09-12-2022 to 12-05-2024 Note Date & Type Note Facility 12-05-2024 Evaluation note Diagnosis Onset Date Resolution Chest pain acute December 05, 2024 9:16am Stented coronary artery March 16, 2023 acute December 05, 2024 9:16am Hyperlipidemia chronic November 9:16am Hypertension chronic December 05, 2024 9:16am [facility] Work Phone: 1(974) 850-656304-17-2025 Radiology Diagnostic study note [facility] Imaging Services [address] [place] [address] Chest 1 View (Portable) MR#: [id number] Acct: [id number] Name: MANFRED CONTI Rep #: [id number] : [id number] F [id number] From: Yokasta Gurrola MD PCP: Dr. Mu Tracey MD Status: REG E R Study:Chest 1 View (Portable) Date of Exam: 11/27/24 Exam# [id number] Ordering Dr: Jam Abarca MD PROCEDURE: CHEST 1 VIEW (PORTABLE) 11/27/2024 REASON FOR EXAM: CHEST PAIN TECHNIQUE: Frontal view of the chest. COMPARISON: 10/30/2024; 02/27/2020 CT FINDINGS: Heart: The heart size is normal. Lungs: The lungs are clear. No large pleural effusion. RAD/Chest 1 View (Portable) IMPRESSION: No Acute Findings. Reading Location: [facility] CC: Dr. Jam Abarca MD; Dr. Mu Tracey MD ~ Health Technician Hearing: Signed [facility]04-17-2025 Hospital Discharge instructions Additional Instructions Return to the emergency department with increased chest pain, new or worsening symptoms. Follow-up with cardiology in the next 3 to 5 days. They will contact you via telephone to set up an appointment within the next few days. Continue your previous medications as directed.[facility] Work Phone: 1(492) 197-991203-20-2025 Radiology Diagnostic study note [facility] Imaging Services [address] [place] [address] Chest PA and Lateral MR#: [id number] Acct: [id number] Name: MANFRED CONTI Rep #: [id number] : [id number] F 84 From: Chase Hernandez MD PCP: Dr. Mu Tracey MD Status: REG C SONAM Study:Chest PA and Lateral Date of Exam: 10/30/24 Exam# [id number] Ordering Dr: Mu Tracey MD PROCEDURE: CHEST PA AND LATERAL N/A REASON FOR EXAM: WHEEZING TECHNIQUE: Frontal and lateral views of the chest. COMPARISON: Comparison is made with prior study dated September 11, 2022. FINDINGS: Hyperinflation and COPD. The heart size is normal. The mediastinal contour is unremarkable. Lungs are clear. Degenerative changes are identified within the thoracic spine.. Increased kyphosis. RAD/Chest PA and Lateral IMPRESSION: Hyperinflation. Stable examination. Reading Location: [place] [address] CC: Dr. Mu Tracey MD ~ Health Technician Hearing: Signed [facility]09-08-2023 Procedure [facility] 03-16-2023 Evaluation note* Diagnosis Onset Date Resolution Status Stented coronary artery March 16, 2023 acute Hyperlipidemia chronic Hypertension [facility] Work Phone: 1(108) 720-122908-04-2023 Evaluation note* Diagnosis Onset Date Resolution Status Admit Date Stented coronary artery March 16, 2023 acute November 13, 2024 8:19am Hyperlipidemia chronic November 13, 2024 8:19am Hypertension chronic November 13, 2 025 8:19am [facility] Work Phone: 1(346) 243-180708-04-2023 Evaluation note* Diagnosis Onset Date Resolution Status Admit Date Stented coronary artery March 16, 2023 acute November 13, 2024 8:19am Hyperlipidemia chronic November 13, 2024 8:19am Hypertension chronic November 13, 025 8:19am Chest pain acute December 05 9:16am Stented coronary artery March 16, 2023 acute December 05, 2024 9:16am Hyperlipidemia chronic November 9:16am Hypertension chronic December 05, 2024 9:16am [facility] [facility] Work Phone: [phone] Evaluation note* Diagnosis Onset Date Resolution Status Admit Date Stented coronary artery March 16, 2023 acute May 19, 2025 8:25am Hyperlipidemia chronic May, 2024 8:25am Hypertension chronic May 19, 2025 8:25am [facility] Work Phone: [phone] Discharge summary Author Esther Thompson [facility] October 17, 2022 10:48am Note Date/Time October 17, 2022 8:56 am [facility] Physical Therapy [facility] [address] [place] [address] [address] [place] [address] / REHABILITATION SERVICES DISCHARGE SUMMARY MR#: [id number] Acct: [id number] Name: MANFRED CONTI Rep #: [id number] : 1940 82 From: Esther Thompson MP T Referring Dr.: Dr. Joey Snyder, DO Status: REG RCR Insurance: MEDICARE PART A B [email or web address] It has been my pleasure to treat MANFRED CONTI referred by Dr. Joey Snyder, DO, with the diagnosis of dizziness and giddiness for a total of 3 visit(s). Discharge Date: 10/17/22 Please see the following information for a summary of their discharge status. Subjective: Pt almost cancelled. The last time she had dizziness was over a week ago. She is still doing the BD exercises once in awhile. % Improvement: 100 Objective/Function: Pt does not want to test for Hallpike again as she feels well. Discussed if her sx come back to call her Dr and get a script to come back. Discussed continue BD if sx continue Goal 1:: I HEP Goal Progress: Goal Met Goal 2:: Be able to lay down on her R side without having dizziness Goal Progress: Goal Met Goal 3:: Be able to look up without having dizziness Goal Progress: Goal Met Plan: DC PT to BD exercises a few times a week. Discharge Comments: DC PT to HEP If there are questions or concerns regarding this patient's physical therapy, please feel free to call me at [phone]. Thank you for the referral of thispatient. Sincerely, Esther Thompson, HADLEY Balance/Gait/Functional tests - Balance/Special Test Scores Dizziness Score: 6 <Electronically signed by Esther Thompson MPT> 10/17/22 1048 CC: Dr. Joey Snyder, DO ~ Signed [facility] Work Phone: [phone]) 191-980101-31-[address] Waldron [facility] September 12, 2022 3:02pm Note Date/Time September 12, 2022 9 :37am [facility] Medical Records Department [address] [place] [address] Consultation - Mail Machine Operator 09/12/22 0927 MR#: [id number] Acct: [id number] Name: MANFRED CONTI Rep #:[id number] : 1940 82 From: Tee Waldron MD PCP: Dr. Joey Snyder, DO Status:AD M IN Location: ICU CVICU20 2-1 Assessment & Plan Assessment/Plan (1) Hypertensive urgency: (2) Dizziness of unknown cause: PLAN: Plan RECOMMENDATIONS: 1. Obtain MRI to rule out acute CVA 2. If no CVA, p.o. medications for hypertension 3. Okay to leave the intensive care unit 4. Hemodynamically stable on room air. Will sign off from a critical care perspective IMPRESSIONS: 1. Hypertensive emergency Patient appears to have elevated blood pressures at baseline. Patient is reporting anxiety as an indication for the significant elevation in the ER. However, given patient's neurologic findings on presentation, initiation of antihypertensives are likely indicated. Patient has had resolution of symptoms with better control of blood pressure. Patient tolerating room air well. Patient is to have an MRI to rule out a CVA. Patient has had a CVA, appropriatework-up would be necessary. If not, patient can likely be initiated on blood pressure medications at low doses. Low clinical suspicion for secondary hypertension as patient is not on any antihypertensives at baseline. 2. Advanced age/frailty/poor follow-up Patient appears to be doing well at this time. Patient's hemoglobin A1c is elevated, along with blood pressure. Patient has been seen her PCP on an annual basis. Patient likely should follow-up with her PCP prior to November for evaluation and counseling on blood pressure. Patient was confirmed to be a DNR Comfort Care arrest without intubation on admission. HPI Consult Data Date of Consult: 09/12/22 HPI Narrative Reason for Consultation: Hypertensive emergency HPI Narrative: MANFRED CONTI is an 82 F, with past medical history listed below, who presents to [facility] on 09/11/2022 secondary to dizziness that began earlier in the day. Patient states she felt like she was spinning and it was intermittent lasting approximately 5 minutes at a time. Patient states that it was worse on her right side and when her head is in certain positions. Patient did not find any alleviating factors and had reported a mild occipital headache along with this finding. Patient denied any fevers, chills, nausea or vomiting. 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 In the ER, patient was afebrile and saturating well on room air. Patient was noted to have a blood pressure of 232/108 that persisted. Laboratory work-up was relatively unremarkable with a negative D-dimer, normal chemistries and CBC. BNP was slightly elevated at 144 [address] UA was [address]. [address] of the head showed moderate periventricular white matter changes, but no acute bleed. Chestx-ray showed some cardiomegaly and EKG showed sinus rhythm. Patient was admitted to the intensive care unit and was on Cardene for some time. Patient's Cardene was able to be discontinued overnight and patient has reported resolution of symptoms. Patient's NIH is have been 0. Patient does report a black spot in her vision, but states that this was explained by her client delivery manager as a "retinal stroke" and has not changed. Patient states her blood pressure is "never normal. The top number is over 160 most days." Patient reportedly does not take any medications at baseline. Patient is very resistant to any questions or interventions. It is not clear that the patient follows with a PCP routinely. Review of systems otherwise negative from a constitutional, HEENT, respiratory, cardiovascular, GI, genitourinary, musculoskeletal, skin, neurologic, psychiatric and hematologic system unless stated above. [facility] Medical History Hearing loss History of squamous cell carcinoma Seasonal allergies Home Medications NK 09/11/22 [History Last Taken Unknown] Allergy/AdvReac Type Severity Reaction Status Date / Time Penicillins AdvReac Unknown Verified 09/11/22 14:57 Family History Mother Hypertension Father Cancer Surgical History Cataracts, bilateral History of tonsillectomy Social History household members: spouse Smoking Status: Never smoker alcohol intake: never substance use type: does not use what type of physical activity do you participate in: walking frequency: 3-4 times per week Physical Exam Const alert, oriented x3 and no apparent distress General Appearance: cooperative, well developed and frail HEENT normocephalic, head/scalp atraumatic and moist oral mucous membranes Eyes PERRL and EOMs intact bilaterally Neck full ROM and no lymphadenopathy Chest inspection of chest normal Resp normal respiratory effort and no use of accessory muscles Effort and Inspection: able to speak in complete sentences Auscultation: clear to auscultation bilaterally; Negative for rales, rhonchi or wheezes Percussion: Negative for dullness Cardio regular rate, regular rhythm, S1 normal heart sound, S2 normal heart sound, no murmurs, no rub and no gallops GI normal to inspection, nondistended, normoactive bowel sounds no CVA tenderness Extremity no clubbing, cyanosis or edema Skin no rashes or lesions noted Neuro oriented x3, CN's II-XII intact bilaterally, moves all extremities and no focal motor deficits Psych cooperative and affect normal Medical Records Data Attestation: I reviewed the patient's medical records Medical records narrative: Review of the medical record shows patient has followed up intermittently with Dr. Joey Snyder as an outpatient. Patient tends to complain of fatigue, but otherwise has no complaints. Blood pressure at her office visit in November showeda blood pressure of 160/90. Lab / Micro Data Attestation: I reviewed the patient's lab results. Result Diagrams: 09/12/22 04:05 09/12/22 04:05 Labs: Laboratory Results - last 24 hr 09/11/22 15:00: POC Glucose 117 H 09/11/22 15:00: WBC 7.7, RBC 4.72, Hgb 14.5, Hct 43.3, MCV 91.7, MCH 30.7, MCHC 33.5, RDW Std Deviation 44.3 H, RDW Coeff of Jane 13.0, Plt Count 339, MPV 9.2, Immature Gran % (Auto) 0.300, Neut % (Auto) 56.2, Lymph % (Auto) 33.3, Holt % (Auto) 8.4, Eos % (Auto) 1.0, Baso % (Auto) 0.8, Absolute Neuts (auto) 4.3, Absolute Lymphs (auto) 2.55, Nucleated RBC % 0 09/11/22 15:00: D-Dimer Quant (PE/DVT) 0.41 09/11/22 15:00: Sodium 137, Potassium 3.9, Chloride 102, Carbon Dioxide 28.0, Anion Gap 7, BUN 18, Creatinine 0.94, Estim Creat Clear Calc 32.70, Est GFR (MDRD) Af Amer 72, Est GFR (MDRD) Non-Af 60, BUN/Creatinine Ratio 19.0, Glucose 108 H, Calcium 9.3, Troponin I High Sens 6 09/11/22 15:00: B-Natriuretic Peptide 144.4 H 09/11/22 15:00: Magnesium 2.3 09/11/22 16:20: Urine Color Yellow, Urine Clarity Clear, Urine pH 7.0, Ur Specific [place] 1.010, Urine Protein Negative, Urine Glucose (UA) Normal, UrineKetones Negative, Urine Occult Blood Negative, Urine Nitrite Negative, Urine Bilirubin Negative, Urine Urobilinogen Normal, Ur Leukocyte Esterase Negative, Urine RBC 0 SEEN, Urine WBC 0 SEEN, Ur Squamous Epith Cells 0 SEEN, Urine Bacteria 0 SEEN, Urine Mucus 0 SEEN 09/12/22 00:05: Troponin I High Sens 7 09/12/22 00:32: POC Glucose 207 H 09/12/22 04:05: WBC 9.1, RBC 4.26, Hgb 13.0, Hct 38.4, MCV 90.1, MCH 30.5, MCHC 33.9, RDW Std Deviation 42.6, RDW Coeff of Jane 13.0, Plt Count 277, MPV 8.5, Immature Gran % (Auto) 0.200, Neut % (Auto) 78.2 H, Lymph % (Auto) 15.2 L, Holt % (Auto) 5.8, Eos % (Auto) 0.2, Baso % (Auto) 0.4, Absolute Neuts (auto) 7.1, Absolute Lymphs (auto) 1.38, Nucleated RBC % 0 09/12/22 04:05: Sodium 138, Potassium 3.8, Chloride 104, Carbon Dioxide 25.0, Anion Gap 9, BUN 14, Creatinine 0.72, Estim Creat Clear Calc 29.02, Est GFR (MDRD) Af Amer 100, Est GFR (MDRD) Non-Af 83, BUN/Creatinine Ratio 19.6, [id number] H, Calcium 8.4 L, Total Bilirubin 0.30, AST 20, ALT 20, Alkaline [id number], Troponin I High Sens 8, Total Protein 6.5, Albumin 3.4, Globulin 3.1, Albumin/Globulin Ratio 1.1, Triglycerides 69, Cholesterol 220 H, LDL [id number], VLDL Cholesterol 14, HDL Cholesterol 85, TSH 3.66 09/12/22 04:05: Hemoglobin A1c 6.0 H Radiology Impression Brain CT 09/11/22 15:27 IMPRESSION: Atrophy and moderate periventricular white matter ischemic change. No acute bleed. If concern for acute infarct MRI recommended Electronically Signed: Caden Martin MD at 16:49 EST , Chest X-Ray 09/11/22 15:45 IMPRESSION: ASHD. No acute cardiopulmonary pathology Electronically Signed: Caden Martin MD at 16:51 EST , Head/Neck CTA 09/11/22 20:57 IMPRESSION: Atherosclerotic changes without evidence for hemodynamically significant stenosis Electronically Signed: Caden Martin MD at 21:53 EST , ADDENDUM: 09/11/222207 IMPRESSION: Atherosclerotic changes without evidence for hemodynamically significant stenosis N.B. : The above Results were Read Back by Caden Martin MD to Reyna Valenzuela MD, and understanding confirmed on 09/11/2022 22:01:48 (ET). Electronically Signed: Caden Martin MD at 21:53 EST , Charges/Coding Visit Charges Inpatient E&M: 33523 Init Hosp L2 09/12/22 1502 <Electronically signed by Tee Waldron MD> Cosigner Signature (if applicable): CC: Dr. Reyna Valenzuela MD; Dr. Tee Waldron MD; Dr. Joey Snyder, DO~ Signed [facility] Work Phone: [phone]) 671-235101-31-[address] Santos [facility] September 12, 2022 1:54pm Note Date/Time September 12, 2022 7 :19am [facility] Medical Records Department [address] [place] [id number] Progress Note - Hospitalist 09/12/22 0705 MR#: [id number] Acct: [id number] Name: MANFRED CONTI Rep #:[id number] : 1940 82 From: Christine Santos MD PCP: Dr. Joey Snyder, DO Status:AD M IN Location: ICU CVICU20 2-1 Subjective Subjective Feeling much better, no chest pain or shortness of breath. No further headache denies changes in vision, blood pressure improving. MRI negative Objective Data Objective Data Vital Signs: Vital Signs Temp Pulse Resp BP Pulse Ox O2 Del Method 97.8 F 85 15 157/77 H 97 Room Air 09/12/22 04:00 09/12/22 06:00 09/12/22 06:00 09/12/22 06:00 09/12/22 06:00 09/12/22 06:00 Oxygen Delivery Method Room Air Weight: 43.9 kg Body Mass Index (BMI) 17.1 Intake & Output: Intake and Output for Last 24 Hours 09/10/22 09/11/22 09/12/22 23:59 23:59 23:59 Intake Total 130.83 / 137.08 33.75 / 33.75 Output Total 650 / 650 Balance 130.83 / -162.92 -616.25 / -616.25 Lab / Micro Data Result Diagrams: 09/12/22 04:05 09/12/22 04:05 Labs: Laboratory Results - last 24 hr 09/11/22 15:00: POC Glucose 117 H 09/11/22 15:00: WBC 7.7, RBC 4.72, Hgb 14.5, Hct 43.3, MCV 91.7, MCH 30.7, MCHC 33.5, RDW Std Deviation 44.3 H, RDW Coeff of Jane 13.0, Plt Count 339, MPV 9.2, Immature Gran % (Auto) 0.300, Neut % (Auto) 56.2, Lymph % (Auto) 33.3, Holt % (Auto) 8.4, Eos % (Auto) 1.0, Baso % (Auto) 0.8, Absolute Neuts (auto) 4.3, Absolute Lymphs (auto) 2.55, Nucleated RBC % 0 09/11/22 15:00: D-Dimer Quant (PE/DVT) 0.41 09/11/22 15:00: Sodium 137, Potassium 3.9, Chloride 102, Carbon Dioxide 28.0, Anion Gap 7, BUN 18, Creatinine 0.94, Estim Creat Clear Calc 32.70, Est GFR (MDRD) Af Amer 72, Est GFR (MDRD) Non-Af 60, BUN/Creatinine Ratio 19.0, Glucose 108 H, Calcium 9.3, Troponin I High Sens 6 09/11/22 15:00: B-Natriuretic Peptide 144.4 H 09/11/22 15:00: Magnesium 2.3 09/11/22 16:20: Urine Color Yellow, Urine Clarity Clear, Urine pH 7.0, Ur Specific [place] 1.010, Urine Protein Negative, Urine Glucose (UA) Normal, UrineKetones Negative, Urine Occult Blood Negative, Urine Nitrite Negative, Urine Bilirubin Negative, Urine Urobilinogen Normal, Ur Leukocyte Esterase Negative, Urine RBC 0 SEEN, Urine WBC 0 SEEN, Ur Squamous Epith Cells 0 SEEN, Urine Bacteria 0 SEEN, Urine Mucus 0 SEEN 09/12/22 00:05: Troponin I High Sens 7 09/12/22 04:05: WBC 9.1, RBC 4.26, Hgb 13.0, Hct 38.4, MCV 90.1, MCH 30.5, MCHC 33.9, RDW Std Deviation 42.6, RDW Coeff of Jane 13.0, Plt Count 277, MPV 8.5, Immature Gran % (Auto) 0.200, Neut % (Auto) 78.2 H, Lymph % (Auto) 15.2 L, Holt % (Auto) 5.8, Eos % (Auto) 0.2, Baso % (Auto) 0.4, Absolute Neuts (auto) 7.1, Absolute Lymphs (auto) 1.38, Nucleated RBC % 0 09/12/22 04:05: Sodium 138, Potassium 3.8, Chloride 104, Carbon Dioxide 25.0, Anion Gap 9, BUN 14, Creatinine 0.72, Estim Creat Clear Calc 29.02, Est GFR (MDRD) Af Amer 100, Est GFR (MDRD) Non-Af 83, BUN/Creatinine Ratio 19.6, [id number] H, Calcium 8.4 L, Total Bilirubin 0.30, AST 20, ALT 20, Alkaline [id number], Troponin I High Sens 8, Total Protein 6.5, Albumin 3.4, Globulin 3.1, Albumin/Globulin Ratio 1.1, Triglycerides 69, Cholesterol 220 H, LDL [id number], VLDL Cholesterol 14, HDL Cholesterol 85, TSH 3.66 Radiography Diagnostic Testing: Radiology Impression Brain CT 09/11/22 15:27 IMPRESSION: Atrophy and moderate periventricular white matter ischemic change. No acute bleed. If concern for acute infarct MRI recommended Electronically Signed: Caden Martin MD at 16:49 EST Reading Location ID and State: [facility] / [place] , Service support , Chest X-Ray 09/11/22 15:45 IMPRESSION: ASHD. No acute cardiopulmonary pathology Electronically Signed: Caden Martin MD at 16:51 EST , Head/Neck CTA 09/11/22 20:57 IMPRESSION: Atherosclerotic changes without evidence for hemodynamically significant stenosis Electronically Signed: Caden Martin MD at 21:53 EST , ADDENDUM: 09/11/22 2208 IMPRESSION: Atherosclerotic changes without evidence for hemodynamically significant stenosis N.B. : The above Results were Read Back by Caden Martin MD to Reyna Valenzuela MD, and understanding confirmed on 09/11/2022 22:01:48 (ET). Electronically Signed: Caden Martin MD at 21:53 EST , Physical Exam Narrative General: Alert, oriented, no apparent distress HEENT: Atraumatic, normocephalic Eyes: Anicteric, normal conjunctiva, extraocular movements grossly intact Neck: Supple Respiratory: Clear to auscultation bilaterally, normal respiratory effort Cardiovascular: Regular rate and rhythm GI: Soft, nontender, nondistended Extremities: No edema Musculoskeletal: Moving all extremities Neuro: No overt focal neurological deficits Skin: No rashes appreciated Psych: Cooperative Assessment & Plan Assessment/Plan (1) CVA (cerebral vascular accident): PLAN: Plan 82 history squamous cell carcinoma presented to [facility] ED with onset of dizziness beginning on day of presentation with a spinning-like sensation coming and going and lasting for approximately 5 minutes. Does persist even if resting and especially if she sleeps on her right side and movesher head in a certain position. No improvement with any interventions and has amild occipital headache. Some chest tightness and mild dyspnea with exertion. 1.5 weeks prior to presentation she did report she had some right eye changes with a black spot in her field of vision prompting evaluation by Dr. Pinto at 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 In the ED her blood pressure was initially 232/108 and remained elevated despite intervention. Troponin was 6. CT of the brain with atrophy and moderate periventricular white matter ischemic changes with no acute findings. EKG occasional PVC without evidence of ischemia. #Intermittent vertigo symptoms with headache Likely due to her hypertension Concern for CVA especially given potential right eye arterial occlusion 1.5 weeks ago but acute ischemic CVA ruled out CTA head and neck- Atherosclerotic changes? without evidence for hemodynamicallysignificant stenosis MRI brain with chronic changes Echo demonstrated EF of 60%, stage I diastolic dysfunction, negative bubble study PT/OT/speech Continue aspirin, add statin #Hypertensive emergency Monitor on telemetry Status post Cardene drip Pressure able, as ordered no blood per her med list the L of blood pressure as she is very "sensitive to medications" and is very hesitant to be started on any. She was ultimately agreeable to be started on losartan, low threshold to escalate therapy a pending her tolerance with goal for SBP closer to 140 within the next 24 hours. #Chest pain/tightness of dyspnea?resolved CXR: ASHD. No acute cardiopulmonary pathology Suspect due to hypertensive emergency EKG not concerning for ischemia Cardiac enzymes within normal limits No wall motion obvious on echo and symptoms of resolved #DVT ppx: Lovenox Christine Santos MD Time spent in the patient's overall evaluation,decision-making process, review of diagnostic data, adjustment of management, discussion with other providers, nursing nursing and ancillary staff involved in patient's care documentation, 30minutes Charges/Coding Visit Charges Inpatient E&M: 30945 Subs Hosp L2 09/12/22 1354 <Electronically signed by Christine Santos MD> Cosigner Signature (if applicable): CC: ~ Signed [facility] Work Phone: 1(825) 262-471001-31-[address] Zuniga [facility] September 12, 2022 12:15am Note Date/Time September 11, 2022 3 :27pm [facility] Medical Records Department [address] [place] [address] Emergency Department Summary 09/11/22 MR#: [id number] Acct: [id number] Name: ROSEMANFRED LI Rep #:[id number] : 1940 82 From: Armando Lopez PCP: Dr. Joey Snyder, DO Status:AD M IN Location: ICU CVICU20 2-1 HPI History of Present Illness Chief Complaint: Neuro S/Sx Informant: patient Onset/Context/Timing Onset: Today Context: Sudden Onset Timing: Intermittent and Lasts (Approximately 5 minutes) Quality: Spinning Location: Head Worsened by: Certain positions and sleeping on her right side Relieved by: Nothing Narrative Narrative: Patient presents with dizziness that began today. Patient states that it felt like a spinning sensation. Patient states it comes and goes. Patient states itonly last about 5 minutes. Patient states it is worse when she sleeps on her right side and moves her head in certain positions. Patient states nothing makes it better. Patient admits to a mild occipital headache. Patient admits to some shortness of breath with exertion. Patient admits to some chest tightness. Patient denies any fevers or chills. Patient denies any visual changes. Prior similar symptoms: Yes PFSH PFSH Medical History Hearing loss History of squamous cell carcinoma Seasonal allergies Home Medications NK 09/11/22 [History Last Taken Unknown] Allergy/AdvReac Type Severity Reaction Status Date / Time Penicillins AdvReac Unknown Verified 09/11/22 14:57 Family History Mother Hypertension Father Cancer Surgical History Cataracts, bilateral History of tonsillectomy Social History Smoking Status: Never smoker alcohol intake: never substance use type: does not use what type of physical activity do you participate in: walking frequency: 3-4 times per week ROS ROS ED Constitutional Constitutional ED: Denies chills or fever(s) Eyes Eyes: Denies blurry vision or change in vision ENT ENT ED: Denies rhinorrhea or sore throat Cardiovascular Cardiovascular: Reports chest pain; Denies palpitations Respiratory/Chest Respiratory/Chest: Reports cough and dyspnea on exertion Gastrointestinal Gastrointestinal: Denies nausea or vomiting Genitourinary Genitourinary ED: Denies dysuria or hematuria Musculoskeletal Musculoskeletal: Denies back pain or neck pain Integumentary Denies abscess or rash Neurologic Neurologic: Reports headache(s); Denies weakness Allergic/Immunologic Allergic/Immunologic ED: Denies mouth swelling or urticaria EXAM Physical Exam Const Vital Signs: 09/11/22 14:58 09/11/22 15:01 09/11/22 15:04 Temperature 96.8 F L Temperature Source Temporal Pulse Rate 88 84 88 Respiratory Rate 20 H 18 19 H Blood Pressure 232/108 H 213/91 H 229/100 H Blood Pressure Mean 149 131 143 Pulse Ox 97 99 99 Oxygen Delivery Method Room Air Room Air Room Air 09/11/22 16:26 09/11/22 18:00 09/11/22 18:44 Temperature Temperature Source Pulse Rate 71 72 77 Respiratory Rate 19 H 18 18 Blood Pressure 231/111 H 203/103 H Blood Pressure Mean 151 136 Pulse Ox 99 100 97 Oxygen Delivery Method Room Air Room Air Room Air 09/11/22 20:08 09/11/22 20:48 Temperature Temperature Source Pulse Rate Respiratory Rate Blood Pressure 212/99 H 200/97 H Blood Pressure Mean 136 131 Pulse Ox Oxygen Delivery Method Positive well nourished and well developed General Appearance ED: well developed and NAD HEENT Reports moist mucous membranes Eyes PERRL and EOMs intact bilaterally Eyes Narrative: There is no nystagmus noted. Neck supple and no JVD Resp normal respiratory effort and clear to auscultation bilaterally Cardio regular rate and regular rhythm GI normal to inspection, nondistended, normoactive bowel sounds and non-tender Palpation: soft Extremity normal to inspection General Extremety ED: Negative for edema or tenderness General Extremity: Negative for edema Neuro oriented x3, CN's II-XII intact bilaterally and no sensory deficits noted Sensorium / Orientation: alert Motor Exam: strength 5/5 throughout Psych mental status grossly normal Skin no rashes or lesions noted MDM MDM MDM Narrative Medical decision making narrative: Patient was given a dose of labetalol here. Differential diagnosis includes benign positional vertigo, labyrinthitis, TIA, ischemic stroke, hemorrhagic stroke, cardiac dysrhythmia, pulmonary embolism, hypertensive urgency/emergency,urinary tract infection, and arterial dissection. CT scan of the brain will be obtained to assess for stroke and hemorrhage. EKG will be obtained to assess for cardiac dysrhythmia and ischemia. CBC will be obtained to assess for anemiaand leukocytosis. Basic metabolic profile will be obtained to assess for electrolyte abnormality and renal function. Troponin will be obtained to assessfor cardiac ischemia. PA and lateral chest x- ray will be obtained to assess forcongestive heart failure and pulmonary edema. D- dimer will be obtained to assess for pulmonary embolism or arterial dissection. BNP will be obtained to assess for congestive heart failure and right heart strain. Urinalysis will be obtained to assess for urinary tract infection. Lab Data Attestation: I reviewed the patient's lab results. Lab results narrative: CBC was reviewed and was within normal limits. D-dimer was reviewed and was normal. Basic metabolic profile was reviewed and was within normal limits. High- sensitivity troponin was reviewed and was normal. B natruretic peptide wasreviewed and was only slightly elevated at 144. Urinalysis was reviewed and wasnormal. Labs: Laboratory Results - last 24 hr 09/11/22 09/11/22 09/11/22 15:00 15:00 15:00 WBC 7.7 RBC 4.72 Hgb 14.5 Hct 43.3 MCV 91.7 MCH 30.7 MCHC 33.5 RDW Std Deviation 44.3 H RDW Coeff of Jane 13.0 Plt Count 339 MPV 9.2 Immature Gran % (Auto) 0.300 Neut % (Auto) 56.2 Lymph % (Auto) 33.3 Holt % (Auto) 8.4 Eos % (Auto) 1.0 Baso % (Auto) 0.8 Absolute Neuts (auto) 4.3 Absolute Lymphs (auto) 2.55 Nucleated RBC % 0 D-Dimer Quant (PE/DVT) 0.41 Sodium Potassium Chloride Carbon Dioxide Anion Gap BUN Creatinine Estim Creat Clear Calc Est GFR (MDRD) Af Amer Est GFR (MDRD) Non-Af BUN/Creatinine Ratio Glucose Calcium Magnesium Troponin I High Sens B-Natriuretic Peptide Urine Color Urine Clarity Urine pH Ur Specific [place] Urine Protein Urine Glucose (UA) Urine Ketones Urine Occult Blood Urine Nitrite Urine Bilirubin Urine Urobilinogen Ur Leukocyte Esterase Urine RBC Urine WBC Ur Squamous Epith Cells Urine Bacteria Urine Mucus POC Glucose 117 H 09/11/22 09/11/22 09/11/22 15:00 15:00 15:00 WBC RBC Hgb Hct MCV MCH MCHC RDW Std Deviation RDW Coeff of Jane Plt Count MPV Immature Gran % (Auto) Neut % (Auto) Lymph % (Auto) Holt % (Auto) Eos % (Auto) Baso % (Auto) Absolute Neuts (auto) Absolute Lymphs (auto) Nucleated RBC % D-Dimer Quant (PE/DVT) Sodium 137 Potassium 3.9 Chloride 102 Carbon Dioxide 28.0 Anion Gap 7 BUN 18 Creatinine 0.94 Estim Creat Clear Calc 32.70 Est GFR (MDRD) Af Amer 72 Est GFR (MDRD) Non-Af 60 BUN/Creatinine Ratio 19.0 Glucose 108 H Calcium 9.3 Magnesium 2.3 Troponin I High Sens 6 B-Natriuretic Peptide 144.4 H Urine Color Urine Clarity Urine pH Ur Specific [place] Urine Protein Urine Glucose (UA) Urine Ketones Urine Occult Blood Urine Nitrite Urine Bilirubin Urine Urobilinogen Ur Leukocyte Esterase Urine RBC Urine WBC Ur Squamous Epith Cells Urine Bacteria Urine Mucus POC Glucose 09/11/22 16:20 WBC RBC Hgb Hct MCV MCH MCHC RDW Std Deviation RDW Coeff of Jane Plt Count MPV Immature Gran % (Auto) Neut % (Auto) Lymph % (Auto) Holt % (Auto) Eos % (Auto) Baso % (Auto) Absolute Neuts (auto) Absolute Lymphs (auto) Nucleated RBC % D-Dimer Quant (PE/DVT) Sodium Potassium Chloride Carbon Dioxide Anion Gap BUN Creatinine Estim Creat Clear Calc Est GFR (MDRD) Af Amer Est GFR (MDRD) Non-Af BUN/Creatinine Ratio Glucose Calcium Magnesium Troponin I High Sens B-Natriuretic Peptide Urine Color Yellow Urine Clarity Clear Urine pH 7.0 Ur Specific [place] 1.010 Urine Protein Negative Urine Glucose (UA) Normal Urine Ketones Negative Urine Occult Blood Negative Urine Nitrite Negative Urine Bilirubin Negative Urine Urobilinogen Normal Ur Leukocyte Esterase Negative Urine RBC 0 SEEN Urine WBC 0 SEEN Ur Squamous Epith Cells 0 SEEN Urine Bacteria 0 SEEN Urine Mucus 0 SEEN POC Glucose Radiography Diagnostic Testing: Clinical Impression(s) from Imaging Studies Brain CT 09/11/22 15:27 IMPRESSION: Atrophy and moderate periventricular white matter ischemic change. No acute bleed. If concern for acute infarct MRI recommended Electronically Signed: Caden Martin MD at 16:49 EST , Chest X-Ray 09/11/22 15:45 IMPRESSION: ASHD. No acute cardiopulmonary pathology Electronically Signed: Caden Martin MD at 16:51 EST , CT scan of the brain was obtained. On my independent review, there is no acute infarct or bleed. Radiologist also interpreted the CT scan and noted some atrophy and periventricular white matter ischemic changes. PA and lateral chestx-ray was obtained. There are 2 views. On my independent interpretation, thereis no acute cardiopulmonary process noted. There is no infiltrate. There is nopneumothorax. Bony thorax is normal. There is no cardiomegaly. Radiologist also interpreted the x- ray and noted some atherosclerotic disease. EKG Initial EKG: Attestation: I personally reviewed and interpreted this EKG as follows: Interpretation: Sinus Rhythm (74 with occasional PACs) and No Acute InjuryPattern Comments: EKG was obtained. On my interpretation, it showed a normal sinus rhythm with occasional PACs with a rate of 74. SD interval, QRS interval,and QTc intervals were all normal. [place] was normal. There are no acute ST or [place] changes. Prior EKG tracings: not available for review Prior: No Prior Treatment and Re-Evaluation Narrative: Patient was given a dose of labetalol. Patient blood pressure remained elevated. Patient was given a repeat dose of labetalol. Patient's blood pressure still remained elevated. Patient was given a dose of hydralazine. Patient's blood pressure still remained elevated. Patient was given repeat doseof hydralazine. Patient was still having elevated blood pressures of 200/99. Because of this, I discussed the case with the hospitalist. She recommended placing the patient on a Cardene drip and will admit the patient to ICU. Patient and understand and are agreeable with this. All questions were answered. Critical Care Time Critical Care Time: Yes Critical care time (excluding procedures): 30-74 minutes (39), Including time spent:, Discussing w/Patient &/or Family/Quality Assurance Analyst, Discussing w/Consultants, Arranging Admission or Transfer and Performing Direct Patient Care at Bedside Discharge Plan Triage Chief Complaint: Neuro S/Sx ED Provider: Schwiger,Armando Dx/Rx/DC Orders Clinical Impression: Hypertensive urgency, Dizziness of unknown cause, Headache Primary Care Provider: Joey Snyder Disposition Disposition: Acute Care Hospital [facility] What to do if you have Problems For any increased pain, shortness of breath, bleeding, nausea or vomiting, chestpain, or any unexpected problems, contact your Primary Care Provider. Call [facility] ([phone]) or report to the closest Emergency Room. Call 911 if necessary. 09/12/22 0015 <Electronically signed by Armando Zuniga DO> Cosigner Signature (if applicable): CC: Dr. Joey Snyder, DO ~ Signed [facility] Work Phone: [phone]) 592-493201-31-2023 History and physical note Author Dr. Valenzuela [facility] September 11, 2022 11:10pm Note Date/Time September 11, 2022 8 :55pm [facility] Medical Records Department [address] [place] [id number] H&P Exam - Hospitalist 09/11/222049 MR#: [id number] Acct: [id number] Name: MANFRED CONTI Rep #:[id number] : 1940 82 From: Reyna Valenzuela MD PCP: Dr. Joey Snyder, Status:AD M IN Location: ICU CVICU 2-1 HPI - General General Date of Admission: 09/11/22 Date of Service: 09/11/22 Chief Complaint: Vertigo, headache, chest pain, dyspnea. HPI Narrative The patient is an 82 y/o F w/ PMHx: Allergic Rhinitis, Hx Squamous cell carcinoma who presents to the [facility] ED on 09/11/22 with history of onset dizziness beginning on day of presentation reporting sensation as a spinning-like sensation coming and going intermittently although when it does, it lasts approximately 5 minutes, does persist even if she is resting especially if she sleeps on her right side and moves her head in a certain position with no improvement with any interventions per her self with a mild occipital headache associated as well as some mild dyspnea with exertion and some chest tightness with no recent fevers or chills or any urinary type symptoms and no specific visual changes but given ongoing symptoms prompted ED evaluation. Patient reports additionally that her headache is pressure-like in sensation, holocephalic currently but more so in the cerebellar posterior region, rated 3 out of 10 in severity with no light or sound sensitivity. She denies any nausea or emesis associated with this currently. She does state that the chest discomfort she had was tightness, midsternal without any radiation with dyspnea associated and occurred primarily with her elevated blood pressures and improved when her bloodpressure seem to decrease however currently it is returned with blood pressure rising and she rates this 3 out of 10 in severity. She also reports a history approximately 1.5 weeks prior to current presentation of right eye vision changes with a black spot in her field of vision prompting evaluation by Dr. Pinto at the 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 Work-up in the ED included T96.8, heart rate88, BP initially 232/108 and despite interventions in the ED persistent hypertension with most recent repeat 212/99, respiratory rate 20, 97% on room air, CBC with WC 7.7, hemoglobin 14.5, platelet 339 without marked shift, D-dimer 0.41, BMP with glucose 108, troponin 6, BNP 144.4, urinalysis unremarkable, chest x-ray with no acute cardiopulmonary findings, CT of the brain with atrophy and moderate periventricular white matter ischemic changes with no acute intracranial findings otherwise, EKG with sinus rhythm with occasional PAC with no acute evidence of ischemia. In the ED patient administered labetalol 10 mg IV x2 as well as hydralazine 5 mg IV x2 without improvement of blood pressures. [facility] Medical History Hearing loss History of squamous cell carcinoma Seasonal allergies Home Medications NK 09/11/22 [History Last Taken Unknown] Allergy/AdvReac Type Severity Reaction Status Date / Time Penicillins AdvReac Unknown Verified 09/11/22 14:57 Family History Mother Hypertension Father Cancer Surgical History Cataracts, bilateral History of tonsillectomy Social History household members: spouse Smoking Status: Never smoker alcohol intake: never substance use type: does not use what type of physical activity do you participate in: walking frequency: 3-4 times per week ROS ROS Narrative Admission Review of Systems: CONSTITUTIONAL: No weight loss, fever, chills, + weakness or fatigue. HEENT: + Recent history of right eye vision changes with a black spot in her field of vision, currently vertiginous symptoms reported also. Eyes: No double vision or yellow sclerae. Ears, Nose, Throat: No hearing loss, sneezing, congestion, runny nose or sore throat. SKIN: No rash or itching, lesions, wounds. CARDIOVASCULAR: + chest pain, chest pressure or chest discomfort, No palpitations, edema, orthopnea, syncopal events. RESPIRATORY: + shortness of breath, No cough or sputum, wheezing, hemoptysis. GASTROINTESTINAL: + anorexia, No nausea, vomiting or diarrhea, abdominal pain, melena, BRBPR. GENITOURINARY: No dysuria, frequency, urgency or retention. NEUROLOGICAL: + headache, dizziness/vertigo, No syncope, paralysis, ataxia, numbness or tingling in the extremities, focal weakness, change in bowel or bladder control, seizure. MUSCULOSKELETAL: No muscle, back pain, joint pain or stiffness. HEMATOLOGIC: No anemia, bleeding or bruising. LYMPHATICS: No enlarged nodes. No history of splenectomy. PSYCHIATRIC: No history of depression or anxiety. ENDOCRINOLOGIC: No reports of sweating, cold or heat intolerance. No polyuria orpolydipsia. ALLERGIES: No history of asthma, hives, eczema or rhinitis. Vital Signs Vital Signs Vital Signs: 09/11/22 14:58 09/11/22 15:01 09/11/22 15:04 Temperature 96.8 F L Temperature Source Temporal Pulse Rate 88 84 88 Respiratory Rate 20 H 18 19 H Blood Pressure 232/108 H 213/91 H 229/100 H Blood Pressure Mean 149 131 143 Pulse Ox 97 99 99 Oxygen Delivery Method Room Air Room Air Room Air 09/11/22 16:26 09/11/22 18:00 09/11/22 18:44 Temperature Temperature Source Pulse Rate 71 72 77 Respiratory Rate 19 H 18 18 Blood Pressure 231/111 H 203/103 H Blood Pressure Mean 151 136 Pulse Ox 99 100 97 Oxygen Delivery Method Room Air Room Air Room Air 09/11/22 20:08 09/11/22 20:48 Temperature Temperature Source Pulse Rate Respiratory Rate Blood Pressure 212/99 H 200/97 H Blood Pressure Mean 136 131 Pulse Ox Oxygen Delivery Method Weight Weight: 102 lb 8.239 oz Body Mass Index (BMI) 18.1 Physical Exam Narrative Physical Examination: General: Awake, alert, oriented x 3 and cooperative, seated upright in the ED bed, fatigued, notes currently still having posterior headache with no light or sound sensitivity and recurrent of midsternal chest discomfort described as tightness, both currently rated 3 of 10 in severity. Skin: Normal color, normal turgor, no icterus, no cyanosis. HEENT: AT/NC, EOMI, PERRLA, mildly dry MM, no carotid bruits or JVD noted. Lungs: Mildly diminished, greater bases, poor effort, no rales, ronchi or wheezing. Heart: Currently regular rate and rhythm; no gallop, rub audible. Abdomen: Soft, NTTP, ND, mildly hyperactive BS, no HSM. Extremities: No cyanosis, clubbing, or edema. Neurological: Patient awake, alert, oriented as noted, cognitive function appears baseline intact; pupils equally reactive to light and accommodation, cranial nerves II-XII grossly normal except for complaints of recent right eye vision changes with a spot in her field of vision, currently unable to produce any nystagmus with movements and currently denies vertiginous symptoms at this time but is resting, moving all 4 extremities, no focal deficits, finger-nose and [id number] appropriate, equivocal Babinski, strength improved, moderately global decrease. Psychiatric: Affect appears fatigued but otherwise improving, no acute evidence of depressive or anxiety feelings. Results Lab / Micro Data Result Diagrams: 09/11/22 15:00 09/11/22 15:00 Labs: Laboratory Results - last 24 hr 09/11/22 15:00: POC Glucose 117 H 09/11/22 15:00: WBC 7.7, RBC 4.72, Hgb 14.5, Hct 43.3, MCV 91.7, MCH 30.7, MCHC 33.5, RDW Std Deviation 44.3 H, RDW Coeff of Jane 13.0, Plt Count 339, MPV 9.2, Immature Gran % (Auto) 0.300, Neut % (Auto) 56.2, Lymph % (Auto) 33.3, Holt % (Auto) 8.4, Eos % (Auto) 1.0, Baso % (Auto) 0.8, Absolute Neuts (auto) 4.3, Absolute Lymphs (auto) 2.55, Nucleated RBC % 0 09/11/22 15:00: D-Dimer Quant (PE/DVT) 0.41 09/11/22 15:00: Sodium 137, Potassium 3.9, Chloride 102, Carbon Dioxide 28.0, Anion Gap 7, BUN 18, Creatinine 0.94, Estim Creat Clear Calc 32.70, Est GFR (MDRD) Af Amer 72, Est GFR (MDRD) Non-Af 60, BUN/Creatinine Ratio 19.0, Glucose 108 H, Calcium 9.3, Troponin I High Sens 6 09/11/22 15:00: B-Natriuretic Peptide 144.4 H 09/11/22 16:20: Urine Color Yellow, Urine Clarity Clear, Urine pH 7.0, Ur Specific [place] 1.010, Urine Protein Negative, Urine Glucose (UA) Normal, UrineKetones Negative, Urine Occult Blood Negative, Urine Nitrite Negative, Urine Bilirubin Negative, Urine Urobilinogen Normal, Ur Leukocyte Esterase Negative, Urine RBC 0 SEEN, Urine WBC 0 SEEN, Ur Squamous Epith Cells 0 SEEN, Urine Bacteria 0 SEEN, Urine Mucus 0 SEEN Radiology Impression Brain CT 09/11/22 15:27 IMPRESSION: Atrophy and moderate periventricular white matter ischemic change. No acute bleed. If concern for acute infarct MRI recommended Electronically Signed: Caden Martin MD at 16:49 EST , Chest X-Ray 09/11/22 15:45 IMPRESSION: ASHD. No acute cardiopulmonary pathology Electronically Signed: Caden Martin MD at 16:51 EST , Assessment & Plan Assessment/Plan (1) CVA (cerebral vascular accident): PLAN: Plan The patient is an 82 y/o F w/ PMHx: Allergic Rhinitis, Hx Squamous cell carcinoma who presents to the [facility] ED on 09/11/22 with history of onset dizziness beginning on day of presentation reporting sensation as a spinning-like sensation coming and going intermittently with associated posterior pressure-like headache in addition to recent episodes of midsternal nonradiating chest tightness/pressure with dyspnea prompting eventual ED evaluation. #1. Persistent vertiginous symptoms as well as occipital headache concerning for CVA with associated #2 acute hypertensive emergency especially given recent history of potential arterial occlusion with vision changes to the right eye 1.5weeks prior: Will admit to the ICU given significant hypertension with need for Cardene drip with plan for permissive hypertension allowances with the goal of the blood pressure as unsure really if unfortunately the neurological symptoms came first or the blood pressure elevation, will request Mail Machine Operator consultation per protocol, will obtain MRI Brain, CTA Head and Neck, ECHO, PT/OT/Speech/Nutrition evaluation per protocol. Will maintain on asa, add statinw/ AM FLP, fall precautions. Magnesium, TSH, FLP, hemoglobin C requested. Oncework-up and further evaluation is obtained would be appropriate for an neurologyevaluation. #2. Acute hypertensive emergency with suspected underlying prior hypertensive disease: Clarifying his emergency given significantly elevated blood pressure with SBP greater than 180 with associated neurological changes, as noted we willadmit and monitor on telemetry, cycle cardiac enzymes to be cautious, request echocardiogram, obtain magnesium level supplementation if appropriate, FLP in a.m., will initiate Cardene drip with ICU placement per stroke protocols with allowance of some permissive hypertension pending work-up as noted #1. #3. Chest pain/tightness with dyspnea: Suspect likely related with #2 and possibly #1, will maintain on telemetry monitoring, cycle cardiac enzymes, FLP in a.m., initiating drip as noted, echocardiogram requested, once improvement of#2 and further evaluation of #1 may potentially require stress testing but will need to resolve these issues above as noted. #4. DVT prophylaxis: SCDs, Lovenox. #5. CODE status: Patient ANASTACIO is her and son who are present and living will is currently in place. Discussed CODE status at length including difference between FULL code, DNR-CCA and DNR-CC status. Following discussions about the differences in these status, requested DNR-CCA, no intubation status. Advanced Care Planning Face to Face Time: 17 minutes. Admission Evaluation Time spent evaluating chart, patient history, patient evaluation, care planning and discussion with specialists: 76 minutes. Charges/Coding Visit Charges Inpatient E&M: 39782 Init Hosp L3 Procedures Hospitalists Procedures: 27048 Advncd Care Plan 30 Min 09/11/22 2310 <Electronically signed by Reyna Valenzuela MD> Cosigner Signature (if applicable): CC: Dr. Reyna Valenzuela MD; Dr. Joey Snyder DO~ Signed [facility] Work Phone: Discharge summary Author Dr. Santos [facility] September 13, 2022 1:34pm Note Date/Time September 13, 2022 1 :28pm [facility] Medical Records Department [address] [place] [address] Instructions for Home/Discharge Instructions 09/13/22 1326 MR#: [id number] Acct: [id number] Name: MANFRED CONTI Rep #:[id number] : 1940 82 From: Christine Santos MD PCP: Dr. Joey Snyder DO Status:AD M IN Discharge Instructions Diet Discharge Diet: - (DASH Diet) Activity Discharge Activity: Return to Normal Activity Follow Up Care Test Results: Test results from this visit will be discussed in further detail at your follow- up appointment, if applicable. Discharge Plan Admission Admit Date/Time: 09/11/22 20:50 Primary Reason for Your Visit: Room spinning, headache, chest tightness Attending Provider: Christine Santos Primary Care Provider: Joey Snyder Consulting Providers: Reyna Valenzuela ; Tee Waldron Instructions Patient Instructions: Controlling High Blood Pressure, DASH Plan Eat Heart Healthy Food Additional Instructions / Restrictions: ?You will be discharged on a low-dose of a blood pressure medication, losartan, that you will take daily. ? It is strongly advised that you begin monitoring your blood pressure and follow closely with her primary care physician -Please call your primary care provider's office upon discharge to schedule a hospital follow up within 1 week. -For any concerning signs or symptoms please call 911 or proceed to the nearest emergency department Discharge Orders/Prescriptions Prescriptions: New losartan 25 mg Tablet 25 mg PO DAILY 30 Days Qty: 30 0RF Referrals / Follow Up: Joey Snyder DO [Primary Care Provider] - Within 1 Week Disposition Disposition (needs filled in before D/C Order can be placed): Home, Self Care 09/13/22 1334<Electronically signed by Christine Santos MD>Christine Santos MD CC: Dr. Reyna Valenzuela MD; Dr. Tee Waldron MD; Dr. Joey Snyder, ~ Signed [facility] Work Phone: Discharge summary Author Dr. Santos [facility] September 13, 2022 1:41pm Note Date/Time September 13, 2022 1 :38pm [facility] Medical Records Department [address] [place] [address] Discharge Summary 09/13/22 1334 MR#: [id number] Acct: [id number] Name: MANFRED CONTI Rep #:[id number] : 1940 82 From: Christine Santos MD PCP: Dr. Joey Snyder DO Status:[facility] IN Location: [place] [id number] 1 Providers Date of Admission: 09/11/22 Date of Discharge: 09/13/22 Primary Care Physician: Dr. Joey Snyder DO Consultations 09/11/22 23:37 Consult: Mail Machine Operator / Pulmonary Medicine Routine Consulting Provider: Tee Waldron Reason for Consult: HTN Ermelinda, CVA EMERGENT Consult: No MD Notified: Yes Date Notified: 09/11/22 Time Notified: 20:57 Method of Notification: Text Reason For Visit: VERTIGO, HTN EMERGENCY Diagnosis Discharge Diagnosis (1) Hypertensive emergency: Status: Acute Code(s): I16.1 - Hypertensive emergency Plan #Hypertensive emergency Medications at Discharge Home Medications losartan 25 mg tablet 25 mg PO DAILY 30 days #30 tabs 09/13/22 Hospital Course Procedures - (echo, mri head) Summary of Care Provided Minutes Spent on Discharge: 31 Hospital Course: 82 history squamous cell carcinoma presented to [facility] ED 09/09 with onset of dizziness beginning on day of presentation with a spinning-like sensation coming and going and lasting for approximately 5 minutes. Does persist even if resting and especially if she sleeps on her right side and movesher head in a certain position. No improvement with any interventions and has amild occipital headache. Some chest tightness and mild dyspnea with exertion. 1.5 weeks prior to presentation she did report she had some right eye changes with a black spot in her field of vision prompting evaluation by Dr. Pinto at 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 In the ED her blood pressure was initially 232/108 and remained elevated despite intervention. Troponin was 6. CT of the brain with atrophy and moderate periventricular white matter ischemic changes with no acute findings. EKG occasional PVC without evidence of ischemia. She was admitted for hypertensive emergency and to rule out CVA. MRI with some chronic white matter changes but no acute CVA. Symptoms completely resolved with improvement in blood pressure. She was briefly on Cardene drip and this was transitioned to losartan 25 mg. She reported she is very sensitive to both doses of medicine and side effects but after discussion she was agreeable to thelosartan. Discussed statin, given that she has no clinical ASCVD and she is 82 with only mildly elevated LDL and she does not wish to be on this do not feel she would not prescribe a statin at this time. Echo with only grade 1 diastolicdysfunction. On day of discharge she reports she is feeling well and symptoms have resolved. Tolerating the losartan. Discharge instructions as follows: ?You will be discharged on a low-dose of a blood pressure medication, losartan, that you will take daily. ? It is strongly advised that you begin monitoring your blood pressure and follow closely with her primary care physician -Please call your primary care provider's office upon discharge to schedule a hospital follow up within 1 week. -For any concerning signs or symptoms please call 911 or proceed to the nearest emergency department Physical Exam Narrative General: Alert, oriented, no apparent distress HEENT: Atraumatic, normocephalic Eyes: Anicteric, normal conjunctiva, extraocular movements grossly intact Neck: Supple Respiratory: Clear to auscultation bilaterally, normal respiratory effort Cardiovascular: Regular rate and rhythm GI: Soft, nontender, nondistended Extremities: No edema Musculoskeletal: Moving all extremities Neuro: No overt focal neurological deficits Skin: No rashes appreciated Psych: Cooperative Weight / BMI Weight Weight: 43.9 kg Body Mass Index (BMI) 17.1 ABG / Lab / Microbiology Data Result Diagrams: 09/13/22 05:05 09/13/22 05:05 Laboratory: Laboratory Results - last 24 hr 09/13/22 05:05: WBC 7.8, RBC 4.55, Hgb 14.2, Hct 41.4, MCV 91.0, MCH 31.2, MCHC 34.3, RDW Std Deviation 45.1 H, RDW Coeff of Jane 13.4, Plt Count 311, MPV 8.6, Immature Gran % (Auto) 0.300, Neut % (Auto) 54.3, Lymph % (Auto) 33.4, Holt % (Auto) 9.5, Eos % (Auto) 1.9, Baso % (Auto) 0.6, Absolute Neuts (auto) 4.3, Absolute Lymphs (auto) 2.61, Nucleated RBC % 0 09/13/22 05:05: Sodium 137, Potassium 3.8, Chloride 104, Carbon Dioxide 25.0, Anion Gap 8, BUN 20 H, Creatinine 0.84, Estim Creat Clear Calc 34.55, Est GFR (MDRD) Af Amer 82, Est GFR (MDRD) Non-Af 68, BUN/Creatinine Ratio 23.7 H, Glucose 97, Calcium 8.6, Total Bilirubin 0.60, AST 21, ALT 20, Alkaline Phosphatase 96, Total Protein 6.6, Albumin 3.3, Globulin 3.3, Albumin/Globulin Ratio 1.0 D/C Instructions Discharge Diet: - (DASH Diet) Meaningful Use Info Meaningful Use Diagnoses (Choose all that apply): None applicable Discharge Plan Admission Admit Date/Time: 09/11/22 20:50 Primary Reason for Your Visit: Room spinning, headache, chest tightness Attending Provider: Christine Santos Primary Care Provider: Joey Snyder Consulting Providers: Reyna Valenzuela ; Tee Waldron Instructions Patient Instructions: Controlling High Blood Pressure, DASH Plan Eat Heart Healthy Food Additional Instructions / Restrictions: ?You will be discharged on a low-dose of a blood pressure medication, losartan, that you will take daily. ? It is strongly advised that you begin monitoring your blood pressure and follow closely with her primary care physician -Please call your primary care provider's office upon discharge to schedule a hospital follow up within 1 week. -For any concerning signs or symptoms please call 911 or proceed to the nearest emergency department Discharge Orders/Prescriptions Prescriptions: New losartan 25 mg Tablet 25 mg PO DAILY 30 Days Qty: 30 0RF Referrals / Follow Up: Joey Snyder, [Primary Care Provider] - Within 1 Week Disposition Disposition (needs filled in before D/C Order can be placed): Home, Self Care Charges/Coding Visit Charges Inpatient E&M: 70887 Disch Hosp >30min 09/13/22 1341 <Electronically signed by Christine Santos MD> Cosigner Signature (if applicable): CC: Dr. Joey Snyder, DO; Dr. Christine Santos MD~ Signed [facility] Work Phone: Evaluation + Plan note No data available for this section [facility] Evaluation note* Diagnosis Onset Date Resolution Status Fatigue acute [facility] Work Phone: Evaluation noteNo assessment information available [facility] Work Phone: Evaluation note* Diagnosis Onset Date Resolution Status CVA (cerebral vascular accident) acute Dizziness of unknown cause a cute Headache acute Hypertensive emergency acute Hypertensive urgency acute [facility] Work Phone: Evaluation note* Diagnosis Onset Date Resolution Status Hypertensive emergency acute Hypertensive urgency resolve d 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 Vertigo acute Hearing loss chronic Hypertensive urgency resolve d [facility] Work Phone: Evaluation note* Diagnosis Onset Date Resolution Status Hypertensive emergency acute Hypertensive urgency resolve d 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 Vertigo acute Hearing loss chronic Hypertensive urgency resolve d Dyspnea noneactive HTN (hypertension) noneactiv e Dyspnea on exertion acute Hypertension [facility] Work Phone: Evaluation note* Diagnosis Onset Date Resolution Status Dyspnea noneactive HTN (hypertension) noneactiv e Dyspnea on exertion acute Hypertension chronic Chest pain acute Hyperlipidemia chronic Hypertension [facility] Work Phone: Evaluation note* Diagnosis Onset Date Resolution Status Dyspnea noneactive HTN (hypertension) noneactiv e Dyspnea on exertion acute Hypertension chronic Chest pain acute Hyperlipidemia chronic Hypertension chronic Chest pain acute [facility] Work Phone: Evaluation note* Diagnosis Onset Date Resolution Status Chest pain acute Hyperlipidemia chronic Hypertension chronic Chest pain acute [facility] Work Phone: Hospital Discharge instructions No data available for this section [facility] Progress note Author Guicho Peraza [facility] March 17, 2023 11:42am Note Date/Time March 17, 2023 11: 42am [facility] Medical Records Department [address] [place] [address] Progress Note - Cardiology 03/17/23 1140 MR#: [id number] Acct: [id number] Name: MANFRED CONTI Rep #:[id number] : 1940 82 From: Guicho Peraza MD PCP: Dr. Joey Snyder, DO Status:AD M TARAN Location: [place] [address] Subjective Subjective Patient seen and evaluated. Appears to be doing well. Had an episode of chest discomfort yesterday now resolved. Objective Data Vital Signs: Vital Signs Temp Pulse Resp BP Pulse Ox O2 Del Method 97.8 F 86 17 136/71 H 97 Room Air 03/17/23 09:20 03/17/23 09:20 03/17/23 09:20 03/17/23 09:20 03/17/23 09:20 03/17/23 09:20 Oxygen Delivery Method Room Air Weight: 97 lb Body Mass Index (BMI) 17.2 Intake & Output: Intake and Output for Last 24 Hours 03/15/23 03/16/23 03/17/23 23:59 23:59 23:59 Intake Total 1509.33 / 1609.33 100 / 100 Balance 1509.33 / 1609.33 100 / 100 Lab / Micro Data 03/17/23 05:10 03/17/23 05:10 Labs: Laboratory Results - last 24 hr 03/17/23 05:10: WBC 9.5, RBC 4.26, Hgb 13.1, Hct 38.9, MCV 91.3, MCH 30.8, MCHC 33.7, RDW Std Deviation 44.2 H, RDW Coeff of Jane 13.2, Plt Count 277, MPV 8.9, Sodium 136, Potassium 3.8, Chloride 105, Carbon Dioxide 25.0, Anion Gap 6, BUN 20 H, Creatinine 0.83, Estim Creat Clear Calc 35.05, Est GFR (MDRD) Af Amer 84, Est GFR (MDRD) Non-Af 69, BUN/Creatinine Ratio 24.1 H, Glucose 89, Calcium 8.5, Total Bilirubin 0.60, AST 20, ALT 20, Alkaline Phosphatase 95, Total Protein 6.4, Albumin 3.2, Globulin 3.2, Albumin/Globulin Ratio 1.0 Cardiology Labs/Tests 03/17/23 05:10: WBC 9.5, RBC 4.26, Hgb 13.1, Hct 38.9, MCV 91.3, MCH 30.8, MCHC 33.7, Plt Count 277, MPV 8.9, Sodium 136, Potassium 3.8, Chloride 105, Carbon Dioxide 25.0, Anion Gap 6, BUN 20 H, Creatinine 0.83, Est GFR (MDRD) Af Amer 84,Est GFR (MDRD) Non-Af 69, BUN/Creatinine Ratio 24.1 H, Glucose 89, Calcium 8.5, Total Bilirubin 0.60 Rhythm: EKG: ECHO: Stress Test: Cardiac Cath: PCI: CT Surgery: Holter monitor: EPS: PPM: CXR: Chest CT Scan: Physical Exam Const alert, oriented x3 and no apparent distress General Appearance: cooperative HEENT hearing grossly normal bilaterally Head and Scalp: atraumatic Eyes EOMs intact bilaterally Neck General: normal visual inspection Chest inspection of chest normal and palpation of chest normal Resp normal respiratory effort Auscultation: clear to auscultation bilaterally Cardio regular rate, regular rhythm, S1 normal heart sound and S2 normal heart sound Jugular Venous Distention: JVD GI normal to inspection, nondistended, normoactive bowel sounds Extremity normal capillary refill and no pedal edema Peripheral Pulses: Yes pulses 2+ throughout and femoral pulses present Skin no rashes or lesions noted Neuro oriented x3 and CN's II-XII intact bilaterally Psych Appearance: grossly normal and appropriate Assessment & Plan Assessment/Plan (1) Chest pain: QUALIFIERS: Chest pain type: chest pain due to myocardial ischemia Ischemic chest pain type: unstable angina pectoris Qualified Code(s): I20.0 - Unstable angina PLAN: Patient underwent cardiac catheterization yesterday which demonstrated 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 The plan be to continue her on aspirin, ticagrelor, and her low- dose calcium channel madina. The patient will be followed up as an outpatient and also with cardiac rehabilitation. Thank you for allowing me to participate in the care of your patient. Please don't hesitate to call if any issues arise. 03/17/23 1142 <Electronically signed by Guicho Peraza MD> Cosigner Signature (if applicable): CC: ~ Signed [facility] Work Phone: Progress note No data available for this section [facility] Reason for referral (narrative)No reason for referral [facility] Work Phone: Summary Purpose Family History No Family History Records Found Relationship Condition Age at Onset Recorded Date/T eliezer mother Hypertension Unknown father Malignant neoplasm Unknown Relationship Condition Age at Onset Recorded Date/T eliezer mother Hypertension Unknown father Malignant neoplasm Unknown Rheumatoid arthritis Unknown Advance Directives No Advanced Directives Records Found Advance Directive Response Recorded Date/ Time Living Will Yes December 19, 2015 8: 24pm Power of Flour Blender Helper Yes December 19, 2015 8:24pm Advance Directive Response Recorded Date/ Time Living Will Yes December 19, 2015 7: 24pm Power of Flour Blender Helper Yes December 19, 2015 7:24pm Advance Directive Response Recorded Date/ Time Name of Medical Power of Flour Blender Helper [place] er September 11, 2022 11:29pm Living Will Yes September 11 11:29pm Power of Flour Blender Helper Yes September 11, 2022 11:29pm Advance Directive Response Recorded Date/ Time Name of Medical Power of Flour Blender Helper [place] er September 12, 2022 12:29am Living Will Yes September 12 12:29am Power of Flour Blender Helper Yes September 12, 2022 12:29am Advance Directive Response Recorded Date/ Time Living Will Yes September 12 12:29am Power of Flour Blender Helper Yes September 12, 2022 12:29am Advance Directive Response Recorded Date/ Time Advance Directives on File No Augus 2022 7:28am Name of Medical Power of Flour Blender Helper You Conti, spouse March 16, 2023 10:37am Advance Directives Yes March 16, 023 7:28am Living Will Yes March 16, 2023 10:37am Power of Flour Blender Helper Yes March 16 10:37am Advance Directive Response Recorded Date/ Time Advance Directives Yes March 16, 023 6:28am Living Will Yes March 16, 2023 9:37am Power of Flour Blender Helper Yes March 16 9:37am Advance Directive Response Recorded Date/ Time Advance Directives Yes March 16 7:28am Advance Directive Response Recorded Date/ Time Living Will No November 27, 2024 1:47pm Do you have a Healthcare Power of Flour Blender Helper? No November 27, 2024 1:47pm Advance Directives Yes March 16 7:28am Chief Complaint and Reason for Visit Chief Complaint check up Reason for Visit Fatigue Chief Complaint RETINAL ARTEY OCCLUS ION, HEADACHE RT EYE RETINAL ARTERY BRANCH OCCLUSION Chief Complaint RETINAL ARTEY OCCLUS ION, HEADACHE RT EYE RETINAL ARTERY BRANCH OCCLUSION VERTIGO, HTN EMERGENCY VERTIGO, HTN EMERGENCY VERTIGO, HTN EMERGENCY VERTIGO, HTN EMERGENCY Reason for Visit CVA (cerebral vascul ar accident) Dizziness of unknown cause Headache Hypertensive emergency Hypertensive urgency Chief Complaint RETINAL ARTEY OCCLUS ION, HEADACHE RT EYE RETINAL ARTERY BRANCH OCCLUSION VERTIGO, HTN EMERGENCY VERTIGO, HTN EMERGENCY VERTIGO, HTN EMERGENCY VERTIGO, HTN EMERGENCY [facility] FU VERTIGO / RX HERE Reason for Visit Hypertensive emergen cy Hypertensive urgency 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 Vertigo Hearing loss Hypertensive urgency Chief Complaint RETINAL ARTEY OCCLUS ION, HEADACHE RT EYE RETINAL ARTERY BRANCH OCCLUSION VERTIGO, HTN EMERGENCY VERTIGO, HTN EMERGENCY VERTIGO, HTN EMERGENCY VERTIGO, HTN EMERGENCY [facility] FU VERTIGO / RX HERE Shortness of breath bp chk chk up DYSPNEA/SOB Reason for Visit Hypertensive emergen cy Hypertensive urgency 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 Vertigo Hearing loss Hypertensive urgency Dyspnea HTN (hypertension) Dyspnea on exertion Hypertension Chief Complaint Shortness of breath bp chk chk up DYSPNEA/SOB JACQUES / CP (SANCHEZ) Reason for Visit Dyspnea HTN (hypertension) Dyspnea on exertion Hypertension Chest pain Hyperlipidemia Hypertension Chief Complaint Shortness of breath bp chk chk up DYSPNEA/SOB JACQUES / CP (SANCHEZ) CHEST PAIN CHEST PAIN Reason for Visit Dyspnea HTN (hypertension) Dyspnea on exertion Hypertension Chest pain Hyperlipidemia Hypertension Chest pain Chief Complaint JACQUES / CP (SANCHEZ) CHEST PAIN CHEST PAIN SOB Shortness of breath Reason for Visit Chest pain Hyperlipidemia Hypertension Chest pain Chief Complaint 4 M FU Reason for Visit Stented coronary art jah Hyperlipidemia Hypertension Chief Complaint Admit Date Wheezing October 30, 2024 10: 53am Chief Complaint Admit Date Wheezing October 30, 2024 10: 53am 7 M FU November 13, 2024 8:19 am chest pain November 27, 2024 1:4 5pm Reason for Visit Admit Date Stented coronary artery November 13, 2024 8:19am Hyperlipidemia November 13, 2024 8:19 am Hypertension November 13, 2024 8:19 am Chief Complaint Admit Date Wheezing October 30, 2024 10: 53am 7 M FU November 13, 2024 8:19 am chest pain November 27, 2024 1:4 5pm [facility] ER 11/27/ See Clinical Note November 9:16am CP/CAD December 23, 2024 6:06a m CP/CAD December 23, 2024 10:46 am Reason for Visit Admit Date Stented coronary artery November 13, 2024 8:19am Hyperlipidemia November 13, 2024 8:19 am Hypertension November 13, 2024 8:19 am Chest pain December 05, 2024 9:1 6am Stented coronary artery December 05, 2024 9:16am Hyperlipidemia December 05, 2024 9:1 6am Hypertension December 05, 2024 9:1 6am Chief Complaint Admit Date chest pain November 27, 2024 1:4 5pm [facility] ER 11/27/ See Clinical Note November 9:16am CP/CAD December 23, 2024 6:06a m CP/CAD December 23, 2024 10:46 am Reason for Visit Admit Date Chest pain December 05, 2024 9:1 6am Stented coronary artery December 05, 2024 9:16am Hyperlipidemia December 05, 2024 9:1 6am Hypertension December 05, 2024 9:1 6am Chief Complaint Admit Date 6 M FU May 19, 2025 8: 25am Reason for Visit Admit Date Stented coronary artery May 19 8:25am Hyperlipidemia May 19, 2025 8: 25am Hypertension May 19, 2025 8: 25am Additional Source Comments INFORMATION SOURCE (unrecogn ized section and content) DATE CREATED AUTHOR 02/06/2018 [employer] DATE CREATED AUTHOR AUTHOR'S ORGANIZ ATION 08/12/2023 [employer] ([place]) DATE CREATED AUTHOR AUTHOR'S ORGANIZ ATION 05/21/2025 Jaime [facility] Goals (unrecognized section and content) Goals may be documented in a n alternate sectionGoals may be documented in an alternate sectionGoals may be documented in an alternate sectionGoals may be documented in an alternate sectionGoals may be documented in an alternate sectionGoals may be documented in an alternate sectionGoals may be documented in an alternate section No data available for this sectionGoals may be documented in an alternate sectionGoals may be documented in an alternate sectionGoals may be documented in an alternate sectionGoals may be documented in an alternate sectionGoals may be documented in an alternate sectionGoals may be documented in an alternate section Care Teams (unrecognized sec tion and content) Team Status: Active Member Role Status Dates Dr. Joey Snyder , DO Family Provider Active Dr. Joey Snyder , DO Primary Care Provider Active Team Status: Active Member Role Status Dates Dr. Joey Snyder , DO Primary Care Provider Active Dr. Kole Yip MD Attending Provider Active Team Status: Inactive Member Role Status Dates Dr. Joey Snyder , DO Primary Care Provider Active Dr. Bill Ryder MD Attending Provider, Referring Pr ovider Active Team Status: Active Member Role Status Dates Dr. Joey Snyder , DO Primary Care Provider Active Dr. Bill Ryder MD Attending Provider Active Team Status: Inactive Member Role Status Dates Dr. Joey Snyder , DO Primary Care Provider Active Dr. Bill Ryder MD Attending Provider Active Team Status: Active Member Role Status Dates Dr. Joey Snyder , DO Primary Care Provider Active Dr. Guicho Peraza MD Attending Provider Active Team Status: Active Member Role Status Dates Dr. Joey Snyder , DO Primary Care Provider Active Dr. Armando Zuniga , DO Emergency Provider Active Dr. Reyna Valenzuela MD Admit Provider, Other Provider Active Dr. Tee Waldron MD Other Provider Active Dr. Christine Santos MD Attending Provider, Other Provid er Active Team Status: Active Member Role Status Dates Dr. Joey Snyder , DO Primary Care Provider Active Dr. Armando Zuniga , DO Emergency Provider Active Dr. Reyna Valenzuela MD Admit Provider, Other Provider Active Dr. Tee Waldron MD Attending Provider, Other Provid er Active Dr. Christine Santos MD Other Provider Active Team Status: Active Member Role Status Dates Dr. Joey Snyder , DO Primary Care Provider Active Dr. Armando Zuniga , DO Emergency Provider Active Dr. Reyna Valenzuela MD Admit Provider, Other Provider Active Dr. Christine Santos MD Attending Provider, Other Provid er Active Dr. Tee Waldron MD Other Provider Active Team Status: Inactive Member Role Status Dates Dr. Joey Snyder , DO Primary Care Provider Active Dr. Armando Zuniga , DO Emergency Provider Active Dr. Reyna Valenzuela MD Admit Provider, Other Provider Active Dr. Christine Santos MD Attending Provider Active Dr. Tee Waldron MD Other Provider Active Team Status: Active Member Role Status Dates Dr. Joey Snyder , DO Primary Care Provider Active Dr. Kole Yip MD Attending Provider Active Dr. Bill Ryder MD Referring Provider Active Team Status: Active Member Role Status Dates Dr. Joey Snyder , DO Primary Care Provider Active Dr. Armando Zuniga , DO Emergency Provider Active Dr. Reyna Valenzuela MD Admit Provider, Referring Provider, Other Provider Active Dr. Tee Waldron MD Attending Provider, Other Provid er Active Dr. Christine Santos MD Other Provider Active Team Status: Inactive Member Role Status Dates Dr. Joey Snyder , DO Primary Care Pr ovider, Attending Provider, Referring Provider Active Team Status: Inactive Member Role Status Dates Dr. Joey Snyder , DO Primary Care Provider, Referr ing Provider Active Berny Salmeron MANAGER SOUND, MANAGER SOUND-C Attending Provider Active Team Status: Active Member Role Status Dates Dr. Joey Snyder , DO Primary Care Provider Active Dr. César Perez MD Attending Provider Activ e Team Status: Inactive Member Role Status Dates Dr. Joey Snyder , DO Primary Care Provider, Referr ing Provider Active Dr. Guicho Peraza MD Attending Provider Active Team Status: Inactive Member Role Status Dates Dr. Joey Snyder , DO Primary Care Provider Active Dr. Mu Tracey MD Attending Provider Active Team Status: Active Member Role Status Dates Dr. Joey Snyder , DO Primary Care Provider Active Dr. Guicho Peraza MD Admit Provider, Att ending Provider, Referring Provider, Other Provider Active Team Status: Inactive Member Role Status Dates Dr. Joey Snyder , DO Primary Care Provider Active Dr. Guicho Peraza MD Admit Provider, Att ending Provider, Referring Provider Active Team Status: Active Member Role Status Dates Dr. Joey Snyder , DO Primary Care Provider Active Dr. Mu Tracey MD Referring Provider, Other Provid er Active Dr. Julio Cesar Snyder , DO Attending Provider Active Team Status: Inactive Member Role Status Dates Dr. Joey Snyder DO Primary Care Provider Active Dr. Mu Tracey MD Attending Provider, Referring Pr ovider Active Team Status: Inactive Member Role Status Dates Dr. Joey Snyder DO Primary Care Provider, Referr ing Provider Active Brooke Turner MANAGER SOUND, MANAGER SOUND-C Attending Provider Active Team Status: Active Member Role Status Dates Dr. Joey Snyder DO Family Provider Active Dr. Mu Tracey MD Primary Care Provider Active Team Status: Inactive Member Role Status Dates Dr. Mu Tracey MD Primary Care Provider Active Start: September 09, 2024 End: September 09, 2024 Dr. Mu Tracey MD Attending Provider Active Start: September 09, 2024 End: September 09, 2024 Dr. Mu Tracey MD Referring Provider Active Start: September 09, 2024 End: September 09, 2024 Team Status: Inactive Member Role Status Dates Dr. Mu Tracey MD Primary Care Provider Active Start: October 30, 2024 End: October 30, 2024 Dr. Mu Tracey MD Attending Provider Active Start: October 30, 2024 End: October 30, 2024 Dr. Mu Tracey MD Referring Provider Active Start: October 30, 2024 End: October 30, 2024 Team Status: Active Member Role Status Dates Dr. uM Tracey MD Primary Care Provider Active Team Status: Inactive Member Role Status Dates Dr. Mu Tracey MD Primary Care Provider Active Start: November 13, 2024 End: November 13, 2024 Dr. Mu Tracey MD Referring Provider Active Start: November 13, 2024 End: November 13, 2024 Brooke Turner MANAGER SOUND, MANAGER SOUND-C Attending Provider Active Start: November 13, 2024 End: November 13, 2024 Team Status: Inactive Member Role Status Dates Dr. Mu Tracey MD Primary Care Provider Active Start: November 27, 2024 End: November 27, 2024 Jam Abarca MD Emergency Provider Active Star t: November 27, 2024 End: November 27, 2024 Team Status: Inactive Member Role Status Dates Dr. Mu Tracey MD Primary Care Provider Active Start: November 27, 2024 End: November 27, 2024 Jam Abarca MD Attending Provider Active Star t: November 27, 2024 End: November 27, 2024 Jam Abarca MD Emergency Provider Active Star t: November 27, 2024 End: November 27, 2024 Team Status: Inactive Member Role Status Dates Dr. Mu Tracey MD Primary Care Provider Active Start: December 05, 2024 End: December 05, 2024 Dr. Mu Tracey MD Referring Provider Active Start: December 05, 2024 End: December 05, 2024 Sammi Anglin PA, PA Attending Provider Active Start: December 05, 2024 End: December 05, 2024 Team Status: Inactive Member Role Status Dates Dr. Mu Tracey MD Primary Care Provider Active Start: December 23, 2024 End: December 23, 2024 Sammi Anglin PA, PA Attending Provider Active Start: December 23, 2024 End: December 23, 2024 Sammi Agnlin PA, PA Referring Provider Active Start: December 23, 2024 End: December 23, 2024 Team Status: Active Member Role Status Dates Dr. Mu Tracey MD Primary Care Provider Active Start: December 23, 2024 Sammi Anglin PA, PA Referring Provider Active Start: December 23, 2024 Sammi Anglin PA, PA Other Provider Active Start: December 23, 2024 Brooke Turner MANAGER SOUND, MANAGER SOUND-C Other Provider Active Sta rt: December 23, 2024 Dr. Guicho Peraza MD Attending Provider Active S tart: December 23, 2024 Team Status: Active Member Role/Relationship Status Dates Dr. Mu Tracey MD Primary Care Provider Active Team Status: Inactive Member Role/Relationship Status Dates Dr. Mu Tracey MD Primary Care Provider Active Start: November 27, 2024 End: November 27, 2024 Jam Abarca MD Attending Provider Active Star t: November 27, 2024 End: November 27, 2024 Jam Abarca MD Emergency Provider Active Star t: November 27, 2024 End: November 27, 2024 Team Status: Inactive Member Role/Relationship Status Dates Dr. Mu Tracey MD Primary Care Provider Active Start: December 05, 2024 End: December 05, 2024 Dr. Mu Tracey MD Referring Provider Active Start: December 05, 2024 End: December 05, 2024 Sammi Anglin PA, PA Attending Provider Active Start: December 05, 2024 End: December 05, 2024 Team Status: Inactive Member Role/Relationship Status Dates Dr. Mu Tracey MD Primary Care Provider Active Start: December 23, 2024 End: December 23, 2024 Sammi CROWELL PA Attending Provider Active Start: December 23, 2024 End: December 23, 2024 Sammi CROWELL PA Referring Provider Active Start: December 23, 2024 End: December 23, 2024 Team Status: Active Member Role/Relationship Status Dates Dr. Mu Tracey MD Primary Care Provider Active Start: December 23, 2024 Sammi CROWELL PA Referring Provider Active Start: December 23, 2024 MERVAT Olson Other Provider Active Start: December 23, 2024 Brooke Turner NP, [employer] Other Provider Active Sta rt: December 23, 2024 Dr. Guicho Peraza MD Attending Provider Active S tart: December 23, 2024 Team Status: Inactive Member Role/Relationship Status Dates Dr. Mu Tracey MD Primary Care Provider Active Start: March 11, 2025 End: March 11, 2025 Dr. Mu Tracey MD Attending Provider Active Start: March 11, 2025 End: March 11, 2025 Team Status: Active Member Role/Relationship Status Dates Dr. Mu Tracey MD Primary care physician Active Team Status: Inactive Member Role/Relationship Status Dates Dr. Mu Tracey MD Primary care physician Active Start: March 11, 2025 End: March 11, 2025 Dr. Mu Tracey MD Attending physician Active Start: March 11, 2025 End: March 11, 2025 Team Status: Inactive Member Role/Relationship Status Dates Dr. Mu Tracey MD Primary care physician Active Start: May 19, 2025 End: May 19, 2025 Dr. Mu Tracey MD Referring Provider Active Start: May 19, 2025 End: May 19, 2025 Brooke Turner NP, [employer] Attending physician Active Start: May 19, 2025 End: May 19, 2025 FOR RECORDS PERTAINING TO PATIENTS WHO ARE [...] BE BASED ON THE PRIMARY CLINICAL RECORDS. [employer] [facility]. provides no warranty or guarantee of the accuracy or completeness of information in this document.
[2025-06-29 11:19] LABS: AST(SGOT) 26 U/L (<=31); Alanine Aminotransfer ALT/SGPT 16 U/L (<=34); Albumin, Serum 4.0 g/dL (3.4-4.8); Alkaline Phosphatase 120 U/L (35-104); Anion Gap 8 (5-15); BUN 20 mg/dL (4-19); BUN/Creat Ratio 20.5 RATIO (10-20); Calcium,Total 9.3 mg/dL (7.6-11.0); Carbon Dioxide 26.8 mmol/L (21.0-32.0); Chloride 106 mmol/L (98-108); Globulin 2.9 g/dL (2.2-4.2); Glucose 89 mg/dL (70-99); Potassium 4.3 mmol/L (3.3-5.1); Vitamin D,25 Hydroxy 25.6 ng/mL (30-100)
[2025-06-29 17:46] LABS: Xtra Tube Kwok EXTRA TUBE
== END | disposition home or self-care (01) ==
LOC: POLAB3 09:46
PROVIDERS: PCP Family Medicine Geriatric Medicine; Visit Provider Family Medicine Geriatric Medicine
DX: I10 Essential (primary) hypertension (principal); E55.9 Vitamin D deficiency, unspecified
CPT/HCPCS: 36415; 80053; 82306; 84443; 85025